=== PATIENT | male | born 1950 | race Caucasian/White ===

== ENCOUNTER 2016-10-26 14:10 | Inpatient (IN) | payer OTHER ==
[~2016-10-26] VITALS: Ht 180.3 cm; Wt 94.4 kg
[2016-10-26 20:29] VITALS: BMI 61.7
[2016-10-26 21:09] VITALS: BP 105/69; PULSE 104; RESP 18
[2016-10-26] MEDS ORDERED: VANCOMYCIN IV PER PHARMACY XX SCH (23:30)
[2016-10-26] MEDS ORDERED: SOD CHLORIDE 0.9% 1,000 ML IV SCH (23:30)
[2016-10-26] MEDS ORDERED: ONDANSETRON 4 MG INJ IV PRN (23:30)
[2016-10-26] MEDS: morphine 4 MG/ML VIAL IV PRN (23:46)
[2016-10-27] MEDS ORDERED: VANCOMYCIN 2 GM in SOD CHLORIDE 0.9% 500 ML IVPB SCH (01:00)
[2016-10-27 01:05] LABS: BASOPHILS % 0.1 % (0.0-2.0); HEMATOCRIT 33.5 % (42.0-52.0); LYMPHOCYTES # 0.6 10^3/ul (0.8-2.9); LYMPHOCYTES % 3.7 % (15.0-51.0); MEAN CORPUSCULAR HEMOGLOBIN 28.6 pg (29.0-33.0); MEAN CORPUSCULAR HGB CONC 32.9 g/dl (32.0-37.0); MEAN PLATELET VOLUME 9.4 fl (7.4-10.4); MONOCYTE # 0.9 10^3/ul (0.3-0.9); MONOCYTES % 5.6 % (0.0-11.0); NEUTROPHIL # 14.7 10^3/ul (1.6-7.5); NEUTROPHILS % 90.6 % (39.0-77.0); PLATELET COUNT 156 10^3/UL (140-440); RED BLOOD COUNT 3.85 10^6/ul (4.70-6.10); RED CELL DISTRIBUTION WIDTH 13.8 % (11.5-14.5); UNCORRECTED WBC 16.2 10^3/ul (4.8-10.8); WHITE BLOOD COUNT 16.2 10^3/ul (4.8-10.8)
[2016-10-27 01:11] LABS: CONDITION 1; LH ANALYZER COMMENTS 1; SUSPECT 1
[2016-10-27 01:29] LABS: POTASSIUM 3.6 mmol/L (3.5-5.1)
[2016-10-27 01:31] LABS: BILIRUBIN,INDIRECT 0.6 mg/dl (0-1.1); BILIRUBIN,TOTAL 0.6 mg/dl (0.2-1.3); CREATININE 0.95 mg/dl (0.61-1.24)
[2016-10-27 01:32] LABS: ALBUMIN/GLOBULIN RATIO 0.88; CALCIUM 8.3 mg/dl (8.4-10.2); MAGNESIUM 2.3 mg/dl (1.7-2.5); PHOSPHORUS 2.3 mg/dl (2.5-4.9); TOTAL PROTEIN 6.4 g/dl (6.1-8.1)
[2016-10-27] MEDS: morphine 4 MG/ML VIAL IV PRN ×2 (05:09→22:09)
[2016-10-27 08:26] VITALS: BP 111/63; RESP 21
[2016-10-27 09:02] VITALS: Ht 180.3 cm; Wt 94.4 kg
[2016-10-27] MEDS: CEFEPIME 1GM/50 ML (PMX) 50 ML IVPB SCH ×2 (09:11→21:58)
[2016-10-27] MEDS: HEPARIN 5,000 UNIT/0.5 ML SYG SC SCH ×2 (09:14→21:58)
--- NOTE | 2016-10-27 10:30 | HP ---
DATE OF ADMISSION: 10/26/2016 CHIEF COMPLAINT: Right knee swelling, redness and pain. HISTORY OF PRESENT ILLNESS: The patient is a 66-year-old male, who is a Muslim with a hi story of right knee surgery 3 years ago, who initially presented to an outside hospital with the abo ve stated chief complaint. He said the symptom have been progressively getting worse. The patient was transferred here for insurance reasons. He also reported that the area of the right knee is war m and also he has been noticing some redness below his knee as well. There was an initial plan to d o arthrocentesis at the outside hospital, but for some reason it was not done and the patient was tr ansferred here. He denied any chest pain, shortness of breath, nausea or vomiting. He stated that currently his pain is much better with the pain regimen that he is on right now. REVIEW OF SYSTEMS: A 12-point review of systems was performed, negative except as mentioned in HPI. PAST MEDICAL HISTORY: As per HPI. PAST SURGICAL HISTORY: Right knee surgery 20 years ago. SOCIAL HISTORY: Denied a history of tobacco, alcohol or illicit drug use. ALLERGIES: NO KNOWN DRUG ALLERGIES. HOME MEDICATIONS: None. PHYSICAL EXAMINATION: GENERAL: The patient lying in bed in no acute distress. He is cooperative and answering questions appropriately. He is alert and oriented. HEENT: No obvious head deformity. Pupils are reactive to light. Extraocular muscles intact. CARDIOVASCULAR: Regular rate and rhythm. LUNGS: Clear. ABDOMEN: Soft, nontender, nondistended. Positive bowel sounds. EXTREMITIES: Right knee is swollen and there is erythema including his right hart. His right knee is also warm to touch. There is also some pitting edema around his right ankle. LABORATORY DATA: WBC 16.2, hemoglobin 11. Sodium 132. Otherwise, basic labs are within acceptable range. IMPRESSION: 1. Right knee/right lower extremity cellulitis. 2. Sepsis, secondary to above. 3. Normocytic anemia, likely from chronic disease, but we will workup for GI bleed and iron deficie ncy. 4. Hyponatremia. PLAN: He will be placed on a broad-spectrum antibiotics. We will obtain an x-ray and based on the results, we will do arthrocentesis. We will send blood culture. We will place an infectious diseas e consult. Additional imaging will be done. We will send ferritin, iron profile and check FOBT for workup of his anemia. We will correct electrolytes as needed. We will also provide pain medicatio n as needed. Note that the patient is a Muslim. Further workup and management will be per clinical course. Dictated By: MANDY VIDAL/REJI Conf#: [id number] DID#: [id number]
--- NOTE | 2016-10-27 10:54 | RADRPT ---
PROCEDURE: Right knee x-ray CLINICAL INDICATION: Swelling. TECHNIQUE: Two views of the right knee were obtained. COMPARISON: No. FINDINGS: The patient is status post total knee replacement . There is soft tissue swelling but no foreign kiarra dy or subcutaneous emphysema is noted. There is a joint space effusion. There is normal mineralization. No acute fracture or dislocation is seen. The components of the ar throplasty appear anatomically aligned without evidence of loosening. IMPRESSION: 1. Status post total right knee arthroplasty with a moderate sized joint space effusion and soft tis ez swelling. RPTAT:AAJJ Physician Cayd Date Time Electronically viewed and signed by Physician Cady on 10/27/2016 10:54 /
--- NOTE | 2016-10-27 10:55 | RADRPT ---
PROCEDURE: XR right Tibia and Fibula. CLINICAL INDICATION: Swelling. TECHNIQUE: AP and lateral views of the right tibia and fibula were obtained. COMPARISON: No prior studies are available for comparison. FINDINGS: There is a partially visualized tibial component of the right knee arthroplasty. The bony elements are normal. Ankle mortise is normal. There is generalized soft tissue swelling with no fracture or radiographic evidence of osteomyelitis. IMPRESSION: 1. Diffuse soft tissue swelling of the right leg without evidence of a fracture, subcutaneous emphys siomara or osteomyelitis. 2. Partially visualized tibial component of a right knee arthroplasty. No evidence of loosening. RPTAT:AAJJ Physician Cady Date Time Electronically viewed and signed by Enio Arreola Physician on 10/27/2016 10:55 JM/
[2016-10-27] MEDS ORDERED: SOD CHLORIDE 0.9% IVPB ONE (13:00)
[2016-10-27] MEDS ORDERED: POTASSIUM PHOSPHATE IVPB ONE (13:00)
--- NOTE | 2016-10-27 14:44 | CONS ---
DATE OF ADMISSION: 10/26/2016 DATE OF CONSULTATION: 10/27/2016 TYPE OF CONSULTATION: Infectious Disease. REASON FOR CONSULTATION: Antibiotic management. HISTORY OF PRESENT ILLNESS: Pankaj Solitario is a 66-year-old male who comes in with right knee swelling and redness as well as pain. He is a Amish. He has a history of right knee surgery 3 years ago and presented to the outside hospital with complaints of right knee swelling, redness and pain which were progressively getting worse. The knee was warm. He also had right knee surgery, acc ording to the chart, 20 years ago. On admission, his white count was 16.2, H and H of 11 and 33.5, platelet count of 156,000. BUN and creatinine was 32/0.95. X-ray of the tibia and fibula shows diffuse soft tissue swelling of the right leg without evidence o f a fracture, subcutaneous emphysema or osteomyelitis partially visualized tibial component of the r ight knee arthroplasty. No evidence of loosening. X-ray of the knee, status post total right knee replacement and arthroplasty with a moderate sized joint space effusion and soft tissue swelling. PAST MEDICAL HISTORY: Operations as outlined. FAMILY HISTORY: Noncontributory. SOCIAL HISTORY: He does not smoke, drink or abuse drugs. ALLERGIES: NONE TO PENICILLIN, SULFA OR FOODS. MEDICATIONS: Per chart. REVIEW OF SYSTEMS: As per HPI. PHYSICAL EXAMINATION: GENERAL: The patient is a well-developed, well-nourished male who is alert, responsive, in no acute distress. VITAL SIGNS: Stable. He is afebrile. SKIN: Without generalized rash. HEENT: Within normal limits. NECK: Supple. LYMPH NODES: None palpable. CHEST: Decreased breath sounds at the bases. HEART: Without murmur or gallop. ABDOMEN: Soft, nontender, without organosplenomegaly or masses. EXTREMITIES: Right knee is swollen and erythematous, warm to the touch. There is some pitting desmond a around the right ankle. RECTAL AND GENITAL: Deferred. NEUROLOGIC: No focal neurological abnormalities. LABORATORY DATA: His white count was 16.2, H and H of 11 and 33.5, platelet count 156 with 91% poly s. BUN and creatinine 32/0.95. IMPRESSION AND PLAN: My feeling is that the patient needs aspiration of the knee. Blood cultures s hould be sent. I would prefer that the antibiotics would not start until after the arthrocentesis. T he patient is only on vancomycin and cefepime. I believe one blood culture was sent. I will dictate my findings to the hospitalist. Dictated By: ABIMAEL MARTINS MD, JD/REJI Conf#: [id number] DID#: [id number]
[2016-10-27] MEDS: VANCOMYCIN 1.25 GM in SOD CHLORIDE 0.9% 250 ML IVPB SCH (14:54)
--- NOTE | 2016-10-27 15:25 | PN ---
Date/Time of Note Date/Time of Note DATE: 10/27/16 TIME: 15:07 Assessment/Plan VTE Prophylaxis VTE Prophylaxis Intervention: heparin Lines/Catheters IV C[facility] Type (from [facility] Peripheral IV Urinary Cath still in place: No Assessment/Plan Chief Complaint/Hosp Course 1. Right lower extremity cellulitis -ID consult, cont Abx with Vanco and Cefepime for now 2. Sepsis, secondary to above. 3. Normocytic anemia, likely from chronic disease -monitor 4. Hyponatremia-mild PPx- Heparin Problems: Subjective 24 Hr Interval Summary Constitutional: no complaints Exam/Review of Systems Vital Signs Vitals Vital Signs Date Time Temp Pulse Resp B/P Pulse Ox O2 Delivery O2 Flow Rate FiO2 10/27/16 08:26 99.3 21 111/63 91 10/26/16 21:09 104 Room Air Intake and Output 10/26/16 10/26/16 10/27/16 15:00 23:00 07:00 Intake Total 1700 ml Output Total 550 ml Balance 1150 ml Exam Constitutional: alert, oriented Respiratory: clear to auscultation Cardiovascular: regular rate and rhythm Gastrointestinal: soft, No distended Musculoskeletal: No nl extremities to inspection Results Result Diagram: 10/27/16 0051 10/27/16 0051 Results 24 hrs Laboratory Tests Test 10/27/16 00:51 Alanine Aminotransferase (ALT/SGPT) 36 Albumin 3.0 L Albumin/Globulin Ratio 0.88 Alkaline Phosphatase 85 Anion Gap 14 Aspartate Amino Transf (AST/SGOT) 45 Basophils # 0.0 Basophils % 0.1 Blood Morphology Comment Blood Urea Nitrogen 32 H Calcium Level 8.3 L Carbon Dioxide Level 27 Chloride Level 95 L Creatinine 0.95 Direct Bilirubin 0.00 Eosinophils # 0.0 Eosinophils % 0.0 Globulin 3.40 H Glucose Level 145 Hematocrit 33.5 L Hemoglobin 11.0 L Indirect Bilirubin 0.6 Lymphocytes # 0.6 L Lymphocytes % 3.7 L Magnesium Level 2.3 Mean Corpuscular Hemoglobin 28.6 L Mean Corpuscular Hemoglobin Concent 32.9 Mean Corpuscular Volume 87.0 Mean Platelet Volume 9.4 Monocytes # 0.9 Monocytes % 5.6 Neutrophils # 14.7 H Neutrophils % 90.6 H Nucleated Red Blood Cells # 0.0 Nucleated Red Blood Cells % 0.0 Phosphorus Level 2.3 L Platelet Count 156 Potassium Level 3.6 Red Blood Count 3.85 L Red Cell Distribution Width 13.8 Sodium Level 132 L Total Bilirubin 0.6 Total Protein 6.4 White Blood Count 16.2 H Medications Medications Current Medications Influenza Virus Vaccine (Fluzone) 0.5 ml ONCE ONCE IM* ; Start 10/28/16 at 09:00 ; Stop 10/28/16 at 09:01 Morphine Sulfate (morphine) 4 mg Q4H PRN IV PAIN Last administered on 05:09; Admin Dose 4 MG; Start 10/26/16 at 23:30 Ondansetron HCl (Zofran Inj) 4 mg Q6H PRN IV NAUSEA AND/OR VOMITING; Start at 23:30 Heparin Sodium (Porcine) 5000 unit 5,000 unit BID SC Last administered on 09:14; Admin Dose 5,000 UNIT; Start 10/27/16 at 09:00 Cefepime HCl 50 ml @ 100 mls/hr Q12 IVPB Last administered on 10/27/16 09:11 ; Admin Dose 100 MLS/HR; Start 10/27/16 at 09:00 Vancomycin HCl/ Sodium Chloride (Vancocin/NS) 250 ml @ 83.333 mls/ hr Q12H IVPB Last administered on 10/27/16 14:54; Admin Dose 83.333 MLS/HR; Start at 14:00 Miscellaneous Information VANCO TROUGH @ 1,300 ON... ONCE ONCE XX ; Start at 13:00; Stop 10/28/16 at 13:01 Potassium Phosphate/Sodium Chloride (K Phos (Meq)/NS) 250 ml @ 62.5 mls/hr ONCE ONCE IVPB Last administered on 10/27/16 12:52; Admin Dose 62.5 MLS/HR; Start 10/27/16 at 13:00; Stop 10/27/16 at 16:59 PHIL OWENS Oct 27, 2016 15:18
[2016-10-27 20:24] VITALS: BP 127/64; RESP 20
[2016-10-28 00:10] LABS: ADD UMIC YES; URINE BILIRUBIN (Dip) NEGATIVE (NEGATIVE); URINE BLOOD (Dip) 3+ (NEGATIVE); URINE COLOR YELLOW (YELLOW); URINE GLUCOSE (Dip) NEGATIVE (NEGATIVE); URINE KETONES (Dip) NEGATIVE (NEGATIVE); URINE LEUKOCYTE ESTERASE (Dip) NEGATIVE (NEGATIVE); URINE NITRITE (Dip) NEGATIVE (NEGATIVE); URINE TOTAL PROTEIN (Dip) 2+ (NEGATIVE); URINE UROBILINOGEN (Dip) 1.0 E.U./dL (0.1-1.0)
[2016-10-28 00:25] LABS: BACTERIA,URINE MODERATE; SQUAMOUS EPITHELIAL CELL,UR OCCASIONAL
[2016-10-28] MEDS: VANCOMYCIN 1.25 GM in SOD CHLORIDE 0.9% 250 ML IVPB SCH ×2 (02:03→14:05)
[2016-10-28 06:12] LABS: HEMATOCRIT 32.4 % (42.0-52.0); HEMOGLOBIN 10.9 g/dl (14.0-18.0); LYMPHOCYTES % 7.9 % (15.0-51.0); MEAN CORPUSCULAR HEMOGLOBIN 29.2 pg (29.0-33.0); MEAN CORPUSCULAR HGB CONC 33.7 g/dl (32.0-37.0); MEAN CORPUSCULAR VOLUME 86.7 fl (82.0-101.0); MEAN PLATELET VOLUME 9.9 fl (7.4-10.4); MONOCYTES % 8.1 % (0.0-11.0); NEUTROPHIL # 10.6 10^3/ul (1.6-7.5); PLATELET COUNT 165 10^3/UL (140-440); RED BLOOD COUNT 3.74 10^6/ul (4.70-6.10); RED CELL DISTRIBUTION WIDTH 14.1 % (11.5-14.5); UNCORRECTED WBC 12.6 10^3/ul (4.8-10.8); WHITE BLOOD COUNT 12.6 10^3/ul (4.8-10.8)
[2016-10-28] MEDS: morphine 4 MG/ML VIAL IV PRN ×2 (06:27→21:50)
[2016-10-28 06:28] LABS: CONDITION 1
[2016-10-28 06:35] LABS: POTASSIUM 3.9 mmol/L (3.5-5.1)
[2016-10-28 06:37] LABS: CREATININE 0.78 mg/dl (0.61-1.24)
[2016-10-28 06:38] LABS: CALCIUM 7.9 mg/dl (8.4-10.2); PHOSPHORUS 2.6 mg/dl (2.5-4.9)
[2016-10-28 06:39] LABS: MAGNESIUM 2.4 mg/dl (1.7-2.5)
[2016-10-28 07:30] VITALS: BP 119/74; RESP 20
[2016-10-28] MEDS: HEPARIN 5,000 UNIT/0.5 ML SYG SC SCH ×2 (08:45→21:33)
[2016-10-28] MEDS: CEFEPIME 1GM/50 ML (PMX) 50 ML IVPB SCH ×2 (08:45→21:24)
[2016-10-28] MEDS ORDERED: INFLUENZA VIRUS VACCINE 0.5 ML (DISPENSING) IM* ONE (09:00)
--- NOTE | 2016-10-28 13:30 | PN ---
DATE: 10/28/2016 INFECTIOUS DISEASE PROGRESS NOTE SUBJECTIVE: No acute changes. The patient is lying comfortably in bed, afebrile. Vital signs stab le. WBC today 12.6, neutrophils 84, BUN 18, creatinine 0.78. MICROBIOLOGY: Blood culture negative. Nares swab pending. DIAGNOSTICS: X-ray of the knee revealed status post total right knee arthroplasty with a moderate-s ized joint space effusion and soft tissue swelling. ANTIMICROBIALS: The patient is on IV vancomycin and cefepime. PHYSICAL EXAMINATION: GENERAL: Well-developed elderly man who is alert, in no distress. HEENT: Head atraumatic, normocephalic. Sclerae anicteric. Buccal mucosa pink. NECK: Supple, trachea midline. CHEST: Rise symmetrical. Breath sounds clear. HEART: S1, S2. ABDOMEN: Soft, bowel tones present. EXTREMITIES: With right lower extremity edema with some fluctuance of the knee and erythema below k nee. ASSESSMENT: 1. Right knee cellulitis with effusions, rule out infected arthroplasty. 2. Systemic inflammatory response syndrome secondary to above. 3. History of right total knee replacement. PLAN: The patient remains stable, covered with appropriate antibiotics. Consider ortho evaluation for further recommendations. According to patient he had a synovial fluid aspiration at [facility]. We will try to obtain final results. Dictated By: SHAKIRA EDOUARD STERNMAN for ABIMAEL PLATA/REJI Conf#: [id number] DID#: [id number]
--- NOTE | 2016-10-28 15:54 | PN ---
Date/Time of Note Date/Time of Note DATE: 10/28/16 TIME: 15:51 Assessment/Plan VTE Prophylaxis VTE Prophylaxis Intervention: heparin Lines/Catheters IV [facility] Saline Lock Urinary Cath still in place: No Assessment/Plan Chief Complaint/Hosp Course 1. Right lower extremity cellulitis-Improving -ID consult appreciated, cont Abx with Vanco and Cefepime -Will obtain Cx's from outside facility-[facility] 2. Sepsis, secondary to above. 3. Normocytic anemia, likely from chronic disease -monitor 4. Hyponatremia-mild PPx- Heparin Problems: Subjective 24 Hr Interval Summary Constitutional: no complaints Exam/Review of Systems Vital Signs Vitals Vital Signs Date Time Temp Pulse Resp B/P Pulse Ox O2 Delivery O2 Flow Rate FiO2 10/28/16 07:30 98.6 76 20 119/74 96 10/26/16 21:09 Room Air Intake and Output 10/27/16 10/27/16 10/28/16 15:00 23:00 07:00 Intake Total 1250 ml 850 ml Output Total 400 ml 600 ml Balance 850 ml 250 ml Exam Constitutional: alert, oriented Respiratory: clear to auscultation Cardiovascular: regular rate and rhythm Gastrointestinal: soft, No distended Musculoskeletal: No nl extremities to inspection Results Result Diagram: 10/28/16 0530 10/28/16 0530 Results 24 hrs Laboratory Tests Test 10/27/16 21:55 10/28/16 05:30 10/28/16 13:08 Urine Bacteria MODERATE Urine Bilirubin NEGATIVE Urine Clarity CLOUDY H Urine Color YELLOW Urine Glucose NEGATIVE Urine Hemoglobin 3+ H Urine Ketones NEGATIVE Urine Leukocyte Esterase NEGATIVE Urine Microscopic RBC 5-10 Urine Microscopic WBC 0-2 Urine Nitrite NEGATIVE Urine Specific [place] 1.025 Urine Squamous Epithelial Cells OCCASIONAL Urine Total Protein 2+ H Urine Urobilinogen 1.0 E.U./dL Urine pH 6.0 Anion Gap 10 Basophils # 0.0 Basophils % 0.0 Blood Urea Nitrogen 18 # Calcium Level 7.9 L Carbon Dioxide Level 29 Chloride Level 98 Creatinine 0.78 Eosinophils # 0.0 Eosinophils % 0.0 Glucose Level 130 Hematocrit 32.4 L Hemoglobin 10.9 L Lymphocytes # 1.0 Lymphocytes % 7.9 L Magnesium Level 2.4 Mean Corpuscular Hemoglobin 29.2 Mean Corpuscular Hemoglobin Concent 33.7 Mean Corpuscular Volume 86.7 Mean Platelet Volume 9.9 Monocytes # 1.0 H Monocytes % 8.1 Neutrophils # 10.6 H Neutrophils % 84.0 H Nucleated Red Blood Cells # 0.0 Nucleated Red Blood Cells % 0.0 Phosphorus Level 2.6 Platelet Count 165 Potassium Level 3.9 Red Blood Count 3.74 L Red Cell Distribution Width 14.1 Sodium Level 133 L White Blood Count 12.6 #H Vancomycin Level Trough 10.9 Medications Medications Current Medications Morphine Sulfate (morphine) 4 mg Q4H PRN IV PAIN Last administered on 06:27; Admin Dose 4 MG; Start 10/26/16 at 23:30 Ondansetron HCl (Zofran Inj) 4 mg Q6H PRN IV NAUSEA AND/OR VOMITING; Start at 23:30 Heparin Sodium (Porcine) 5000 unit 5,000 unit BID SC Last administered on 08:45; Admin Dose 5,000 UNIT; Start 10/27/16 at 09:00 Cefepime HCl 50 ml @ 100 mls/hr Q12 IVPB Last administered on 10/28/16 08:45 ; Admin Dose 100 MLS/HR; Start 10/27/16 at 09:00 Vancomycin HCl/ Sodium Chloride (Vancocin/NS) 250 ml @ 83.333 mls/ hr Q12H IVPB Last administered on 10/28/16 14:05; Admin Dose 83.333 MLS/HR; Start at 14:00 PHIL OWENS Oct 28, 2016 15:54
[2016-10-28 19:59] VITALS: BP 128/72; RESP 16
[2016-10-28] MEDS ORDERED: MAGNESIUM HYDROXIDE 30ML CUP PO ONE (23:00)
[2016-10-29] MEDS: HYDROCODONE/APAP (10/325) TAB PO PRN ×2 (00:06→20:36)
[2016-10-29] MEDS: SENNA TAB PO SCH ×2 (00:08→09:54)
[2016-10-29] MEDS: VANCOMYCIN 1.25 GM in SOD CHLORIDE 0.9% 250 ML IVPB SCH ×2 (01:34→13:17)
[2016-10-29 05:42] LABS: POTASSIUM 3.7 mmol/L (3.5-5.1)
[2016-10-29 05:45] LABS: CREATININE 0.65 mg/dl (0.61-1.24)
[2016-10-29 05:46] LABS: CALCIUM 7.8 mg/dl (8.4-10.2)
[2016-10-29 06:07] LABS: BASOPHILS % 0.4 % (0.0-2.0); EOSINOPHILS % 0.5 % (0.0-7.0); HEMATOCRIT 31.4 % (42.0-52.0); HEMOGLOBIN 10.5 g/dl (14.0-18.0); LYMPHOCYTES # 1.3 10^3/ul (0.8-2.9); LYMPHOCYTES % 13.3 % (15.0-51.0); MEAN CORPUSCULAR HEMOGLOBIN 29.1 pg (29.0-33.0); MEAN CORPUSCULAR HGB CONC 33.5 g/dl (32.0-37.0); MEAN CORPUSCULAR VOLUME 86.7 fl (82.0-101.0); MEAN PLATELET VOLUME 9.6 fl (7.4-10.4); MONOCYTES % 10.7 % (0.0-11.0); NEUTROPHIL # 7.3 10^3/ul (1.6-7.5); NEUTROPHILS % 75.1 % (39.0-77.0); PLATELET COUNT 207 10^3/UL (140-440); RED BLOOD COUNT 3.62 10^6/ul (4.70-6.10); RED CELL DISTRIBUTION WIDTH 14.1 % (11.5-14.5); UNCORRECTED WBC 9.7 10^3/ul (4.8-10.8); WHITE BLOOD COUNT 9.7 10^3/ul (4.8-10.8)
[2016-10-29 06:12] LABS: CONDITION 1
[2016-10-29 09:39] VITALS: BP 137/69; RESP 20
[2016-10-29] MEDS: CEFEPIME 1GM/50 ML (PMX) 50 ML IVPB SCH ×2 (09:49→20:35)
[2016-10-29] MEDS: HEPARIN 5,000 UNIT/0.5 ML SYG SC SCH ×2 (09:53→20:35)
--- NOTE | 2016-10-29 11:23 | CONS ---
Date/Time of Note Date/Time of Note DATE: 10/29/16 TIME: 11:22 Assessment/Plan Assessment/Plan Chief Complaint/Hosp Course SUBJECTIVE: No acute changes. The patient is lying comfortably in bed, afebrile. Vital signs stable. MICROBIOLOGY: Blood culture negative. Nares swab negative. DIAGNOSTICS: X-ray of the knee revealed status post total right knee arthroplasty with a moderate-sized joint space effusion and soft tissue swelling. ANTIMICROBIALS: The patient is on IV vancomycin and cefepime. PHYSICAL EXAMINATION: GENERAL: Well-developed elderly man who is alert, in no distress. HEENT: Head atraumatic, normocephalic. Sclerae anicteric. Buccal mucosa pink. NECK: Supple, trachea midline. CHEST: Rise symmetrical. Breath sounds clear. HEART: S1, S2. ABDOMEN: Soft, bowel tones present. EXTREMITIES: With right lower extremity edema with some fluctuance of the knee and erythema below knee. ASSESSMENT: 1. Right knee cellulitis with effusions, rule out infected arthroplasty. 2. Systemic inflammatory response syndrome secondary to above. 3. History of right total knee replacement. PLAN: The patient remains stable, covered with appropriate antibiotics. Consider ortho evaluation for further recommendations. Patient had a synovial fluid aspiration at [facility]. We will try to obtain final results. MARY BETH RN Problems: Consultation Date/Type/Reason Admit Date/Time Oct 26, 2016 at 19:59 Initial Consult Date Type of Consultation: ID Exam/Review of Systems Vital Signs Vitals Vital Signs Date Time Temp Pulse Resp B/P Pulse Ox O2 Delivery O2 Flow Rate FiO2 10/29/16 09:39 98.2 93 20 137/69 96 10/26/16 21:09 Room Air Intake and Output 10/28/16 10/28/16 10/29/16 15:00 23:00 07:00 Intake Total 50 ml 1020 ml 930 ml Output Total 4 ml 800 ml Balance 50 ml 1016 ml 130 ml Results Result Diagram: 10/29/16 0451 10/29/16 0451 Results 24 hrs Laboratory Tests Test 10/28/16 13:08 10/29/16 04:51 Vancomycin Level Trough 10.9 Anion Gap 11 Basophils # 0.0 Basophils % 0.4 Blood Urea Nitrogen 14 Calcium Level 7.8 L Carbon Dioxide Level 27 Chloride Level 100 Creatinine 0.65 Eosinophils # 0.0 Eosinophils % 0.5 Glucose Level 116 Hematocrit 31.4 L Hemoglobin 10.5 L Lymphocytes # 1.3 Lymphocytes % 13.3 L Mean Corpuscular Hemoglobin 29.1 Mean Corpuscular Hemoglobin Concent 33.5 Mean Corpuscular Volume 86.7 Mean Platelet Volume 9.6 Monocytes # 1.0 H Monocytes % 10.7 Neutrophils # 7.3 Neutrophils % 75.1 Nucleated Red Blood Cells # 0.0 Nucleated Red Blood Cells % 0.0 Platelet Count 207 # Potassium Level 3.7 Red Blood Count 3.62 L Red Cell Distribution Width 14.1 Sodium Level 134 L White Blood Count 9.7 # Medications Medications Current Medications Morphine Sulfate (morphine) 4 mg Q4H PRN IV PAIN Last administered on 21:50; Admin Dose 4 MG; Start 10/26/16 at 23:30 Ondansetron HCl (Zofran Inj) 4 mg Q6H PRN IV NAUSEA AND/OR VOMITING; Start at 23:30 Heparin Sodium (Porcine) 5000 unit 5,000 unit BID SC Last administered on 09:53; Admin Dose 5,000 UNIT; Start 10/27/16 at 09:00 Cefepime HCl 50 ml @ 100 mls/hr Q12 IVPB Last administered on 10/29/16 09:49 ; Admin Dose 100 MLS/HR; Start 10/27/16 at 09:00 Vancomycin HCl/ Sodium Chloride (Vancocin/NS) 250 ml @ 83.333 mls/ hr Q12H IVPB Last administered on 10/29/16 01:34; Admin Dose 83.333 MLS/HR; Start at 14:00 Senna (Senokot) 2 tab DAILY PO Last administered on 10/29/16 09:54; Admin Dose 2 TAB; Start 10/29/16 at 00:00 Acetaminophen/ Hydrocodone Bitart ([place] (10/325)) 1 tab Q6H PRN PO PAIN Last administered on 10/29/16 00:06; Admin Dose 1 TAB; Start 10/28/16 at 23:30 SHAKIRA EDOUARD NP Oct 29, 2016 11:23
--- NOTE | 2016-10-29 15:33 | PN ---
Date/Time of Note Date/Time of Note DATE: 10/29/16 TIME: 15:29 Assessment/Plan VTE Prophylaxis VTE Prophylaxis Intervention: heparin Lines/Catheters IV C[facility] Type (from [facility]): Saline Lock Urinary Cath still in place: No Assessment/Plan Chief Complaint/Hosp Course 1. Right lower extremity cellulitis involving the knee -Joint fluid aspirate from [place] confirms infection of the Prosthetic knee -Knee replacement done [address] Mixon at [facility], per in house Ortho pt will need to be seen by him or another Ortho who specializes in prosthetic knee replacements -ID consult appreciated, cont Abx with Vanco and Cefepime 2. Sepsis, secondary to above -cont Abx 3. Normocytic anemia, likely from chronic disease -monitor 4. Hyponatremia-mild PPx- Heparin Problems: Subjective 24 Hr Interval Summary Musculoskeletal: bone/joint pain Exam/Review of Systems Vital Signs Vitals Vital Signs Date Time Temp Pulse Resp B/P Pulse Ox O2 Delivery O2 Flow Rate FiO2 10/29/16 09:39 98.2 93 20 137/69 96 10/26/16 21:09 Room Air Intake and Output 10/28/16 10/28/16 10/29/16 15:00 23:00 07:00 Intake Total 50 ml 1020 ml 930 ml Output Total 4 ml 800 ml Balance 50 ml 1016 ml 130 ml Exam Constitutional: alert, oriented Respiratory: clear to auscultation Cardiovascular: regular rate and rhythm Gastrointestinal: soft, No distended Musculoskeletal: joint tenderness, No nl extremities to inspection Results Result Diagram: 10/29/16 0451 10/29/16 0451 Results 24 hrs Laboratory Tests Test 10/29/16 04:51 Anion Gap 11 Basophils # 0.0 Basophils % 0.4 Blood Urea Nitrogen 14 Calcium Level 7.8 L Carbon Dioxide Level 27 Chloride Level 100 Creatinine 0.65 Eosinophils # 0.0 Eosinophils % 0.5 Glucose Level 116 Hematocrit 31.4 L Hemoglobin 10.5 L Lymphocytes # 1.3 Lymphocytes % 13.3 L Mean Corpuscular Hemoglobin 29.1 Mean Corpuscular Hemoglobin Concent 33.5 Mean Corpuscular Volume 86.7 Mean Platelet Volume 9.6 Monocytes # 1.0 H Monocytes % 10.7 Neutrophils # 7.3 Neutrophils % 75.1 Nucleated Red Blood Cells # 0.0 Nucleated Red Blood Cells % 0.0 Platelet Count 207 # Potassium Level 3.7 Red Blood Count 3.62 L Red Cell Distribution Width 14.1 Sodium Level 134 L White Blood Count 9.7 # Medications Medications Current Medications Morphine Sulfate (morphine) 4 mg Q4H PRN IV PAIN Last administered on 21:50; Admin Dose 4 MG; Start 10/26/16 at 23:30 Ondansetron HCl (Zofran Inj) 4 mg Q6H PRN IV NAUSEA AND/OR VOMITING; Start at 23:30 Heparin Sodium (Porcine) 5000 unit 5,000 unit BID SC Last administered on 09:53; Admin Dose 5,000 UNIT; Start 10/27/16 at 09:00 Cefepime HCl 50 ml @ 100 mls/hr Q12 IVPB Last administered on 10/29/16 09:49 ; Admin Dose 100 MLS/HR; Start 10/27/16 at 09:00 Vancomycin HCl/ Sodium Chloride (Vancocin/NS) 250 ml @ 83.333 mls/ hr Q12H IVPB Last administered on 10/29/16 13:17; Admin Dose 83.333 MLS/HR; Start at 14:00 Senna (Senokot) 2 tab DAILY PO Last administered on 10/29/16 09:54; Admin Dose 2 TAB; Start 10/29/16 at 00:00 Acetaminophen/ Hydrocodone Bitart ([place] (10/325)) 1 tab Q6H PRN PO PAIN Last administered on 10/29/16 00:06; Admin Dose 1 TAB; Start 10/28/16 at 23:30 PHIL OWENS Oct 29, 2016 15:33
[2016-10-29 19:34] VITALS: BP 150/78; RESP 20
[2016-10-29] MEDS: morphine 4 MG/ML VIAL IV PRN (22:54)
[2016-10-30] MEDS: VANCOMYCIN 1.25 GM in SOD CHLORIDE 0.9% 250 ML IVPB SCH ×2 (02:26→13:57)
[2016-10-30 06:16] LABS: BASOPHILS % 0.4 % (0.0-2.0); EOSINOPHILS # 0.1 10^3/ul (0.0-0.5); EOSINOPHILS % 0.9 % (0.0-7.0); HEMATOCRIT 32.1 % (42.0-52.0); HEMOGLOBIN 10.6 g/dl (14.0-18.0); LYMPHOCYTES # 1.3 10^3/ul (0.8-2.9); LYMPHOCYTES % 13.5 % (15.0-51.0); MEAN CORPUSCULAR HGB CONC 33.2 g/dl (32.0-37.0); MEAN CORPUSCULAR VOLUME 87.3 fl (82.0-101.0); MEAN PLATELET VOLUME 8.8 fl (7.4-10.4); MONOCYTES % 11.1 % (0.0-11.0); NEUTROPHIL # 6.9 10^3/ul (1.6-7.5); NEUTROPHILS % 74.1 % (39.0-77.0); PLATELET COUNT 294 10^3/UL (140-440); RED BLOOD COUNT 3.67 10^6/ul (4.70-6.10); RED CELL DISTRIBUTION WIDTH 14.1 % (11.5-14.5); UNCORRECTED WBC 9.3 10^3/ul (4.8-10.8); WHITE BLOOD COUNT 9.3 10^3/ul (4.8-10.8)
[2016-10-30 06:27] LABS: CONDITION 1
[2016-10-30 06:30] LABS: POTASSIUM 3.6 mmol/L (3.5-5.1)
[2016-10-30 06:32] LABS: CREATININE 0.64 mg/dl (0.61-1.24)
[2016-10-30 06:33] LABS: CALCIUM 7.9 mg/dl (8.4-10.2)
[2016-10-30 07:43] VITALS: BP 135/78; RESP 20
[2016-10-30] MEDS: SENNA TAB PO SCH (08:37)
[2016-10-30] MEDS: HEPARIN 5,000 UNIT/0.5 ML SYG SC SCH ×2 (08:38→22:38)
[2016-10-30] MEDS: CEFEPIME 1GM/50 ML (PMX) 50 ML IVPB SCH ×2 (08:45→23:36)
[2016-10-30] MEDS: morphine 4 MG/ML VIAL IV PRN ×3 (10:24→20:28)
--- NOTE | 2016-10-30 13:51 | CONS ---
Date/Time of Note Date/Time of Note DATE: 10/30/16 TIME: 13:50 Assessment/Plan Assessment/Plan Chief Complaint/Hosp Course SUBJECTIVE: No acute changes. The patient is lying comfortably in bed, afebrile. Vital signs stable. MICROBIOLOGY: Blood culture negative. Nares swab negative. DIAGNOSTICS: X-ray of the knee revealed status post total right knee arthroplasty with a moderate-sized joint space effusion and soft tissue swelling. ANTIMICROBIALS: IV vancomycin and cefepime. PHYSICAL EXAMINATION: GENERAL: Well-developed elderly man who is alert, in no distress. HEENT: Head atraumatic, normocephalic. Sclerae anicteric. Buccal mucosa pink. NECK: Supple, trachea midline. CHEST: Rise symmetrical. Breath sounds clear. HEART: S1, S2. ABDOMEN: Soft, bowel tones present. EXTREMITIES: With right lower extremity edema with some fluctuance of the knee and erythema below knee. ASSESSMENT: 1. Right knee cellulitis with effusions, rule out infected arthroplasty. 2. Systemic inflammatory response syndrome secondary to above. 3. History of right total knee replacement. PLAN: The patient remains stable, covered with appropriate antibiotics. Needs to f/u with his ortho surgeon Dr Mixon for further rec-s DW RN Problems: Consultation Date/Type/Reason Admit Date/Time Oct 26, 2016 at 19:59 Type of Consultation: ID Exam/Review of Systems Vital Signs Vitals Vital Signs Date Time Temp Pulse Resp B/P Pulse Ox O2 Delivery O2 Flow Rate FiO2 10/30/16 10:12 98.7 10/30/16 07:43 81 20 135/78 96 10/26/16 21:09 Room Air Intake and Output 10/29/16 10/29/16 10/30/16 15:00 23:00 07:00 Intake Total 50 ml 1100 ml 550.000 ml Output Total 1000 ml 800 ml Balance 50 ml 100 ml -250.000 ml Results Result Diagram: 10/30/16 0514 10/30/16 0514 Results 24 hrs Laboratory Tests Test 10/30/16 05:14 Anion Gap 12 Basophils # 0.0 Basophils % 0.4 Blood Morphology Comment Blood Urea Nitrogen 11 Calcium Level 7.9 L Carbon Dioxide Level 28 Chloride Level 100 Creatinine 0.64 Eosinophils # 0.1 Eosinophils % 0.9 Glucose Level 102 Hematocrit 32.1 L Hemoglobin 10.6 L Lymphocytes # 1.3 Lymphocytes % 13.5 L Mean Corpuscular Hemoglobin 29.0 Mean Corpuscular Hemoglobin Concent 33.2 Mean Corpuscular Volume 87.3 Mean Platelet Volume 8.8 Monocytes # 1.0 H Monocytes % 11.1 H Neutrophils # 6.9 Neutrophils % 74.1 Nucleated Red Blood Cells # 0.0 Nucleated Red Blood Cells % 0.0 Platelet Count 294 # Potassium Level 3.6 Red Blood Count 3.67 L Red Cell Distribution Width 14.1 Sodium Level 136 White Blood Count 9.3 Medications Medications Current Medications Morphine Sulfate (morphine) 4 mg Q4H PRN IV PAIN Last administered on 10:24; Admin Dose 4 MG; Start 10/26/16 at 23:30 Ondansetron HCl (Zofran Inj) 4 mg Q6H PRN IV NAUSEA AND/OR VOMITING; Start at 23:30 Heparin Sodium (Porcine) 5000 unit 5,000 unit BID SC Last administered on 08:38; Admin Dose 5,000 UNIT; Start 10/27/16 at 09:00 Cefepime HCl 50 ml @ 100 mls/hr Q12 IVPB Last administered on 10/30/16 08:45 ; Admin Dose 100 MLS/HR; Start 10/27/16 at 09:00 Vancomycin HCl/ Sodium Chloride (Vancocin/NS) 250 ml @ 83.333 mls/ hr Q12H IVPB Last administered on 10/30/16 02:26; Admin Dose 83.333 MLS/HR; Start at 14:00 Senna (Senokot) 2 tab DAILY PO Last administered on 10/30/16 08:37; Admin Dose 2 TAB; Start 10/29/16 at 00:00 Acetaminophen/ Hydrocodone Bitart ([place] (10/325)) 1 tab Q6H PRN PO PAIN Last administered on 10/29/16 20:36; Admin Dose 1 TAB; Start 10/28/16 at 23:30 SHAKIRA EDOUARD NP Oct 30, 2016 13:51
--- NOTE | 2016-10-30 15:10 | PN ---
Date/Time of Note Date/Time of Note DATE: 10/30/16 TIME: 15:09 Assessment/Plan VTE Prophylaxis VTE Prophylaxis Intervention: heparin Lines/Catheters IV [facility] Urinary Cath still in place: No Assessment/Plan Chief Complaint/Hosp Course 1. Right lower extremity cellulitis involving the knee -Joint fluid aspirate from [place] confirms infection of the Prosthetic knee -Knee replacement done [address] Mixon at [place], per in house Ortho pt will need to be seen by him or another Ortho who specializes in prosthetic knee replacements -ID consult appreciated, cont Abx with Vanco and Cefepime -CM to arrange for transfer or out-pt F/U with Ortho 2. Sepsis, secondary to above -cont Abx 3. Normocytic anemia, likely from chronic disease -monitor 4. Hyponatremia-mild PPx- Heparin Problems: Subjective 24 Hr Interval Summary Musculoskeletal: bone/joint pain Exam/Review of Systems Vital Signs Vitals Vital Signs Date Time Temp Pulse Resp B/P Pulse Ox O2 Delivery O2 Flow Rate FiO2 10/30/16 10:12 98.7 10/30/16 07:43 81 20 135/78 96 10/26/16 21:09 Room Air Intake and Output 10/29/16 10/29/16 10/30/16 15:00 23:00 07:00 Intake Total 50 ml 1100 ml 550.000 ml Output Total 1000 ml 800 ml Balance 50 ml 100 ml -250.000 ml Exam Constitutional: alert, oriented Respiratory: clear to auscultation Cardiovascular: regular rate and rhythm Gastrointestinal: soft, No distended Musculoskeletal: No nl extremities to inspection Results Result Diagram: 10/30/16 0514 10/30/16 0514 Results 24 hrs Laboratory Tests Test 10/30/16 05:14 Anion Gap 12 Basophils # 0.0 Basophils % 0.4 Blood Morphology Comment Blood Urea Nitrogen 11 Calcium Level 7.9 L Carbon Dioxide Level 28 Chloride Level 100 Creatinine 0.64 Eosinophils # 0.1 Eosinophils % 0.9 Glucose Level 102 Hematocrit 32.1 L Hemoglobin 10.6 L Lymphocytes # 1.3 Lymphocytes % 13.5 L Mean Corpuscular Hemoglobin 29.0 Mean Corpuscular Hemoglobin Concent 33.2 Mean Corpuscular Volume 87.3 Mean Platelet Volume 8.8 Monocytes # 1.0 H Monocytes % 11.1 H Neutrophils # 6.9 Neutrophils % 74.1 Nucleated Red Blood Cells # 0.0 Nucleated Red Blood Cells % 0.0 Platelet Count 294 # Potassium Level 3.6 Red Blood Count 3.67 L Red Cell Distribution Width 14.1 Sodium Level 136 White Blood Count 9.3 Medications Medications Current Medications Morphine Sulfate (morphine) 4 mg Q4H PRN IV PAIN Last administered on 10:24; Admin Dose 4 MG; Start 10/26/16 at 23:30 Ondansetron HCl (Zofran Inj) 4 mg Q6H PRN IV NAUSEA AND/OR VOMITING; Start at 23:30 Heparin Sodium (Porcine) 5000 unit 5,000 unit BID SC Last administered on 08:38; Admin Dose 5,000 UNIT; Start 10/27/16 at 09:00 Cefepime HCl 50 ml @ 100 mls/hr Q12 IVPB Last administered on 10/30/16 08:45 ; Admin Dose 100 MLS/HR; Start 10/27/16 at 09:00 Vancomycin HCl/ Sodium Chloride (Vancocin/NS) 250 ml @ 83.333 mls/ hr Q12H IVPB Last administered on 10/30/16 13:57; Admin Dose 83.333 MLS/HR; Start at 14:00 Senna (Senokot) 2 tab DAILY PO Last administered on 10/30/16 08:37; Admin Dose 2 TAB; Start 10/29/16 at 00:00 Acetaminophen/ Hydrocodone Bitart ([place] (10/325)) 1 tab Q6H PRN PO PAIN Last administered on 10/29/16 20:36; Admin Dose 1 TAB; Start 10/28/16 at 23:30 PHIL OWENS Oct 30, 2016 15:10
[2016-10-30 21:05] VITALS: BP 143/78; RESP 20
[2016-10-30] MEDS: ACETAMINOPHEN 325 MG TAB PO PRN (22:35)
[2016-10-30] MEDS: HYDROCODONE/APAP (10/325) TAB PO PRN (23:44)
[2016-10-31] MEDS: VANCOMYCIN 1.25 GM in SOD CHLORIDE 0.9% 250 ML IVPB SCH ×2 (03:10→14:43)
[2016-10-31 07:30] VITALS: BP 132/75; RESP 18
[2016-10-31] MEDS: morphine 4 MG/ML VIAL IV PRN ×2 (08:17→14:59)
[2016-10-31] MEDS: SENNA TAB PO SCH (08:18)
[2016-10-31 08:25] LABS: BASOPHIL # 0.1 10^3/ul (0.0-0.1); BASOPHILS % 0.5 % (0.0-2.0); EOSINOPHILS # 0.1 10^3/ul (0.0-0.5); EOSINOPHILS % 1.3 % (0.0-7.0); HEMATOCRIT 34.5 % (42.0-52.0); HEMOGLOBIN 11.4 g/dl (14.0-18.0); LYMPHOCYTES # 1.4 10^3/ul (0.8-2.9); LYMPHOCYTES % 12.9 % (15.0-51.0); MEAN CORPUSCULAR HEMOGLOBIN 28.9 pg (29.0-33.0); MEAN CORPUSCULAR HGB CONC 33.1 g/dl (32.0-37.0); MEAN CORPUSCULAR VOLUME 87.2 fl (82.0-101.0); MEAN PLATELET VOLUME 9.1 fl (7.4-10.4); MONOCYTE # 0.9 10^3/ul (0.3-0.9); MONOCYTES % 8.2 % (0.0-11.0); NEUTROPHIL # 8.4 10^3/ul (1.6-7.5); NEUTROPHILS % 77.1 % (39.0-77.0); PLATELET COUNT 341 10^3/UL (140-440); RED BLOOD COUNT 3.95 10^6/ul (4.70-6.10); RED CELL DISTRIBUTION WIDTH 14.1 % (11.5-14.5); UNCORRECTED WBC 10.9 10^3/ul (4.8-10.8); WHITE BLOOD COUNT 10.9 10^3/ul (4.8-10.8)
[2016-10-31 08:28] LABS: CONDITION 1
[2016-10-31 08:31] LABS: POTASSIUM 3.8 mmol/L (3.5-5.1)
[2016-10-31 08:33] LABS: CREATININE 0.65 mg/dl (0.61-1.24)
[2016-10-31 08:34] LABS: CALCIUM 7.9 mg/dl (8.4-10.2)
[2016-10-31] MEDS: CEFEPIME 1GM/50 ML (PMX) 50 ML IVPB SCH ×2 (09:22→20:07)
[2016-10-31] MEDS: HEPARIN 5,000 UNIT/0.5 ML SYG SC SCH ×2 (09:23→20:10)
[2016-10-31] MEDS: HYDROCODONE/APAP (10/325) TAB PO PRN ×2 (10:51→17:49)
--- NOTE | 2016-10-31 17:27 | PN ---
Date/Time of Note Date/Time of Note DATE: 10/31/16 TIME: 17:26 Assessment/Plan VTE Prophylaxis VTE Prophylaxis Intervention: heparin Lines/Catheters IV C[facility]ter Type (from [facility]): Sal[place] [facility] Urinary Cath still in place: No Assessment/Plan Chief Complaint/Hosp Course 1. Right lower extremity cellulitis involving the knee -Joint fluid aspirate from [place] confirms infection of the Prosthetic knee -Knee replacement done [address] Mixon at [place], per in house Ortho pt will need to be seen by him or another Ortho who specializes in prosthetic knee replacements -ID consult appreciated, cont Abx with Vanco and Cefepime -CM to arrange for transfer or out-pt F/U with Ortho 2. Sepsis, secondary to above -cont Abx 3. Normocytic anemia, likely from chronic disease -monitor 4. Hyponatremia-mild PPx- Heparin Problems: Subjective 24 Hr Interval Summary Musculoskeletal: bone/joint pain Exam/Review of Systems Vital Signs Vitals Vital Signs Date Time Temp Pulse Resp B/P Pulse Ox O2 Delivery O2 Flow Rate FiO2 10/31/16 07:30 98.5 90 18 132/75 96 Intake and Output 10/30/16 10/30/16 10/31/16 15:00 23:00 07:00 Intake Total 50 ml 250 ml 100 ml Balance 50 ml 250 ml 100 ml Exam Constitutional: alert, oriented Respiratory: clear to auscultation Cardiovascular: regular rate and rhythm Gastrointestinal: soft, No distended Musculoskeletal: No nl extremities to inspection Results Result Diagram: 10/31/16 0732 10/31/16 0732 Results 24 hrs Laboratory Tests Test 10/31/16 07:32 Anion Gap 13 Basophils # 0.1 Basophils % 0.5 Blood Morphology Comment Blood Urea Nitrogen 9 Calcium Level 7.9 L Carbon Dioxide Level 29 Chloride Level 100 Creatinine 0.65 Eosinophils # 0.1 Eosinophils % 1.3 Glucose Level 114 Hematocrit 34.5 L Hemoglobin 11.4 L Lymphocytes # 1.4 Lymphocytes % 12.9 L Mean Corpuscular Hemoglobin 28.9 L Mean Corpuscular Hemoglobin Concent 33.1 Mean Corpuscular Volume 87.2 Mean Platelet Volume 9.1 Monocytes # 0.9 Monocytes % 8.2 Neutrophils # 8.4 H Neutrophils % 77.1 H Nucleated Red Blood Cells # 0.0 Nucleated Red Blood Cells % 0.0 Platelet Count 341 Potassium Level 3.8 Red Blood Count 3.95 L Red Cell Distribution Width 14.1 Sodium Level 138 White Blood Count 10.9 H Medications Medications Current Medications Morphine Sulfate (morphine) 4 mg Q4H PRN IV PAIN Last administered on 14:59; Admin Dose 4 MG; Start 10/26/16 at 23:30 Ondansetron HCl (Zofran Inj) 4 mg Q6H PRN IV NAUSEA AND/OR VOMITING; Start at 23:30 Heparin Sodium (Porcine) 5000 unit 5,000 unit BID SC Last administered on 09:23; Admin Dose 5,000 UNIT; Start 10/27/16 at 09:00 Cefepime HCl 50 ml @ 100 mls/hr Q12 IVPB Last administered on 10/31/16 09:22 ; Admin Dose 100 MLS/HR; Start 10/27/16 at 09:00 Vancomycin HCl/ Sodium Chloride (Vancocin/NS) 250 ml @ 83.333 mls/ hr Q12H IVPB Last administered on 10/31/16 14:43; Admin Dose 83.333 MLS/HR; Start at 14:00 Senna (Senokot) 2 tab DAILY PO Last administered on 10/31/16 08:18; Admin Dose 2 TAB; Start 10/29/16 at 00:00 Acetaminophen/ Hydrocodone Bitart ([place] (10/325)) 1 tab Q6H PRN PO PAIN Last administered on 10/31/16 10:51; Admin Dose 1 TAB; Start 10/28/16 at 23:30 Acetaminophen (Tylenol Tab) 650 mg Q6H PRN PO PAIN AND OR ELEVATED TEMP Last administered on 10/30/16 22:35; Admin Dose 650 MG; Start 10/30/16 at 21:00 Miscellaneous Information (*Rx Drug Level Order Reminder*) VANCOMYCIN TROUGH AT 0100 ONCE ONCE XX ; Start 11/01/16 at 01:00; Stop 11/01/16 at 01:01 PHIL OWENS Oct 31, 2016 17:27
--- NOTE | 2016-10-31 20:44 | CONS ---
Date/Time of Note Date/Time of Note DATE: 10/31/16 TIME: 20:42 Assessment/Plan Assessment/Plan Chief Complaint/Hosp Course SUBJECTIVE: No acute changes. S/p fever yesterday, lying comfortably in bed, afebrile. MICROBIOLOGY: Blood culture negative. Nares swab negative. DIAGNOSTICS: X-ray of the knee revealed status post total right knee arthroplasty with a moderate-sized joint space effusion and soft tissue swelling. ANTIMICROBIALS: IV vancomycin and cefepime. PHYSICAL EXAMINATION: GENERAL: Well-developed elderly man who is alert, in no distress. HEENT: Head atraumatic, normocephalic. Sclerae anicteric. Buccal mucosa pink. NECK: Supple, trachea midline. CHEST: Rise symmetrical. Breath sounds clear. HEART: S1, S2. ABDOMEN: Soft, bowel tones present. EXTREMITIES: With right lower extremity edema with some fluctuance of the knee and erythema below knee. ASSESSMENT: 1. Right knee cellulitis with effusions, rule out infected arthroplasty. 2. Systemic inflammatory response syndrome secondary to above. 3. History of right total knee replacement. PLAN: Clinically unchanged, will repeat cx's prn, continue abx, awaiting for pt to be seen by ortho surgeon==> possible tx to another facility DW staff Problems: Consultation Date/Type/Reason Admit Date/Time Oct 26, 2016 at 19:59 Type of Consultation: ID Exam/Review of Systems Vital Signs Vitals Vital Signs Date Time Temp Pulse Resp B/P Pulse Ox O2 Delivery O2 Flow Rate FiO2 10/31/16 07:30 98.5 90 18 132/75 96 Intake and Output 10/30/16 10/30/16 10/31/16 15:00 23:00 07:00 Intake Total 50 ml 250 ml 100 ml Balance 50 ml 250 ml 100 ml Results Result Diagram: 10/31/16 0732 10/31/16 0732 Results 24 hrs Laboratory Tests Test 10/31/16 07:32 Anion Gap 13 Basophils # 0.1 Basophils % 0.5 Blood Morphology Comment Blood Urea Nitrogen 9 Calcium Level 7.9 L Carbon Dioxide Level 29 Chloride Level 100 Creatinine 0.65 Eosinophils # 0.1 Eosinophils % 1.3 Glucose Level 114 Hematocrit 34.5 L Hemoglobin 11.4 L Lymphocytes # 1.4 Lymphocytes % 12.9 L Mean Corpuscular Hemoglobin 28.9 L Mean Corpuscular Hemoglobin Concent 33.1 Mean Corpuscular Volume 87.2 Mean Platelet Volume 9.1 Monocytes # 0.9 Monocytes % 8.2 Neutrophils # 8.4 H Neutrophils % 77.1 H Nucleated Red Blood Cells # 0.0 Nucleated Red Blood Cells % 0.0 Platelet Count 341 Potassium Level 3.8 Red Blood Count 3.95 L Red Cell Distribution Width 14.1 Sodium Level 138 White Blood Count 10.9 H Medications Medications Current Medications Morphine Sulfate (morphine) 4 mg Q4H PRN IV PAIN Last administered on 14:59; Admin Dose 4 MG; Start 10/26/16 at 23:30 Ondansetron HCl (Zofran Inj) 4 mg Q6H PRN IV NAUSEA AND/OR VOMITING; Start at 23:30 Heparin Sodium (Porcine) 5000 unit 5,000 unit BID SC Last administered on 20:10; Admin Dose 5,000 UNIT; Start 10/27/16 at 09:00 Cefepime HCl 50 ml @ 100 mls/hr Q12 IVPB Last administered on 10/31/16 20:07 ; Admin Dose 100 MLS/HR; Start 10/27/16 at 09:00 Vancomycin HCl/ Sodium Chloride (Vancocin/NS) 250 ml @ 83.333 mls/ hr Q12H IVPB Last administered on 10/31/16 14:43; Admin Dose 83.333 MLS/HR; Start at 14:00 Senna (Senokot) 2 tab DAILY PO Last administered on 10/31/16 08:18; Admin Dose 2 TAB; Start 10/29/16 at 00:00 Acetaminophen/ Hydrocodone Bitart ([place] (10/325)) 1 tab Q6H PRN PO PAIN Last administered on 10/31/16 17:49; Admin Dose 1 TAB; Start 10/28/16 at 23:30 Acetaminophen (Tylenol Tab) 650 mg Q6H PRN PO PAIN AND OR ELEVATED TEMP Last administered on 10/30/16 22:35; Admin Dose 650 MG; Start 10/30/16 at 21:00 Miscellaneous Information (*Rx Drug Level Order Reminder*) VANCOMYCIN TROUGH AT 0100 ONCE ONCE XX ; Start 11/01/16 at 01:00; Stop 11/01/16 at 01:01 SHAKIRA EDOUARD NP Oct 31, 2016 20:44
[2016-10-31 21:12] VITALS: BP 134/67; RESP 19
[2016-11-01] MEDS: morphine 4 MG/ML VIAL IV PRN ×4 (01:39→21:47)
[2016-11-01] MEDS: VANCOMYCIN 1.25 GM in SOD CHLORIDE 0.9% 250 ML IVPB SCH (03:22)
[2016-11-01] MEDS: HYDROCODONE/APAP (10/325) TAB PO PRN ×3 (03:27→23:36)
[2016-11-01 07:42] LABS: BASOPHILS % 0.5 % (0.0-2.0); EOSINOPHILS # 0.3 10^3/ul (0.0-0.5); EOSINOPHILS % 2.6 % (0.0-7.0); HEMATOCRIT 31.3 % (42.0-52.0); HEMOGLOBIN 10.5 g/dl (14.0-18.0); LYMPHOCYTES # 1.9 10^3/ul (0.8-2.9); LYMPHOCYTES % 17.5 % (15.0-51.0); MEAN CORPUSCULAR HEMOGLOBIN 29.3 pg (29.0-33.0); MEAN CORPUSCULAR HGB CONC 33.5 g/dl (32.0-37.0); MEAN CORPUSCULAR VOLUME 87.4 fl (82.0-101.0); MEAN PLATELET VOLUME 8.4 fl (7.4-10.4); MONOCYTE # 0.9 10^3/ul (0.3-0.9); MONOCYTES % 8.9 % (0.0-11.0); NEUTROPHIL # 7.5 10^3/ul (1.6-7.5); NEUTROPHILS % 70.5 % (39.0-77.0); PLATELET COUNT 374 10^3/UL (140-440); RED BLOOD COUNT 3.58 10^6/ul (4.70-6.10); RED CELL DISTRIBUTION WIDTH 14.3 % (11.5-14.5); UNCORRECTED WBC 10.7 10^3/ul (4.8-10.8); WHITE BLOOD COUNT 10.7 10^3/ul (4.8-10.8)
[2016-11-01 07:49] LABS: CONDITION 1
[2016-11-01 07:50] LABS: POTASSIUM 3.7 mmol/L (3.5-5.1)
[2016-11-01 07:53] LABS: CREATININE 0.69 mg/dl (0.61-1.24)
[2016-11-01 07:54] LABS: CALCIUM 7.9 mg/dl (8.4-10.2)
[2016-11-01 08:01] VITALS: BP 144/80; RESP 21
[2016-11-01] MEDS: SENNA TAB PO SCH (09:30)
[2016-11-01] MEDS: CEFEPIME 1GM/50 ML (PMX) 50 ML IVPB SCH (09:30)
[2016-11-01] MEDS: HEPARIN 5,000 UNIT/0.5 ML SYG SC SCH ×2 (09:37→20:03)
[2016-11-01] MEDS ORDERED: VANCOMYCIN 1.5 GM in SOD CHLORIDE 0.9% 250 ML IVPB SCH (11:00)
[2016-11-01] MEDS: VANCOMYCIN 1.5 GM in SOD CHLORIDE 0.9% 250 ML IVPB SCH (13:47)
--- NOTE | 2016-11-01 14:15 | PN ---
Date/Time of Note Date/Time of Note DATE: 11/01/16 TIME: 14:13 Assessment/Plan VTE Prophylaxis VTE Prophylaxis Intervention: heparin Lines/Catheters IV [facility] Type [facility]from [facility]): Saline Lock Urinary Cath still in place: No Assessment/Plan Chief Complaint/Hosp Course 1. Right lower extremity cellulitis involving the knee -Joint fluid aspirate from [place] confirms infection of the Prosthetic knee -Knee replacement done [address] Mixon at [place], per in house Ortho pt will need to be seen by him or another Ortho who specializes in prosthetic knee replacements -ID consult appreciated, cont Abx with Vanco and Cefepime -CM to arrange for transfer or out-pt F/U with Ortho, pt cannot ambulate and hence DC to home is unfortunately not an option at this time 2. Sepsis, secondary to above -cont Abx 3. Normocytic anemia, likely from chronic disease -monitor 4. Hyponatremia-mild PPx- Heparin Problems: Subjective 24 Hr Interval Summary Musculoskeletal: bone/joint pain Exam/Review of Systems Vital Signs Vitals Vital Signs Date Time Temp Pulse Resp B/P Pulse Ox O2 Delivery O2 Flow Rate FiO2 11/01/16 08:01 99.7 81 21 144/80 96 Intake and Output 10/31/16 10/31/16 11/01/16 15:00 23:00 07:00 Intake Total 250 ml 1070 ml 1020 ml Output Total 600 ml 400 ml Balance 250 ml 470 ml 620 ml Exam Constitutional: alert, oriented Respiratory: clear to auscultation Cardiovascular: regular rate and rhythm Gastrointestinal: soft, No distended Musculoskeletal: No nl extremities to inspection Results Result Diagram: 11/01/16 0652 11/01/16 0652 Results 24 hrs Laboratory Tests Test 11/01/16 00:50 11/01/16 06:52 Vancomycin Level Trough 9.9 L Anion Gap 10 Basophils # 0.0 Basophils % 0.5 Blood Urea Nitrogen 10 Calcium Level 7.9 L Carbon Dioxide Level 30 Chloride Level 102 Creatinine 0.69 Eosinophils # 0.3 Eosinophils % 2.6 Glucose Level 118 Hematocrit 31.3 L Hemoglobin 10.5 L Lymphocytes # 1.9 Lymphocytes % 17.5 Mean Corpuscular Hemoglobin 29.3 Mean Corpuscular Hemoglobin Concent 33.5 Mean Corpuscular Volume 87.4 Mean Platelet Volume 8.4 Monocytes # 0.9 Monocytes % 8.9 Neutrophils # 7.5 Neutrophils % 70.5 Nucleated Red Blood Cells # 0.0 Nucleated Red Blood Cells % 0.0 Platelet Count 374 Potassium Level 3.7 Red Blood Count 3.58 L Red Cell Distribution Width 14.3 Sodium Level 138 White Blood Count 10.7 Medications Medications Current Medications Morphine Sulfate (morphine) 4 mg Q4H PRN IV PAIN Last administered on 07:53; Admin Dose 4 MG; Start 10/26/16 at 23:30 Ondansetron HCl (Zofran Inj) 4 mg Q6H PRN IV NAUSEA AND/OR VOMITING; Start at 23:30 Heparin Sodium (Porcine) 5000 unit 5,000 unit BID SC Last administered on 09:37; Admin Dose 5,000 UNIT; Start 10/27/16 at 09:00 Cefepime HCl (Maxipime 1gm/50 ml (Pmx)) 50 ml @ 100 mls/hr Q12 IVPB Last administered on 11/01/16 09:30; Admin Dose 100 MLS/HR; Start 10/27/16 at 09:00 Senna (Senokot) 2 tab DAILY PO Last administered on 11/01/16 09:30; Admin Dose 2 TAB; Start 10/29/16 at 00:00 Acetaminophen/ Hydrocodone Bitart ([place] (10/325)) 1 tab Q6H PRN PO PAIN Last administered on 11/01/16 12:29; Admin Dose 1 TAB; Start 10/28/16 at 23:30 Acetaminophen 650 mg 650 mg Q6H PRN PO PAIN AND OR ELEVATED TEMP Last administered on 10/30/16 22:35; Admin Dose 650 MG; Start 10/30/16 at 21:00 Vancomycin HCl/ Sodium Chloride (Vancocin/NS) 250 ml @ 83.333 mls/ hr Q12H IVPB Last administered on 11/01/16 13:47; Admin Dose 83.333 MLS/HR; Start at 14:00 PHIL OWENS Nov 01, 2016 14:15
[2016-11-01 19:56] VITALS: BP 155/83; RESP 20
[2016-11-01] MEDS: ACETAMINOPHEN 325 MG TAB PO PRN (20:00)
--- NOTE | 2016-11-01 20:10 | PN ---
DATE: 11/01/2016 SUBJECTIVE: Patient is alert, eating dinner, looks comfortable, still has significant swelling and pain of his right lower extremity. He is afebrile. ANTIMICROBIALS: 1. Vancomycin. 2. Cefepime. MICROBIOLOGY: Cultures have been negative. PHYSICAL EXAMINATION: GENERAL: Well-developed, elderly man in no distress. HEENT: Head atraumatic, normocephalic. Sclerae anicteric. Buccal mucosa pink. NECK: Supple, trachea midline. CHEST: Rise symmetrical. Breath sounds clear. HEART: S1, S2. ABDOMEN: Soft, bowel tones present. EXTREMITIES: With significant erythema and edema of his right lower extremity. ASSESSMENT: 1. Systemic inflammatory response syndrome with on and off fevers secondary to #2. 2. Right lower extremity cellulitis and possible septic joint. 3. History of right total knee replacement and multiple orthopedic surgeries. PLAN: The patient remains unchanged. We are going to change cefepime to oral Levaquin, keep patien t on IV vancomycin. Patient needs to be seen by Dr. Mixon who operated on him previously for furt her surgical intervention. Above was discussed with patient in detail. Dictated By: SHAKIRA EDOUARD CLINICAL PROGRAMMER for ABIMA[employer] PLATA/NTS Conf#: [id number] DID#: [id number]
[2016-11-02] MEDS: VANCOMYCIN 1.5 GM in SOD CHLORIDE 0.9% 250 ML IVPB SCH ×2 (01:53→14:49)
[2016-11-02] MEDS: LEVOFLOXACIN 500 MG TAB PO SCH (06:18)
[2016-11-02 07:02] LABS: BASOPHILS % 0.4 % (0.0-2.0); EOSINOPHILS # 0.3 10^3/ul (0.0-0.5); EOSINOPHILS % 2.9 % (0.0-7.0); HEMATOCRIT 30.6 % (42.0-52.0); HEMOGLOBIN 10.2 g/dl (14.0-18.0); LYMPHOCYTES # 1.6 10^3/ul (0.8-2.9); LYMPHOCYTES % 16.4 % (15.0-51.0); MEAN CORPUSCULAR HGB CONC 33.2 g/dl (32.0-37.0); MEAN CORPUSCULAR VOLUME 87.4 fl (82.0-101.0); MEAN PLATELET VOLUME 8.3 fl (7.4-10.4); MONOCYTE # 0.7 10^3/ul (0.3-0.9); MONOCYTES % 6.9 % (0.0-11.0); NEUTROPHILS % 73.4 % (39.0-77.0); PLATELET COUNT 395 10^3/UL (140-440); RED CELL DISTRIBUTION WIDTH 14.3 % (11.5-14.5); UNCORRECTED WBC 9.6 10^3/ul (4.8-10.8); WHITE BLOOD COUNT 9.6 10^3/ul (4.8-10.8)
[2016-11-02 07:06] LABS: CONDITION 1
[2016-11-02 07:07] LABS: POTASSIUM 3.9 mmol/L (3.5-5.1)
[2016-11-02 07:10] LABS: CREATININE 0.59 mg/dl (0.61-1.24)
[2016-11-02 07:11] LABS: CALCIUM 7.9 mg/dl (8.4-10.2)
[2016-11-02 08:04] VITALS: BP 144/79; RESP 20
[2016-11-02] MEDS: morphine 4 MG/ML VIAL IV PRN ×3 (08:56→21:41)
[2016-11-02] MEDS: SENNA TAB PO SCH (08:56)
[2016-11-02] MEDS: HEPARIN 5,000 UNIT/0.5 ML SYG SC SCH ×2 (08:59→20:24)
[2016-11-02] MEDS: HYDROCODONE/APAP (10/325) TAB PO PRN ×2 (10:25→17:48)
--- NOTE | 2016-11-02 13:11 | CONS ---
Date/Time of Note Date/Time of Note DATE: 11/02/16 TIME: 13:07 Assessment/Plan Assessment/Plan Chief Complaint/Hosp Course SUBJECTIVE: Patient is alert, looks comfortable, still has significant swelling and pain of his right lower extremity He is afebrile. Family at bedside ANTIMICROBIALS: 1. Vancomycin. 2. Levaquin. MICROBIOLOGY: Cultures have been negative. PHYSICAL EXAMINATION: GENERAL: Well-developed, elderly man in no distress. HEENT: Head atraumatic, normocephalic. Sclerae anicteric. Buccal mucosa pink. NECK: Supple, trachea midline. CHEST: Rise symmetrical. Breath sounds clear. HEART: S1, S2. ABDOMEN: Soft, bowel tones present. EXTREMITIES: With significant erythema and edema of his right lower extremity. ASSESSMENT: 1. Systemic inflammatory response syndrome with on and off fevers secondary to #2. 2. Right lower extremity cellulitis and possible septic joint. 3. History of right total knee replacement and multiple orthopedic surgeries. PLAN: The patient remains stable, case operator arranging for pt to be seen by ortho specialist, will place PICC as he doesn't have good IV access and will need to be on abx fdc, continue abx, RLE elevation DW pt/family at bedside Problems: Consultation Date/Type/Reason Admit Date/Time Oct 26, 2016 at 19:59 Type of Consultation: ID Exam/Review of Systems Vital Signs Vitals Vital Signs Date Time Temp Pulse Resp B/P Pulse Ox O2 Delivery O2 Flow Rate FiO2 11/02/16 08:04 99.1 89 20 144/79 96 Intake and Output 11/01/16 11/01/16 11/02/16 15:00 23:00 07:00 Intake Total 50 ml 1160 ml 1100 ml Output Total 1000 ml 1300 ml Balance 50 ml 160 ml -200 ml Results Result Diagram: 11/02/16 0530 11/02/16 0530 Results 24 hrs Laboratory Tests Test 11/02/16 05:30 Anion Gap 12 Basophils # 0.0 Basophils % 0.4 Blood Urea Nitrogen 8 Calcium Level 7.9 L Carbon Dioxide Level 28 Chloride Level 103 Creatinine 0.59 L Eosinophils # 0.3 Eosinophils % 2.9 Glucose Level 106 Hematocrit 30.6 L Hemoglobin 10.2 L Lymphocytes # 1.6 Lymphocytes % 16.4 Mean Corpuscular Hemoglobin 29.0 Mean Corpuscular Hemoglobin Concent 33.2 Mean Corpuscular Volume 87.4 Mean Platelet Volume 8.3 Monocytes # 0.7 Monocytes % 6.9 Neutrophils # 7.0 Neutrophils % 73.4 Nucleated Red Blood Cells # 0.0 Nucleated Red Blood Cells % 0.0 Platelet Count 395 Potassium Level 3.9 Red Blood Count 3.50 L Red Cell Distribution Width 14.3 Sodium Level 139 White Blood Count 9.6 Medications Medications Current Medications Morphine Sulfate (morphine) 4 mg Q4H PRN IV PAIN Last administered on 08:56; Admin Dose 4 MG; Start 10/26/16 at 23:30 Ondansetron HCl (Zofran Inj) 4 mg Q6H PRN IV NAUSEA AND/OR VOMITING; Start at 23:30 Heparin Sodium (Porcine) (Heparin (5000 Units/0.5 ml)) 5,000 unit BID SC Last administered on 11/02/16 08:59; Admin Dose 5,000 UNIT; Start 10/27/16 at 09:00 Senna (Senokot) 2 tab DAILY PO Last administered on 11/02/16 08:56; Admin Dose 2 TAB; Start 10/29/16 at 00:00 Acetaminophen/ Hydrocodone Bitart ([place] (10/325)) 1 tab Q6H PRN PO PAIN Last administered on 11/02/16 10:25; Admin Dose 1 TAB; Start 10/28/16 at 23:30 Acetaminophen 650 mg 650 mg Q6H PRN PO PAIN AND OR ELEVATED TEMP Last administered on 11/01/16 20:00; Admin Dose 650 MG; Start 10/30/16 at 21:00 Vancomycin HCl/ Sodium Chloride (Vancocin/NS) 250 ml @ 83.333 mls/ hr Q12H IVPB Last administered on 11/02/16 01:53; Admin Dose 83.333 MLS/HR; Start at 14:00 Levofloxacin (Levaquin) 500 mg DAILY@06 PO Last administered on 11/02/16 06:18 ; Admin Dose 500 MG; Start 11/02/16 at 06:00 SHAKIRA EDOUARD NP Nov 02, 2016 13:11
[2016-11-02] MEDS ORDERED: LIDOCAINE 1% (MDV) 20 ML INJ SC ONE (13:30)
--- NOTE | 2016-11-02 14:48 | PN ---
Date/Time of Note Date/Time of Note DATE: 11/02/16 TIME: 14:38 Assessment/Plan VTE Prophylaxis VTE Prophylaxis Intervention: heparin Lines/Catheters IV Catheter Type (from Nrs): Saline Lock Urinary Cath still in place: No Assessment/Plan Assessment/Plan 1. Systemic inflammatory response syndrome with on and off fevers secondary to #2. 2. Right lower extremity cellulitis and possible septic joint, Joint fluid aspirate from [place] confirms infection of the Prosthetic knee, Knee replacement done [address] Mixon at [place], [facility] in house Ortho pt will need to be seen by him or another Ortho who specializes in prosthetic knee replacements , on levaquin and vancomycin 3. DVT prophylaxis: heparin Subjective 24 Hr Interval Summary Free Text/Dictation right knee swelling and pain Exam/Review of Systems Vital Signs Vitals Vital Signs Date Time Temp Pulse Resp B/P Pulse Ox O2 Delivery O2 Flow Rate FiO2 11/02/16 08:04 99.1 89 20 144/79 96 Intake and Output 11/01/16 11/01/16 11/02/16 15:00 23:00 07:00 Intake Total 50 ml 1160 ml 1100 ml Output Total 1000 ml 1300 ml Balance 50 ml 160 ml -200 ml Exam Constitutional: alert, oriented, well developed Psych: nl mood/affect, no complaints Head: atraumatic, normocephalic Eyes: EOMI, PERRL, nl conjunctiva, nl lids ENMT: mucosa pink and moist, nl external ears & nose, nl lips & teeth, nl nasal mucosa & septum Neck: non-tender, supple Respiratory: clear to auscultation, normal air movement, No congested cough, No crackles/rales, No diminished breath sounds, No intercostal retraction, No labored breathing, No other, No respirations, No tactile fremitus, No wheezing Cardiovascular: nl pulses, regular rate and rhythm, No S3, No S4, No bruits, No diastolic murmur, No edema, No gallop, No irregular rhythm, No jugular venous distention (JVD), No murmurs/extra sounds, No other, No rub, No systolic murmur Gastrointestinal: nl liver, spleen, non-tender, soft, No ascites, No bowel sounds, No distended, No firm, No hepatomegaly, No mass , No other, No rebound or guarding, No splenomegaly, No surgical scars, No tender Musculoskeletal: nl extremities to inspection Extremities: normal pulses, other (right knee swelling and pain) Neurological: DOCKET SPECIALIST II-XII intact, nl mental status, nl speech, nl strength Skin: nl turgor, rash or lesions Lymph: nl lymph nodes Results Result Diagram: 11/02/16 0530 11/02/16 0530 Results 24 hrs Laboratory Tests Test 11/02/16 05:30 Anion Gap 12 Basophils # 0.0 Basophils % 0.4 Blood Urea Nitrogen 8 Calcium Level 7.9 L Carbon Dioxide Level 28 Chloride Level 103 Creatinine 0.59 L Eosinophils # 0.3 Eosinophils % 2.9 Glucose Level 106 Hematocrit 30.6 L Hemoglobin 10.2 L Lymphocytes # 1.6 Lymphocytes % 16.4 Mean Corpuscular Hemoglobin 29.0 Mean Corpuscular Hemoglobin Concent 33.2 Mean Corpuscular Volume 87.4 Mean Platelet Volume 8.3 Monocytes # 0.7 Monocytes % 6.9 Neutrophils # 7.0 Neutrophils % 73.4 Nucleated Red Blood Cells # 0.0 Nucleated Red Blood Cells % 0.0 Platelet Count 395 Potassium Level 3.9 Red Blood Count 3.50 L Red Cell Distribution Width 14.3 Sodium Level 139 White Blood Count 9.6 Medications Medications Current Medications Morphine Sulfate (morphine) 4 mg Q4H PRN IV PAIN Last administered on 08:56; Admin Dose 4 MG; Start 10/26/16 at 23:30 Ondansetron HCl (Zofran Inj) 4 mg Q6H PRN IV NAUSEA AND/OR VOMITING; Start at 23:30 Heparin Sodium (Porcine) (Heparin (5000 Units/0.5 ml)) 5,000 unit BID SC Last administered on 11/02/16 08:59; Admin Dose 5,000 UNIT; Start 10/27/16 at 09:00 Senna (Senokot) 2 tab DAILY PO Last administered on 11/02/16 08:56; Admin Dose 2 TAB; Start 10/29/16 at 00:00 Acetaminophen/ Hydrocodone Bitart ([place] (10/325)) 1 tab Q6H PRN PO PAIN Last administered on 11/02/16 10:25; Admin Dose 1 TAB; Start 10/28/16 at 23:30 Acetaminophen 650 mg 650 mg Q6H PRN PO PAIN AND OR ELEVATED TEMP Last administered on 11/01/16 20:00; Admin Dose 650 MG; Start 10/30/16 at 21:00 Vancomycin HCl/ Sodium Chloride (Vancocin/NS) 250 ml @ 83.333 mls/ hr Q12H IVPB Last administered on 11/02/16 01:53; Admin Dose 83.333 MLS/HR; Start at 14:00 Levofloxacin (Levaquin) 500 mg DAILY@06 PO Last administered on 11/02/16 06:18 ; Admin Dose 500 MG; Start 11/02/16 at 06:00 ANDRADE COLUNGA MD Nov 02, 2016 14:48
--- NOTE | 2016-11-02 16:40 | RADRPT ---
PROCEDURE: XR Chest. CLINICAL INDICATION: Check PICC line position. TECHNIQUE: Single frontal view. COMPARISON: No prior study is available for comparison. FINDINGS: There is a left arm PICC line with the tip in the lower superior vena cava. The lungs are clear. The heart size is normal. There is no pleural effusion. There is no pneumothorax. IMPRESSION: 1. Satisfactory position of left arm PICC line. 2. Otherwise normal chest radiograph. RPTAT: QQ .Tres Cortez MD, MD Date Time Electronically viewed and signed by .Tres Cortez MD, MD on 11/02/2016 16:40 .R/
--- NOTE | 2016-11-02 18:38 | RADRPT ---
PROCEDURE: Ultrasound guidance for placement of needle in left upper extremity vein. CLINICAL INDICATION: Venous access. TECHNIQUE: Limited sonography of the left upper extremity was performed. Ultrasound images were recorded and s tored in the patient's medical record. COMPARISON: None. FINDINGS: The ultrasound images demonstrate a patent left upper extremity vein. The PICC line was inserted by the PICC line nurse. IMPRESSION: 1. Ultrasound guidance for a needle placement in a left upper extremity vein. 2. The left upper extremity vein is patent. RPTAT: QQ .Tres Cortez MD, MD Date Time Electronically viewed and signed by .Tres Cortez MD, MD on 11/02/2016 18:38 .R/
[2016-11-02] MEDS: ACETAMINOPHEN 325 MG TAB PO PRN (19:32)
[2016-11-02 19:41] VITALS: BP 135/66; PULSE 102; RESP 20
[2016-11-03] MEDS: HYDROCODONE/APAP (10/325) TAB PO PRN ×2 (01:56→11:56)
[2016-11-03] MEDS: VANCOMYCIN 1.5 GM in SOD CHLORIDE 0.9% 250 ML IVPB SCH ×2 (01:56→14:02)
[2016-11-03] MEDS: LEVOFLOXACIN 500 MG TAB PO SCH (06:03)
[2016-11-03] MEDS: morphine 4 MG/ML VIAL IV PRN ×5 (06:20→21:26)
[2016-11-03 08:28] VITALS: BP 147/81; RESP 18
[2016-11-03] MEDS: SENNA TAB PO SCH (09:54)
[2016-11-03] MEDS: HEPARIN 5,000 UNIT/0.5 ML SYG SC SCH ×2 (09:54→21:28)
[2016-11-03 11:25] LABS: SYNOVIAL FLUID CLARITY Cloudy; SYNOVIAL FLUID COLOR Yellow; SYNOVIAL FLUID TYPE Right Knee; SYNOVIAL FLUID WBC 15025 /cmm (0-150)
[2016-11-03 11:26] LABS: LYMPHOCYTES,SYNOVIAL FLUID 4; NEUTROPHILS,SYNOVIAL FLUID 88 % (0-25)
--- NOTE | 2016-11-03 12:55 | PN ---
DATE: 11/03/2016 SUBJECTIVE: No acute events. The patient is alert, feels good, looks comfortable, no fevers. No labs. ANTIMICROBIALS: 1. Vancomycin. 2. Levaquin. PHYSICAL EXAMINATION: GENERAL: Well-developed, elderly man in no distress. HEENT: Head atraumatic, normocephalic. Sclerae anicteric. Buccal mucosa pink. NECK: Supple. CHEST: Rise symmetrical. Breath sounds clear. HEART: S1, S2. ABDOMEN: Soft. Bowel tones present. EXTREMITIES: Right lower extremity still with erythema, but markedly improved. The knee is swollen . The patient had some needle fluid aspiration this morning. ASSESSMENT 1. Right lower extremity cellulitis, rule out septic joint. 2. History of multiple orthopedic surgeries on his right lower extremity, and right knee replacemen t. 3. Systemic inflammatory response syndrome. PLAN: The patient remains stable, on appropriate antimicrobials. Continue present care, right lowe r extremity elevation and antibiotics. Follow ortho recommendations. Dictated By: SHAKIRA EDOUARD TECHNICAL ACCOUNT REPRESENTATIVE for ABIMAEL PLATA/REJI Conf#: [id number] DID#: [id number]
--- NOTE | 2016-11-03 13:32 | RADRPT ---
PROCEDURE: US Lower extremity Venous. CLINICAL INDICATION: Right leg swelling TECHNIQUE: Multiple sonographic images of the right lower extremity deep venous system was obtaine d utilizing grayscale, color-flow, compressive sonography and doppler imaging with augmentation. Th e images were reviewed on a PACS workstation. COMPARISON: None. FINDINGS: There is normal compressibility and flow within the right common femoral, superficial femoral, poste rior tibial, peroneal and popliteal veins. There is a right popliteal Chi's cyst measuring 4.4 x 3.1 x 2.5 cm RPTAT: AA IMPRESSION: No sonographic evidence for deep venous thrombosis. Right popliteal Chi's cyst. .Rafita Castaneda MD, MD Date Time Electronically viewed and signed by .Rafita Castaneda MD, on 11/03/2016 13:31 .S/
--- NOTE | 2016-11-03 13:40 | CONS ---
DATE OF ADMISSION: 10/26/2016 DATE OF CONSULTATION: 11/03/2016 REQUESTING PHYSICIAN: Gabby Colunga MD REASON FOR CONSULTATION: Right knee pain and swelling. HISTORY OF PRESENT ILLNESS: The patient is a 66-year-old gentleman who is a Qu[employer], who had a right total knee arthroplasty approximately [address] Homer Mixon at [facility]. The patient reports that a few years prior to the knee replacement, he had sustained a fall f rom a ladder and sustained a fracture of the distal femur requiring open reduction internal fixation . The patient reports there were a few additional surgeries after that including what sounds like a possible partial knee replacement. He went on to require conversion to a total knee arthroplasty, which he says has done well since the surgery up until about a week ago when he noted the acute onse t of pain and swelling in the knee. He noted some low-grade fevers as well. He went to [facility] where he was evaluated in the emergency room. He was noted to have an elevated whit e blood cell count of 18.5. The knee was aspirated and there was noted to be 73,600 white blood chris ls with 96% neutrophils. Because of insurance reasons, he was transferred to [facility] where he has been admitted here since a week ago on 10/27/2016. He has been seen by infectio us disease (Dr. Yamil Martins), who recommended aspiration of the knee. For reasons that are uncl ear to me, no orthopedic consultation has been asked for until today when I was called. Nonetheless , the patient has been placed on intravenous antibiotics. He has been on vancomycin and Levaquin. He has also been on Lovenox for DVT prophylaxis. The patient reports continued pain and swelling in the knee. He does not recall any antecedent infections leading up to the symptoms of pain and swel ling over the last week. His last dental visit was about 6 months ago. He reports that he did not take prophylactic antibiotics prior to this dental cleaning. He has no other joint pain. PAST MEDICAL HISTORY: Unremarkable. PAST SURGICAL HISTORY: Multiple right knee surgeries including right total knee arthroplasty. MEDICATIONS: 1. Levaquin. 2. Vancomycin. 3. Lovenox. 4. Zofran. 5. Morphine sulfate. ALLERGIES: NO KNOWN DRUG ALLERGIES. SOCIAL HISTORY: The patient used to work in construction. He is not working currently. Denies smo shasha or drinking or illicit drug use. FAMILY HISTORY: Noncontributory. REVIEW OF SYSTEMS: GENERAL/CONSTITUTIONAL: Recent low-grade temperatures and generalized malaise. Negative for recent chills, decreased appetite, or unexplained weight loss. EYES/EARS/NOSE/MOUTH/THROAT: Negative for headaches, double vision, tearing, nose bleeding, colds, obstruction, discharge, dental difficulties, gingival bleeding, dentures, neck stiffness, pain, tend erness, or masses in thyroid or other areas. CARDIOVASCULAR: Negative for chest pain, palpitations, irregular heartbeat, syncope, dyspnea on exe rtion, orthopnea, nocturnal paroxysmal dyspnea. RESPIRATORY: Negative for shortness of breath, wheezing, stridor, hemoptysis, tuberculosis, fever, or night sweats. GASTROINTESTINAL: Negative for dysphagia, abdominal pain, heartburn, nausea, vomiting, hematemesis, jaundice, constipation, diarrhea, abnormal stools (wanda-colored, tarry, bloody, greasy, foul-smelli ng), or bright red blood per rectum. GENITOURINARY: Negative for urgency, frequency, dysuria, nocturia, hematuria, stones, infections, n ephritis, hesitancy, change in size of stream, dribbling, acute retention, or incontinence. MUSCULOSKELETAL: Negative for pain, swelling, redness or heat of muscles or joints, limitation of m otion, muscular weakness, atrophy, or cramps. NEUROLOGIC/PSYCHIATRIC: Negative for convulsions, paralyses, tremor, incoordination, paresthesias, difficulties with memory or speech, sensory or motor disturbances, muscular coordination (ataxia, tr emor), emotional problems, anxiety, depression, previous psychiatric care, unusual perceptions, or h allucinations. HEMATOLOGIC: Negative for anemia, bleeding tendency, previous transfusions and reactions, or Rh inc ompatibility. ENDOCRINE: Negative for polydipsia, polyuria, hormone therapy, or intolerance to heat or cold. PHYSICAL EXAMINATION: VITAL SIGNS: Temperature 98.4, blood pressure 147/81, pulse 77, respiratory rate 18. GENERAL APPEARANCE: Well-developed, well-nourished @@male in no acute distress. ORIENTATION: Alert and oriented to person, place, and time. HEENT: Normocephalic, atraumatic, sclerae anicteric, no nasal discharge, oropharynx clear, dentition is good. SKIN: Normal color, texture, and turgor. No rashes noted throughout the trunk, bilateral upper extre mities, and bilateral lower extremities. NECK: Supple, nontender, without lymphadenopathy. No thyromegaly, no masses. CARDIAC: Regular rate and rhythm. LUNGS: Clear to auscultation bilaterally, with symmetric chest rise. ABDOMEN: Soft, nontender, nondistended. MUSCULOSKELETAL: He is lying comfortably in bed. Bilateral hips are supple with no pain on passive range of motion. The right knee reveals a well-healed midline scar and a well-healed lateral scar. There is a marked effusion. The knee has pain with attempted passive range of motion. I can only flex him to about 25 degrees. The knee is warm. There is diffuse redness laterally extending into the lower leg where there are chronic venous stasis changes. The knee is stable to varus and valgu s stress testing. He has no distal edema. Homans sign is negative. There is no calf tenderness. Left knee has no effusion, warmth or redness and has full range of motion with no irritability. NEUROVASCULAR: Motor strength is 5/5 in the quadriceps, tibialis anterior, extensor hallucis longus , gastroc-soleus, and peroneals bilaterally. Sensation is intact to light touch throughout both lowe r extremities. There are 2+ palpable dorsalis pedis and posterior tibial pulses, with capillary refi ll less than 2 seconds in all 5 digits bilaterally. There is no distal edema. IMAGING: X-rays demonstrate a well-fixed, well-aligned DePuy cruciate retaining Sigma prosthesis. There is no evidence of loosening. There are no subluxations or dislocations or evidence of hardwar e failure. There is a small washer identified in the posterior tibia behind the tibial component. There are no periosteal reactions noted. LABORATORY DATA: CBC yesterday reveals a white blood cell count of 9.6, hematocrit 30.6, platelet c ount 395. The knee aspirate from [facility] on 10/26/2016, reveals 73,600 white blood cells an d 93% neutrophils with no crystals identified. There is no culture seen from the knee from [facility] at this point. The right knee was re-aspirated today. Using sterile technique and prepping the superolateral aspec t of the right knee, I placed an 18-gauge needle into the knee joint and aspirated 60 mL of cloudy, nonpurulent fluid from the knee joint. He tolerated the procedure well with no adverse reaction. T he fluid was sent to lab and revealed 15,025 white blood cells with 88% neutrophils. No crystals we re identified. Gram stain is still pending. Blood cultures from 10/27/2016 are negative for aerobic and anaerobic growth x5 days. 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 Based on the elevated whit e blood cell count in the initial synovial fluid from [facility] and the elevated ite blood cell count on today's aspirate, is quite suspicious for infection. No ESR or CRP has been obtained, so I have ordered a stat ESR and C-reactive protein. He did have an elevated white blood cell count which goes along with an infection. We will await cultures today, although since he has been on antibiotics the results may be falsely negative. Nonetheless, he will likely need a 2-stag e exchange to remove the prosthesis and place an antibiotic-impregnated cement spacer and be treated with an interval period of IV antibiotics and then hopefully eradicate the infection and bring him back for reimplantation. I had a lengthy discussion with the patient about the nature of the surger y and the typical recovery course. He will remain on IV antibiotics for now. We will await the add itional laboratory analysis and fluid analysis with cultures of today's fluid. I am going to order a venous Doppler of the right lower extremity as well to rule out a DVT. I will continue to follow while he is here in the hospital and make further recommendations as more information is obtained fr om today's aspiration. Dictated By: DELORES BAER MD EZ/NTS Conf#: [id number] DID#: [id number] CC: ANDRADE COLUNGA MD; YAMIL MARTINS MD;*[facility]*
--- NOTE | 2016-11-03 14:45 | PN ---
Date/Time of Note Date/Time of Note DATE: 11/03/16 TIME: 14:41 Assessment/Plan VTE Prophylaxis VTE Prophylaxis Intervention: heparin Lines/Catheters IV Catheter Type (from Nrsg): PICC Line Central line still needed: Yes Urinary Cath still in place: No Assessment/Plan Assessment/Plan 1. Right lower extremity cellulitis and possible septic joint, high ESR and C- RP, s/p aspiration 11/03/2016, on antibiotics, follow up with orhto 2. Systemic inflammatory response syndrome with on and off fevers secondary to # 1, improved 3. DVT prophylaxis: heparin Subjective 24 Hr Interval Summary Free Text/Dictation afebrile. pain on right knee Exam/Review of Systems Vital Signs Vitals Vital Signs Date Time Temp Pulse Resp B/P Pulse Ox O2 Delivery O2 Flow Rate FiO2 11/03/16 08:28 98.4 77 18 147/81 95 11/02/16 19:41 Room Air Intake and Output 11/02/16 11/02/16 11/03/16 15:00 23:00 07:00 Intake Total 1130 ml 730 ml Output Total 2000 ml 1740 ml Balance -870 ml -1010 ml Exam Constitutional: alert, oriented, well developed Psych: nl mood/affect, no complaints Head: atraumatic, normocephalic Eyes: EOMI, nl conjunctiva, nl lids ENMT: nl external ears & nose, nl lips & teeth, nl nasal mucosa & septum Neck: non-tender, supple Respiratory: clear to auscultation, normal air movement, No congested cough, No crackles/rales, No diminished breath sounds, No intercostal retraction, No labored breathing, No other, No respirations, No tactile fremitus, No wheezing Cardiovascular: nl pulses, regular rate and rhythm, No S3, No S4, No bruits, No diastolic murmur, No edema, No gallop, No irregular rhythm, No jugular venous distention (JVD), No murmurs/extra sounds, No other, No rub, No systolic murmur Gastrointestinal: nl liver, spleen, non-tender, soft, No ascites, No bowel sounds, No distended, No firm, No hepatomegaly, No mass , No other, No rebound or guarding, No splenomegaly, No surgical scars, No tender Musculoskeletal: nl extremities to inspection Extremities: normal pulses, other (right knee swelling and pain) Neurological: ANESTHESIOLOGISTS' ASSISTANT II-XII intact, nl mental status, nl speech, nl strength Skin: nl turgor, rash or lesions Lymph: nl lymph nodes Results Result Diagram: 11/02/16 0530 11/02/16 0530 Results 24 hrs Laboratory Tests Test 11/03/16 09:56 11/03/16 12:57 Synovial Fluid Appearance Cloudy Synovial Fluid Color Yellow Synovial Fluid Crystals No crystals seen Synovial Fluid Lymphocytes 4 Synovial Fluid Monocytes 8 Synovial Fluid Neutrophils 88 H Synovial Fluid Source Right Knee Synovial Fluid Volume 20.0 H Synovial Fluid WBC 09636 H C-Reactive Protein 15.5 H Erythrocyte Sedimentation Rate 123 H Medications Medications Current Medications Morphine Sulfate (morphine) 4 mg Q4H PRN IV PAIN Last administered on 10:20; Admin Dose 4 MG; Start 10/26/16 at 23:30 Ondansetron HCl (Zofran Inj) 4 mg Q6H PRN IV NAUSEA AND/OR VOMITING; Start at 23:30 Heparin Sodium (Porcine) (Heparin (5000 Units/0.5 ml)) 5,000 unit BID SC Last administered on 11/03/16 09:54; Admin Dose 5,000 UNIT; Start 10/27/16 at 09:00 Senna (Senokot) 2 tab DAILY PO Last administered on 11/03/16 09:54; Admin Dose 2 TAB; Start 10/29/16 at 00:00 Acetaminophen/ Hydrocodone Bitart ([place] (10/325)) 1 tab Q6H PRN PO PAIN Last administered on 11/03/16 11:56; Admin Dose 1 TAB; Start 10/28/16 at 23:30 Acetaminophen 650 mg 650 mg Q6H PRN PO PAIN AND OR ELEVATED TEMP Last administered on 11/02/16 19:32; Admin Dose 650 MG; Start 10/30/16 at 21:00 Vancomycin HCl/ Sodium Chloride (Vancocin/NS) 250 ml @ 83.333 mls/ hr Q12H IVPB Last administered on 11/03/16 14:02; Admin Dose 83.333 MLS/HR; Start at 14:00 Levofloxacin (Levaquin) 500 mg DAILY@06 PO Last administered on 11/03/16 06:03 ; Admin Dose 500 MG; Start 11/02/16 at 06:00 IV Flush (NS 10 ml) 10 ml PRN PRN IV IV PROTOCOL; Start 11/02/16 at 17:30 Miscellaneous Information (*Rx Drug Level Order Reminder*) VANCO TROUGH @ 0, 100 ON... ONCE ONCE XX ; Start 11/04/16 at 01:00; Stop 11/04/16 at 01:01 ANDRADE COLUNGA MD Nov 03, 2016 14:45
[2016-11-03 20:00] VITALS: BP 140/74; PULSE 96; RESP 20
[2016-11-03] MEDS: ACETAMINOPHEN 325 MG TAB PO PRN (23:36)
[2016-11-04] MEDS: HYDROCODONE/APAP (10/325) TAB PO PRN ×4 (00:31→20:15)
[2016-11-04 01:40] VITALS: BP 126/69; RESP 20
[2016-11-04] MEDS: VANCOMYCIN 1.5 GM in SOD CHLORIDE 0.9% 250 ML IVPB SCH ×2 (02:34→14:03)
[2016-11-04] MEDS: morphine 4 MG/ML VIAL IV PRN ×4 (04:58→22:06)
[2016-11-04] MEDS: LEVOFLOXACIN 500 MG TAB PO SCH (05:47)
[2016-11-04 07:56] VITALS: BP 148/91; RESP 20
[2016-11-04] MEDS: HEPARIN 5,000 UNIT/0.5 ML SYG SC SCH (09:00)
[2016-11-04] MEDS: SENNA TAB PO SCH (09:13)
--- NOTE | 2016-11-04 09:39 | CONS ---
DATE OF ADMISSION: 10/26/2016 DATE OF CONSULTATION: 11/04/2016 HISTORY OF PRESENT ILLNESS: The patient is resting comfortably in bed. He has been transferred to the orthopedic floor on . He continues to have pain in the knee. He remains on vancomycin an d Levaquin intravenously. PHYSICAL EXAMINATION: VITAL SIGNS: Temperature 98.4, blood pressure 148/91, pulse 85, respiratory rate 20. EXTREMITIES: The right knee remains swollen with a large effusion and redness and warmth around the knee. He has pain with attempted passive range of motion of the knee. There is no varus or valgus instability. He has chronic venous stasis changes in the lower leg. Motor strength is 5/5 in the quadriceps, tibialis anterior, extensor hallucis longus, gastroc-soleus , and peroneals bilaterally. Sensation is intact to light touch throughout both lower extremities. T here are 2+ palpable dorsalis pedis and posterior tibial pulses, with capillary refill less than 2 s econds in all 5 digits bilaterally. There is trace distal edema. IMAGING: A venous Doppler of the right lower extremity done yesterday shows no evidence of deep rafi ous thrombosis. There is a popliteal cyst measuring 4.4 x 3.1 x 2.5 cm. LABORATORIES: Laboratories dated 11/03/2016 reveal an ESR of 123 and a C-reactive protein of 15.5. The fluid aspirated from the right knee yesterday reveals 15,025 white blood cells with 88% neutrop hils. No crystals were seen. The gram stain as per my phone call with the microbiology laboratory this morning showed 2+ PMNs, but no organisms. The culture is negative x24 hours. ASSESSMENT AND PLAN: Infected right total knee arthroplasty. DISCUSSION: All evidence points towards the implant in the right knee being infected. He has a mar kedly elevated white blood cell count in the synovial fluid with a high percentage of neutrophils. His ESR is markedly elevated at 123 and a C-reactive protein is markedly elevated at 15.5. My feeli ng is that he meets the criteria of a prosthetic joint infection even though the cultures are negati ve, which may be adversely affected by the fact that he has been on IV antibiotics for the last week . Therefore, I am recommending that we proceed with a 2-stage exchange procedure. I would recommen d tomorrow we proceed with the first stage being resection arthroplasty and placement of an antibiot ic-impregnated cement spacer. I had a lengthy discussion with the patient about the nature of the s urgery. I explained that without removing the implant there is a high likelihood of the infection n ot being eradicated. I would not recommend a liner exchange. I discussed the nature of the resecti on arthroplasty and placement of the antibiotic impregnated cement spacer with the patient. I expla ined the risks, to include but not be limited to bleeding and possible need for blood transfusion, i nfection (persistent versus recurrent, and possible inability to eradicate the infection and need fo r either arthrodesis of the knee or possible above knee amputation). Pain, stiffness, neurovascular injury with possible numbness, weakness, and/or paralysis anywhere from the knee down to the toes, fracture, instability, dislocation, wound healing problems, and possible need for plastic surgical i ntervention with a gastroc flap and/or skin graft at later date, blood clots, pulmonary embolism, an d anesthetic complications such as heart attack, stroke, GI bleed, pneumonia and/or . Ample ti me was allowed for the patient to ask questions, all of which were addressed and answered. He under stands and wishes to proceed with surgery tomorrow. He understands that this will be the first of 2 stages, and that in the interval period of time he will be touchdown weightbearing and not able to bend the knee. He will need to be on intravenous antibiotics for 6 to 8 weeks, and we will follow h is serologic markers and clinical exam, and once he has completed the full dose of antibiotics we wi ll wait several weeks and then re-aspirate the knee, and if all parameters point to the infection be ing eradicated we can then bring him back for the second stage, which would be a reimplantation of t he total knee arthroplasty. He understands all this and wishes to proceed. We will make him n.p.o. after midnight. He will be typed and crossed 2 units of packed red blood cells. He will be contin ued on IV antibiotics. We will hold anticoagulation today in preparation for surgery tomorrow. Dictated By: DELORES BAER MD EZ/NTS Conf#: [id number] DID#: [id number] CC: ABIMAEL MARTINS MD; Dr. Lim;*EndCC*
--- NOTE | 2016-11-04 09:54 | PN ---
Date/Time of Note Date/Time of Note DATE: 11/04/16 TIME: 09:52 Assessment/Plan VTE Prophylaxis VTE Prophylaxis Intervention: heparin Lines/Catheters IV Catheter Type (from Nrsg): PICC Line Central line still needed: Yes (IV abx, for skilled nursing ) Urinary Cath still in place: No Assessment/Plan Assessment/Plan 1. Right lower extremity cellulitis and possible septic joint, high ESR and C- RP, s/p aspiration 11/03/2016, on antibiotics, follow up with orhto 2. Systemic inflammatory response syndrome with on and off fevers secondary to # 1, improved 3. DVT prophylaxis: heparin will ask ID to come up with antibiotic plan, S/p Evaluation by - dose not think prosthesis infected in Joint Bp stable will follow up PICC line in place, care pain control with current regimen Subjective 24 Hr Interval Summary Free Text/Dictation c/o right knee pain, on IV abx, ID following ,knee fluid cx negative to date Exam/Review of Systems Vital Signs Vitals Vital Signs Date Time Temp Pulse Resp B/P Pulse Ox O2 Delivery O2 Flow Rate FiO2 11/04/16 07:56 98.4 85 20 148/91 97 11/03/16 20:00 Room Air Intake and Output 11/03/16 11/03/16 11/04/16 15:00 23:00 07:00 Intake Total 1090 ml 950 ml Output Total 900 ml 1200 ml Balance 190 ml -250 ml Exam GENERAL: Well-developed, elderly man in no distress. HEENT: Head atraumatic, normocephalic. Sclerae anicteric. Buccal mucosa pink. NECK: Supple. CHEST: Rise symmetrical. Breath sounds clear. HEART: S1, S2. ABDOMEN: Soft. Bowel tones present. EXTREMITIES: Right lower extremity still with erythema, but markedly improved. The knee is swollen. Results Result Diagram: 11/02/16 0530 11/02/16 0530 Results 24 hrs Laboratory Tests Test 11/03/16 09:56 11/03/16 12:57 11/04/16 01:00 Synovial Fluid Appearance Cloudy Synovial Fluid Color Yellow Synovial Fluid Crystals No crystals seen Synovial Fluid Lymphocytes 4 Synovial Fluid Monocytes 8 Synovial Fluid Neutrophils 88 H Synovial Fluid Source Right Knee Synovial Fluid Volume 20.0 H Synovial Fluid WBC 69074 H C-Reactive Protein 15.5 H Erythrocyte Sedimentation Rate 123 H Vancomycin Level Trough 13.6 Medications Medications Current Medications Morphine Sulfate (morphine) 4 mg Q4H PRN IV PAIN Last administered on 04:58; Admin Dose 4 MG; Start 10/26/16 at 23:30 Ondansetron HCl (Zofran Inj) 4 mg Q6H PRN IV NAUSEA AND/OR VOMITING; Start at 23:30 Heparin Sodium (Porcine) (Heparin (5000 Units/0.5 ml)) 5,000 unit BID SC Last administered on 11/03/16 21:28; Admin Dose 5,000 UNIT; Start 10/27/16 at 09:00 Senna (Senokot) 2 tab DAILY PO Last administered on 11/04/16 09:13; Admin Dose 2 TAB; Start 10/29/16 at 00:00 Acetaminophen/ Hydrocodone Bitart ([place] (10325)) 1 tab Q6H PRN PO PAIN Last administered on 11/04/16 09:13; Admin Dose 1 TAB; Start 10/28/16 at 23:30 Acetaminophen 650 mg 650 mg Q6H PRN PO PAIN AND OR ELEVATED TEMP Last administered on 11/03/16 23:36; Admin Dose 650 MG; Start 10/30/16 at 21:00 Vancomycin HCl/ Sodium Chloride (Vancocin/NS) 250 ml @ 83.333 mls/ hr Q12H IVPB Last administered on 11/04/16 02:34; Admin Dose 83.333 MLS/HR; Start at 14:00 Levofloxacin (Levaquin) 500 mg DAILY@06 PO Last administered on 11/04/16 05:47 ; Admin Dose 500 MG; Start 11/02/16 at 06:00 IV Flush 10 ml 10 ml PRN PRN IV IV PROTOCOL; Start 11/02/16 at 17:30 Tranexamic Acid 940 mg/Sodium Chloride 109.4 ml @ 200 mls/hr PRE-OP ONCE IVPB ; Start 11/04/16 at 09:00; Stop 11/04/16 at 09:32; Status UNV Tranexamic Acid/ Sodium Chloride (Tranexamic Acid/ NS) 109.4 ml @ 200 mls/hr INTRA-OP ONCE IVPB ; Start 11/04/16 at 09:00; Stop 11/04/16 at 09:32; Status SHIRA ENRIQUEZ MD Nov 04, 2016 09:54
--- NOTE | 2016-11-04 13:23 | PN ---
DATE: SUBJECTIVE: No acute events overnight. The patient is lying comfortably in bed. Denies pain, disc omfort. He still has low-grade fevers with a T-max yesterday 100.4. T current 98.4. No labs this morning. ANTIMICROBIALS: 1. Vancomycin. 2. Levaquin. PHYSICAL EXAMINATION: GENERAL: Well-developed, elderly man in no distress. HEENT: Head atraumatic, normocephalic. Sclerae anicteric. Buccal mucosa pink. NECK: Supple. Trachea midline. CHEST: Rise symmetrical. Breath sounds clear. HEART: S1, S2. ABDOMEN: Soft, bowel tones present. EXTREMITIES: With right lower extremity edema, erythema. ASSESSMENT: 1. Right lower extremity cellulitis with possible infected joint, the patient is being seen by Dr. Stanton who plans to do surgical procedure. 2. Systemic inflammatory response syndrome secondary to that. PLAN: The patient remains stable. We will continue him on current antimicrobials. He has a PICC l ine already. He will need to be on 6 to 8 weeks IV antibiotics. manager medical to arrange placement as the patient claims he is homeless. Dictated By: SHAKIRA EDOUARD SKEINS YARN EXAMINER for [facility]IMAEL PLATA/REJI Conf#: [id number] DID#: [id number]
[2016-11-05] VITALS (26 sets, daily range): BP systolic 115–150; BP diastolic 68–91; PULSE 69–86; RESP 9–20
[2016-11-05] MEDS: VANCOMYCIN 1.5 GM in SOD CHLORIDE 0.9% 250 ML IVPB SCH ×2 (02:06→14:00)
[2016-11-05] MEDS: morphine 4 MG/ML VIAL IV PRN ×3 (02:06→11:31)
[2016-11-05 05:17] LABS: INR 1.24; PARTIAL THROMBOPLASTIN TIME 34.4 Sec (25.0-35.0); PROTIME 15.7 Sec (12.2-14.2); PT RATIO 1.2
[2016-11-05] MEDS: LEVOFLOXACIN 500 MG TAB PO SCH (05:31)
[2016-11-05 05:37] LABS: BASOPHILS % 0.4 % (0.0-2.0); EOSINOPHILS # 0.2 10^3/ul (0.0-0.5); EOSINOPHILS % 2.2 % (0.0-7.0); HEMATOCRIT 29.8 % (42.0-52.0); HEMOGLOBIN 9.8 g/dl (14.0-18.0); LYMPHOCYTES # 1.7 10^3/ul (0.8-2.9); LYMPHOCYTES % 20.1 % (15.0-51.0); MEAN CORPUSCULAR HEMOGLOBIN 28.5 pg (29.0-33.0); MEAN CORPUSCULAR HGB CONC 32.7 g/dl (32.0-37.0); MEAN CORPUSCULAR VOLUME 87.3 fl (82.0-101.0); MEAN PLATELET VOLUME 7.9 fl (7.4-10.4); MONOCYTE # 0.5 10^3/ul (0.3-0.9); MONOCYTES % 5.5 % (0.0-11.0); NEUTROPHILS % 71.8 % (39.0-77.0); PLATELET COUNT 425 10^3/UL (140-440); RED BLOOD COUNT 3.42 10^6/ul (4.70-6.10); RED CELL DISTRIBUTION WIDTH 14.1 % (11.5-14.5); UNCORRECTED WBC 8.4 10^3/ul (4.8-10.8); WHITE BLOOD COUNT 8.4 10^3/ul (4.8-10.8)
[2016-11-05 06:13] LABS: CONDITION 1
[2016-11-05] MEDS ORDERED: PAIN COCKTAIL - VANCOMYCIN IRR SCH ×7 (07:00)
[2016-11-05] MEDS ORDERED: PREGABALIN 300 MG PO X1 PO ONE (07:00)
[2016-11-05] MEDS: HYDROCODONE/APAP (10/325) TAB PO PRN ×2 (07:00→14:00)
[2016-11-05] MEDS ORDERED: oxyCODONE (CR) 10 MG TAB [oxyCONTIN] X1 DOSE PO ONE (07:00)
[2016-11-05] MEDS ORDERED: LACTATED RINGER'S 1,000 ML IV SCH (07:00)
[2016-11-05] MEDS ORDERED: EXPAREL NOTE (BUPIVICAINE LIPOSOMAL) XX SCH (07:00)
[2016-11-05] MEDS ORDERED: VANCOMYCIN 1 GM/NS 250 ML X1 BEFORE INCISION IVPB ONE (07:00)
[2016-11-05] MEDS ORDERED: TRANEXAMIC ACID 940 MG in SOD CHLORIDE 0.9% 100 ML IVPB ONE ×5 (07:00→22:30)
[2016-11-05] MEDS ORDERED: traMADOL 50 MG TAB X 1 DOSE PO ONE (07:00)
[2016-11-05] MEDS ORDERED: BUPIVACAINE LIPOSOME/PF 266 MG/20 ML VIAL INFIL SCH (07:00)
[2016-11-05] MEDS ORDERED: CELECOXIB 400 MG PO X1 DOSE PO ONE (07:00)
[2016-11-05] MEDS: SENNA TAB PO SCH (08:59)
[2016-11-05 10:48] LABS: ALBUMIN 2.7 g/dl (3.3-4.9)
[2016-11-05 10:49] LABS: POTASSIUM 4.2 mmol/L (3.5-5.1)
[2016-11-05 10:51] LABS: ALBUMIN/GLOBULIN RATIO 0.65; BILIRUBIN,INDIRECT 0.2 mg/dl (0-1.1); BILIRUBIN,TOTAL 0.2 mg/dl (0.2-1.3); CREATININE 0.67 mg/dl (0.61-1.24); TOTAL PROTEIN 6.8 g/dl (6.1-8.1)
[2016-11-05 10:52] LABS: CALCIUM 8.4 mg/dl (8.4-10.2)
--- NOTE | 2016-11-05 10:52 | PN ---
Date/Time of Note Date/Time of Note DATE: 11/05/16 TIME: 10:50 Assessment/Plan VTE Prophylaxis VTE Prophylaxis Intervention: SCD's Lines/Catheters IV Catheter Type (from Nrsg): PICC Line Central line still needed: Yes (IV abx for septic arthritis ) Urinary Cath still in place: No Assessment/Plan Assessment/Plan 1. Right lower extremity cellulitis and possible septic joint, high ESR and C- RP, s/p aspiration 11/03/2016, on antibiotics, follow up with orhto for knee washout 2. Systemic inflammatory response syndrome with on and off fevers secondary to # 1, improved 3. DVT prophylaxis: heparin will ask ID to come up with antibiotic plan, S/p Evaluation by - plan for knee wash out by orthopedic surgery today Bp stable will follow up PICC line in place, care pain control with current regimen Subjective 24 Hr Interval Summary Free Text/Dictation pt stable, plan for knee washout by orthopedic surgery today Exam/Review of Systems Vital Signs Vitals Vital Signs Date Time Temp Pulse Resp B/P Pulse Ox O2 Delivery O2 Flow Rate FiO2 11/05/16 07:43 98.0 84 19 147/81 97 11/03/16 20:00 Room Air Intake and Output 11/04/16 11/04/16 11/05/16 15:00 23:00 07:00 Intake Total 1190 ml 730 ml Output Total 1200 ml Balance 1190 ml -470 ml Exam GENERAL: Well-developed, elderly man in no distress. HEENT: Head atraumatic, normocephalic. Sclerae anicteric. Buccal mucosa pink. NECK: Supple. CHEST: Rise symmetrical. Breath sounds clear. HEART: S1, S2. ABDOMEN: Soft. Bowel tones present. EXTREMITIES: Right lower extremity still with erythema, but markedly improved. The knee is swollen. Results Result Diagram: 11/05/16 0440 11/02/16 0530 Results 24 hrs Laboratory Tests Test 11/05/16 04:40 Activated Partial Thromboplast Time 34.4 Basophils # 0.0 Basophils % 0.4 Blood Morphology Comment Eosinophils # 0.2 Eosinophils % 2.2 Hematocrit 29.8 L Hemoglobin 9.8 L INR International Normalized Ratio 1.24 Lymphocytes # 1.7 Lymphocytes % 20.1 Mean Corpuscular Hemoglobin 28.5 L Mean Corpuscular Hemoglobin Concent 32.7 Mean Corpuscular Volume 87.3 Mean Platelet Volume 7.9 Monocytes # 0.5 Monocytes % 5.5 Neutrophils # 6.0 Neutrophils % 71.8 Nucleated Red Blood Cells # 0.0 Nucleated Red Blood Cells % 0.0 Platelet Count 425 Prothrombin Time 15.7 H Prothrombin Time Ratio 1.2 Red Blood Count 3.42 L Red Cell Distribution Width 14.1 White Blood Count 8.4 Medications Medications Current Medications Morphine Sulfate (morphine) 4 mg Q4H PRN IV PAIN Last administered on 05:31; Admin Dose 4 MG; Start 10/26/16 at 23:30 Ondansetron HCl (Zofran Inj) 4 mg Q6H PRN IV NAUSEA AND/OR VOMITING; Start at 23:30 Heparin Sodium (Porcine) (Heparin (5000 Units/0.5 ml)) 5,000 unit BID SC Last administered on 11/03/16 21:28; Admin Dose 5,000 UNIT; Start 10/27/16 at 09:00 ; Status Future Hold Senna (Senokot) 2 tab DAILY PO Last administered on 11/04/16 09:13; Admin Dose 2 TAB; Start 10/29/16 at 00:00 Acetaminophen/ Hydrocodone Bitart ([place] (10325)) 1 tab Q6H PRN PO PAIN Last administered on 11/05/16 07:00; Admin Dose 1 TAB; Start 10/28/16 at 23:30 Acetaminophen 650 mg 650 mg Q6H PRN PO PAIN AND OR ELEVATED TEMP Last administered on 11/03/16 23:36; Admin Dose 650 MG; Start 10/30/16 at 21:00 Vancomycin HCl/ Sodium Chloride (Vancocin/NS) 250 ml @ 83.333 mls/ hr Q12H IVPB Last administered on 11/05/16 02:06; Admin Dose 83.333 MLS/HR; Start at 14:00 Levofloxacin (Levaquin) 500 mg DAILY@06 PO Last administered on 11/05/16 05:31 ; Admin Dose 500 MG; Start 11/02/16 at 06:00 IV Flush 10 ml 10 ml PRN PRN IV IV PROTOCOL; Start 11/02/16 at 17:30 Lactated Ringer's 1,000 ml @ 100 mls/hr Q10H IV Last administered on t 07:01; Admin Dose 100 MLS/HR; Start 11/05/16 at 07:00 Bupivacaine HCl/ Morphine Sulfate/ Epinephrine/ Ketorolac Tromethamine/ Clonidine/Sodium Chloride/ Vancomycin HCl ([place] 0.5% (Sdv)/Duramorph/ EPINEPHrine/ Toradol/Duraclon/ NS/Vancocin) INTRA-OP IRR ; Start 11/05/16 at 07 :00; Stop 11/05/16 at 19:30 Bupivacaine Liposome (Exparel 266 Mg/ 20 ml Vial) 266 mg INTRA-OP INFIL ; Start 11/05/16 at 07:00; Stop 11/05/16 at 16:00 Miscellaneous Information 1 ea NOTE XX ; Start 11/05/16 at 07:00; Stop 11/08/16 at 06:59 SHIRA EGAN MD Nov 05, 2016 10:52
[2016-11-05] MEDS: traMADol 50 MG TAB PO SCH ×3 (12:00→23:07)
--- NOTE | 2016-11-05 12:37 | PN ---
DATE: 11/05/2016 INFECTIOUS DISEASE PROGRESS NOTE SUBJECTIVE: No events overnight. No fevers. The patient is lying comfortably in bed. He is sched uled for surgery today. WBC today 8.4. No shift, no bands. BUN 10, creatinine 0.67. ANTIMICROBIALS: The patient remains on IV vancomycin and Levaquin. PHYSICAL EXAMINATION: GENERAL: Well-developed, elderly man, in no distress. HEENT: Head atraumatic, normocephalic. Sclerae anicteric. Buccal mucosa pink. NECK: Supple. CHEST: Chest rise is symmetrical. Breath sounds clear. HEART: S1, S2. ABDOMEN: Soft, bowel tones present. EXTREMITIES: With right lower extremity edema. Erythema below knee. ASSESSMENT: 1. Right lower extremity septic joint, with a history of right total knee replacement. 2. Status post systemic inflammatory response syndrome. PLAN: The patient remains stable. Ortho on the case. He is scheduled for surgical intervention to day. He has a PICC line. He will need to be on antibiotics for 6 weeks. Dictated By: SHAKIRA EDOUARD VAN HELPER for ABIMAEL PLATA/REJI Conf#: [id number] DID#: [id number]
[2016-11-05] MEDS ORDERED: ROCURONIUM 50 MG INJ ONE (14:56)
[2016-11-05] MEDS ORDERED: GLYCOPYRROLATE 1 MG INJ ONE (14:56)
[2016-11-05] MEDS ORDERED: NEOSTIGMINE 3 MG/3 ML SYRINGE ONE (14:56)
[2016-11-05] MEDS ORDERED: LIDOCAINE 100 MG SYRINGE ONE (14:57)
[2016-11-05] MEDS ORDERED: DEXAMETHASONE 4 MG/ML 1 ML INJ ONE (14:57)
[2016-11-05] MEDS ORDERED: ONDANSETRON 4 MG INJ ONE (14:57)
[2016-11-05] MEDS ORDERED: PROPOFOL 100 ML ONE (14:57)
[2016-11-05] MEDS ORDERED: MIDAZOLAM 1 MG/ML 2 ML INJ ONE (14:57)
[2016-11-05] MEDS ORDERED: FENTAnyl 50 MCG/ML VIAL ONE ×2 (14:57→18:17)
[2016-11-05] MEDS ORDERED: SODIUM CL BACTERIOSTATIC 30 ML INJ ONE (15:16)
[2016-11-05] MEDS ORDERED: POLYMYXIN B 500000 UNIT INJ ONE (15:17)
[2016-11-05] MEDS ORDERED: VANCOMYCIN 1 GM INJ ONE ×2 (15:17→17:23)
[2016-11-05] MEDS ORDERED: HEPARIN 1000 UNITS/ML 10 ML INJ ONE (15:18)
[2016-11-05] MEDS ORDERED: BACITRACIN 50000 UNITS INJ ONE (15:25)
[2016-11-05] MEDS ORDERED: TOBRAMYCIN 1.2 GM POWDER ZFS ONE (17:20)
[2016-11-05] MEDS ORDERED: HYDROmorphONE (0.2 MG/ML) 10ML SYG IV PRN ×3 (17:30)
[2016-11-05] MEDS ORDERED: LABETALOL HCL 20MG INJ IV PRN (17:30)
[2016-11-05] MEDS ORDERED: MIDAZOLAM 1 MG/ML 2 ML INJ IV PRN (17:30)
[2016-11-05] MEDS ORDERED: ONDANSETRON 4 MG INJ IV PRN ×2 (17:30→19:30)
[2016-11-05] MEDS ORDERED: hydrALAzine 20 MG INJ IV PRN (17:30)
[2016-11-05] MEDS ORDERED: MEPERIDINE 25 MG INJ IV PRN (17:30)
[2016-11-05] MEDS ORDERED: FENTAnyl 50 MCG/ML VIAL IV PRN ×3 (17:30)
[2016-11-05] MEDS ORDERED: DIPHENHYDRAMINE 50 MG INJ IV PRN (17:30)
[2016-11-05] MEDS ORDERED: EPHEDrine SULFATE 50 MG/5 ML SYG IV PRN (17:30)
[2016-11-05] MEDS ORDERED: TRIMETHOBENZAMIDE 100 MG/ML VIAL IM PRN (17:30)
[2016-11-05] MEDS ORDERED: METHYLENE BLUE 10 MG/ML VIAL ONE (18:05)
--- NOTE | 2016-11-05 19:22 | HPN ---
Date/Time of Note Date/Time of Note DATE: 11/05/16 TIME: 16:30 Interval H&P Admission Note Pt. seen H&P reviewed: No system changes GAUTAM JASON PA-C Nov 05, 2016 19:22
--- NOTE | 2016-11-05 19:22 | OPPN ---
Date/Time of Note Date/Time of Note DATE: 11/05/16 TIME: 19:20 Operative/Procedure Note Dictation # [id number] Pre-Operative Diagnosis Infected Right TKa Post-Operative Diagnosis Same Procedure I&D Right Knee, Removal of Infected Right TKA, and placement of ABX-PMMA spacer Surgeon: DELORES BAER MD Valet Parker: GAUTAM JASON PA-C Anesthesiologist: Skyler Pierson M.D. Findings Markedly cloudy synovial fluid Blood Usage/Administration None Implants/Grafts Biomet ABX-PMMA Spacer Drains Hemovac x 2 Specimens Aerobic and anaerobic culture x 2 of synovial fluid, femoral canal, and tibial canal Complications: None Anesthesia type: spinal DELORES BAER MD Nov 05, 2016 19:22
--- NOTE | 2016-11-05 19:25 | PN ---
Date/Time of Note Date/Time of Note DATE: 11/05/16 TIME: 19:22 Assessment/Plan Lines/Catheters IV Catheter Type (from Nrsg): PICC Line Santos in Place (from Nrsg): No Assessment/Plan Assessment/Plan Stable in PACU, s/p right knee I&D, removal of infected hardware, implantation of abx spacer -cont Vanco and Levaquin per infectious disease -ASA/SCDs for DVT prophylaxis -pain meds as needed -OOB with PT - toe touch weight bearing -[employer] to fit for hinged knee brace. Patient is to wear immobilizer for now until fitted for hinged knee brace -monitor drain -check AM labs -d/c santos in AM XR of the right knee is pending at this time Subjective 24 Hr Interval Summary Doing well in PACU. Denies any pain. Moving all extremities. Sleepy from anesthesia. Exam/Review of Systems Vital Signs Vitals Vital Signs Date Time Temp Pulse Resp B/P Pulse Ox O2 Delivery O2 Flow Rate FiO2 11/05/16 19:11 98.2 11/05/16 07:43 84 19 147/81 97 11/03/16 20:00 Room Air Intake and Output 11/04/16 11/04/16 11/05/16 15:00 23:00 07:00 Intake Total 1190 ml 730 ml Output Total 1200 ml Balance 1190 ml -470 ml Exam Free Text/Dictation Dressing dry Incision clean, dry, and intact without redness or drainage Thigh soft 5/5 Quadriceps, Tibialis Anterior, EHL, Gastroc, Soleus, Peroneals Normal sensation Palpable DT/PT, CR <2 sec No distal edema Results Result Diagram: 11/05/1643911/05/16439 GAUTAM JASON PA-C Nov 05, 2016 19:25
[2016-11-05] MEDS ORDERED: DIPHENHYDRAMINE 25 MG CAP PO PRN (19:30)
[2016-11-05] MEDS ORDERED: ASPIRIN (EC) 325 MG TAB PO ONE (19:30)
[2016-11-05] MEDS ORDERED: NA PHOSPHATE/BIPHOS 133 ML ENEMA PR PRN (19:30)
[2016-11-05] MEDS ORDERED: NACL 0.9% 3 ML SYG IV SCH (19:30)
[2016-11-05] MEDS ORDERED: oxyCODONE 5 MG TAB PO PRN (19:30)
[2016-11-05] MEDS ORDERED: BISACODYL 10 MG SUPP PR PRN (19:30)
[2016-11-05] MEDS ORDERED: MAGNESIUM HYDROXIDE 30ML CUP PO PRN (19:30)
[2016-11-05 19:49] LABS: POTASSIUM 4.4 mmol/L (3.5-5.1)
[2016-11-05 19:52] LABS: CREATININE 0.43 mg/dl (0.61-1.24)
[2016-11-05 19:53] LABS: CALCIUM 7.3 mg/dl (8.4-10.2)
[2016-11-05] MEDS: LEVOFLOXACIN 500MG/D5W (PMX) 100 ML IVPB SCH (20:11)
--- NOTE | 2016-11-05 20:21 | RADRPT ---
PROCEDURE: CR Right Knee CLINICAL INDICATION: Postop TECHNIQUE: An AP, lateral and a slightly oblique view were submitted. COMPARISON: 10/27/2016 FINDINGS: Osseous Structures: Since the previous study, the total knee replacement components have been remove d and methylmethacrylate has been placed at the sites of the distal femoral and proximal tibial comp onents. Antibiotic pledgets have been placed through the distal femoral and proximal tibial shafts. Join Spaces: There is a small joint effusion. Soft Tissues: A drain has been placed anteriorly and there is a small amount of subcutaneous air not ed medial to the femoral tibial joint. IMPRESSION: 1. Interval removal of the total right knee replacement components and placement of methylmethacryl ate. 2. Antibiotic pledgets have been placed through the distal femoral and proximal tibial shaft. The o sseous elements otherwise are rarefied but intact. 3. Small joint effusion 4. A drain has been placed and there is a small amount of subcutaneous air. Physician Tatyana Date Time Electronically viewed and signed by Physician Tatyana on 11/05/2016 20:20 RH/
[2016-11-05 20:42] LABS: HEMATOCRIT 28.7 % (42.0-52.0); HEMOGLOBIN 9.2 g/dl (14.0-18.0)
[2016-11-05] MEDS ORDERED: VANCOMYCIN 1 GM (PMX) 250 ML IVPB SCH (21:00)
--- NOTE | 2016-11-05 22:07 | OPR ---
DATE OF OPERATION: 11/05/2016 PREOPERATIVE DIAGNOSIS: Infected right total knee arthroplasty. POSTOPERATIVE DIAGNOSIS: Infected right total knee arthroplasty. OPERATION PERFORMED: Irrigation and debridement, right knee; removal of infected right total knee a rthroplasty and placement of antibiotic-impregnated cement spacer. SURGEON: Delores Stanton MD HOT PIPE GAUGER: IRWIN Benton ANESTHESIA: Spinal plus general endotracheal intubation plus nacho-articular injection. ANESTHESIOLOGIST: Skyler Pierson MD TOURNIQUET TIME: 60 minutes ESTIMATED BLOOD LOSS: 50 mL INTRAVENOUS FLUIDS: Two liters crystalloid. SPECIMENS: Aerobic and anaerobic culture of synovial fluid, femoral canal and tibial canal. DRAINS: Hemovac x2. COMPLICATIONS: None. DISPOSITION: The patient tolerated the procedure well, was taken to the recovery room in stable con dition. INDICATIONS: The patient is a 66-year-old gentleman who previously had a right total knee arthropla sty about 11 years ago by another surgeon. He presented to the hospital about a week ago with fever s and pain and swelling of the right knee. Knee aspiration showed 76,000 white blood cells with a h igh percentage of neutrophils. His ESR and CRP were quite elevated. Cultures have been negative th us far, but the synovial fluid analysis and his laboratories were consistent with an infected prosth esis. I felt he would benefit from removal of the prosthesis and placement of an antibiotic-impregn ated cement spacer as the first of 2 stages for a 2-stage exchange revision arthroplasty. The risks , benefits and alternatives of the procedure were explained in detail to the patient. I explained t he risks of the surgery to include but not be limited to bleeding; possible need for blood transfusi on; infection; pain; stiffness; neurovascular injury with possible numbness, weakness and/or paralys is anywhere from the knee down to the toes; fracture; ligamentous injury; need for additional future surgery including need for re-implantation, possible inability to eradicate the infection and need for an arthrodesis or possible above-knee amputation; wound healing problems and possible plastic hernandez rgical intervention with gastroc flap and/or skin graft; wound healing problems; blood clots; pulmon yaima embolism and anesthetic complications such as heart attack, stroke, GI bleed, pneumonia and/or d eath. Ample time was allowed for the patient to ask questions, all of which were addressed and answ ered. He understood the risks involved and wished to proceed. Informed consent was signed prior to the procedure. PROCEDURE: The patient's right knee was initialed with a marking pen in the preoperative holding ar ea to identify the correct operative site. The patient was then brought to the operating room and t [facility] to the operating table, where he was administered a spinal anest hetic and then anesthetized and intubated. A Arriaga catheter was placed. Time-out was performed, co nfirmed the right side was correct operative site. He had been given 1 gram of vancomycin and 1 gra m of intravenous Ancef within 1 hour prior to the incision. A tourniquet was placed on the right pr oximal thigh. Right knee and lower extremity were prepped and draped in usual sterile fashion. The right lower extremity was elevated and exsanguinated with the Esmarch tourniquet, and the proximal thigh tourniquet was inflated to 300 mmHg. The knee was flexed. The previous midline incision was incised. This was carried down to subcutaneous tissue and fat with sharp dissection. Medial and la teral flaps were raised. The previous median parapatellar arthrotomy was re-incised with a scalpel blade. There were multiple Ethibond sutures that were removed. Synovial fluid was markedly cloudy and swabbed for aerobic and anaerobic culture x2. The patella was subluxed laterally and the knee f lexed. The polyethylene insert was removed. The femoral and tibial components and patellar compone nt appeared well fixed. Osteotomes were used to free up the bone/cement interface on the femur and tibia, which were removed, as was the patella. All remaining cement was removed with osteotomes. Holly ivette femoral and tibial canals were opened and curetted and swabbed for aerobic and anaerobic culture x2. At this point, the knee was irrigated with 2 L of antibiotic saline pulsatile lavage and then a 1:1 mixture of Betadine and peroxide and then quarter-strength Dakin solution and 2 more liters of antibiotic saline pulsatile lavage. A clean drape was placed on the field. I changed my gloves, as did all assistants. At this point, the Biomet cement molds were filled with antibiotic-impregnated cement. Each bag of cement contained 4 grams of vancomycin and 4.8 grams of tobramycin. Once the molds were hardened, they were removed from the mold and loosely cemented onto the femur and tibia w ith the knee held in full extension. The patella was covered with a small antibiotic cement button. At this point, the tourniquet was let down. There was good hemostasis. A synovectomy had been pe rformed. A Hemovac drain was placed in the deep portion of the wound and brought out the anterolate ral thigh. The arthrotomy was closed with running #2 Stratafix. The subcutaneous layer was irrigat ed and closed over a drain with 2-0 Stratafix, 3-0 Vicryl and interrupted 2-0 Prolene in vertical ma ttress fashion. The incision was covered with a silver Mepilex dressing. The drains were secured w ith 3-0 nylons. Sponge and needle counts correct at the end of case. The knee was wrapped with ramone rile cast padding and a bias dressing, placed in a knee immobilizer. He was awakened, extubated and taken to the recovery room in stable condition. Dictated By: DELORES COLE/REJI Conf#: [id number] DID#: [id number]
[2016-11-05] MEDS: LACTATED RINGER'S 1,000 ML IV SCH (22:15)
[2016-11-05] MEDS: DOCUSATE SODIUM 100 MG CAP PO SCH (22:15)
[2016-11-05] MEDS: PREGABALIN 25 MG CAP PO SCH (22:15)
[2016-11-05] MEDS: ACETAMINOPHEN 1000MG/100ML IV 100 ML IVPB SCH (23:08)
[2016-11-06 00:20] VITALS: BP 120/85; PULSE 80; RESP 18
[2016-11-06] MEDS ORDERED: TRANEXAMIC ACID 940 MG in SOD CHLORIDE 0.9% 100 ML IVPB ONE (01:30)
[2016-11-06] MEDS: VANCOMYCIN 1.5 GM in SOD CHLORIDE 0.9% 250 ML IVPB SCH ×2 (02:42→14:12)
[2016-11-06] MEDS: LACTATED RINGER'S 1,000 ML IV SCH ×3 (03:07→19:45)
[2016-11-06 05:20] VITALS: BP 132/80; PULSE 68; RESP 18
[2016-11-06] MEDS: PANTOPRAZOLE (EC) 40 MG TAB PO SCH ×2 (05:49→17:45)
[2016-11-06] MEDS: traMADol 50 MG TAB PO SCH ×4 (05:49→23:26)
[2016-11-06] MEDS: ACETAMINOPHEN 1000MG/100ML IV 100 ML IVPB SCH ×3 (05:49→17:43)
[2016-11-06 05:54] LABS: ADD SCAN DIFF NO
[2016-11-06 05:59] LABS: BASOPHILS % 0.1 % (0.0-2.0); HEMATOCRIT 28.5 % (42.0-52.0); INR 1.25; LYMPHOCYTES # 0.8 10^3/ul (0.8-2.9); LYMPHOCYTES % 8.6 % (15.0-51.0); MEAN CORPUSCULAR HEMOGLOBIN 28.1 pg (29.0-33.0); MEAN CORPUSCULAR HGB CONC 31.6 g/dl (32.0-37.0); MEAN CORPUSCULAR VOLUME 89.1 fl (82.0-101.0); MEAN PLATELET VOLUME 10.1 fl (7.4-10.4); MONOCYTE # 0.4 10^3/ul (0.3-0.9); NEUTROPHIL # 7.9 10^3/ul (1.6-7.5); NEUTROPHILS % 86.9 % (39.0-77.0); PARTIAL THROMBOPLASTIN TIME 31.6 Sec (25.0-35.0); PLATELET COUNT 409 10^3/UL (140-415); PROTIME 15.8 Sec (12.2-14.2); PT RATIO 1.2; RED CELL DISTRIBUTION WIDTH 13.4 % (11.5-14.5); WHITE BLOOD COUNT 9.1 10^3/ul (4.8-10.8)
[2016-11-06 06:11] LABS: ALBUMIN 2.6 g/dl (3.3-4.9)
[2016-11-06 06:12] LABS: POTASSIUM 4.7 mmol/L (3.5-5.1)
[2016-11-06 06:14] LABS: ALBUMIN/GLOBULIN RATIO 0.6; CREATININE 0.61 mg/dl (0.61-1.24); TOTAL PROTEIN 6.9 g/dl (6.1-8.1)
[2016-11-06 06:15] LABS: CALCIUM 8.2 mg/dl (8.4-10.2)
[2016-11-06 06:57] LABS: ADD UMIC YES; URINE BILIRUBIN (Dip) NEGATIVE (NEGATIVE); URINE BLOOD (Dip) 1+ (NEGATIVE); URINE COLOR LT. YELLOW (YELLOW); URINE GLUCOSE (Dip) NEGATIVE (NEGATIVE); URINE KETONES (Dip) NEGATIVE (NEGATIVE); URINE LEUKOCYTE ESTERASE (Dip) NEGATIVE (NEGATIVE); URINE NITRITE (Dip) NEGATIVE (NEGATIVE); URINE TOTAL PROTEIN (Dip) NEGATIVE (NEGATIVE); URINE UROBILINOGEN (Dip) 0.2 E.U./dL (0.1-1.0)
[2016-11-06 07:00] VITALS: BP 136/82; RESP 18
--- NOTE | 2016-11-06 09:00 | PN ---
Date/Time of Note Date/Time of Note DATE: 11/06/16 TIME: 08:58 Assessment/Plan Lines/Catheters IV Catheter Type (from Nrsg): PICC Line Arriaga in Place (from Nrsg): Yes Assessment/Plan Assessment/Plan Stable POD #1, s/p right knee I&D, removal of infected hardware, implantation of abx spacer -cont abx per infectious disease (on Vanco and levaquin currently) -pain meds as needed -ASA/SCDs for DVT prophylaxis -OOB with PT (toe touch weight bearing) -monitor drain and output -check AM labs -hinged knee brace to be warn at all times -d/c planning. Will need to go to SNF upon discharge Subjective 24 Hr Interval Summary Doing well. No acuter overnight events. Moderate pain. Denies f/c. VSS, afebrile. Will need to go to SNF upon discharge. Exam/Review of Systems Vital Signs Vitals Vital Signs Date Time Temp Pulse Resp B/P Pulse Ox O2 Delivery O2 Flow Rate FiO2 11/06/16 07:00 98.7 66 18 136/82 96 11/06/16 05:20 Nasal Cannula 11/05/16 19:48 3.0 Intake and Output 11/05/16 11/05/16 11/06/16 15:00 23:00 07:00 Intake Total 2100 ml 1718 ml Output Total 1520 ml 2380 ml Balance 580 ml -662 ml Exam Free Text/Dictation Hemovac: 100cc Dressing dry Incision clean, dry, and intact without redness or drainage Thigh soft 5/5 Quadriceps, Tibialis Anterior, EHL, Gastroc, Soleus, Peroneals Normal sensation Palpable DT/PT, CR <2 sec No distal edema Results Result Diagram: 11/06/1642911/06/16 043 GAUTAM JASON PA-C Nov 06, 2016 09:00
[2016-11-06] MEDS: CELECOXIB 200 MG CAP PO SCH (09:26)
[2016-11-06] MEDS: PREGABALIN 25 MG CAP PO SCH ×2 (09:26→20:08)
[2016-11-06] MEDS: DOCUSATE SODIUM 100 MG CAP PO SCH ×2 (09:26→20:08)
[2016-11-06] MEDS: ASPIRIN (EC) 325 MG TAB PO SCH ×2 (09:26→20:08)
[2016-11-06] MEDS: SENNA TAB PO SCH (09:27)
--- NOTE | 2016-11-06 10:16 | PN ---
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 Right lower extremity cellulitis and possible septic joint, high ESR and C- RP, s/p aspiration 11/03/2016, - now s/p right knee I&D, removal of infected hardware, implantation of abx spacer, POD # 1, 2. Systemic inflammatory response syndrome with on and off fevers secondary to # 1, improved 3. DVT prophylaxis: heparin continue IV abx levaquin and vancomycin, will ask ID to come up with antibiotic plan for discharge next week, pt currently has PICC line in place, will need SNF placement for d/c planning next week after orthopedic clearance on Wednesday/Wednesday PICC line in place, care pain control with current regimen heparin for DVT prophylaxis appreciate orthopedic and ID help will d/c santos catheter on Wednesday or wednesday Subjective 24 Hr Interval Summary Free Text/Dictation s/p right knee I&D, removal of infected hardware, implantation of abx spacer, POD # 1, ortho followed, doing better, c/o pain in knee Exam/Review of Systems Vital Signs Vitals Vital Signs Date Time Temp Pulse Resp B/P Pulse Ox O2 Delivery O2 Flow Rate FiO2 11/06/16 07:00 98.7 66 18 136/82 96 11/06/16 05:20 Nasal Cannula 11/05/16 19:48 3.0 Intake and Output 11/05/16 11/05/16 11/06/16 15:00 23:00 07:00 Intake Total 2100 ml 1718 ml Output Total 1520 ml 2380 ml Balance 580 ml -662 ml Exam GENERAL: mild distress due to pain HEENT: Head atraumatic, normocephalic. Sclerae anicteric. Buccal mucosa pink. CHEST: Rise symmetrical. Breath sounds clear. PICC line in place HEART: S1, S2. ABDOMEN: Soft. Bowel tones present. EXTREMITIES: Right knee hemovac in place- 1oo cc drain Results Result Diagram: 11/06/16 0430 11/06/16 0430 Results 24 hrs Laboratory Tests Test 11/05/16 19:20 11/05/16 20:35 11/06/16 04:30 11/06/16 05:00 Anion Gap 16 15 Blood Urea Nitrogen 7 14 Calcium Level 7.3 L 8.2 L Carbon Dioxide Level 18 L 28 # Chloride Level 104 103 Creatinine 0.43 L 0.61 Glucose Level 90 167 Potassium Level 4.4 4.7 Sodium Level 134 L 141 Hematocrit 28.7 L 28.5 L Hemoglobin 9.2 L 9.0 L Activated Partial Thromboplast Time 31.6 Alanine Aminotransferase (ALT/SGPT) 56 Albumin 2.6 L Albumin/Globulin Ratio 0.60 Alkaline Phosphatase 100 Aspartate Amino Transf (AST/SGOT) 48 H Basophils # 0.0 Basophils % 0.1 Direct Bilirubin 0.00 Eosinophils # 0.0 Eosinophils % 0.0 Globulin 4.30 H INR International Normalized Ratio 1.25 Indirect Bilirubin 0.0 Lymphocytes # 0.8 Lymphocytes % 8.6 L Mean Corpuscular Hemoglobin 28.1 L Mean Corpuscular Hemoglobin Concent 31.6 L Mean Corpuscular Volume 89.1 Mean Platelet Volume 10.1 # Monocytes # 0.4 Monocytes % 4.0 Neutrophils # 7.9 H Neutrophils % 86.9 H Nucleated Red Blood Cells # 0.0 Nucleated Red Blood Cells % 0.0 Platelet Count 409 Prothrombin Time 15.8 H Prothrombin Time Ratio 1.2 Red Blood Count 3.20 L Red Cell Distribution Width 13.4 Total Bilirubin 0.0 L Total Protein 6.9 White Blood Count 9.1 Urine Bilirubin NEGATIVE Urine Clarity CLEAR Urine Color LT. YELLOW Urine Glucose NEGATIVE Urine Hemoglobin 1+ H Urine Ketones NEGATIVE Urine Leukocyte Esterase NEGATIVE Urine Microscopic RBC 2-5 Urine Microscopic WBC 0-2 Urine Nitrite NEGATIVE Urine Specific Schaller 1.015 Urine Total Protein NEGATIVE Urine Urobilinogen 0.2 E.U./dL Urine pH 6.5 Medications Medications Current Medications Morphine Sulfate (morphine) 4 mg Q4H PRN IV PAIN Last administered on 11:31; Admin Dose 4 MG; Start 10/26/16 at 23:30 Heparin Sodium (Porcine) (Heparin (5000 Units/0.5 ml)) 5,000 unit BID SC Last administered on 11/03/16 21:28; Admin Dose 5,000 UNIT; Start 10/27/16 at 09:00 ; Status Future Hold Senna (Senokot) 2 tab DAILY PO Last administered on 11/06/16 09:27; Admin Dose 2 TAB; Start 10/29/16 at 00:00 Acetaminophen/ Hydrocodone Bitart ([place] (10/325)) 1 tab Q6H PRN PO PAIN Last administered on 11/05/16 14:00; Admin Dose 1 TAB; Start 10/28/16 at 23:30 Acetaminophen 650 mg 650 mg Q6H PRN PO PAIN AND OR ELEVATED TEMP Last administered on 11/03/16 23:36; Admin Dose 650 MG; Start 10/30/16 at 21:00 Vancomycin HCl/ Sodium Chloride (Vancocin/NS) 250 ml @ 83.333 mls/ hr Q12H IVPB Last administered on 11/06/16 02:42; Admin Dose 83.333 MLS/HR; Start at 14:00 IV Flush (NS 10 ml) 10 ml PRN PRN IV IV PROTOCOL; Start 11/02/16 at 17:30 Miscellaneous Information 1 ea 1 ea NOTE XX ; Start 11/05/16 at 07:00; Stop at 06:59 Lactated Ringer's (Lr) 1,000 ml @ 125 mls/hr Q8H IV Last administered on 09:25; Admin Dose 125 MLS/HR; Start 11/05/16 at 19:07 Celecoxib 200 mg 200 mg DAILY PO Last administered on 11/06/16 09:26; Admin Dose 200 MG; Start 11/06/16 at 09:00 Acetaminophen (Ofirmev 1000mg/ 100ml Iv) 100 ml @ 400 mls/hr Q6 IVPB Last administered on 11/06/16 05:49; Admin Dose 400 MLS/HR; Start 11/06/16 at 00:00 ; Stop 11/06/16 at 23:59 Tramadol HCl (Ultram) 50 mg Q6 PO Last administered on 11/06/16 05:49; Admin Dose 50 MG; Start 11/05/16 at 12:00; Stop 11/08/16 at 11:59 Oxycodone HCl (Roxicodone) 5 mg Q4H PRN PO PAIN LEVEL 1-3; Start 11/05/16 at 19 :30 Oxycodone HCl (Roxicodone) 10 mg Q4H PRN PO PAIN LEVEL 4-7; Start 11/05/16 at 19:30 Hydromorphone HCl (Dilaudid) 1 mg Q3H PRN IV PAIN LEVEL 8-10; Start 11/05/16 at 19:30 Ondansetron HCl (Zofran Inj) 4 mg Q6H PRN IV NAUSEA AND/OR VOMITING; Start at 19:30 Bisacodyl (Dulcolax Supp) 10 mg Q12H PRN [place] CONSTIPATION; Start 11/05/16 at 19: 30 Magnesium Hydroxide (Milk Of Mag) 30 ml BID PRN PO CONSTIPATION; Start at 19:30 Sodium Biphosphate/ Sodium Phosphate (Fleet Enema) 133 ml DAILY PRN [place] CONSTIPATION; Start 11/05/16 at 19:30 Docusate Sodium (Colace) 100 mg BID PO Last administered on 11/06/16 09:26; Admin Dose 100 MG; Start 11/05/16 at 21:00 Diphenhydramine HCl (Benadryl) 25 mg Q6H PRN PO PRURITUS; Start 11/05/16 at 19: 30 Aspirin (Ecotrin) 325 mg BID PO Last administered on 11/06/16 09:26; Admin Dose 325 MG; Start 11/06/16 at 09:00 Pantoprazole (Protonix Tab) 40 mg BID@06,18 PO Last administered on 11/06/16 05:49; Admin Dose 40 MG; Start 11/06/16 at 06:00 Pregabalin 50 mg 50 mg BID PO Last administered on 11/06/16 09:26; Admin Dose 50 MG; Start 11/05/16 at 21:00 Levofloxacin/ Dextrose (Levaquin 500mg/ D5W 100 ml (Pmx)) 100 ml @ 100 mls/hr Q24H IVPB Last administered on 11/05/16 20:11; Admin Dose 100 MLS/HR; Start at 19:30; Stop 11/12/16 at 17:30 SHIRA EGAN MD Nov 06, 2016 10:16
[2016-11-06] MEDS: oxyCODONE 5 MG TAB PO PRN ×3 (10:55→21:17)
--- NOTE | 2016-11-06 12:49 | PN ---
DATE: 11/06/2016 SUBJECTIVE: Patient is alert, feels good, looks comfortable, no fevers. LABORATORY: WBC 9.1, neutrophils 86.9, BUN 14, creatinine 0.61. MICROBIOLOGY: Intraoperative cultures are pending. ANTIMICROBIALS: 1. Vancomycin. 2. Levaquin. INDWELLINGS: PICC line. PHYSICAL EXAMINATION: GENERAL: This is a well-developed elderly man who is in no distress. HEENT: Head atraumatic, normocephalic. Sclerae anicteric. Buccal mucosa pink. NECK: Supple, trachea midline. CHEST: Rise symmetrical. Breath sounds clear. HEART: S1, S2. ABDOMEN: Soft, bowel tones present. EXTREMITIES: With right lower extremity Trevin wrap. ASSESSMENT: 1. Right knee septic joint, status post incision and drainage with removal of infected right total knee, anteroposterior placement of antibiotic-impregnated cement spacer. 2. Status post systemic inflammatory response syndrome. 3. Diabetes. PLAN: The patient remains stable postoperatively. He is on appropriate antimicrobials, pending int raoperative cultures. Continue present care, antibiotics. Anticipate treating with current antibio tics for 6 more weeks. We will adjust as needed per cultures. Dictated By: SHAKIRA EDOUARD WEBMETHODS ARCHITECT for ABIMAEL PLATA/REJI Conf#: [id number] DID#: [id number]
[2016-11-06] MEDS: morphine 4 MG/ML VIAL IV PRN ×2 (14:13→19:46)
--- NOTE | 2016-11-06 16:45 | RADRPT ---
PROCEDURE: XR Chest. CLINICAL INDICATION: Check for PICC line catheter placement. TECHNIQUE: Single frontal view of the chest was obtained COMPARISON: Chest x-ray 11/02/2016 04:14 p.m. FINDINGS: The soft tissues are normal. There are degenerative osteophytes in the thoracic spine. The heart i s normal in size. The cardiomediastinal silhouette, pulmonary vasculature and hilar structures are normal. There is a less aorta. A PICC line catheter was placed through the left arm with its tip in the superior vena cava. There is plate-like atelectasis in the left lower lobe. No acute infiltrat e is identified. The costophrenic angles are normal. IMPRESSION: 1. The PICC line catheter is well positioned in the superior vena cava without evidence of a pneumot horax. 2. Plate-like atelectasis in the left lower lobe. RPTAT:AAJJ Physician Cady Date Time Electronically viewed and signed by Physician Cady on 11/06/2016 16:44 PACO/
[2016-11-06] MEDS: HYDROmorphONE 1 MG/ML SYG IV PRN ×2 (17:44→23:25)
[2016-11-06 19:30] VITALS: BP 117/65; RESP 22
[2016-11-06] MEDS: LEVOFLOXACIN 500MG/D5W (PMX) 100 ML IVPB SCH (19:45)
[2016-11-07] MEDS: morphine 4 MG/ML VIAL IV PRN (01:22)
[2016-11-07] MEDS: oxyCODONE 5 MG TAB PO PRN (02:52)
[2016-11-07] MEDS: VANCOMYCIN 1.5 GM in SOD CHLORIDE 0.9% 250 ML IVPB SCH ×2 (02:54→14:13)
[2016-11-07] MEDS: LACTATED RINGER'S 1,000 ML IV SCH ×3 (02:57→17:58)
[2016-11-07] MEDS: PANTOPRAZOLE (EC) 40 MG TAB PO SCH ×2 (04:39→18:00)
[2016-11-07] MEDS: HYDROmorphONE 1 MG/ML SYG IV PRN ×2 (04:44→07:53)
[2016-11-07 05:08] LABS: ADD SCAN DIFF NO
[2016-11-07 05:13] LABS: BASOPHILS % 0.2 % (0.0-2.0); EOSINOPHILS # 0.1 10^3/ul (0.0-0.5); EOSINOPHILS % 0.9 % (0.0-7.0); HEMATOCRIT 26.3 % (42.0-52.0); HEMOGLOBIN 8.3 g/dl (14.0-18.0); LYMPHOCYTES # 2.2 10^3/ul (0.8-2.9); LYMPHOCYTES % 24.2 % (15.0-51.0); MEAN CORPUSCULAR HEMOGLOBIN 28.1 pg (29.0-33.0); MEAN CORPUSCULAR HGB CONC 31.6 g/dl (32.0-37.0); MEAN CORPUSCULAR VOLUME 89.2 fl (82.0-101.0); MEAN PLATELET VOLUME 9.7 fl (7.4-10.4); MONOCYTE # 0.6 10^3/ul (0.3-0.9); MONOCYTES % 6.3 % (0.0-11.0); NEUTROPHIL # 6.3 10^3/ul (1.6-7.5); PLATELET COUNT 431 10^3/UL (140-415); RED BLOOD COUNT 2.95 10^6/ul (4.70-6.10); RED CELL DISTRIBUTION WIDTH 13.7 % (11.5-14.5); WHITE BLOOD COUNT 9.2 10^3/ul (4.8-10.8)
[2016-11-07 05:24] LABS: POTASSIUM 4.1 mmol/L (3.5-5.1)
[2016-11-07 05:26] LABS: CREATININE 0.69 mg/dl (0.61-1.24)
[2016-11-07 05:27] LABS: CALCIUM 7.9 mg/dl (8.4-10.2)
[2016-11-07] MEDS: traMADol 50 MG TAB PO SCH ×3 (06:07→17:58)
[2016-11-07 07:00] VITALS: BP 148/75; RESP 20
--- NOTE | 2016-11-07 08:43 | CONS ---
Date/Time of Note Date/Time of Note DATE: 11/07/16 TIME: 08:43 Assessment/Plan Assessment/Plan Chief Complaint/Hosp Course D PROGRESS NOTE CURRENT ABX=> Vanco IV + Levaquin 24H INTERVAL SUMMARY * A/A/O => Feels well, was up OOB with walker earlier this am. Afebrile, VSS, NAD * Micro (-) to date: * 11/05/16-1734 Rcvd: 11/05/16-2007 Source: RIGHT KNEE Sp Descrip: Microbiology GRAM STAIN Final POLYMORPH. LEUKOCYTE RARE . NO ORGANISM SEEN TISSUE (BIOPSY) CULTURE Preliminary No growth after 2 days PHYSICAL EXAMINATION: GENERAL: VSS, NAD HEENT: Unremarkable NECK: Supple, trachea midline. CHEST: Rise symmetrical, without dyspnea on observation HEART: Pulse RRR ABDOMEN: Soft, benign EXTREMITIES: Warm, RLEXT wrapped ID ASSESSMENT 66 yo M 1. Right knee septic joint=> s/p I&D with removal of infected right total knee and placement of antibiotic-impregnated cement spacer. 2. Status post systemic inflammatory response syndrome. 3. Diabetes. (-)MRSA Nares INVASIVES: PIV, ABX ALLERGY: KNDA CURRENT ABX: => Vanco IV + Levaquin s/p ID RECOMMENDATIONS 1. Continue current ABX x 6 weeks from date of infected prosthesis removal to 12/17/2016 = last day 2. F/U final micro intraop cx pending . Problems: Consultation Date/Type/Reason Admit Date/Time Oct 26, 2016 at 19:59 Initial Consult Date Type of Consultation: ID Exam/Review of Systems Vital Signs Vitals Vital Signs Date Time Temp Pulse Resp B/P Pulse Ox O2 Delivery O2 Flow Rate FiO2 11/07/16 07:00 98.5 76 20 148/75 97 11/06/16 05:20 Nasal Cannula 11/05/16 19:48 3.0 Intake and Output 2/24/17 2/24/17 2/25/17 15:00 23:00 07:00 Intake Total 100 ml 3805 ml 2150 ml Output Total 2620 ml 1440 ml Balance 100 ml 1185 ml 710 ml Results Result Diagram: 11/07/16 0437 11/07/16 0437 Results 24 hrs Laboratory Tests Test 11/07/16 01:13 11/07/16 04:37 Vancomycin Level Trough 16.7 Anion Gap 13 Basophils # 0.0 Basophils % 0.2 Blood Urea Nitrogen 17 Calcium Level 7.9 L Carbon Dioxide Level 28 Chloride Level 104 Creatinine 0.69 Eosinophils # 0.1 Eosinophils % 0.9 Glucose Level 92 # Hematocrit 26.3 L Hemoglobin 8.3 L Lymphocytes # 2.2 Lymphocytes % 24.2 Mean Corpuscular Hemoglobin 28.1 L Mean Corpuscular Hemoglobin Concent 31.6 L Mean Corpuscular Volume 89.2 Mean Platelet Volume 9.7 Monocytes # 0.6 Monocytes % 6.3 Neutrophils # 6.3 Neutrophils % 68.0 Nucleated Red Blood Cells # 0.0 Nucleated Red Blood Cells % 0.0 Platelet Count 431 H Potassium Level 4.1 Red Blood Count 2.95 L Red Cell Distribution Width 13.7 Sodium Level 141 White Blood Count 9.2 Medications Medications Current Medications Morphine Sulfate (morphine) 4 mg Q4H PRN IV PAIN Last administered on 01:22; Admin Dose 4 MG; Start 10/26/16 at 23:30 Heparin Sodium (Porcine) (Heparin (5000 Units/0.5 ml)) 5,000 unit BID SC Last administered on 11/03/16 21:28; Admin Dose 5,000 UNIT; Start 10/27/16 at 09:00 ; Status Future Hold Senna (Senokot) 2 tab DAILY PO Last administered on 11/06/16 09:27; Admin Dose 2 TAB; Start 10/29/16 at 00:00 Acetaminophen/ Hydrocodone Bitart ([place] (10325)) 1 tab Q6H PRN PO PAIN Last administered on 11/05/16 14:00; Admin Dose 1 TAB; Start 10/28/16 at 23:30 Acetaminophen 650 mg 650 mg Q6H PRN PO PAIN AND OR ELEVATED TEMP Last administered on 11/03/16 23:36; Admin Dose 650 MG; Start 10/30/16 at 21:00 Vancomycin HCl/ Sodium Chloride (Vancocin/NS) 250 ml @ 83.333 mls/ hr Q12H IVPB Last administered on 11/07/16 02:54; Admin Dose 83.333 MLS/HR; Start at 14:00 IV Flush (NS 10 ml) 10 ml PRN PRN IV IV PROTOCOL; Start 11/02/16 at 17:30 Miscellaneous Information 1 ea 1 ea NOTE XX ; Start 11/05/16 at 07:00; Stop at 06:59 Lactated Ringer's (Lr) 1,000 ml @ 125 mls/hr Q8H IV Last administered on 02:57; Admin Dose 125 MLS/HR; Start 11/05/16 at 19:07 Celecoxib (Celebrex) 200 mg DAILY PO Last administered on 11/06/16 09:26; Admin Dose 200 MG; Start 11/06/16 at 09:00 Tramadol HCl (Ultram) 50 mg Q6 PO Last administered on 11/07/16 06:07; Admin Dose 50 MG; Start 11/05/16 at 12:00; Stop 11/08/16 at 11:59 Oxycodone HCl (Roxicodone) 5 mg Q4H PRN PO PAIN LEVEL 1-3; Start 11/05/16 at 19 :30 Oxycodone HCl (Roxicodone) 10 mg Q4H PRN PO PAIN LEVEL 4-7 Last administered on 11/07/16 02:52; Admin Dose 10 MG; Start 11/05/16 at 19:30 Hydromorphone HCl (Dilaudid) 1 mg Q3H PRN IV PAIN LEVEL 8-10 Last administered on 11/07/16 07:53; Admin Dose 1 MG; Start 11/05/16 at 19:30 Ondansetron HCl (Zofran Inj) 4 mg Q6H PRN IV NAUSEA AND/OR VOMITING; Start at 19:30 Bisacodyl (Dulcolax Supp) 10 mg Q12H PRN [place] CONSTIPATION; Start 11/05/16 at 19: 30 Magnesium Hydroxide (Milk Of Mag) 30 ml BID PRN PO CONSTIPATION; Start at 19:30 Sodium Biphosphate/ Sodium Phosphate (Fleet Enema) 133 ml DAILY PRN [place] CONSTIPATION; Start 11/05/16 at 19:30 Docusate Sodium (Colace) 100 mg BID PO Last administered on 11/06/16 20:08; Admin Dose 100 MG; Start 11/05/16 at 21:00 Diphenhydramine HCl (Benadryl) 25 mg Q6H PRN PO PRURITUS; Start 11/05/16 at 19: 30 Aspirin (Ecotrin) 325 mg BID PO Last administered on 11/06/16 20:08; Admin Dose 325 MG; Start 11/06/16 at 09:00 Pantoprazole (Protonix Tab) 40 mg BID@06,18 PO Last administered on 11/07/16 04:39; Admin Dose 40 MG; Start 11/06/16 at 06:00 Pregabalin 50 mg 50 mg BID PO Last administered on 11/06/16 20:08; Admin Dose 50 MG; Start 11/05/16 at 21:00 Levofloxacin/ Dextrose (Levaquin 500mg/ D5W 100 ml (Pmx)) 100 ml @ 100 mls/hr Q24H IVPB Last administered on 11/06/16 19:45; Admin Dose 100 MLS/HR; Start at 19:30; Stop 11/12/16 at 17:30 VIRGINIA ELAM CANCER GENETICS ASSISTANT Nov 07, 2016 08:43
[2016-11-07] MEDS: DOCUSATE SODIUM 100 MG CAP PO SCH ×2 (09:14→20:09)
[2016-11-07] MEDS: PREGABALIN 25 MG CAP PO SCH ×2 (09:14→20:09)
[2016-11-07] MEDS: SENNA TAB PO SCH (09:14)
[2016-11-07] MEDS: ASPIRIN (EC) 325 MG TAB PO SCH ×2 (09:14→20:09)
[2016-11-07] MEDS: CELECOXIB 200 MG CAP PO SCH (09:14)
--- NOTE | 2016-11-07 10:09 | PN ---
Date/Time of Note Date/Time of Note DATE: 11/07/16 TIME: 10:06 Assessment/Plan Lines/Catheters IV Catheter Type (from Nrsg): PICC Line Arriaga in Place (from Nrsg): Yes Assessment/Plan Assessment/Plan POD # 2. Stable. -Drains removed -Continue Vanco and Levaquin as per ID recs -Will need at least 6 weeks of IV ABX -OOB with PT -TDWB Right LE -Hinged knee brace locked in full extension -ASA/SCDs for DVT prophylaxis -Start Dilaudid BUSINESS STRATEGIST Subjective 24 Hr Interval Summary Having pain. Not well controlled. On Vanco and Levaquin. Exam/Review of Systems Vital Signs Vitals Vital Signs Date Time Temp Pulse Resp B/P Pulse Ox O2 Delivery O2 Flow Rate FiO2 11/07/16 07:00 98.5 76 20 148/75 97 11/06/16 05:20 Nasal Cannula 11/05/16 19:48 3.0 Intake and Output 11/06/16 11/06/16 11/07/16 15:00 23:00 07:00 Intake Total 100 ml 3805 ml 2150 ml Output Total 2620 ml 1440 ml Balance 100 ml 1185 ml 710 ml Exam Free Text/Dictation Hemovac: 160 cc Dressing dry Incision clean, dry, and intact without redness or drainage 5/5 Tibialis Anterior, EHL, Gastroc Soleus, Peroneals Normal sensation Palpable DP/PT, CR < 2 Sec No distal edema Cultures negative thus far Results Result Diagram: 11/07/16 0437 11/07/16 0437 DELORES BAER MD Nov 07, 2016 10:09
[2016-11-07] MEDS: HYDROmorphONE 0.2 MG/ML PCA IV SCH ×2 (10:37→18:05)
--- NOTE | 2016-11-07 11:20 | PN ---
Date/Time of Note Date/Time of Note DATE: 11/07/16 TIME: 11:18 Assessment/Plan VTE Prophylaxis VTE Prophylaxis Intervention: heparin Lines/Catheters IV Catheter Type (from Nrsg): PICC Line Central line still needed: Yes (IV abx for septic arthritis ) Urinary Cath still in place: Yes Reason Cath still needed: other (indicate) (post op knee surgery ) Assessment/Plan Assessment/Plan 1. Right lower extremity cellulitis and possible septic joint, high ESR and C- RP, s/p aspiration 11/03/2016, - now s/p right knee I&D, removal of infected hardware, implantation of abx spacer, POD # 1, 2. Systemic inflammatory response syndrome with on and off fevers secondary to # 1, improved 3. DVT prophylaxis: heparin continue IV abx levaquin and vancomycin, will ask ID to come up with antibiotic plan for discharge next week, pt currently has PICC line in place, will need SNF placement for d/c planning next week after orthopedic clearance on Wednesday/Wednesday PICC line in place, care pain control with current regimen heparin for DVT prophylaxis appreciate orthopedic and ID help d/c santos catheter on wednesday Subjective 24 Hr Interval Summary Free Text/Dictation afebrile, BP stable, S/p Knee surgery Exam/Review of Systems Vital Signs Vitals Vital Signs Date Time Temp Pulse Resp B/P Pulse Ox O2 Delivery O2 Flow Rate FiO2 11/07/16 07:00 98.5 76 20 148/75 97 11/06/16 05:20 Nasal Cannula 11/05/16 19:48 3.0 Intake and Output 11/06/16 11/06/16 11/07/16 15:00 23:00 07:00 Intake Total 100 ml 3805 ml 2150 ml Output Total 2620 ml 1440 ml Balance 100 ml 1185 ml 710 ml Exam GENERAL: mild distress due to pain HEENT: Head atraumatic, normocephalic. Sclerae anicteric. Buccal mucosa pink. CHEST: Rise symmetrical. Breath sounds clear. PICC line in place HEART: S1, S2. ABDOMEN: Soft. Bowel tones present. EXTREMITIES: Right knee hemovac in place- 100 cc drain Results Result Diagram: 11/07/16 0437 11/07/16 0437 Results 24 hrs Laboratory Tests Test 11/07/16 01:13 11/07/16 04:37 Vancomycin Level Trough 16.7 Anion Gap 13 Basophils # 0.0 Basophils % 0.2 Blood Urea Nitrogen 17 Calcium Level 7.9 L Carbon Dioxide Level 28 Chloride Level 104 Creatinine 0.69 Eosinophils # 0.1 Eosinophils % 0.9 Glucose Level 92 # Hematocrit 26.3 L Hemoglobin 8.3 L Lymphocytes # 2.2 Lymphocytes % 24.2 Mean Corpuscular Hemoglobin 28.1 L Mean Corpuscular Hemoglobin Concent 31.6 L Mean Corpuscular Volume 89.2 Mean Platelet Volume 9.7 Monocytes # 0.6 Monocytes % 6.3 Neutrophils # 6.3 Neutrophils % 68.0 Nucleated Red Blood Cells # 0.0 Nucleated Red Blood Cells % 0.0 Platelet Count 431 H Potassium Level 4.1 Red Blood Count 2.95 L Red Cell Distribution Width 13.7 Sodium Level 141 White Blood Count 9.2 Medications Medications Current Medications Morphine Sulfate (morphine) 4 mg Q4H PRN IV PAIN Last administered on 01:22; Admin Dose 4 MG; Start 10/26/16 at 23:30 Heparin Sodium (Porcine) (Heparin (5000 Units/0.5 ml)) 5,000 unit BID SC Last administered on 11/03/16 21:28; Admin Dose 5,000 UNIT; Start 10/27/16 at 09:00 ; Status Future Hold Senna (Senokot) 2 tab DAILY PO Last administered on 11/07/16 09:14; Admin Dose 2 TAB; Start 10/29/16 at 00:00 Acetaminophen/ Hydrocodone Bitart ([place] (10/325)) 1 tab Q6H PRN PO PAIN Last administered on 11/05/16 14:00; Admin Dose 1 TAB; Start 10/28/16 at 23:30 Acetaminophen 650 mg 650 mg Q6H PRN PO PAIN AND OR ELEVATED TEMP Last administered on 11/03/16 23:36; Admin Dose 650 MG; Start 10/30/16 at 21:00 Vancomycin HCl/ Sodium Chloride (Vancocin/NS) 250 ml @ 83.333 mls/ hr Q12H IVPB Last administered on 11/07/16 02:54; Admin Dose 83.333 MLS/HR; Start at 14:00 IV Flush (NS 10 ml) 10 ml PRN PRN IV IV PROTOCOL; Start 11/02/16 at 17:30 Miscellaneous Information 1 ea 1 ea NOTE XX ; Start 11/05/16 at 07:00; Stop at 06:59 Lactated Ringer's (Lr) 1,000 ml @ 125 mls/hr Q8H IV Last administered on 09:15; Admin Dose 125 MLS/HR; Start 11/05/16 at 19:07 Celecoxib (Celebrex) 200 mg DAILY PO Last administered on 11/07/16 09:14; Admin Dose 200 MG; Start 11/06/16 at 09:00 Tramadol HCl (Ultram) 50 mg Q6 PO Last administered on 11/07/16 06:07; Admin Dose 50 MG; Start 11/05/16 at 12:00; Stop 11/08/16 at 11:59 Oxycodone HCl (Roxicodone) 5 mg Q4H PRN PO PAIN LEVEL 1-3 Last administered on 11/07/16 09:14; Admin Dose 5 MG; Start 11/05/16 at 19:30 Oxycodone HCl (Roxicodone) 10 mg Q4H PRN PO PAIN LEVEL 4-7 Last administered on 11/07/16 02:52; Admin Dose 10 MG; Start 11/05/16 at 19:30 Hydromorphone HCl (Dilaudid) 1 mg Q3H PRN IV PAIN LEVEL 8-10 Last administered on 11/07/16 07:53; Admin Dose 1 MG; Start 11/05/16 at 19:30 Ondansetron HCl (Zofran Inj) 4 mg Q6H PRN IV NAUSEA AND/OR VOMITING; Start at 19:30 Bisacodyl (Dulcolax Supp) 10 mg Q12H PRN [place] CONSTIPATION; Start 11/05/16 at 19: 30 Magnesium Hydroxide (Milk Of Mag) 30 ml BID PRN PO CONSTIPATION; Start at 19:30 Sodium Biphosphate/ Sodium Phosphate (Fleet Enema) 133 ml DAILY PRN [place] CONSTIPATION; Start 11/05/16 at 19:30 Docusate Sodium (Colace) 100 mg BID PO Last administered on 11/07/16 09:14; Admin Dose 100 MG; Start 11/05/16 at 21:00 Diphenhydramine HCl (Benadryl) 25 mg Q6H PRN PO PRURITUS; Start 11/05/16 at 19: 30 Aspirin (Ecotrin) 325 mg BID PO Last administered on 11/07/16 09:14; Admin Dose 325 MG; Start 11/06/16 at 09:00 Pantoprazole (Protonix Tab) 40 mg BID@06,18 PO Last administered on 11/07/16 04:39; Admin Dose 40 MG; Start 11/06/16 at 06:00 Pregabalin 50 mg 50 mg BID PO Last administered on 11/07/16 09:14; Admin Dose 50 MG; Start 11/05/16 at 21:00 Levofloxacin/ Dextrose (Levaquin 500mg/ D5W 100 ml (Pmx)) 100 ml @ 100 mls/hr Q24H IVPB Last administered on 11/06/16 19:45; Admin Dose 100 MLS/HR; Start at 19:30; Stop 11/12/16 at 17:30 Hydromorphone HCl (Dilaudid CATERING CHEF) 0 MG/HR CONTINUOUS RATE ... Q4PCA IV Last administered on 11/07/16 10:37; Admin Dose 6 MG; Start 11/07/16 at 10:30 SHIRA EGAN MD Nov 07, 2016 11:20
[2016-11-07 19:27] VITALS: BP 150/75; PULSE 76; RESP 18
[2016-11-07] MEDS: LEVOFLOXACIN 500MG/D5W (PMX) 100 ML IVPB SCH (20:09)
[2016-11-08] MEDS: traMADol 50 MG TAB PO SCH ×2 (00:33→06:07)
[2016-11-08] MEDS: VANCOMYCIN 1.5 GM in SOD CHLORIDE 0.9% 250 ML IVPB SCH ×2 (02:34→14:04)
[2016-11-08] MEDS: LACTATED RINGER'S 1,000 ML IV SCH ×4 (02:35→19:07)
[2016-11-08 05:05] LABS: ADD SCAN DIFF NO
[2016-11-08 05:09] LABS: BASOPHIL # 0.1 10^3/ul (0.0-0.1); BASOPHILS % 0.6 % (0.0-2.0); EOSINOPHILS # 0.1 10^3/ul (0.0-0.5); EOSINOPHILS % 1.2 % (0.0-7.0); HEMATOCRIT 29.1 % (42.0-52.0); HEMOGLOBIN 9.1 g/dl (14.0-18.0); LYMPHOCYTES # 2.1 10^3/ul (0.8-2.9); LYMPHOCYTES % 23.5 % (15.0-51.0); MEAN CORPUSCULAR HEMOGLOBIN 27.8 pg (29.0-33.0); MEAN CORPUSCULAR HGB CONC 31.3 g/dl (32.0-37.0); MEAN PLATELET VOLUME 9.5 fl (7.4-10.4); MONOCYTE # 0.7 10^3/ul (0.3-0.9); MONOCYTES % 7.4 % (0.0-11.0); NEUTROPHILS % 66.6 % (39.0-77.0); PLATELET COUNT 456 10^3/UL (140-415); RED BLOOD COUNT 3.27 10^6/ul (4.70-6.10); RED CELL DISTRIBUTION WIDTH 13.9 % (11.5-14.5)
[2016-11-08 05:25] LABS: CREATININE 0.67 mg/dl (0.61-1.24)
[2016-11-08 05:26] LABS: CALCIUM 8.4 mg/dl (8.4-10.2)
[2016-11-08] MEDS: PANTOPRAZOLE (EC) 40 MG TAB PO SCH ×2 (06:07→17:27)
[2016-11-08] MEDS: HYDROmorphONE 0.2 MG/ML PCA IV SCH ×3 (06:32→23:54)
[2016-11-08] MEDS: PREGABALIN 25 MG CAP PO SCH ×2 (08:35→20:36)
[2016-11-08] MEDS: SENNA TAB PO SCH (08:35)
[2016-11-08] MEDS: ASPIRIN (EC) 325 MG TAB PO SCH ×2 (08:35→20:36)
[2016-11-08] MEDS: CELECOXIB 200 MG CAP PO SCH (08:36)
[2016-11-08] MEDS: DOCUSATE SODIUM 100 MG CAP PO SCH ×2 (08:36→20:36)
[2016-11-08 08:46] VITALS: BP 149/80; RESP 16
--- NOTE | 2016-11-08 10:36 | PN ---
Date/Time of Note Date/Time of Note DATE: 11/08/16 TIME: 10:34 Assessment/Plan VTE Prophylaxis VTE Prophylaxis Intervention: heparin Lines/Catheters IV Catheter Type (from Nrsg): PICC Line Central line still needed: Yes (IV abx for septic arthritis ) Urinary Cath still in place: Yes Reason Cath still needed: other (indicate) (plan is to d/c today ) Assessment/Plan Assessment/Plan 1. Right lower extremity cellulitis and possible septic joint, high ESR and C- RP, s/p aspiration 11/03/2016, - now s/p right knee I&D, removal of infected hardware, implantation of abx spacer, 2. Systemic inflammatory response syndrome with on and off fevers secondary to # 1, improved 3. DVT prophylaxis: heparin continue IV abx levaquin and vancomycin, will ask ID to come up with antibiotic plan for discharge next week, pt currently has PICC line in place, will need SNF placement for d/c planning next week after orthopedic clearance on Wednesday/Wednesday PICC line in place, care pain control with current regimen heparin for DVT prophylaxis appreciate orthopedic and ID help d/c santos catheter today Subjective 24 Hr Interval Summary Free Text/Dictation no acute events, BP stbale, plan is to d/c santos Exam/Review of Systems Vital Signs Vitals Vital Signs Date Time Temp Pulse Resp B/P Pulse Ox O2 Delivery O2 Flow Rate FiO2 11/08/16 08:46 98.6 91 16 149/80 92 11/07/16 19:27 Room Air 11/05/16 19:48 3.0 Intake and Output 11/07/16 11/07/16 11/08/16 14:59 22:59 06:59 Intake Total 1000 ml 2750 ml Output Total 1300 ml 2400 ml Balance -300 ml 350 ml Exam GENERAL: no distress HEENT: Head atraumatic, normocephalic. Sclerae anicteric. Buccal mucosa pink. CHEST: Rise symmetrical. Breath sounds clear. PICC line in place HEART: S1, S2. ABDOMEN: Soft. Bowel tones present. EXTREMITIES: right knee dressing in place Results Result Diagram: 11/08/16 0425 11/08/16 0425 Results 24 hrs Laboratory Tests Test 11/08/16 04:25 Anion Gap 13 Basophils # 0.1 Basophils % 0.6 Blood Urea Nitrogen 13 Calcium Level 8.4 Carbon Dioxide Level 30 Chloride Level 101 Creatinine 0.67 Eosinophils # 0.1 Eosinophils % 1.2 Glucose Level 103 Hematocrit 29.1 L Hemoglobin 9.1 L Lymphocytes # 2.1 Lymphocytes % 23.5 Mean Corpuscular Hemoglobin 27.8 L Mean Corpuscular Hemoglobin Concent 31.3 L Mean Corpuscular Volume 89.0 Mean Platelet Volume 9.5 Monocytes # 0.7 Monocytes % 7.4 Neutrophils # 6.0 Neutrophils % 66.6 Nucleated Red Blood Cells # 0.0 Nucleated Red Blood Cells % 0.0 Platelet Count 456 H Potassium Level 4.0 Red Blood Count 3.27 L Red Cell Distribution Width 13.9 Sodium Level 140 White Blood Count 9.0 Medications Medications Current Medications Morphine Sulfate (morphine) 4 mg Q4H PRN IV PAIN Last administered on 01:22; Admin Dose 4 MG; Start 10/26/16 at 23:30 Heparin Sodium (Porcine) (Heparin (5000 Units/0.5 ml)) 5,000 unit BID SC Last administered on 11/03/16 21:28; Admin Dose 5,000 UNIT; Start 10/27/16 at 09:00 ; Status Future Hold Senna (Senokot) 2 tab DAILY PO Last administered on 11/08/16 08:35; Admin Dose 2 TAB; Start 10/29/16 at 00:00 Acetaminophen/ Hydrocodone Bitart ([place] (10/325)) 1 tab Q6H PRN PO PAIN Last administered on 11/05/16 14:00; Admin Dose 1 TAB; Start 10/28/16 at 23:30 Acetaminophen 650 mg 650 mg Q6H PRN PO PAIN AND OR ELEVATED TEMP Last administered on 11/03/16 23:36; Admin Dose 650 MG; Start 10/30/16 at 21:00 Vancomycin HCl/ Sodium Chloride (Vancocin/NS) 250 ml @ 83.333 mls/ hr Q12H IVPB Last administered on 11/08/16 02:34; Admin Dose 83.333 MLS/HR; Start at 14:00 IV Flush 10 ml 10 ml PRN PRN IV IV PROTOCOL; Start 11/02/16 at 17:30 Lactated Ringer's (Lr) 1,000 ml @ 125 mls/hr Q8H IV Last administered on 02:35; Admin Dose 125 MLS/HR; Start 11/05/16 at 19:07 Celecoxib (Celebrex) 200 mg DAILY PO Last administered on 11/08/16 08:36; Admin Dose 200 MG; Start 11/06/16 at 09:00 Tramadol HCl (Ultram) 50 mg Q6 PO Last administered on 11/08/16 06:07; Admin Dose 50 MG; Start 11/05/16 at 12:00; Stop 11/08/16 at 11:59 Oxycodone HCl (Roxicodone) 5 mg Q4H PRN PO PAIN LEVEL 1-3 Last administered on 11/07/16 09:14; Admin Dose 5 MG; Start 11/05/16 at 19:30 Oxycodone HCl (Roxicodone) 10 mg Q4H PRN PO PAIN LEVEL 4-7 Last administered on 11/07/16 02:52; Admin Dose 10 MG; Start 11/05/16 at 19:30 Hydromorphone HCl (Dilaudid) 1 mg Q3H PRN IV PAIN LEVEL 8-10 Last administered on 11/07/16 07:53; Admin Dose 1 MG; Start 11/05/16 at 19:30 Ondansetron HCl (Zofran Inj) 4 mg Q6H PRN IV NAUSEA AND/OR VOMITING; Start at 19:30 Bisacodyl (Dulcolax Supp) 10 mg Q12H PRN [place] CONSTIPATION; Start 11/05/16 at 19: 30 Magnesium Hydroxide (Milk Of Mag) 30 ml BID PRN PO CONSTIPATION; Start at 19:30 Sodium Biphosphate/ Sodium Phosphate (Fleet Enema) 133 ml DAILY PRN [place] CONSTIPATION; Start 11/05/16 at 19:30 Docusate Sodium (Colace) 100 mg BID PO Last administered on 11/08/16 08:36; Admin Dose 100 MG; Start 11/05/16 at 21:00 Diphenhydramine HCl (Benadryl) 25 mg Q6H PRN PO PRURITUS; Start 11/05/16 at 19: 30 Aspirin (Ecotrin) 325 mg BID PO Last administered on 11/08/16 08:35; Admin Dose 325 MG; Start 11/06/16 at 09:00 Pantoprazole (Protonix Tab) 40 mg BID@06,18 PO Last administered on 11/08/16 06:07; Admin Dose 40 MG; Start 11/06/16 at 06:00 Pregabalin 50 mg 50 mg BID PO Last administered on 11/08/16 08:35; Admin Dose 50 MG; Start 11/05/16 at 21:00 Levofloxacin/ Dextrose (Levaquin 500mg/ D5W 100 ml (Pmx)) 100 ml @ 100 mls/hr Q24H IVPB Last administered on 11/07/16 20:09; Admin Dose 100 MLS/HR; Start at 19:30; Stop 11/12/16 at 17:30 Hydromorphone HCl (Dilaudid FOOTWEAR MACHINERY INSTRUCTOR) 0 MG/HR CONTINUOUS RATE ... Q4PCA IV Last administered on 11/08/16 06:32; Admin Dose 6 MG; Start 11/07/16 at 10:30 SHIRA EGAN MD Nov 08, 2016 10:36
--- NOTE | 2016-11-08 18:35 | PN ---
DATE: 11/08/2016 The patient had removal of all hardware from his left knee on 10/26/2016. He is being seen by Dr. Endy pillai. Today is Wednesday and I am on-call for Dr. Stanton. Patient does not have any pain. He is progressing well. The dressings were not changed. He has no complaints. Temperature 98.6, hemoglobin 9.1, white cell count 9.0. Note that so far there has not been any positive cultures from his knee, the patient indeed was on antibiotics before the aspirati ons were done. There is also question about recent infections. He had a tooth extraction 6 months ago and he says he has a chronic sinus problem. Dictated By: CRIS ODOM/REJI Conf#: [id number] DID#: [id number]
[2016-11-08 20:20] VITALS: BP_SYST 132; BP_SYST 169; BP_DIAS 69; BP_DIAS 71; RESP 18
[2016-11-08] MEDS: LEVOFLOXACIN 500MG/D5W (PMX) 100 ML IVPB SCH (20:36)
[2016-11-09] MEDS: VANCOMYCIN 1.25 GM in SOD CHLORIDE 0.9% 250 ML IVPB SCH ×2 (03:34→13:58)
[2016-11-09] MEDS: LACTATED RINGER'S 1,000 ML IV SCH ×3 (05:00→19:38)
[2016-11-09 05:48] LABS: ADD SCAN DIFF NO
[2016-11-09 05:53] LABS: BASOPHILS % 0.5 % (0.0-2.0); EOSINOPHILS # 0.1 10^3/ul (0.0-0.5); EOSINOPHILS % 1.2 % (0.0-7.0); HEMATOCRIT 27.6 % (42.0-52.0); HEMOGLOBIN 8.7 g/dl (14.0-18.0); LYMPHOCYTES # 1.7 10^3/ul (0.8-2.9); LYMPHOCYTES % 21.6 % (15.0-51.0); MEAN CORPUSCULAR HEMOGLOBIN 27.9 pg (29.0-33.0); MEAN CORPUSCULAR HGB CONC 31.5 g/dl (32.0-37.0); MEAN CORPUSCULAR VOLUME 88.5 fl (82.0-101.0); MEAN PLATELET VOLUME 9.8 fl (7.4-10.4); MONOCYTE # 0.6 10^3/ul (0.3-0.9); MONOCYTES % 7.2 % (0.0-11.0); NEUTROPHIL # 5.4 10^3/ul (1.6-7.5); NEUTROPHILS % 69.2 % (39.0-77.0); PLATELET COUNT 424 10^3/UL (140-415); RED BLOOD COUNT 3.12 10^6/ul (4.70-6.10); RED CELL DISTRIBUTION WIDTH 13.8 % (11.5-14.5); WHITE BLOOD COUNT 7.8 10^3/ul (4.8-10.8)
[2016-11-09] MEDS: PANTOPRAZOLE (EC) 40 MG TAB PO SCH ×2 (06:08→18:14)
[2016-11-09 06:14] LABS: POTASSIUM 4.3 mmol/L (3.5-5.1)
[2016-11-09 06:17] LABS: CREATININE 0.67 mg/dl (0.61-1.24)
[2016-11-09 06:18] LABS: CALCIUM 8.3 mg/dl (8.4-10.2)
[2016-11-09 08:11] VITALS: BP 128/69; RESP 18
[2016-11-09] MEDS: DOCUSATE SODIUM 100 MG CAP PO SCH ×2 (08:39→21:19)
[2016-11-09] MEDS: CELECOXIB 200 MG CAP PO SCH (08:39)
[2016-11-09] MEDS: PREGABALIN 25 MG CAP PO SCH ×2 (08:40→21:19)
[2016-11-09] MEDS: ASPIRIN (EC) 325 MG TAB PO SCH ×2 (08:40→21:19)
[2016-11-09] MEDS: SENNA TAB PO SCH (08:40)
[2016-11-09] MEDS: HYDROmorphONE 0.2 MG/ML PCA IV SCH (08:44)
--- NOTE | 2016-11-09 08:50 | PN ---
Date/Time of Note Date/Time of Note DATE: 11/09/16 TIME: 08:48 Assessment/Plan Lines/Catheters IV Catheter Type (from Nrsg): Peripheral IV [place] in Place (from Nrsg): Yes Assessment/Plan Assessment/Plan Stable POD #4, s/p right knee I&D, removal of infected hardware, implantation of abx spacer -cont abx per infectious disease (on Vanco and levaquin currently) -pain meds as needed, will try to wean off dilaudid FACILITIES PLANNER and switch to [place] 7.5/325mg PO -ASA/SCDs for DVT prophylaxis -OOB with PT (toe touch weight bearing) -dressing changed -hinged knee brace to be warn at all times -d/c planning. Will request ARU eval versus SNF. Plan to go today or tomorrow Subjective 24 Hr Interval Summary No acute overnight events. Pain better controlled with FACILITIES PLANNER. Denies f/c. Symptomatically feeling better overall. Denies f/c. Exam/Review of Systems Vital Signs Vitals Vital Signs Date Time Temp Pulse Resp B/P Pulse Ox O2 Delivery O2 Flow Rate FiO2 11/09/16 08:11 99.1 68 18 128/69 91 11/07/16 19:27 Room Air 11/05/16 19:48 3.0 Intake and Output 11/08/16 11/08/16 11/09/16 15:00 23:00 07:00 Intake Total 1250 ml 125 ml 300 ml Output Total 1800 ml 1500 ml Balance 1250 ml -1675 ml -1200 ml Exam Free Text/Dictation Dressing dry Incision clean, dry, and intact without redness or drainage Thigh soft 5/5 Quadriceps, Tibialis Anterior, EHL, Gastroc, Soleus, Peroneals Normal sensation Palpable DT/PT, CR <2 sec No distal edema Results Result Diagram: 11/09/1644911/09/16449 GAUTAM JASON PA-C Nov 09, 2016 08:50
[2016-11-09] MEDS: HYDROCODONE/APAP (7.5/325) TAB PO PRN ×4 (09:11→23:32)
[2016-11-09] MEDS ORDERED: ALTEPLASE (CATHFLO) 2 MG INJ CATHETER PRN (13:00)
--- NOTE | 2016-11-09 13:36 | PN ---
Date/Time of Note Date/Time of Note DATE: 11/09/16 TIME: 13:34 Assessment/Plan VTE Prophylaxis VTE Prophylaxis Intervention: heparin Assessment/Plan Chief Complaint/Hosp Course 1. Right lower extremity cellulitis with septic joint s/p right knee I&D, removal of infected hardware, implantation of abx spacer -continue IV abx levaquin and vancomycin, will ask ID to come up with antibiotic plan, pt currently has PICC line in place 2. Systemic inflammatory response syndrome with on and off fevers secondary to # 1, improved 3. DVT prophylaxis: heparin Dispo- SNF placement for d/c planning this week after orthopedic clearance on Wednesday/Wednesday Problems: Subjective 24 Hr Interval Summary Constitutional: no complaints Exam/Review of Systems Vital Signs Vitals Vital Signs Date Time Temp Pulse Resp B/P Pulse Ox O2 Delivery O2 Flow Rate FiO2 11/09/16 08:11 99.1 68 18 128/69 91 11/07/16 19:27 Room Air 11/05/16 19:48 3.0 Intake and Output 11/08/16 11/08/16 11/09/16 15:00 23:00 07:00 Intake Total 1250 ml 125 ml 300 ml Output Total 1800 ml 1500 ml Balance 1250 ml -1675 ml -1200 ml Exam Constitutional: alert, oriented Respiratory: clear to auscultation Cardiovascular: regular rate and rhythm Gastrointestinal: soft, No distended Musculoskeletal: No nl extremities to inspection Results Result Diagram: 11/09/16 0450 11/09/16 0450 Results 24 hrs Laboratory Tests Test 11/09/16 04:50 Anion Gap 12 Basophils # 0.0 Basophils % 0.5 Blood Urea Nitrogen 12 Calcium Level 8.3 L Carbon Dioxide Level 30 Chloride Level 100 Creatinine 0.67 Eosinophils # 0.1 Eosinophils % 1.2 Glucose Level 102 Hematocrit 27.6 L Hemoglobin 8.7 L Lymphocytes # 1.7 Lymphocytes % 21.6 Mean Corpuscular Hemoglobin 27.9 L Mean Corpuscular Hemoglobin Concent 31.5 L Mean Corpuscular Volume 88.5 Mean Platelet Volume 9.8 Monocytes # 0.6 Monocytes % 7.2 Neutrophils # 5.4 Neutrophils % 69.2 Nucleated Red Blood Cells # 0.0 Nucleated Red Blood Cells % 0.0 Platelet Count 424 H Potassium Level 4.3 Red Blood Count 3.12 L Red Cell Distribution Width 13.8 Sodium Level 138 White Blood Count 7.8 Medications Medications Current Medications Morphine Sulfate (morphine) 4 mg Q4H PRN IV PAIN Last administered on 01:22; Admin Dose 4 MG; Start 10/26/16 at 23:30 Heparin Sodium (Porcine) (Heparin (5000 Units/0.5 ml)) 5,000 unit BID SC Last administered on 11/03/16 21:28; Admin Dose 5,000 UNIT; Start 10/27/16 at 09:00 ; Status Future Hold Senna (Senokot) 2 tab DAILY PO Last administered on 11/09/16 08:40; Admin Dose 2 TAB; Start 10/29/16 at 00:00 Acetaminophen/ Hydrocodone Bitart ([place] (10325)) 1 tab Q6H PRN PO PAIN Last administered on 11/05/16 14:00; Admin Dose 1 TAB; Start 10/28/16 at 23:30 Acetaminophen (Tylenol Tab) 650 mg Q6H PRN PO PAIN AND OR ELEVATED TEMP Last administered on 11/03/16 23:36; Admin Dose 650 MG; Start 10/30/16 at 21:00 IV Flush 10 ml 10 ml PRN PRN IV IV PROTOCOL; Start 11/02/16 at 17:30 Lactated Ringer's (Lr) 1,000 ml @ 125 mls/hr Q8H IV Last administered on 05:00; Admin Dose 125 MLS/HR; Start 11/05/16 at 19:07 Celecoxib (Celebrex) 200 mg DAILY PO Last administered on 11/09/16 08:39; Admin Dose 200 MG; Start 11/06/16 at 09:00 Oxycodone HCl (Roxicodone) 5 mg Q4H PRN PO PAIN LEVEL 1-3 Last administered on 11/07/16 09:14; Admin Dose 5 MG; Start 11/05/16 at 19:30 Oxycodone HCl (Roxicodone) 10 mg Q4H PRN PO PAIN LEVEL 4-7 Last administered on 11/07/16 02:52; Admin Dose 10 MG; Start 11/05/16 at 19:30 Hydromorphone HCl (Dilaudid) 1 mg Q3H PRN IV PAIN LEVEL 8-10 Last administered on 11/07/16 07:53; Admin Dose 1 MG; Start 11/05/16 at 19:30 Ondansetron HCl (Zofran Inj) 4 mg Q6H PRN IV NAUSEA AND/OR VOMITING; Start at 19:30 Bisacodyl (Dulcolax Supp) [address] CONSTIPATION; Start 11/05/16 at 19: 30 Magnesium Hydroxide (Milk Of Mag) 30 ml BID PRN PO CONSTIPATION; Start at 19:30 Sodium Biphosphate/ Sodium Phosphate (Fleet Enema) [address] CONSTIPATION; Start 11/05/16 at 19:30 Docusate Sodium (Colace) 100 mg BID PO Last administered on 11/09/16 08:39; Admin Dose 100 MG; Start 11/05/16 at 21:00 Diphenhydramine HCl (Benadryl) 25 mg Q6H PRN PO PRURITUS; Start 11/05/16 at 19: 30 Aspirin (Ecotrin) 325 mg BID PO Last administered on 11/09/16 08:40; Admin Dose 325 MG; Start 11/06/16 at 09:00 Pantoprazole (Protonix Tab) 40 mg BID@06,18 PO Last administered on 11/09/16 06:08; Admin Dose 40 MG; Start 11/06/16 at 06:00 Pregabalin 50 mg 50 mg BID PO Last administered on 11/09/16 08:40; Admin Dose 50 MG; Start 11/05/16 at 21:00 Levofloxacin/ Dextrose (Levaquin 500mg/ D5W 100 ml (Pmx)) 100 ml @ 100 mls/hr Q24H IVPB Last administered on 11/08/16 20:36; Admin Dose 100 MLS/HR; Start at 19:30; Stop 11/12/16 at 17:30 Hydromorphone HCl 0 MG/HR CONTINUOUS RATE ... Q4PCA IV Last administered on 08:44; Admin Dose 6 MG; Start 11/07/16 at 10:30 Vancomycin HCl/ Sodium Chloride (Vancocin/NS) 250 ml @ 83.333 mls/ hr Q12H IVPB Last administered on 11/09/16 03:34; Admin Dose 83.333 MLS/HR; Start at 02:00 Acetaminophen/ Hydrocodone Bitart ([place] (7.5-325)) 1 tab Q4H PRN PO pain Last administered on 11/09/16t 09:11; Admin Dose 1 TAB; Start 11/09/16 at 09:00 PHIL OWENS Nov 09, 2016 13:36
--- NOTE | 2016-11-09 14:18 | PN ---
DATE: 11/09/2016 INFECTIOUS DISEASE PROGRESS NOTE SUBJECTIVE: No events overnight. The patient is alert, feels good. Denies pain, discomfort. No f donaldo. VITAL SIGNS: T-max yesterday was 100.1, temperature current 99.1, WBC today 7.8. No shift, no band s. BUN 12, creatinine 0.67. MICROBIOLOGY: All cultures since admission have been negative. ANTIMICROBIALS: 1. Vancomycin. 2. Levaquin. PHYSICAL EXAMINATION: GENERAL: This is a well-nourished, well-developed elderly man who is alert, in no distress. HEENT: Head atraumatic, normocephalic. Sclerae anicteric. NECK: Supple. CHEST: Rise symmetrical. Breath sounds clear. HEART: S1, S2. ABDOMEN: Soft. Bowel sounds present. EXTREMITIES: With right lower extremity knee immobilizer. ASSESSMENT: 1. Septic right knee status post incision and drainage. Removal of infected right total knee. Servando cement antibiotics-impregnated cement spacer. 2. Diabetes. 3. Status post systemic inflammatory response syndrome. PLAN: The patient remains stable. Continue present care. Keep on antibiotics until December 18. Co ntinue physical therapy and management as per ortho surgery. Dictated By: SHAKIRA EDOUARD SEMICONDUCTOR DEVELOPMENT TECHNICIAN for ABIMAEL MARTINS MD NI/NTS Conf#: [id number] DID#: [id number]
[2016-11-09] MEDS ORDERED: PATIENT'S OWN MEDICATION SL SCH (18:00)
[2016-11-09] MEDS: SUBOXONE SL SCH (18:15)
[2016-11-09] MEDS ORDERED: SUBOXONE SL SCH (18:30)
[2016-11-09] MEDS: LEVOFLOXACIN 500MG/D5W (PMX) 100 ML IVPB SCH (19:38)
[2016-11-09 20:15] VITALS: BP 142/79; RESP 18
[2016-11-10] MEDS: VANCOMYCIN 1.25 GM in SOD CHLORIDE 0.9% 250 ML IVPB SCH ×2 (02:47→14:41)
[2016-11-10] MEDS: LACTATED RINGER'S 1,000 ML IV SCH ×3 (03:07→18:23)
[2016-11-10 05:04] LABS: ADD SCAN DIFF NO
[2016-11-10 05:16] LABS: BASOPHILS % 0.6 % (0.0-2.0); EOSINOPHILS # 0.2 10^3/ul (0.0-0.5); EOSINOPHILS % 2.3 % (0.0-7.0); HEMATOCRIT 26.2 % (42.0-52.0); HEMOGLOBIN 8.3 g/dl (14.0-18.0); LYMPHOCYTES # 1.7 10^3/ul (0.8-2.9); LYMPHOCYTES % 24.1 % (15.0-51.0); MEAN CORPUSCULAR HEMOGLOBIN 28.3 pg (29.0-33.0); MEAN CORPUSCULAR HGB CONC 31.7 g/dl (32.0-37.0); MEAN CORPUSCULAR VOLUME 89.4 fl (82.0-101.0); MEAN PLATELET VOLUME 9.8 fl (7.4-10.4); MONOCYTE # 0.6 10^3/ul (0.3-0.9); MONOCYTES % 8.7 % (0.0-11.0); NEUTROPHIL # 4.4 10^3/ul (1.6-7.5); NEUTROPHILS % 63.9 % (39.0-77.0); PLATELET COUNT 426 10^3/UL (140-415); RED BLOOD COUNT 2.93 10^6/ul (4.70-6.10); RED CELL DISTRIBUTION WIDTH 13.7 % (11.5-14.5); WHITE BLOOD COUNT 6.9 10^3/ul (4.8-10.8)
[2016-11-10 05:49] LABS: POTASSIUM 3.8 mmol/L (3.5-5.1)
[2016-11-10 05:51] LABS: CREATININE 0.68 mg/dl (0.61-1.24)
[2016-11-10 05:52] LABS: CALCIUM 8.5 mg/dl (8.4-10.2); MAGNESIUM 1.9 mg/dl (1.7-2.5)
[2016-11-10] MEDS: PANTOPRAZOLE (EC) 40 MG TAB PO SCH ×2 (05:55→18:22)
[2016-11-10] MEDS: CELECOXIB 200 MG CAP PO SCH (08:15)
[2016-11-10] MEDS: DOCUSATE SODIUM 100 MG CAP PO SCH ×2 (08:16→20:51)
[2016-11-10] MEDS: PREGABALIN 25 MG CAP PO SCH ×2 (08:16→20:51)
[2016-11-10] MEDS: ASPIRIN (EC) 325 MG TAB PO SCH ×2 (08:16→20:50)
[2016-11-10] MEDS: SENNA TAB PO SCH (08:17)
[2016-11-10] MEDS: SUBOXONE SL SCH (08:17)
[2016-11-10] MEDS: HYDROCODONE/APAP (7.5/325) TAB PO PRN ×3 (08:18→18:22)
[2016-11-10] MEDS: HYDROmorphONE 0.2 MG/ML PCA IV SCH ×2 (08:22→22:47)
[2016-11-10 08:54] VITALS: BP 134/69; RESP 20
--- NOTE | 2016-11-10 11:49 | CONS ---
Date/Time of Note Date/Time of Note DATE: 11/10/16 TIME: 11:48 Assessment/Plan Assessment/Plan Chief Complaint/Hosp Course SUBJECTIVE: No events overnight. The patient is alert, feels good. Denies pain, discomfort. No fevers. MICROBIOLOGY: All cultures since admission have been negative. ANTIMICROBIALS: 1. Vancomycin. 2. Levaquin. PHYSICAL EXAMINATION: GENERAL: This is a well-nourished, well-developed elderly man who is alert, in no distress. HEENT: Head atraumatic, normocephalic. Sclerae anicteric. NECK: Supple. CHEST: Rise symmetrical. Breath sounds clear. HEART: S1, S2. ABDOMEN: Soft. Bowel sounds present. EXTREMITIES: With right lower extremity knee immobilizer. ASSESSMENT: 1. Septic right knee status post incision and drainage, removal of infected right total knee and placement antibiotics-impregnated cement spacer. 2. Diabetes. 3. Status post systemic inflammatory response syndrome. PLAN: The patient remains stable. Continue present care. Keep on antibiotics until December 18. Continue physical therapy and management as per ortho surgery. dw pt Problems: Consultation Date/Type/Reason Admit Date/Time Oct 26, 2016 at 19:59 Type of Consultation: ID Exam/Review of Systems Vital Signs Vitals Vital Signs Date Time Temp Pulse Resp B/P Pulse Ox O2 Delivery O2 Flow Rate FiO2 11/10/16 08:54 99.4 83 20 134/69 96 11/07/16 19:27 Room Air Intake and Output 11/09/16 11/09/16 11/10/16 15:00 23:00 07:00 Intake Total 1790 ml 1960 ml Output Total 1300 ml 2300 ml Balance 490 ml -340 ml Results Result Diagram: 11/10/16 0427 11/10/16 0427 Results 24 hrs Laboratory Tests Test 11/10/16 01:08 11/10/16 04:27 Vancomycin Level Trough 12.3 Anion Gap 12 Basophils # 0.0 Basophils % 0.6 Blood Urea Nitrogen 12 Calcium Level 8.5 Carbon Dioxide Level 29 Chloride Level 103 Creatinine 0.68 Eosinophils # 0.2 Eosinophils % 2.3 Glucose Level 96 Hematocrit 26.2 L Hemoglobin 8.3 L Lymphocytes # 1.7 Lymphocytes % 24.1 Magnesium Level 1.9 Mean Corpuscular Hemoglobin 28.3 L Mean Corpuscular Hemoglobin Concent 31.7 L Mean Corpuscular Volume 89.4 Mean Platelet Volume 9.8 Monocytes # 0.6 Monocytes % 8.7 Neutrophils # 4.4 Neutrophils % 63.9 Nucleated Red Blood Cells # 0.0 Nucleated Red Blood Cells % 0.0 Platelet Count 426 H Potassium Level 3.8 Red Blood Count 2.93 L Red Cell Distribution Width 13.7 Sodium Level 140 White Blood Count 6.9 Medications Medications Current Medications Morphine Sulfate (morphine) 4 mg Q4H PRN IV PAIN Last administered on 01:22; Admin Dose 4 MG; Start 10/26/16 at 23:30 Heparin Sodium (Porcine) (Heparin (5000 Units/0.5 ml)) 5,000 unit BID SC Last administered on 11/03/16 21:28; Admin Dose 5,000 UNIT; Start 10/27/16 at 09:00 ; Status Future Hold Senna (Senokot) 2 tab DAILY PO Last administered on 11/10/16 08:17; Admin Dose 2 TAB; Start 10/29/16 at 00:00 Acetaminophen/ Hydrocodone Bitart ([place] (10/325)) 1 tab Q6H PRN PO PAIN Last administered on 11/05/16 14:00; Admin Dose 1 TAB; Start 10/28/16 at 23:30 Acetaminophen (Tylenol Tab) 650 mg Q6H PRN PO PAIN AND OR ELEVATED TEMP Last administered on 11/03/16 23:36; Admin Dose 650 MG; Start 10/30/16 at 21:00 IV Flush 10 ml 10 ml PRN PRN IV IV PROTOCOL; Start 11/02/16 at 17:30 Lactated Ringer's (Lr) 1,000 ml @ 125 mls/hr Q8H IV Last administered on 11:19; Admin Dose 125 MLS/HR; Start 11/05/16 at 19:07 Celecoxib (Celebrex) 200 mg DAILY PO Last administered on 11/10/16 08:15; Admin Dose 200 MG; Start 11/06/16 at 09:00 Oxycodone HCl (Roxicodone) 5 mg Q4H PRN PO PAIN LEVEL 1-3 Last administered on 11/07/16 09:14; Admin Dose 5 MG; Start 11/05/16 at 19:30 Oxycodone HCl (Roxicodone) 10 mg Q4H PRN PO PAIN LEVEL 4-7 Last administered on 11/07/16 02:52; Admin Dose 10 MG; Start 11/05/16 at 19:30 Hydromorphone HCl (Dilaudid) 1 mg Q3H PRN IV PAIN LEVEL 8-10 Last administered on 11/07/16 07:53; Admin Dose 1 MG; Start 11/05/16 at 19:30 Ondansetron HCl (Zofran Inj) 4 mg Q6H PRN IV NAUSEA AND/OR VOMITING; Start at 19:30 Bisacodyl (Dulcolax Supp) 10 mg Q12H PRN [place] CONSTIPATION; Start 11/05/16 at 19: 30 Magnesium Hydroxide (Milk Of Mag) 30 ml BID PRN PO CONSTIPATION; Start at 19:30 Sodium Biphosphate/ Sodium Phosphate (Fleet Enema) 133 ml DAILY PRN [place] CONSTIPATION; Start 11/05/16 at 19:30 Docusate Sodium (Colace) 100 mg BID PO Last administered on 11/10/16 08:16; Admin Dose 100 MG; Start 11/05/16 at 21:00 Diphenhydramine HCl (Benadryl) 25 mg Q6H PRN PO PRURITUS; Start 11/05/16 at 19: 30 Aspirin (Ecotrin) 325 mg BID PO Last administered on 11/10/16 08:16; Admin Dose 325 MG; Start 11/06/16 at 09:00 Pantoprazole (Protonix Tab) 40 mg BID@06,18 PO Last administered on 11/10/16 05:55; Admin Dose 40 MG; Start 11/06/16 at 06:00 Pregabalin 50 mg 50 mg BID PO Last administered on 11/10/16 08:16; Admin Dose 50 MG; Start 11/05/16 at 21:00 Levofloxacin/ Dextrose (Levaquin 500mg/ D5W 100 ml (Pmx)) 100 ml @ 100 mls/hr Q24H IVPB Last administered on 11/09/16 19:38; Admin Dose 100 MLS/HR; Start at 19:30; Stop 11/12/16 at 17:30 Hydromorphone HCl 0 MG/HR CONTINUOUS RATE ... Q4PCA IV Last administered on 08:22; Admin Dose 6 MG; Start 11/07/16 at 10:30 Vancomycin HCl/ Sodium Chloride (Vancocin/NS) 250 ml @ 83.333 mls/ hr Q12H IVPB Last administered on 11/10/16 02:47; Admin Dose 83.333 MLS/HR; Start at 02:00 Acetaminophen/ Hydrocodone Bitart ([place] (7.5-325)) 1 tab Q4H PRN PO pain Last administered on 11/10/16 08:18; Admin Dose 1 TAB; Start 11/09/16 at 09:00 Patient Own Medication 1 ea DAILY SL Last administered on 11/10/16 08:17; Admin Dose 1 EA; Start 11/09/16 at 18:30 SHAKIRA EDOUARD NP Nov 10, 2016 11:49
--- NOTE | 2016-11-10 13:48 | PN ---
Date/Time of Note Date/Time of Note DATE: 11/10/16 TIME: 13:47 Assessment/Plan VTE Prophylaxis VTE Prophylaxis Intervention: heparin Assessment/Plan Chief Complaint/Hosp Course 1. Right lower extremity cellulitis with septic joint s/p right knee I&D, removal of infected hardware, implantation of abx spacer -continue IV abx levaquin and vancomycin, will ask ID to come up with antibiotic plan, pt currently has PICC line in place 2. Systemic inflammatory response syndrome with on and off fevers secondary to # 1, improved 3. DVT prophylaxis: heparin Dispo- SNF placement for d/c planning this week after orthopedic clearance on Wednesday/Wednesday Problems: Subjective 24 Hr Interval Summary Constitutional: no complaints Exam/Review of Systems Vital Signs Vitals Vital Signs Date Time Temp Pulse Resp B/P Pulse Ox O2 Delivery O2 Flow Rate FiO2 11/10/16 12:51 18 11/10/16 08:54 99.4 83 134/69 96 11/07/16 19:27 Room Air Intake and Output 11/09/16 11/09/16 11/10/16 15:00 23:00 07:00 Intake Total 1790 ml 1960 ml Output Total 1300 ml 2300 ml Balance 490 ml -340 ml Exam Constitutional: alert, oriented Respiratory: clear to auscultation Cardiovascular: regular rate and rhythm Gastrointestinal: soft, No distended Musculoskeletal: No nl extremities to inspection Results Result Diagram: 11/10/16 0427 11/10/16 0427 Results 24 hrs Laboratory Tests Test 11/10/16 01:08 11/10/16 04:27 Vancomycin Level Trough 12.3 Anion Gap 12 Basophils # 0.0 Basophils % 0.6 Blood Urea Nitrogen 12 Calcium Level 8.5 Carbon Dioxide Level 29 Chloride Level 103 Creatinine 0.68 Eosinophils # 0.2 Eosinophils % 2.3 Glucose Level 96 Hematocrit 26.2 L Hemoglobin 8.3 L Lymphocytes # 1.7 Lymphocytes % 24.1 Magnesium Level 1.9 Mean Corpuscular Hemoglobin 28.3 L Mean Corpuscular Hemoglobin Concent 31.7 L Mean Corpuscular Volume 89.4 Mean Platelet Volume 9.8 Monocytes # 0.6 Monocytes % 8.7 Neutrophils # 4.4 Neutrophils % 63.9 Nucleated Red Blood Cells # 0.0 Nucleated Red Blood Cells % 0.0 Platelet Count 426 H Potassium Level 3.8 Red Blood Count 2.93 L Red Cell Distribution Width 13.7 Sodium Level 140 White Blood Count 6.9 Medications Medications Current Medications Morphine Sulfate (morphine) 4 mg Q4H PRN IV PAIN Last administered on 01:22; Admin Dose 4 MG; Start 10/26/16 at 23:30 Heparin Sodium (Porcine) (Heparin (5000 Units/0.5 ml)) 5,000 unit BID SC Last administered on 11/03/16 21:28; Admin Dose 5,000 UNIT; Start 10/27/16 at 09:00 ; Status Future Hold Senna (Senokot) 2 tab DAILY PO Last administered on 11/10/16 08:17; Admin Dose 2 TAB; Start 10/29/16 at 00:00 Acetaminophen/ Hydrocodone Bitart ([place] (10325)) 1 tab Q6H PRN PO PAIN Last administered on 11/05/16 14:00; Admin Dose 1 TAB; Start 10/28/16 at 23:30 Acetaminophen (Tylenol Tab) 650 mg Q6H PRN PO PAIN AND OR ELEVATED TEMP Last administered on 11/03/16 23:36; Admin Dose 650 MG; Start 10/30/16 at 21:00 IV Flush 10 ml 10 ml PRN PRN IV IV PROTOCOL; Start 11/02/16 at 17:30 Lactated Ringer's (Lr) 1,000 ml @ 125 mls/hr Q8H IV Last administered on 11:19; Admin Dose 125 MLS/HR; Start 11/05/16 at 19:07 Celecoxib (Celebrex) 200 mg DAILY PO Last administered on 11/10/16 08:15; Admin Dose 200 MG; Start 11/06/16 at 09:00 Oxycodone HCl (Roxicodone) 5 mg Q4H PRN PO PAIN LEVEL 1-3 Last administered on 11/07/16 09:14; Admin Dose 5 MG; Start 11/05/16 at 19:30 Oxycodone HCl (Roxicodone) 10 mg Q4H PRN PO PAIN LEVEL 4-7 Last administered on 11/07/16 02:52; Admin Dose 10 MG; Start 11/05/16 at 19:30 Hydromorphone HCl (Dilaudid) 1 mg Q3H PRN IV PAIN LEVEL 8-10 Last administered on 11/07/16 07:53; Admin Dose 1 MG; Start 11/05/16 at 19:30 Ondansetron HCl (Zofran Inj) 4 mg Q6H PRN IV NAUSEA AND/OR VOMITING; Start at 19:30 Bisacodyl (Dulcolax Supp) 10 mg Q12H PRN [place] CONSTIPATION; Start 11/05/16 at 19: 30 Magnesium Hydroxide (Milk Of Mag) 30 ml BID PRN PO CONSTIPATION; Start at 19:30 Sodium Biphosphate/ Sodium Phosphate (Fleet Enema) 133 ml DAILY PRN [place] CONSTIPATION; Start 11/05/16 at 19:30 Docusate Sodium (Colace) 100 mg BID PO Last administered on 11/10/16 08:16; Admin Dose 100 MG; Start 11/05/16 at 21:00 Diphenhydramine HCl (Benadryl) 25 mg Q6H PRN PO PRURITUS; Start 11/05/16 at 19: 30 Aspirin (Ecotrin) 325 mg BID PO Last administered on 11/10/16 08:16; Admin Dose 325 MG; Start 11/06/16 at 09:00 Pantoprazole (Protonix Tab) 40 mg BID@06,18 PO Last administered on 11/10/16 05:55; Admin Dose 40 MG; Start 11/06/16 at 06:00 Pregabalin 50 mg 50 mg BID PO Last administered on 11/10/16 08:16; Admin Dose 50 MG; Start 11/05/16 at 21:00 Levofloxacin/ Dextrose (Levaquin 500mg/ D5W 100 ml (Pmx)) 100 ml @ 100 mls/hr Q24H IVPB Last administered on 11/09/16 19:38; Admin Dose 100 MLS/HR; Start at 19:30; Stop 11/12/16 at 17:30 Hydromorphone HCl 0 MG/HR CONTINUOUS RATE ... Q4PCA IV Last administered on 08:22; Admin Dose 6 MG; Start 11/07/16 at 10:30 Vancomycin HCl/ Sodium Chloride (Vancocin/NS) 250 ml @ 83.333 mls/ hr Q12H IVPB Last administered on 11/10/16 02:47; Admin Dose 83.333 MLS/HR; Start at 02:00 Acetaminophen/ Hydrocodone Bitart ([place] (7.5-325)) 1 tab Q4H PRN PO pain Last administered on 11/10/16 08:18; Admin Dose 1 TAB; Start 11/09/16 at 09:00 Patient Own Medication 1 ea DAILY SL Last administered on 11/10/16 08:17; Admin Dose 1 EA; Start 11/09/16 at 18:30 PHIL OWENS Nov 10, 2016 13:48
--- NOTE | 2016-11-10 17:29 | PN ---
Date/Time of Note Date/Time of Note DATE: 11/10/16 TIME: 17:26 Assessment/Plan Assessment/Plan Assessment/Plan Stable s/p right knee I&D, removal of TKA, implantation of abx spacer -cont abx per infectious disease -pain meds as needed -ASA/SCDs for DVT prophylaxis -toe touch weight bearing with PT -keep knee locked in extension with hinged knee brace -d/c planning. Stable for transfer to [facility] tomorrow Subjective 24 Hr Interval Summary Doing well. No acute overnight events. Pain better controlled and tolerating pain with PO meds. VSS, afebrile. H&H low but stable. Progressing with physical therapy. Exam/Review of Systems Vital Signs Vitals Vital Signs Date Time Temp Pulse Resp B/P Pulse Ox O2 Delivery O2 Flow Rate FiO2 11/10/16 12:51 18 11/10/16 08:54 99.4 83 134/69 96 11/07/16 19:27 Room Air Intake and Output 11/09/16 11/09/16 11/10/16 15:00 23:00 07:00 Intake Total 1790 ml 1960 ml Output Total 1300 ml 2300 ml Balance 490 ml -340 ml Exam Free Text/Dictation Dressing dry Incision clean, dry, and intact without redness or drainage Thigh soft 5/5 Quadriceps, Tibialis Anterior, EHL, Gastroc, Soleus, Peroneals Normal sensation Palpable DT/PT, CR <2 sec No distal edema Results Result Diagram: 11/10/16 0427 11/10/16 0427 GAUTAM JASON PA-C Nov 10, 2016 17:29
--- NOTE | 2016-11-10 17:35 | RADRPT ---
Vent Rate: 84 bpm RR Interval: 0 msec IA Interval: 168 msec QRS Duration: 80 msec QT Interval: 380 msec QTC Interval: 449 msec P-R-T [place]: 35 - 60 - 62 degrees Normal sinus rhythm Normal ECG Electronically Signed By: Federico Rawls [id number]
[2016-11-10] MEDS: LEVOFLOXACIN 500MG/D5W (PMX) 100 ML IVPB SCH (20:50)
[2016-11-10 21:58] VITALS: BP 139/76; RESP 20
[2016-11-11] MEDS: HYDROCODONE/APAP (7.5/325) TAB PO PRN ×3 (01:19→19:01)
[2016-11-11] MEDS: LACTATED RINGER'S 1,000 ML IV SCH (01:19)
[2016-11-11] MEDS: VANCOMYCIN 1.25 GM in SOD CHLORIDE 0.9% 250 ML IVPB SCH ×2 (01:51→14:25)
[2016-11-11] MEDS: PANTOPRAZOLE (EC) 40 MG TAB PO SCH ×2 (05:37→18:04)
--- NOTE | 2016-11-11 08:09 | PDOCDIS ---
Discharge Instructions DIAGNOSIS Discharge Diagnosis: s/p right knee I&D, removal of infected TKA, implantation of abx spacer CONDITION Patient Condition: Fair HOME CARE INSTRUCTIONS: Diet Instructions: RegularSpecial Diet: REGULAR ACTIVITY: Activity Restrictions: Avoid heavy lifting Do not operate Machinery Do not operate Power Tool Avoid Heavy Housework Keep Limb Elevated Partial Weight Bearing Bathing Restrictions: Shower FOLLOW UP/APPOINTMENTS Appointments follow up with Dr. Stanton in the office on 11/30/2016 OTHER ORDERS: Other Orders: S/P I&D right knee, removal of infected TKA, implantation of abx spacer Physical Therapy: Three times per week at home x 2 weeks Daily in Rehab/SNF WB STATUS: Toe touch weight bearing with knee brace locked in full extension! 1. Strengthening exercises for both upper and un-operated lower extremities. 2. Gait training with front wheeled walker 3. Active range of motion exercises to operative knee. 4. When not working on knee range of motion exercises, distal towel roll under operative ankle/distal calf to promote full extension. 5. DO NOT PUT ANYTHING BEHIND OPERATIVE KNEE!!! 6. Quadriceps and hamstring strengthening. 7. 8. Physical Therapy can open case if nursing is not available. 9. Use Ice Machine as instructed from date of surgery while at rest 3X/day. 10. Patient requires mobile SCDs to reduce risk of developing DVT following knee surgery. Patient will use the mobile SCDs for 30 days postoperatively. Bathing assistance by home health aide twice weekly if Medicare patient. Occupational Therapy: Evaluation for assistive devices and ADL training. Wound Care: Keep incision dry & covered with Tegaderm until first visit with Dr. Stanton Anticoagulation Orders: Enteric Coated Aspirin 325 mg po bid x 6 weeks from date of surgery Follow-up:Call for an appointment with Dr. Stanton in 1 week after discharged from hospital at DME Orders: FWW, 3-in-1 Commode, Polar ice machine, Mobile SCDs GAUTAM JASON PA-C Nov 11, 2016 08:09
[2016-11-11 08:13] VITALS: BP 135/76; RESP 18
[2016-11-11] MEDS: SUBOXONE SL SCH (08:19)
[2016-11-11] MEDS: SENNA TAB PO SCH (08:20)
[2016-11-11] MEDS: ASPIRIN (EC) 325 MG TAB PO SCH (08:20)
[2016-11-11] MEDS: CELECOXIB 200 MG CAP PO SCH (08:20)
[2016-11-11] MEDS: PREGABALIN 25 MG CAP PO SCH (08:20)
[2016-11-11] MEDS: DOCUSATE SODIUM 100 MG CAP PO SCH (08:20)
--- NOTE | 2016-11-11 08:47 | PN ---
Date/Time of Note Date/Time of Note DATE: 11/11/16 TIME: 08:45 Assessment/Plan Assessment/Plan Assessment/Plan Stable for transfer today, s/p right knee I&D, removal of infected TKA, implantation of abx spacer -cont Vanco and Levaquin -oral pain meds as needed -ASA/SCDs for DVT prophylaxis -OOB with PT (TDWB) -dressing changed today -transfer to [facility] today -follow up in the office in 1 week Subjective 24 Hr Interval Summary Doing well. No acute overnight events. Pain better controlled with PO pain meds. Progressing with PT. Stable for transfer to [facility] today. Exam/Review of Systems Vital Signs Vitals Vital Signs Date Time Temp Pulse Resp B/P Pulse Ox O2 Delivery O2 Flow Rate FiO2 11/11/16 08:13 98.8 87 18 135/76 97 11/07/16 19:27 Room Air Intake and Output 11/10/16 11/10/16 11/11/16 15:00 23:00 07:00 Intake Total 2100 ml 1450 ml Output Total 1500 ml 800 ml Balance 600 ml 650 ml Exam Free Text/Dictation Hinged knee brace in place Dressing dry Incision clean, dry, and intact without redness or drainage Thigh soft 5/5 Quadriceps, Tibialis Anterior, EHL, Gastroc, Soleus, Peroneals Normal sensation Palpable DT/PT, CR <2 sec No distal edema Results Result Diagram: 11/10/167 11/10/16426 GAUTAM JASON PA-C Nov 11, 2016 08:47
--- NOTE | 2016-11-11 11:08 | PN ---
Date/Time of Note Date/Time of Note DATE: 11/11/16 TIME: 11:04 Assessment/Plan VTE Prophylaxis VTE Prophylaxis Intervention: heparin Lines/Catheters IV Catheter Type (from Nrsg): PICC Line Central line still needed: Yes (IV abx for septic arthritis and infected hardware ) Assessment/Plan Assessment/Plan 1. Right lower extremity cellulitis with septic joint s/p right knee I&D, removal of infected hardware, implantation of abx spacer -continue IV abx levaquin and vancomycin, will ask ID to come up with antibiotic plan, pt currently has PICC line in place 2. Systemic inflammatory response syndrome with on and off fevers secondary to # 1, improved 3. DVT prophylaxis: heparin Dispo- SNF placement for d/c planning IV abx vancomycin till 12/18/16 as per ID recommendations Subjective 24 Hr Interval Summary Free Text/Dictation awaiting placement, on IV abx, vancomycin for septic joint, [facility] not accept him Exam/Review of Systems Vital Signs Vitals Vital Signs Date Time Temp Pulse Resp B/P Pulse Ox O2 Delivery O2 Flow Rate FiO2 11/11/16 08:13 98.8 87 18 135/76 97 11/07/16 19:27 Room Air Intake and Output 11/10/16 11/10/16 11/11/16 15:00 23:00 07:00 Intake Total 2100 ml 1450 ml Output Total 1500 ml 800 ml Balance 600 ml 650 ml Exam Constitutional: alert, oriented Respiratory: clear to auscultation Cardiovascular: regular rate and rhythm Gastrointestinal: soft, No distended Musculoskeletal: No nl extremities to inspection Results Result Diagram: 11/10/16 0427 11/10/16 0427 Medications Medications Current Medications Morphine Sulfate (morphine) 4 mg Q4H PRN IV PAIN Last administered on 01:22; Admin Dose 4 MG; Start 10/26/16 at 23:30 Heparin Sodium (Porcine) (Heparin (5000 Units/0.5 ml)) 5,000 unit BID SC Last administered on 11/03/16 21:28; Admin Dose 5,000 UNIT; Start 10/27/16 at 09:00 ; Status Future Hold Senna (Senokot) 2 tab DAILY PO Last administered on 11/11/16 08:20; Admin Dose 2 TAB; Start 10/29/16 at 00:00 Acetaminophen/ Hydrocodone Bitart ([place] (10/325)) 1 tab Q6H PRN PO PAIN Last administered on 11/05/16 14:00; Admin Dose 1 TAB; Start 10/28/16 at 23:30 Acetaminophen (Tylenol Tab) 650 mg Q6H PRN PO PAIN AND OR ELEVATED TEMP Last administered on 11/03/16 23:36; Admin Dose 650 MG; Start 10/30/16 at 21:00 IV Flush 10 ml 10 ml PRN PRN IV IV PROTOCOL; Start 11/02/16 at 17:30 Lactated Ringer's (Lr) 1,000 ml @ 125 mls/hr Q8H IV Last administered on 01:19; Admin Dose 125 MLS/HR; Start 11/05/16 at 19:07 Celecoxib (Celebrex) 200 mg DAILY PO Last administered on 11/11/16 08:20; Admin Dose 200 MG; Start 11/06/16 at 09:00 Oxycodone HCl (Roxicodone) 5 mg Q4H PRN PO PAIN LEVEL 1-3 Last administered on 11/07/16 09:14; Admin Dose 5 MG; Start 11/05/16 at 19:30 Oxycodone HCl (Roxicodone) 10 mg Q4H PRN PO PAIN LEVEL 4-7 Last administered on 11/07/16 02:52; Admin Dose 10 MG; Start 11/05/16 at 19:30 Ondansetron HCl (Zofran Inj) 4 mg Q6H PRN IV NAUSEA AND/OR VOMITING; Start at 19:30 Bisacodyl (Dulcolax Supp) 10 mg Q12H PRN [place] CONSTIPATION; Start 11/05/16 at 19: 30 Magnesium Hydroxide (Milk Of Mag) 30 ml BID PRN PO CONSTIPATION; Start at 19:30 Sodium Biphosphate/ Sodium Phosphate (Fleet Enema) 133 ml DAILY PRN [place] CONSTIPATION; Start 11/05/16 at 19:30 Docusate Sodium (Colace) 100 mg BID PO Last administered on 11/11/16 08:20; Admin Dose 100 MG; Start 11/05/16 at 21:00 Diphenhydramine HCl (Benadryl) 25 mg Q6H PRN PO PRURITUS; Start 11/05/16 at 19: 30 Aspirin (Ecotrin) 325 mg BID PO Last administered on 11/11/16 08:20; Admin Dose 325 MG; Start 11/06/16 at 09:00 Pantoprazole (Protonix Tab) 40 mg BID@06,18 PO Last administered on 11/11/16 05 :37; Admin Dose 40 MG; Start 11/06/16 at 06:00 Pregabalin 50 mg 50 mg BID PO Last administered on 11/11/16 08:20; Admin Dose 50 MG; Start 11/05/16 at 21:00 Levofloxacin/ Dextrose 100 ml @ 100 mls/hr Q24H IVPB Last administered on 11/10 20:50; Admin Dose 100 MLS/HR; Start 11/05/16 at 19:30; Stop 11/12/16 at 17: 30 Vancomycin HCl/ Sodium Chloride (Vancocin/NS) 250 ml @ 83.333 mls/ hr Q12H IVPB Last administered on 11/11/16 01:51; Admin Dose 83.333 MLS/HR; Start 11/09 at 02:00 Acetaminophen/ Hydrocodone Bitart ([place] (7.5-325)) 1 tab Q4H PRN PO pain Last administered on 11/11/16 10:06; Admin Dose 1 TAB; Start 11/09/16 at 09:00 Patient Own Medication 1 ea DAILY SL Last administered on 11/11/16 08:19; Admin Dose 1 EA; Start 11/09/16 at 18:30 SHIRA EGAN MD Nov 11, 2016 11:08
[2016-11-11] MEDS: oxyCODONE 5 MG TAB PO PRN (11:56)
--- NOTE | 2016-11-11 14:44 | CONS ---
Date/Time of Note Date/Time of Note DATE: 11/11/16 TIME: 14:43 Assessment/Plan Assessment/Plan Chief Complaint/Hosp Course SUBJECTIVE: No events overnight. The patient is alert, feels good. Ambulating with PT. MICROBIOLOGY: All cultures since admission have been negative. ANTIMICROBIALS: 1. Vancomycin. 2. Levaquin. PHYSICAL EXAMINATION: GENERAL: This is a well-nourished, well-developed elderly man who is alert, in no distress. HEENT: Head atraumatic, normocephalic. Sclerae anicteric. NECK: Supple. CHEST: Rise symmetrical. Breath sounds clear. HEART: S1, S2. ABDOMEN: Soft. Bowel sounds present. EXTREMITIES: With right lower extremity knee immobilizer. ASSESSMENT: 1. Septic right knee status post incision and drainage, removal of infected right total knee and placement antibiotics-impregnated cement spacer. 2. Diabetes. 3. Status post systemic inflammatory response syndrome. PLAN: The patient remains stable. Continue antibiotics until December 18. Continue physical therapy and management as per ortho surgery. DW pt Problems: Consultation Date/Type/Reason Admit Date/Time Oct 26, 2016 at 19:59 Type of Consultation: ID Exam/Review of Systems Vital Signs Vitals Vital Signs Date Time Temp Pulse Resp B/P Pulse Ox O2 Delivery O2 Flow Rate FiO2 11/11/16 08:13 98.8 87 18 135/76 97 11/07/16 19:27 Room Air Intake and Output 11/10/16 11/10/16 11/11/16 15:00 23:00 07:00 Intake Total 2100 ml 1450 ml Output Total 1500 ml 800 ml Balance 600 ml 650 ml Results Result Diagram: 11/10/16 0427 11/10/16 0427 Medications Medications Current Medications Morphine Sulfate (morphine) 4 mg Q4H PRN IV PAIN Last administered on 01:22; Admin Dose 4 MG; Start 10/26/16 at 23:30 Heparin Sodium (Porcine) (Heparin (5000 Units/0.5 ml)) 5,000 unit BID SC Last administered on 11/03/16 21:28; Admin Dose 5,000 UNIT; Start 10/27/16 at 09:00 ; Status Future Hold Senna (Senokot) 2 tab DAILY PO Last administered on 11/11/16 08:20; Admin Dose 2 TAB; Start 10/29/16 at 00:00 Acetaminophen/ Hydrocodone Bitart ([place] (10/325)) 1 tab Q6H PRN PO PAIN Last administered on 11/05/16 14:00; Admin Dose 1 TAB; Start 10/28/16 at 23:30 Acetaminophen (Tylenol Tab) 650 mg Q6H PRN PO PAIN AND OR ELEVATED TEMP Last administered on 11/03/16 23:36; Admin Dose 650 MG; Start 10/30/16 at 21:00 IV Flush (NS 10 ml) 10 ml PRN PRN IV IV PROTOCOL; Start 11/02/16 at 17:30 Celecoxib (Celebrex) 200 mg DAILY PO Last administered on 11/11/16 08:20; Admin Dose 200 MG; Start 11/06/16 at 09:00 Oxycodone HCl (Roxicodone) 5 mg Q4H PRN PO PAIN LEVEL 1-3 Last administered on 11/07/16 09:14; Admin Dose 5 MG; Start 11/05/16 at 19:30 Oxycodone HCl (Roxicodone) 10 mg Q4H PRN PO PAIN LEVEL 4-7 Last administered on 11/11/16 11:56; Admin Dose 10 MG; Start 11/05/16 at 19:30 Ondansetron HCl (Zofran Inj) 4 mg Q6H PRN IV NAUSEA AND/OR VOMITING; Start at 19:30 Bisacodyl (Dulcolax Supp) 10 mg Q12H PRN CA CONSTIPATION; Start 11/05/16 at 19: 30 Magnesium Hydroxide (Milk Of Mag) 30 ml BID PRN PO CONSTIPATION; Start at 19:30 Sodium Biphosphate/ Sodium Phosphate (Fleet Enema) 133 ml DAILY PRN CA CONSTIPATION; Start 11/05/16 at 19:30 Docusate Sodium (Colace) 100 mg BID PO Last administered on 11/11/16 08:20; Admin Dose 100 MG; Start 11/05/16 at 21:00 Diphenhydramine HCl (Benadryl) 25 mg Q6H PRN PO PRURITUS; Start 11/05/16 at 19: 30 Aspirin (Ecotrin) 325 mg BID PO Last administered on 11/11/16 08:20; Admin Dose 325 MG; Start 11/06/16 at 09:00 Pantoprazole (Protonix Tab) 40 mg BID@06,18 PO Last administered on 11/11/16 05 :37; Admin Dose 40 MG; Start 11/06/16 at 06:00 Pregabalin 50 mg 50 mg BID PO Last administered on 11/11/16 08:20; Admin Dose 50 MG; Start 11/05/16 at 21:00 Levofloxacin/ Dextrose 100 ml @ 100 mls/hr Q24H IVPB Last administered on 11/10 20:50; Admin Dose 100 MLS/HR; Start 11/05/16 at 19:30; Stop 11/12/16 at 17: 30 Vancomycin HCl/ Sodium Chloride (Vancocin/NS) 250 ml @ 83.333 mls/ hr Q12H IVPB Last administered on 11/11/16 14:25; Admin Dose 83.333 MLS/HR; Start 11/09 at 02:00 Acetaminophen/ Hydrocodone Bitart ([place] (7.5-325)) 1 tab Q4H PRN PO pain Last administered on 11/11/16 10:06; Admin Dose 1 TAB; Start 11/09/16 at 09:00 Patient Own Medication 1 ea DAILY SL Last administered on 11/11/16 08:19; Admin Dose 1 EA; Start 11/09/16 at 18:30 SHAKIRA EDOUARD NP Nov 11, 2016 14:44
[2016-11-11] MEDS: LEVOFLOXACIN 500MG/D5W (PMX) 100 ML IVPB SCH (19:30)
--- NOTE | 2016-11-13 08:07 | DS ---
DATE OF ADMISSION: 10/26/2016 DATE OF DISCHARGE: 11/11/2016 CONDITION UPON DISCHARGE: Stable. ADMITTING DIAGNOSIS: Infected right total knee arthroplasty. DISCHARGE DIAGNOSIS: Status post incision and drainage of right knee, removal of infected right TKA , implantation of antibiotic spacers. PROCEDURE PERFORMED: Right knee I and D, removal of infected TKA, implantation of antibiotic spacer . HOSPITAL COURSE: This is a 66-year-old male who had previously undergone a right TKA at an outside facility approximately 10 to 11 years ago who was seen at [facility] initially with right knee pain and swelling. He had a knee aspiration done at that time which was concerning for a n infected right total knee arthroplasty. The patient was then transferred to [facility] and orthopedics was consulted. Dr. Stanton evaluated the patient reaspirated knee. The resu lts remained concerning for infection despite the patient being on the week of IV antibiotics. On 0 11/05/2016. the patient was taken to the operating room where he underwent a right knee I and D, renee marie of infected TKA, implantation of antibiotic spacers. There were no intraoperative complications . The patient tolerated the procedure well. He was taken to the recovery room in stable condition. Pain was well controlled with Dilaudid [employer] initially and oral pain medication. The patient was st arted on aspirin and SCDs for DVT prophylaxis. He remained hemodynamically stable and neurovascular ly intact throughout his hospital stay. He began physical therapy on postoperative day 1 and made p rogress throughout his hospital stay. The patient was deemed stable for transfer on postoperative d ay #6. Prior to discharge, the incision was inspected and noted to be clean, dry and intact. Dress ing changes were done prior to the patient being transferred to a [facility] facility. LABORATORY ANALYSIS: Upon discharge, hemoglobin was 8.3, hematocrit 26.2, white count was 6.9. Britni steven panel was within normal limits. Additionally, intraoperative wound cultures were negative fo r growth after 3 days. DISCHARGE MEDICATIONS: 1. [place] 7.5/325 mg. 2. Aspirin 325 mg. 3. Tramadol 50 mg 4. Lyrica 50 mg. 5. Protonix 40 mg. Additionally, the patient is to resume all his normal home medications. DISCHARGE INSTRUCTIONS: The patient was transferred to [facility] facility in stable [facility]. He is to resume a normal diet. ACTIVITY: Includes toe touch weightbearing with his knee locked in full extension using a hinged kn ee brace at all times. He began physical therapy at [facility] facility. He was transferred with the medications noted above, and is to resume all his normal home medication. The patient is t o call the office or go to the emergency room for any concerns including increased redness, swelling , drainage, fever or any concerns regarding the operation or site of incision. The patient will be on intravenous antibiotics for 6 weeks. FOLLOWUP: The patient will need to follow up in the office with Dr. Stanton on 11/16/2016. Dictated By: GAUTAM GAYLE for DELORES BUTT/NTS Conf#: [id number] DID#: [id number]
--- NOTE | 2016-11-13 17:04 | DS ---
DATE OF ADMISSION: 10/26/2016 DATE OF DISCHARGE: 11/11/2016 FINAL DISCHARGE DIAGNOSES 1. Right lower extremity cellulitis with right septic joint, status post right knee incision and dr bailey, removal of infected hardware, implantation of antibiotic spacer. 2. Systemic inflammatory response syndrome secondary to #1. 3. Intractable right lower extremity and right knee pain. CONSULTATIONS DONE DURING THIS HOSPITALIZATION: 1. Infectious disease consult, Dr. Vang. 2. Orthopedic surgery consult, Dr. Stanton. PROCEDURES AND SURGERIES PERFORMED DURING THIS HOSPITALIZATION: The patient underwent incision and drainage of right knee, removal of infected hardware, implantation of antibiotic spacer by orthopedi c surgery. HOSPITAL COURSE: This is a 66-year-old male with a past medical history of right knee surgery appro ximately 20 years ago, who recently had a right knee surgery about 3 years before, presented with [facility] with a chief complaint of right knee swelling and redness and pain. Initially he was treated with IV antibiotics for right knee cellulitis and the patient had systemic inflammatory res ponse syndrome secondary to right knee cellulitis. The patient had arthrocentesis done, which was p ossibly consistent with right knee septic arthritis. The patient also has imaging done while being in the hospital including a right knee x-ray. The patient was recommended to have IV antibiotics an d had orthopedic surgery consultation done. The patient subsequently underwent incision and drainag e of the right knee, removal of infected hardware and implantation of antibiotic spacer. He was rec ommended to have IV antibiotics, was evaluated by infectious disease service, Dr. Vang. The patie nt gets initially empiric antibiotics with Zosyn and vancomycin, which were subsequently changed to IV vancomycin and he was recommended to have a total of 6 weeks of IV antibiotics until 12/18/2016. He had a PICC line placement for long-term IV access and he gets discharged to a long term [facility] authorized by his insurance in the [facility]. DISPOSITION: To long term [facility]. DISCHARGE CONDITION: Stable and improved compared to admission. DISCHARGE ACTIVITIES: As tolerated, slowly resume to the normal baseline activity. DISCHARGE DIET: Low fat, low sodium diet. DISCHARGE MEDICATIONS: As per medical reconciliation. DISCHARGE FOLLOWUP AND INSTRUCTIONS: 1. The patient is to follow up with the physician at the long term [facility]. 2. The patient is to follow up with orthopedic surgery Dr. Johnson, as outpatient in 1 to 2 w eeks after discharge. He is recommended to have IV antibiotic vancomycin until 12/18/2016. 3. He has been explained about the discharge plan and followup instructions. He understood and beata balized understanding. Dictated By: SHIRA EGAN MD, KP/NTS Conf#: [id number] DID#: [id number]
[2016-12-03] MEDS ORDERED: ETOMIDATE 20 MG INJ ONE (07:00)
[2016-12-03] MEDS ORDERED: CEFAZOLIN 1 GM INJ ONE (07:00)
== END 2016-11-11 20:15 | DRG 463 ==
LOC: PP2 19:59 → OBG 10-30 15:43 → MS1 11-04 01:21
PROVIDERS: ADMIT Family Medicine; ATTEND Family Medicine
PROC: 02HV33Z Insertion of Infusion Device into Superior Vena Cava, Percutaneous Approach (ICD-10-PCS; 2016-11-02)
PROC: 3E0U029 Introduction of Other Anti-infective into Joints, Open Approach (ICD-10-PCS; 2016-11-05)
PROC: 0SHC08Z Insertion of Spacer into Right Knee Joint, Open Approach (ICD-10-PCS; 2016-11-05)
PROC: 0SPC0JZ Removal of Synthetic Substitute from Right Knee Joint, Open Approach (ICD-10-PCS; principal; 2016-11-05 16:00)
DX: T84.53XA Infection and inflammatory reaction due to internal right knee prosthesis, initial encounter (principal); A41.9 Sepsis, unspecified organism; L03.115 Cellulitis of right lower limb; E87.1 Hypo-osmolality and hyponatremia; D63.8 Anemia in other chronic diseases classified elsewhere
CPT/HCPCS: 36569; 71010; 73560; 73590; 76937; 80048; 80053; 80202; 81001; 81003; 83735; 84100; 85014; 85018; 85025; 85610; 85651; 85730; 86140; 87040; 87070; 87075; 87081; 87086; 87102; 87116; 88300; 89051; 90686; 93005; 93971; 97116; 97162; 97166; 97530; Z7610; C1713; C9290; J0131; J0171; J0690; J0692; J0735; J1100; J1170; J1644; J1885; J1956; J2001; J2250; J2270; J2274; J2405; J2710; J3010; J3370; J7030; J7040; J7050; J7120; L1832

== ENCOUNTER → 2016-11-25 | Outpatient (CLI) | payer OTHER ==
--- NOTE | 2016-11-26 07:45 | HKNOTE ---
DATE OF SERVICE: 11/25/2016 INTERVAL HISTORY: The patient presents today for his first postoperative evaluation. He is now approximately 13 days status post hardware removal, I and D, implantation of antibiotic spacers to his right knee. He is now almost 2 weeks status post removal of infected right TKA, I and D right knee and implantation of antibiotic spacers. He is doing satisfactory overall. He is currently at a nursing home facility. He is receiving both intravenous and oral antibiotics. He denies any fevers or chills. His pain is improving overall. He has been wearing a hinged knee brace locked in extension at all times. He denies any pus or drainage from the wound. He presents today for his first postoperative evaluation. PHYSICAL EXAMINATION: Today, he is alert and oriented x4 and in no acute distress. He is toe touch weightbearing with a front-wheel walker. He does have his knee in a hinged knee brace locked in full extension. Examination of the incision demonstrates it to be clean, dry and intact. Sutures are in place. It is well healing. His compartments are otherwise soft. There is no erythema or warmth noted. He does have some chronic venous insufficiency distally. However, his neurovascular status intact distally. IMAGING: X-rays of the right knee were obtained at an outside facility and reviewed by me. They demonstrate the impregnated antibiotic spacer to be in place with no fractures noted. Additionally, they are Stimulan beads noted. The knee is in good alignment. ASSESSMENT: Almost 2 weeks status post removal of infected TKA, I and D of the right knee, and implantation of antibiotic spacer. PLAN: The patient's sutures removed today and Steri-Strips were applied. He is to continue IV antibiotics for a total of 6 weeks. He is to continue wearing the hinged knee brace locked in full extension at all times. He is to continue toe touch weightbearing. We will see him back in 4 weeks for repeat evaluation. We will speak to Infectious Disease in regards to re-aspirating the knee and definitively when to proceed with additional surgical intervention. Dictated By: GAUTAM GAYLE for DELORES BUTT/REJI Conf#: [id number] DID#: [id number] [facility] [place] DIVISIONSavanna
== END | disposition home or self-care (01) ==
LOC: HKI 10:29
PROVIDERS: ATTEND Orthopaedic Surgery
DX: Z47.1 Aftercare following joint replacement surgery (principal); T81.4XXD Infection following a procedure, subsequent encounter; T84.53XD Infection and inflammatory reaction due to internal right knee prosthesis, subsequent encounter; Z96.651 Presence of right artificial knee joint

== ENCOUNTER → 2016-12-23 | Outpatient (CLI) | payer OTHER ==
--- NOTE | 2016-12-23 12:07 | RADRPT ---
PROCEDURE: Right knee radiographs. CLINICAL INDICATION: Right knee pain. TECHNIQUE: Two views. Frontal and lateral. COMPARISON: 11/05/2016. FINDINGS: As seen previously, there is bone cement at the site of previous total knee arthroplasty. The antib iotic beads are once again noted. The surgical drain has been removed. There is a joint effusion an d there is diffuse soft tissue swelling. There is no fracture or dislocation There is no lytic or blastic lesion. IMPRESSION: 1. Postoperative changes following removal of the total right knee arthroplasty. 2. Diffuse soft tissue swelling. 3. Joint effusion. 4. Otherwise unremarkable images of the right knee. RPTAT: QQ .Tres Cortez MD, MD Date Time Electronically viewed and signed by .Tres Cortez MD, on 12/23/2016 12:06 .R/
== END | disposition home or self-care (01) ==
LOC: HKI 08:48
PROVIDERS: ATTEND Orthopaedic Surgery
DX: Z47.1 Aftercare following joint replacement surgery (principal); T84.53XA Infection and inflammatory reaction due to internal right knee prosthesis, initial encounter; T84.84XA Pain due to internal orthopedic prosthetic devices, implants and grafts, initial encounter; Z96.651 Presence of right artificial knee joint

== ENCOUNTER → 2016-12-31 | Outpatient (CLI) | payer OTHER ==
[~2016-12-31] MED LIST: LIDOCAINE 1% (MPF) 5 ML VIAL SC ONE; SOD CHLORIDE 0.9% 100 ML ONE
--- NOTE | 2016-12-31 11:36 | RADRPT ---
PROCEDURE: XR Chest. CLINICAL INDICATION: Check Line Placement TECHNIQUE: Single frontal view of the chest was obtained. COMPARISON: Chest x-ray from 11/06/2016 FINDINGS: There is a left-sided PICC line with its tip in the mid SVC. The aortic arch is calcified. The heart and mediastinum are within normal limits. The lungs are clear. There is no significant pleural effusion or pneumothorax. IMPRESSION: Left-sided PICC line with its tip in the mid SVC. No focal infiltrates or effusions. Aortic atherosclerosis. RPTAT: EE Physician Edin Date Time Electronically viewed and signed by Physician Edin on 12/31/2016 11:35 RA/
--- NOTE | 2016-12-31 14:03 | RADRPT ---
PROCEDURE: US guidance for PICC line CLINICAL INDICATION: PICC line placement TECHNIQUE: Multiple real-time images were acquired of the patient's arm utilizing a high resolutio n transducer. This was performed by the PICC line nurse for venous access. COMPARISON: None FINDINGS: Ultrasound guidance for PICC line placement. IMPRESSION: Ultrasound guidance for PICC line placement. RPTAT: AA .Rafita Castaneda MD, MD Date Time Electronically viewed and signed by .Rafita Castaneda MD, on 12/31/2016 14:02 .S/
== END | disposition home or self-care (01) ==
LOC: RAD 10:00
PROVIDERS: ATTEND Internal Medicine Infectious Disease
DX: M00.9 Pyogenic arthritis, unspecified (principal)
CPT/HCPCS: 36569; 71010; 76937; Z7610

== ENCOUNTER → 2017-01-06 | Outpatient (CLI) | payer OTHER | END | disposition home or self-care (01) | LOC: HKI 10:38 | PROVIDERS: ATTEND Orthopaedic Surgery | DX: Z47.1 Aftercare following joint replacement surgery (principal); T84.53XA Infection and inflammatory reaction due to internal right knee prosthesis, initial encounter; Z96.651 Presence of right artificial knee joint | CPT/HCPCS: G0463 ==

== ENCOUNTER → 2017-02-05 | Outpatient (CLI) | payer OTHER ==
--- NOTE | 2017-02-05 12:10 | RADRPT ---
PROCEDURE: XR right knee. CLINICAL INDICATION: Knee pain TECHNIQUE: Three views are available for review. COMPARISON: 12/23/2016 FINDINGS: There is no change in the methylmethacrylate placement after removal of the total knee components. The antibiotic beads have resorbed. There is diffuse osteopenia. No fractures are identified. No osseous lesions are identified. The joints are unremarkable. There is no change in the diffuse soft tissue swelling. IMPRESSION: Diffuse osteopenia. No change in the methylmethacrylate placement after removal of the total knee components Diffuse soft tissue swelling RPTAT: HGDB .Dennys Cisneros MD, Date Time Electronically viewed and signed by .Dennys Cisneros MD, on 02/05/2017 12:10 .B/
== END | disposition home or self-care (01) ==
LOC: HKI 10:35
PROVIDERS: ATTEND Orthopaedic Surgery
DX: T84.53XA Infection and inflammatory reaction due to internal right knee prosthesis, initial encounter (principal); T84.84XA Pain due to internal orthopedic prosthetic devices, implants and grafts, initial encounter; Z96.651 Presence of right artificial knee joint
CPT/HCPCS: 20610; 73562; Z7500; G0463

== ENCOUNTER 2017-04-21 11:03 | Inpatient (IN) | payer OTHER ==
[~2017-04-21] VITALS: Ht 180.3 cm; Wt 95.3 kg
[2017-04-21 12:29] VITALS: BMI 28.2
[2017-04-27] VITALS (17 sets, daily range): BP systolic 99–145; BP diastolic 48–95; PULSE 69–85; RESP 0–19; Ht 180.3 cm; Wt 95.3 kg
[2017-04-27] MEDS ORDERED: ONDANSETRON 4 MG IV X 1 DOSE IV ONE (07:00)
[2017-04-27] MEDS ORDERED: traMADOL 50 MG TAB X 1 DOSE PO ONE (07:00)
[2017-04-27] MEDS ORDERED: TRANEXAMIC ACID 920 MG in SOD CHLORIDE 0.9% 90.8 ML IV ONE (07:00)
[2017-04-27] MEDS ORDERED: BUPIVACAINE LIPOSOME/PF 266 MG/20 ML VIAL INFIL ONE (07:00)
[2017-04-27] MEDS ORDERED: TRANEXAMIC ACID 920 MG in SOD CHLORIDE 0.9% 100 ML IVPB ONE (07:00)
[2017-04-27] MEDS ORDERED: PREGABALIN 300 MG PO X1 PO ONE (07:00)
[2017-04-27] MEDS ORDERED: VANCOMYCIN 1 GM/NS 250 ML X1 BEFORE INCISION IVPB ONE (07:00)
[2017-04-27] MEDS ORDERED: PAIN COCKTAIL - VANCOMYCIN IRR ONE ×7 (07:00)
[2017-04-27] MEDS ORDERED: CELECOXIB 400 MG PO X1 DOSE PO ONE (07:00)
[2017-04-27] MEDS ORDERED: oxyCODONE (CR) 10 MG TAB [oxyCONTIN] X1 DOSE PO ONE (07:00)
[2017-04-27] MEDS ORDERED: LACTATED RINGER'S 1,000 ML IV SCH (07:00)
[2017-04-27] MEDS ORDERED: EXPAREL NOTE (BUPIVICAINE LIPOSOMAL) XX SCH (09:00)
[2017-04-27] MEDS ORDERED: BENA1TAB12 PO (10:39)
[2017-04-27] MEDS ORDERED: MUPI1OIN5 NASAL (10:43)
[2017-04-27] MEDS: traMADol 50 MG TAB PO SCH ×3 (12:00→23:37)
[2017-04-27] MEDS ORDERED: NEOSTIGMINE 3 MG/3 ML SYRINGE ONE (12:04)
[2017-04-27] MEDS ORDERED: GLYCOPYRROLATE 0.4 MG INJ ONE (12:04)
[2017-04-27] MEDS ORDERED: CEFAZOLIN 1 GM INJ ONE (12:04)
[2017-04-27] MEDS ORDERED: ROCURONIUM 50 MG INJ ONE (12:04)
[2017-04-27] MEDS ORDERED: PROPOFOL 20 ML ONE (12:04)
[2017-04-27] MEDS ORDERED: FENTAnyl 50 MCG/ML VIAL ONE (12:05)
[2017-04-27] MEDS ORDERED: MIDAZOLAM 1 MG/ML 2 ML INJ ONE (12:05)
[2017-04-27] MEDS ORDERED: DEXAMETHASONE 4 MG/ML 1 ML INJ ONE (12:05)
[2017-04-27] MEDS ORDERED: ONDANSETRON 4 MG INJ ONE (12:05)
[2017-04-27] MEDS ORDERED: BACITRACIN 50000 UNITS INJ ONE (12:34)
[2017-04-27] MEDS ORDERED: SODIUM CL BACTERIOSTATIC 30 ML INJ ONE (13:00)
[2017-04-27] MEDS ORDERED: POLYMYXIN B 500000 UNIT INJ ONE ×2 (13:00→17:01)
[2017-04-27] MEDS ORDERED: TOBRAMYCIN 1.2 GM POWDER ONE (13:01)
--- NOTE | 2017-04-27 13:18 | HPN ---
Date/Time of Note Date/Time of Note DATE: 04/27/17 TIME: 13:17 Interval H&P Admission Note Pt. seen H&P reviewed: No system changes No changes from H&P on 04/20/17 by DELORES Hess MD Apr 27, 2017 13:18
[2017-04-27] MEDS ORDERED: SODIUM HYPOCHLORITE 0.125% 473 ML BTL IRR ONE (13:30)
[2017-04-27] MEDS ORDERED: HEPARIN 1000 UNITS/ML 10 ML INJ ONE (13:35)
[2017-04-27] MEDS: VANCOMYCIN 1 GM INJ ONE ×2 (14:44→15:54)
[2017-04-27] MEDS ORDERED: LABETALOL HCL 20MG INJ IV PRN (15:00)
[2017-04-27] MEDS ORDERED: FENTAnyl 50 MCG/ML VIAL IV PRN ×3 (15:00)
[2017-04-27] MEDS ORDERED: OXYCODONE/ACETAMINOPHEN (5/325) TAB PO PRN ×2 (15:00)
[2017-04-27] MEDS ORDERED: MEPERIDINE 25 MG INJ IV PRN (15:00)
[2017-04-27] MEDS ORDERED: IPRATROPIUM (NEB) 0.5 MG/2.5 ML AMP HHN PRN (15:00)
[2017-04-27] MEDS ORDERED: hydrALAzine 20 MG INJ IV PRN (15:00)
[2017-04-27] MEDS ORDERED: ONDANSETRON 4 MG INJ IV PRN ×2 (15:00→19:00)
[2017-04-27] MEDS ORDERED: TRIMETHOBENZAMIDE 100 MG/ML VIAL IM PRN (15:00)
[2017-04-27] MEDS ORDERED: DIPHENHYDRAMINE 50 MG INJ IV PRN (15:00)
[2017-04-27] MEDS ORDERED: EPHEDrine SULFATE 50 MG/5 ML SYG IV PRN (15:00)
[2017-04-27] MEDS ORDERED: HYDROmorphONE (0.2 MG/ML) 10ML SYG IV PRN ×3 (15:00)
[2017-04-27] MEDS ORDERED: ALBUTEROL 0.083% (NEB) 2.5 MG/3 ML AMP HHN PRN (15:00)
[2017-04-27] MEDS ORDERED: MIDAZOLAM 1 MG/ML 2 ML INJ IV PRN (15:00)
[2017-04-27] MEDS ORDERED: ASPIRIN 300 MG SUPP PR STA (18:41)
[2017-04-27] MEDS: LACTATED RINGER'S 1,000 ML IV SCH (18:41)
--- NOTE | 2017-04-27 18:53 | PN ---
Date/Time of Note Date/Time of Note DATE: 04/27/17 TIME: 18:48 Assessment/Plan Lines/Catheters IV Catheter Type (from Nrsg): Peripheral IV Assessment/Plan Assessment/Plan Serious condition, s/p revision right TKA -continue Vancomycin x 3 days until final intra-operative culture results -ASA IL and SCDs for DVT prophylaxis until patient is extubated and can tolerate PO -pain meds as needed -Medicine and Cardiology consult -OOB with PT when stable -check AM labs -monitor drain -d/c santos when ambulatory XR of the right knee is pending at this time Subjective 24 Hr Interval Summary Patient had bradycardic episode at the end of the surgical procedure when awakening the patient from anesthesia. Stable throughout case otherwise. Admitted directly to ICU from OR. No complications with the operative right knee. Remained intubated and transferred to ICU. Exam/Review of Systems Vital Signs Vitals Vital Signs Date Time Temp Pulse Resp B/P Pulse Ox O2 Delivery O2 Flow Rate FiO2 04/28/17 06:00 67 12 92/43 Mechanical Ventilator 04/28/17 05:05 100 30 04/28/17 04:00 98.0 Intake and Output 04/27/17 04/27/17 04/28/17 14:59 22:59 06:59 Intake Total 4000 ml 252.67 ml 1420.39 ml Output Total 1360 ml 560 ml Balance 4000 ml -1107.33 ml 860.39 ml Exam Free Text/Dictation Hemovac: minimal Dressing dry Incision clean, dry, and intact without redness or drainage Thigh soft 5/5 Quadriceps, Tibialis Anterior, EHL, Gastroc, Soleus, Peroneals Normal sensation Palpable DT/PT, CR <2 sec No distal edema Results Result Diagram: 04/28/17 0500 04/28/17 0500 GAUTAM JASON PA-C Apr 27, 2017 18:53
[2017-04-27] MEDS ORDERED: MAGNESIUM HYDROXIDE 30ML CUP PO PRN (19:00)
[2017-04-27] MEDS ORDERED: HYDROCODONE/APAP (7.5/325) TAB PO PRN (19:00)
[2017-04-27] MEDS ORDERED: DIPHENHYDRAMINE 25 MG CAP PO PRN (19:00)
[2017-04-27] MEDS ORDERED: VANCOMYCIN IV PER PHARMACY XX SCH (19:00)
[2017-04-27] MEDS ORDERED: NACL 0.9% 3 ML SYG IV SCH (19:00)
[2017-04-27] MEDS ORDERED: HYDROmorphONE 1 MG/ML SYG IV PRN (19:00)
[2017-04-27] MEDS ORDERED: BISACODYL 10 MG SUPP PR PRN (19:00)
[2017-04-27] MEDS ORDERED: NA PHOSPHATE/BIPHOS 133 ML ENEMA PR PRN (19:00)
--- NOTE | 2017-04-27 19:01 | OPR ---
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 SURGEON: Roman Baer MD PAPER MACHINE BACK TENDER: Jose Wren PA-C COMPONENTS USED: DePuy size 5 TC 3 femur, +2 5 degree bolt adapter, +12 lateral distal augments, +4 medial distal augment, +4 lateral posterior augment, 46 mm metaphyseal sleeve, 18 mm diameter by 75 mm stem, size 4 MBT revision tibial tray, 61 mm metaphyseal sleeve, 18 mm diameter by 75 mm stem, 17.5 polyethylene liner, 41 patellar button ANESTHESIA: Spinal plus general endotracheal intubation, plus periarticular injection ANESTHESIOLOGIST: Adonay Watson M.D. TOURNIQUET TIME: Up 111 minutes, down 38 minutes, up 15 minutes ESTIMATED BLOOD LOSS: 150 cc INTRAVENOUS FLUIDS: 3,000 cc crystalloid SPECIMENS: Bone and soft tissue. DRAINS: Hemovac x1. COMPLICATIONS: None. DISPOSITION: The patient remained intubated at the end of the procedure and was taken to the ICU in stable condition INDICATIONS: The patient is a 66-year-old gentleman who had a previous knee replacement by another surgeon that then became infected. I removed the prosthesis and placement antibiotic impregnated cement spacer. He was treated with interval intravenous antibiotics. Antibiotics were discontinued and then the knee was aspirated after a drug holiday. The cultures were negative and it was felt he was ready to be brought back to the operating room for removal of the spacer and placement of a new knee replacement. The risks, benefits, and alternatives of the procedure were explained in detail to the patient. I explained the risks of the surgery to include but not be limited to, bleeding and possible need for blood transfusion; infection ( residual/recurrent and need for additional resection arthroplasty, possible need for arthrodesis, possible loss of limb); pain; stiffness; neurovascular injury with possible numbness, weakness, and/or paralysis anywhere from the knee down to the toes; fracture; instability; dislocation; wear and/or loosening of the prosthesis and possible need for future revision; blood clots; pulmonary embolism; and anesthetic complications such as heart attack, stroke, GI bleed, pneumonia, and/or . Ample time was allowed for the patient to ask questions, all of which were addressed and answered. The patient understood the risks involved and wished to proceed. Informed consent was signed prior to the procedure. PROCEDURE: The patient's right knee was initialed with a marking pen in the preoperative area to identify the correct operative site. The patient was brought to the operating room and transferred from the [facility] to the operating table where a spinal anesthetic was administered. The patient was then anesthetized and intubated. A Arriaga catheter was placed. A timeout was performed to confirm that the right leg was the correct operative site. The patient was given 1 g of vancomycin and 2 g of Ancef within one hour prior to the procedure. A tourniquet was placed on the operative proximal thigh. The operative knee and lower extremity were prepped and draped in the usual sterile fashion. The operative lower extremity was elevated and exsanguinated with an Esmarch tourniquet. The proximal thigh tourniquet was inflated to 275 mmHg. The knee was slightly flexed. The previous midline scar was incised. This was carried down through subcutaneous tissue and fat with sharp dissection. Medial and lateral flaps were raised. The previous medial parapatellar arthrotomy was incised. The synovial fluid was normal in color and consistency and swab for aerobic and anaerobic culture 5. A medial release was performed at the joint line to the mid coronal plane. The cement spacer was removed from the tibia and then from the femur. The patellar covering was removed as well. The cement plugs on the femur and tibia were removed. The patella was subluxed laterally. Extensive release was performed medially to sublux the tibia relative to the femur. Synovial tissue from around the femur and tibia and in the femoral and tibial canals was also sent off for tissue culture. There was no purulent component noted. At this point the knee was irrigated with 3 L of pulsatile lavage with antibiotic saline. It was then irrigated with a one-to- one mixture of Betadine and hydrogen peroxide. Additional antibiotic saline was then used to irrigate the knee. At this point the knee was irrigated with quarter strength Dakin's solution. The knee was then irrigated with additional 3 L of antibiotic saline. New drapes were placed and gloves were changed. At this point the tibia was prepared with the hand reamers up to 18 mm and broached up to a 61 mm broach and the tibia sized to be a 4. A cleanup osteotomy was made on top of the trial metaphyseal sleeve. The femur was then sized to be a 5. I hand reamed the femur up to 18 mm getting a good bite. I then broached up to a 46 mm metaphyseal sleeve getting a good bite. I made a cleanup osteotomy of the distal femur. The size 5 4-in-1 cutting block was pinned in place with the knee at 90 of flexion with a 17.5 [address] block in place to set the rotation of the femur. The anterior and posterior cuts and chamfer cuts were made. The central box for the TC 3 was cut out. I needed a 12 mm lateral distal augment and a 4 mm distal medial augment and a 4 mm posterior lateral augment. These augments were placed on the trial femur. The trials metaphyseal sleeve and stem were assembled and reduced onto the tibia with a 17.5 mm insert. The knee came to full extension. There was no tendency for the knee to flex with axial loading on my abdomen suggesting the knee was in full extension. The patella was freshened up and sized to be a 38, 3 holes drilled. A trial button was placed in position. The knee was flexed. The patella tended to sublux laterally. An extensive lateral release was performed and the patella then tracked well with no tilt or subluxation. The knee was able to be flexed to 120. There was no varus or valgus instability. Intraoperative AP and lateral C-arm images showed the alignment of the components to be good on both AP and lateral views. At this point the trials were removed and the real components opened and assembled on the back table. The tourniquet had been let down while we were assembling the components on the back table. The knee was irrigated again with antibiotic saline pulsatile lavage. An extensive synovectomy was performed and all nonviable tissue was removed. There were quite a few Ethibond sutures along the lateral retinaculum had to be removed which took quite some time. Once these were all removed the tourniquet was then reinflated to 275 mmHg. The components were then cemented into place. Each bag of cement had 1 g of vancomycin mixed into it. The knee was held in full extension while the cement hardened. Once the cement was completely hardened the tourniquet was let down. There was good hemostasis. The knee was irrigated with antibiotic saline. Stimulan peas mixed with vancomycin and tobramycin were placed in the deep portion of the wound. A Hemovac drain was placed in the knee joint and brought out the anterolateral thigh. The arthrotomy was closed with interrupted #1 PDS suture and then a running #2 Stratafix suture. The lateral release was left open. A second Hemovac drain was placed in the subcutaneous tissue. The subcutaneous layer was closed with a running 2-0 Stratafix. The subdermal layer was then closed with 3-0 Vicryl and interrupted 3-0 Prolene in a vertical mattress fashion on the skin. The drains were secured with 3-0 nylon. The incision was covered with silver Mepilex dressings. The knee was wrapped with sterile cast padding and a bias dressing. The sponge and needle counts were correct at the end of the case Please note that upon attempt by the anesthesiologist to awaken and extubate the patient he developed bradycardia and ST elevations. He was stabilized by the anesthesiologist but it was felt he needed to be kept intubated and taken directly to the ICU. ROMAN BAER MD Apr 27, 2017 19:01
[2017-04-27] MEDS ORDERED: PROPOFOL 100 ML IV SCH (19:30)
[2017-04-27 20:03] LABS: AADO2 Arterial 310.1 mmHg (7.0-24.0); Arterial Base Excess -0.7 mmol/L (-3.0-3); Arterial COHb 0.2 % (0.0-3.0); Arterial Fraction of Oxyhgb 98.7 % (93.0-99.0); Arterial HCO3 24.9 mmol/L (22.0-26.0); Arterial MetHb 0.4 % (0.0-1.5); MODE VENT - AC
[2017-04-27 20:39] LABS: ABNORMAL IP MESSAGE 1; BASOPHILS % 0.3 % (0.0-2.0); EOSINOPHILS % 0.1 % (0.0-7.0); HEMATOCRIT 29.7 % (42.0-52.0); HEMOGLOBIN 9.6 g/dl (14.0-18.0); LYMPHOCYTES # 0.5 10^3/ul (0.8-2.9); MEAN CORPUSCULAR HEMOGLOBIN 27.9 pg (29.0-33.0); MEAN CORPUSCULAR HGB CONC 32.3 g/dl (32.0-37.0); MEAN CORPUSCULAR VOLUME 86.3 fl (82.0-101.0); MONOCYTE # 0.2 10^3/ul (0.3-0.9); MONOCYTES % 2.2 % (0.0-11.0); NEUTROPHILS % 91.1 % (39.0-77.0); PLATELET COUNT 191 10^3/UL (140-415); POSITIVE DIFF @See below; RED BLOOD COUNT 3.44 10^6/ul (4.70-6.10); RED CELL DISTRIBUTION WIDTH 13.9 % (11.5-14.5); WHITE BLOOD COUNT 7.9 10^3/ul (4.8-10.8)
--- NOTE | 2017-04-27 20:43 | RADRPT ---
PROCEDURE: XR Chest. CLINICAL INDICATION: Endotracheal intubation. TECHNIQUE: Portable AP supine view of the chest was obtained. COMPARISON: 04/21/2017 FINDINGS: The cardiomediastinal silhouette is within normal limits. Distal tip of the new endotracheal tube i s in good position projecting 4 cm above the lolita. The lungs are clear. There is no evidence for pleural effusion, pneumothorax or pulmonary vascular congestion. The osseous structures are intact with no evidence for acute abnormality. RPTAT:HJJR IMPRESSION: Distal tip of the endotracheal tube in good position projecting 4 cm above the lolita without eviden ce for acute intrathoracic pathology. Physician Zahira Date Time Electronically viewed and signed by Physician Zahira on 04/27/2017 20:42 JR/
--- NOTE | 2017-04-27 20:45 | RADRPT ---
PROCEDURE: XR Knee. CLINICAL INDICATION: Postoperative evaluation TECHNIQUE: AP and lateral views of the right knee were obtained. COMPARISON: 02/05/2017 FINDINGS: Changes of arthroplasty revision are noted with a long metallic intramedullary stem of the distal fe mur and proximal tibia, bridging metallic bar across the joint space. Alignment of the hardware is in good both projections. Rounded radiopaque densities within the anterior aspect of the knee joint likely reflect antibiotic impregnated beads. Postoperative changes of the posterior patellar vincent n are noted with subcutaneous gas and a drainage catheter. RPTAT:HJJR IMPRESSION: Interval arthroplasty revision of the right knee as compared to 02/05/2017, the metallic hardware sa tisfactory in radiographic appearance with anticipated subcutaneous gas, drainage catheter and torres es of recent surgery. Physician Zahira Date Time Electronically viewed and signed by Physician Zahira on 04/27/2017 20:44 /
[2017-04-27 20:57] LABS: CALCIUM 8.1 mg/dl (8.4-10.2); CREATININE 1.16 mg/dl (0.61-1.24); MAGNESIUM 1.8 mg/dl (1.7-2.5); PHOSPHORUS 3.3 mg/dl (2.5-4.9); POTASSIUM 3.1 mmol/L (3.5-5.1)
[2017-04-27] MEDS: PREGABALIN 25 MG CAP PO SCH (21:00)
[2017-04-27] MEDS: ASPIRIN 300 MG SUPP PR SCH (21:00)
[2017-04-27] MEDS ORDERED: PREGABALIN 50 MG CAP PO SCH (21:00)
[2017-04-27] MEDS: DOCUSATE SODIUM 100 MG CAP PO SCH (21:00)
[2017-04-27] MEDS ORDERED: TRANEXAMIC ACID 890 MG in SOD CHLORIDE 0.9% 100 ML IVPB ONE (22:00)
[2017-04-27] MEDS: VANCOMYCIN 1.25 GM in SOD CHLORIDE 0.9% 250 ML IVPB SCH (22:49)
--- NOTE | 2017-04-27 23:41 | CONS ---
Date/Time of Note Date/Time of Note DATE: 04/27/17 TIME: 23:41 Assessment/Plan Assessment/Plan Additional Assessment/Plan 1. Sinus bradycardia: Resolved -At the end of right knee surgery, patient had bradycardic episodes for which feels like he was given atropine was response. Since then his heart rate been stable, in sinus with heart rate in the 70s and 80s. -Continue ICU monitoring. Cardiology evaluation in the morning. 2. 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 Intubated for airway protection -Continue vent support for now -Extubation most likely in a.m. Pulmonary to manage 4. History of hypertension: Systolic blood pressure has actually been on the lower side. Will continue IV fluid. He will also receive a bolus 5. Anemia, likely of chronic disease -We will check iron panel to evaluate for iron deficiency Monitor H&H closely and transfuse as needed. Patient however had indicated that he does not want blood transfusion 6. Hypokalemia -Replete as needed Consultation Date/Type/Reason Admit Date/Time Apr 27, 2017 at 09:57 Hx of Present Illness This is a 66-year-old male with a history of hypertension and right knee replacement was brought to the hospital for infected right knee. He is now status post removal of infected right total knee arthroplasty and placement of antibiotic impregnated cement spacer. While in the OR, patient had episode of bradycardia. He never lost a pulse. He is currently intubated and admitted to ICU. He is on propofol but responds to verbal stimuli and actually follows commands. His only complaint is that he is uncomfortable because of intubation and actually he would like to be extubated. He denied any pain and actually he looks comfortable on the vent for the most part. His systolic blood pressure in the 90s and in the high 80s. He remained in sinus rhythm with a heart rate in the 70s and 80s. . Past Medical History Medical History: hypertension Past Surgical History Past Surgical Hx: other (Right knee arthroplasty) Social History Alcohol Use: occasionally Smoking Status: Former smoker Drug Use: none Exam/Review of Systems Vital Signs Vitals Vital Signs Date Time Temp Pulse Resp B/P Pulse Ox O2 Delivery O2 Flow Rate FiO2 04/27/17 23:00 67 16 100 30 04/27/17 21:45 108/48 Mechanical Ventilator 04/27/17 20:00 97.7 Exam Constitutional: other (Intubated. Looks comfortable on a vent.) Head: atraumatic, normocephalic Eyes: PERRL Respiratory: clear to auscultation, normal air movement Cardiovascular: nl pulses, regular rate and rhythm Gastrointestinal: non-tender, soft Extremities: other (Right lower extremity is covered. Draining tube with about 200 cc of bloody output) Results Result Diagram: 04/27/17201904/27/172019 Results 24 hrs Laboratory Tests Test 04/27/17 19:06 04/27/17 20:20 Blood Gas Specimen Source Blood arterial Arterial Blood Date Drawn 04/27/2017 7:50:14 PM Arterial Blood pH (Temp corrected) 7.364 Arterial Blood pCO2 (Temp correct) 44.6 Arterial Blood pO2 (Temp corrected) 358.3 H Arterial Blood HCO3 24.9 Arterial Blood Base Excess -0.7 Arterial Blood Oxygen Saturation 99.3 H Zoran Test N/A Arterial Blood Gas Puncture Site A-Line Arterial Blood Carboxyhemoglobin 0.2 Arterial Blood Methemoglobin 0.4 Blood Gas A-a O2 Differential 310.1 H Oxyhemoglobin Percent 98.7 Total Hemoglobin 11.0 L Blood Gas Temperature 37.0 Blood Gas Respiration Rate 14.0 Blood Gas Actual Respiration Rate 16 Blood Gas Modality VENT - AC FiO2 100.0 Blood Gas Tidal Volume 500.0 Blood Gas Low PEEP Setting 5.0 Blood Gas Notified Whom Savanna RAYMUNDO RCP Blood Gas Notified Time 04/27/2017 8:02:58 PM White Blood Count 7.9 Red Blood Count 3.44 L Hemoglobin 9.6 L Hematocrit 29.7 L Mean Corpuscular Volume 86.3 Mean Corpuscular Hemoglobin 27.9 L Mean Corpuscular Hemoglobin Concent 32.3 Red Cell Distribution Width 13.9 Platelet Count 191 # Mean Platelet Volume 11.0 H Neutrophils % 91.1 H Lymphocytes % 6.0 L Monocytes % 2.2 Eosinophils % 0.1 Basophils % 0.3 Nucleated Red Blood Cells % 0.0 Neutrophils # (Manual) 7.2 Lymphocytes # 0.5 L Monocytes # 0.2 L Eosinophils # 0.0 Basophils # 0.0 Nucleated Red Blood Cells # 0.0 Sodium Level 136 Potassium Level 3.1 L Chloride Level 104 Carbon Dioxide Level 25 Anion Gap 10 Blood Urea Nitrogen 20 Creatinine 1.16 Glucose Level 215 Calcium Level 8.1 L Phosphorus Level 3.3 Magnesium Level 1.8 Medications Medications Current Medications Miscellaneous Information 1 ea 1 ea NOTE XX ; Start 04/27/17 at 09:00; Stop at 08:59 Lactated Ringer's (Lr) 1,000 ml @ 125 mls/hr Q8H IV Last administered on t 18:41; Admin Dose 125 MLS/HR; Start 04/27/17 at 18:41 Tramadol HCl (Ultram) 50 mg Q6 PO ; Start 04/27/17 at 12:00; Stop 04/30/17 at 11 :59 Hydromorphone HCl (Dilaudid) 1 mg Q3H PRN IV PAIN LEVEL 8-10; Start 04/27/17 at 19:00 Ondansetron HCl (Zofran Inj) 4 mg Q6H PRN IV NAUSEA AND/OR VOMITING; Start at 19:00 Bisacodyl (Dulcolax Supp) 10 mg Q12H PRN [place] CONSTIPATION; Start 04/27/17 at 19: 00 Magnesium Hydroxide (Milk Of Mag) 30 ml BID PRN PO CONSTIPATION; Start at 19:00 Sodium Biphosphate/ Sodium Phosphate (Fleet Enema) 133 ml DAILY PRN [place] CONSTIPATION; Start 04/27/17 at 19:00 Docusate Sodium (Colace) 100 mg BID PO ; Start 04/27/17 at 21:00 Diphenhydramine HCl (Benadryl) 25 mg Q6H PRN PO PRURITUS; Start 04/27/17 at 19: 00 Acetaminophen/ Hydrocodone Bitart ([place] (7.5-325)) 1 tab Q4H PRN PO PAIN LEVEL 1-3; Start 04/27/17 at 19:00 Acetaminophen/ Hydrocodone Bitart ([place] (7.5-325)) 2 tab Q4H PRN PO PAIN LEVEL 4-7; Start 04/27/17 at 19:00 Pantoprazole (Protonix Tab) 40 mg BID@06,18 PO ; Start 04/28/17 at 06:00 Aspirin 300 mg 300 mg BID VA ; Start 04/27/17 at 21:00; Stop 8/22/17 at 20:59 Propofol (Diprivan) 100 ml @ 2.67 mls/hr Q12H IV Last administered on 21:09; Admin Dose 2.67 MLS/HR; Start 04/27/17 at 19:30 Pregabalin 50 mg 50 mg BID PO ; Start 04/27/17 at 21:00 Vancomycin HCl/ Sodium Chloride (Vancocin/NS) 250 ml @ 83.333 mls/ hr Q12H IVPB Last administered on 04/27/17 22:49; Admin Dose 83.333 MLS/HR; Start at 22:00 MANDY CHANEL MD Apr 27, 2017 23:41
[2017-04-28] VITALS (27 sets, daily range): BP systolic 86–127; BP diastolic 43–94; PULSE 67–102; RESP 6–30
--- NOTE | 2017-04-28 00:15 | RADRPT ---
PROCEDURE: Fluoroscopy. CLINICAL INDICATION: Intraoperative fluoroscopic guidance. Right knee prosthesis revision. TECHNIQUE: Fluoroscopic guidance provided for intraoperative procedure. COMPARISON: FINDINGS: 0.4 minutes fluoroscopy time was used. 8 intraoperative spot radiographs obtained. Revision of femo ral component with intact tibial component of the right knee. IMPRESSION: Fluoroscopic guidance provided for intraoperative procedure. RPTAT:AAJJ Physician Luis Date Time Electronically viewed and signed by Physician Luis on 04/28/2017 00:15 TAURUS/
[2017-04-28 00:58] LABS: TROPONIN-I 0.017 ng/ml (0.00-0.12)
[2017-04-28] MEDS ORDERED: TRANEXAMIC ACID 890 MG in SOD CHLORIDE 0.9% 100 ML IVPB ONE (01:00)
[2017-04-28 01:01] LABS: CK-MB 1.81 ng/ml (0.0-2.4)
[2017-04-28] MEDS: LACTATED RINGER'S 1,000 ML IV SCH ×3 (03:10→18:41)
[2017-04-28] MEDS ORDERED: SOD CHLORIDE 0.9% 500 ML IV ONE (05:00)
[2017-04-28] MEDS: traMADol 50 MG TAB PO SCH ×4 (05:16→23:47)
[2017-04-28 05:43] LABS: HEMATOCRIT 27.8 % (42.0-52.0); HEMOGLOBIN 9.1 g/dl (14.0-18.0)
[2017-04-28] MEDS: PANTOPRAZOLE (EC) 40 MG TAB PO SCH ×2 (05:55→17:56)
[2017-04-28 06:07] LABS: CK-MB 1.82 ng/ml (0.0-2.4)
[2017-04-28 06:13] LABS: IRON 34 ug/dl (35-150)
[2017-04-28 06:15] LABS: CALCIUM 8.3 mg/dl (8.4-10.2); CREATININE 1.1 mg/dl (0.61-1.24); POTASSIUM 3.5 mmol/L (3.5-5.1)
[2017-04-28 06:22] LABS: TOTAL IRON BINDING CAPACITY 239 ug/dl (241-421)
[2017-04-28 06:42] LABS: TROPONIN-I 0.019 ng/ml (0.00-0.12)
[2017-04-28 07:12] LABS: ADD UMIC NO; UR ASCORBIC ACID NEGATIVE (NEGATIVE); UR BILIRUBIN (Dip) NEGATIVE (NEGATIVE); UR BLOOD (Dip) NEGATIVE (NEGATIVE); UR CLARITY CLEAR (CLEAR); UR COLOR YELLOW (YELLOW); UR GLUCOSE (Dip) NEGATIVE (NEGATIVE); UR KETONES (Dip) NEGATIVE (NEGATIVE); UR LEUKOCYTE ESTERASE (Dip) NEGATIVE Leu/ul (NEGATIVE); UR NITRITE (Dip) NEGATIVE (NEGATIVE); UR SPECIFIC GRAVITY (Dip) 1.023 (1.003-1.030); UR TOTAL PROTEIN (Dip) NEGATIVE (NEGATIVE); UR UROBILINOGEN (Dip) NEGATIVE (NEGATIVE)
--- NOTE | 2017-04-28 08:49 | PN ---
Date/Time of Note Date/Time of Note DATE: 04/28/17 TIME: 08:46 Assessment/Plan Lines/Catheters IV Catheter Type (from Nrsg): Peripheral IV Arriaga in Place (from Nrsg): Yes Assessment/Plan Assessment/Plan Guarded but improving, s/p revision right TKA -continue Vancomycin -ASA MI and SCDs until extubated and can tolerate PO -pain meds as needed -monitor drain -cardiology consult and Medicine to continue to follow -OOB with PT when stable -check AM labs -d/c planning Subjective 24 Hr Interval Summary Doing better overnight. Denies knee pain. Would like to be extubated. VSS, afebrile. Cultures neg x 1 day. Exam/Review of Systems Vital Signs Vitals Vital Signs Date Time Temp Pulse Resp B/P Pulse Ox O2 Delivery O2 Flow Rate FiO2 04/28/17 06:00 67 12 92/43 Mechanical Ventilator 04/28/17 05:05 100 30 04/28/17 04:00 98.0 Intake and Output 04/27/17 04/27/17 04/28/17 15:00 23:00 07:00 Intake Total 4000 ml 380.34 ml 1292.72 ml Output Total 1460 ml 460 ml Balance 4000 ml -1079.66 ml 832.72 ml Exam Free Text/Dictation Hemovac: 170cc Dressing dry Incision clean, dry, and intact without redness or drainage Thigh soft 5/5 Quadriceps, Tibialis Anterior, EHL, Gastroc, Soleus, Peroneals Normal sensation Palpable DT/PT, CR <2 sec No distal edema Results Result Diagram: 04/28/17 0500 04/28/17 0500 GAUTAM JASON PA-C Apr 28, 2017 08:49
[2017-04-28 08:53] LABS: AADO2 Arterial 65.5 mmHg (7.0-24.0); Arterial Base Excess 1.8 mmol/L (-3.0-3); Arterial COHb 0.3 % (0.0-3.0); Arterial HCO3 26.4 mmol/L (22.0-26.0); Arterial MetHb 0.2 % (0.0-1.5); Arterial Total Hemglobin 10.9 g/dl (12.0-18.0); Blood Gas PS 10; MODE VENT - CPAP
[2017-04-28] MEDS: ASPIRIN 300 MG SUPP PR SCH (09:00)
--- NOTE | 2017-04-28 09:26 | CONS ---
Date/Time of Note Date/Time of Note DATE: 04/28/17 TIME: 09:17 Assessment/Plan Assessment/Plan Additional Assessment/Plan Assessment/plan: 1. s/p marked arrhythmia and bradycardia during surgery and possible ST elevation on rhythm but not on ECG pt currently with no chest pain and normal trop will start ASA R/O VT ECHO stress test in 1-2 days once pt is more stable 2.HTN: stable now 3. resp failure: just extubated now 4. r/o dyslipidemia 5. infected right hearwear s/p surgery: f/u ortho rec. More than 35 minutes of critical care time was spent in management and treatment of this patient excluding any procedures Thank you for this referral will continue to follow along with you. Consultation Date/Type/Reason Admit Date/Time Apr 27, 2017 at 09:57 Date of Consultation: Apr 28, 2017 Reason for Consultation bradycardia. abnormal ECG Referring Provider: DELORES BAER MD Hx of Present Illness Thank you for this referral. History was obtained from the patient after discussion with the staff review of the old chart and discussion with patient's anesthesiology Dr. Eduarda oshea in patients internal medicine consult. There is a 66-year-old gentleman who underwent orthopedic surgery yesterday night. Patient but has infected hardware which had to be removed from his knees. During and after the surgery patient was noted to be markedly bradycardic with significant arrhythmia of anesthesiology report. Case was discussed with him as he also has a perivascular state of the patient had ST elevation on the monitor. Patient was remained intubated on the vent and transferred to ICU. Overnight the patient has been in ICU and currently remains intubated on the vent. However at this point he is awake he denies any chest pain the patient denies any palpitation to me he follows commands. He has remained in sinus rhythm. His troponin is also negative as well. Past medical history of hypertension history of knee surgery which appeared to have infected. Social history patient does not smoke. Family history notable L coronary artery disease. Allergies no reported drug allergies. Review of systems as above only. Past Medical History Medical History: hypertension Past Surgical History Past Surgical Hx: other (Right knee arthroplasty) Social History Alcohol Use: occasionally Smoking Status: Former smoker Drug Use: none Exam/Review of Systems Vital Signs Vitals Vital Signs Date Time Temp Pulse Resp B/P Pulse Ox O2 Delivery O2 Flow Rate FiO2 04/28/17 09:00 94 15 112/73 100 Mechanical Ventilator 04/28/17 08:00 98.0 04/28/17 08:00 30 Intake and Output 04/27/17 04/27/17 04/28/17 15:00 23:00 07:00 Intake Total 4000 ml 380.34 ml 1292.72 ml Output Total 1460 ml 460 ml Balance 4000 ml -1079.66 ml 832.72 ml Exam General: no acute distress HEENT: NC/AT. pupils are equal. round. NECK: NO JVD. no stridor. CV: RRR. systolic murmur; no gallop or rubs. PULM: no wheezing or rhonchi. GI: SOFT, NT, ND, no rebound or guarding Extremity: RIGHT KNEE S/P dressing . neuro: awake and alert, OX3. Psych: calm and pleasant rectal: deferred : normal ECG NSR. normal Results Result Diagram: 04/28/17 0500 04/28/17 0500 Results 24 hrs Laboratory Tests Test 04/27/17 19:06 04/27/17 20:20 04/28/17 00:01 04/28/17 05:00 Blood Gas Specimen Source Blood arterial Arterial Blood Date Drawn 04/27/2017 7:50:14 PM Arterial Blood pH (Temp corrected) 7.364 Arterial Blood pCO2 (Temp correct) 44.6 Arterial Blood pO2 (Temp corrected) 358.3 H Arterial Blood HCO3 24.9 Arterial Blood Base Excess -0.7 Arterial Blood Oxygen Saturation 99.3 H Zoran Test N/A Arterial Blood Gas Puncture Site A-Line Arterial Blood Carboxyhemoglobin 0.2 Arterial Blood Methemoglobin 0.4 Blood Gas A-a O2 Differential 310.1 H Oxyhemoglobin Percent 98.7 Total Hemoglobin 11.0 L Blood Gas Temperature 37.0 Blood Gas Respiration Rate 14.0 Blood Gas Actual Respiration Rate 16 Blood Gas Modality VENT - AC FiO2 100.0 Blood Gas Tidal Volume 500.0 Blood Gas Low PEEP Setting 5.0 Blood Gas Notified Blaze RAYMUNDO RCP Blood Gas Notified Time 04/27/2017 8:02:58 PM White Blood Count 7.9 Red Blood Count 3.44 L Hemoglobin 9.6 L 9.1 L Hematocrit 29.7 L 27.8 L Mean Corpuscular Volume 86.3 Mean Corpuscular Hemoglobin 27.9 L Mean Corpuscular Hemoglobin Concent 32.3 Red Cell Distribution Width 13.9 Platelet Count 191 # Mean Platelet Volume 11.0 H Neutrophils % 91.1 H Lymphocytes % 6.0 L Monocytes % 2.2 Eosinophils % 0.1 Basophils % 0.3 Nucleated Red Blood Cells % 0.0 Neutrophils # (Manual) 7.2 Lymphocytes # 0.5 L Monocytes # 0.2 L Eosinophils # 0.0 Basophils # 0.0 Nucleated Red Blood Cells # 0.0 Sodium Level 136 137 Potassium Level 3.1 L 3.5 Chloride Level 104 104 Carbon Dioxide Level 25 28 Anion Gap 10 9 Blood Urea Nitrogen 20 19 Creatinine 1.16 1.10 Glucose Level 215 118 # Calcium Level 8.1 L 8.3 L Phosphorus Level 3.3 Magnesium Level 1.8 Creatine Kinase 148 154 Creatine Kinase Index 1.2 1.2 Creatinine Kinase MB (Mass) 1.81 1.82 Troponin I 0.017 0.019 Urine Color YELLOW Urine Clarity CLEAR Urine pH 5.0 Urine Specific [place] 1.023 Urine Ketones NEGATIVE Urine Nitrite NEGATIVE Urine Bilirubin NEGATIVE Urine Urobilinogen NEGATIVE Urine Leukocyte Esterase NEGATIVE Urine Hemoglobin NEGATIVE Urine Glucose NEGATIVE Urine Total Protein NEGATIVE Iron Level 34 L Total Iron Binding Capacity 239 L Percent Iron Saturation 14 L Ferritin 57.0 Test 04/28/17 08:39 Blood Gas Specimen Source Blood arterial Arterial Blood Date Drawn 04/28/2017 8:40:04 AM Arterial Blood pH (Temp corrected) 7.423 Arterial Blood pCO2 (Temp correct) 41.3 Arterial Blood pO2 (Temp corrected) 99.9 Arterial Blood HCO3 26.4 H Arterial Blood Base Excess 1.8 Arterial Blood Oxygen Saturation 97.5 Zoran Test N/A Arterial Blood Gas Puncture Site A-Line Arterial Blood Carboxyhemoglobin 0.3 Arterial Blood Methemoglobin 0.2 Blood Gas A-a O2 Differential 65.5 H Oxyhemoglobin Percent 97.0 Total Hemoglobin 10.9 L Blood Gas Temperature 37.0 Blood Gas Actual Respiration Rate 15 Blood Gas Modality VENT - CPAP FiO2 30.0 Blood Gas Low PEEP Setting 5.0 Blood Gas Pressure Support 10 Blood Gas Notified Whom JLD Blood Gas Notified Time 04/28/2017 8:52:57 AM Medications Medications Current Medications Miscellaneous Information 1 ea 1 ea NOTE XX ; Start 04/27/17 at 09:00; Stop at 08:59 Lactated Ringer's (Lr) 1,000 ml @ 125 mls/hr Q8H IV Last administered on 03:10; Admin Dose 125 MLS/HR; Start 04/27/17 at 18:41 Tramadol HCl (Ultram) 50 mg Q6 PO ; Start 04/27/17 at 12:00; Stop 04/30/17 at 11 :59 Hydromorphone HCl (Dilaudid) 1 mg Q3H PRN IV PAIN LEVEL 8-10; Start 04/27/17 at 19:00 Ondansetron HCl (Zofran Inj) 4 mg Q6H PRN IV NAUSEA AND/OR VOMITING; Start at 19:00 Bisacodyl (Dulcolax Supp) 10 mg Q12H PRN [place] CONSTIPATION; Start 04/27/17 at 19: 00 Magnesium Hydroxide (Milk Of Mag) 30 ml BID PRN PO CONSTIPATION; Start at 19:00 Sodium Biphosphate/ Sodium Phosphate (Fleet Enema) 133 ml DAILY PRN [place] CONSTIPATION; Start 04/27/17 at 19:00 Docusate Sodium (Colace) 100 mg BID PO ; Start 04/27/17 at 21:00 Diphenhydramine HCl (Benadryl) 25 mg Q6H PRN PO PRURITUS; Start 04/27/17 at 19: 00 Acetaminophen/ Hydrocodone Bitart ([place] (7.5-325)) 1 tab Q4H PRN PO PAIN LEVEL 1-3; Start 04/27/17 at 19:00 Acetaminophen/ Hydrocodone Bitart ([place] (7.5-325)) 2 tab Q4H PRN PO PAIN LEVEL 4-7; Start 04/27/17 at 19:00 Pantoprazole (Protonix Tab) 40 mg BID@06,18 PO ; Start 04/28/17 at 06:00 Aspirin 300 mg 300 mg BID [place] Last administered on 04/27/17 21:00; Admin Dose 300 MG; Start 04/27/17 at 21:00; Stop 05/04/17 at 20:59 Propofol (Diprivan) 100 ml @ 2.67 mls/hr Q12H IV Last administered on 21:09; Admin Dose 2.67 MLS/HR; Start 04/27/17 at 19:30 Pregabalin 50 mg 50 mg BID PO ; Start 04/27/17 at 21:00 Vancomycin HCl/ Sodium Chloride (Vancocin/NS) 250 ml @ 83.333 mls/ hr Q12H IVPB Last administered on 04/27/17t 22:49; Admin Dose 83.333 MLS/HR; Start at 22:00 LISA MOLINA MD Apr 28, 2017 09:26
[2017-04-28] MEDS: VANCOMYCIN 1.25 GM in SOD CHLORIDE 0.9% 250 ML IVPB SCH ×2 (10:31→22:31)
[2017-04-28] MEDS: ASPIRIN 325 MG TAB PO SCH ×2 (10:38→20:30)
[2017-04-28] MEDS: PREGABALIN 25 MG CAP PO SCH ×2 (10:39→20:30)
[2017-04-28] MEDS: DOCUSATE SODIUM 100 MG CAP PO SCH ×2 (10:39→20:30)
--- NOTE | 2017-04-28 12:24 | CONS ---
DATE OF ADMISSION: 04/27/2017 DATE OF CONSULTATION: 04/28/2017 REASON FOR CONSULTATION: Ventilator management. Thank you, Dr. Stanton, for this consultation. HISTORY OF PRESENT ILLNESS: This is a 66-year-old gentleman who came in yesterday for revision of right total knee arthroplasty. The surgery itself was unremarkable. Postoperatively, the patient became bradycardic requiring continued mechanical ventilation and sedation overnight. this morning, he has been stable on CPAP weaning trial and will hopefully be safely extubated. PAST MEDICAL HISTORY: Hypertension. PAST SURGICAL HISTORY: Status post right total knee replacement with subsequent infection. SOCIAL HISTORY: He is an ex-smoker. No alcohol. No history of drug use. FAMILY HISTORY: Noncontributory. REVIEW OF SYSTEMS: Twelve-point review of systems negative other than that mentioned above. PHYSICAL EXAMINATION: GENERAL APPEARANCE: Well-nourished well-developed gentleman, awake, alert, oriented, on mechanical ventilation. No respiratory distress. VITAL SIGNS: Currently afebrile. Pulse is 90, blood pressure 112/70, O2 sat 96 percent on FiO2 of 30 percent. HEENT: Orally intubated. Moist mucous membranes. Pupils equal and react to light. CARDIAC: S1, S2. No added sounds or murmurs. CHEST: Diminished air entry bilaterally. ABDOMEN: Soft, nontender. No guarding or rebound. EXTREMITIES: No cyanosis, clubbing or edema. NEUROLOGIC: Grossly no focal deficits. LABORATORY: White count 7.9, hemoglobin 9.1, platelets within normal limits. Chemistry within normal limits except for an iron saturation that was low. ABG on CPAP trial: pH 7.42, pCO2 41, PO2 of 99. Chest x-ray was reviewed, showed no infiltrates or effusions. IMPRESSION: 1. Status post right total knee revision and washout. 2. Transient bradycardia of unclear etiology. 3. Mechanical ventilation for airway protection. PLAN: 1. CPAP trial and extubation. 2. Incentive spirometry. 3. Advance diet as tolerated. 4. Continue broad-spectrum antibiotic coverage pending culture results. 5. Cardiology recommendations regarding bradycardia will likely include continue telemetry monitoring and an echocardiogram. Dictated By: Narciso Parsons MD /joanne/elvira /Document#: [id number]
[2017-04-28 12:38] LABS: TROPONIN-I 0.019 ng/ml (0.00-0.12)
[2017-04-28 12:44] LABS: CK-MB 2.29 ng/ml (0.0-2.4)
--- NOTE | 2017-04-28 14:19 | PN ---
Date/Time of Note Date/Time of Note DATE: 04/28/17 TIME: 14:18 Assessment/Plan VTE Prophylaxis VTE Prophylaxis Intervention: LMWH Lines/Catheters IV Catheter Type (from Nrsg): A Line Urinary Cath still in place: Yes Reason Cath still needed: terminal illness/intractable pain Assessment/Plan Chief Complaint/Hosp Course Patient is a 66-year-old male with a past medical history significant for hypertension and right knee replacement brought to [facility] for infected right knee. Status post right knee arthroplasty removal, irrigation, and replacement. On April 28 Assessment plan problem list Sinus bradycardia, resolved Infected right knee arthroplasty, status post replacement and irrigation Intubation for airway protection Hypertension Anemia, mild Hypokalemia, mild Plan -cardiology is planning stress test in 1-2 days, follow up on echocardiogram and close monitoring in ICU for today, will consider downgrade tomorrow -Continue drain care per surgery -Resume p.o. meds -Monitor closely in the ICU -Follow-up with a.m. labs Problems: Subjective 24 Hr Interval Summary Free Text/Dictation complains of leg pain, but glad he was extubated. Exam/Review of Systems Vital Signs Vitals Vital Signs Date Time Temp Pulse Resp B/P Pulse Ox O2 Delivery O2 Flow Rate FiO2 04/28/17 12:00 98.1 93 14 114/94 99 Nasal Cannula 2.0 04/28/17 08:00 30 Intake and Output 04/27/17 04/27/17 04/28/17 15:00 23:00 07:00 Intake Total 4000 ml 380.34 ml 1420.39 ml Output Total 1460 ml 520 ml Balance 4000 ml -1079.66 ml 900.39 ml Exam Physical exam General: Patient is laying in bed and answers questions appropriately, just extubated Mentation: Patient is alert and oriented 4, Head: Normocephalic atraumatic Eyes: EOMI, pupils reactive to light Neck: Supple, nontender, midline Respiratory: Clear to auscultation bilaterally Cardiovascular: regular rate, no obvious murmurs Gastrointestinal: non-tender to palpation, bowel sounds heard. Neurological: Moves all extremities spontaneously Skin: R knee surgical site CDI, drains present Results Result Diagram: 04/28/17 0500 04/28/17 0500 Results 24 hrs Laboratory Tests Test 04/27/17 19:06 8/15/17 20:20 04/28/17 00:01 04/28/17 05:00 Blood Gas Specimen Source Blood arterial Arterial Blood Date Drawn 04/27/2017 7:50:14 PM Arterial Blood pH (Temp corrected) 7.364 Arterial Blood pCO2 (Temp correct) 44.6 Arterial Blood pO2 (Temp corrected) 358.3 H Arterial Blood HCO3 24.9 Arterial Blood Base Excess -0.7 Arterial Blood Oxygen Saturation 99.3 H Zoran Test N/A Arterial Blood Gas Puncture Site A-Line Arterial Blood Carboxyhemoglobin 0.2 Arterial Blood Methemoglobin 0.4 Blood Gas A-a O2 Differential 310.1 H Oxyhemoglobin Percent 98.7 Total Hemoglobin 11.0 L Blood Gas Temperature 37.0 Blood Gas Respiration Rate 14.0 Blood Gas Actual Respiration Rate 16 Blood Gas Modality VENT - AC FiO2 100.0 Blood Gas Tidal Volume 500.0 Blood Gas Low PEEP Setting 5.0 Blood Gas Notified Blaze RAYMUNDO RCP Blood Gas Notified Time 04/27/2017 8:02:58 PM White Blood Count 7.9 Red Blood Count 3.44 L Hemoglobin 9.6 L 9.1 L Hematocrit 29.7 L 27.8 L Mean Corpuscular Volume 86.3 Mean Corpuscular Hemoglobin 27.9 L Mean Corpuscular Hemoglobin Concent 32.3 Red Cell Distribution Width 13.9 Platelet Count 191 # Mean Platelet Volume 11.0 H Neutrophils % 91.1 H Lymphocytes % 6.0 L Monocytes % 2.2 Eosinophils % 0.1 Basophils % 0.3 Nucleated Red Blood Cells % 0.0 Neutrophils # (Manual) 7.2 Lymphocytes # 0.5 L Monocytes # 0.2 L Eosinophils # 0.0 Basophils # 0.0 Nucleated Red Blood Cells # 0.0 Sodium Level 136 137 Potassium Level 3.1 L 3.5 Chloride Level 104 104 Carbon Dioxide Level 25 28 Anion Gap 10 9 Blood Urea Nitrogen 20 19 Creatinine 1.16 1.10 Glucose Level 215 118 # Calcium Level 8.1 L 8.3 L Phosphorus Level 3.3 Magnesium Level 1.8 Creatine Kinase 148 154 Creatine Kinase Index 1.2 1.2 Creatinine Kinase MB (Mass) 1.81 1.82 Troponin I 0.017 0.019 Urine Color YELLOW Urine Clarity CLEAR Urine pH 5.0 Urine Specific [place] 1.023 Urine Ketones NEGATIVE Urine Nitrite NEGATIVE Urine Bilirubin NEGATIVE Urine Urobilinogen NEGATIVE Urine Leukocyte Esterase NEGATIVE Urine Hemoglobin NEGATIVE Urine Glucose NEGATIVE Urine Total Protein NEGATIVE Iron Level 34 L Total Iron Binding Capacity 239 L Percent Iron Saturation 14 L Ferritin 57.0 Test 04/28/17 08:39 04/28/17 11:27 Blood Gas Specimen Source Blood arterial Arterial Blood Date Drawn 04/28/2017 8:40:04 AM Arterial Blood pH (Temp corrected) 7.423 Arterial Blood pCO2 (Temp correct) 41.3 Arterial Blood pO2 (Temp corrected) 99.9 Arterial Blood HCO3 26.4 H Arterial Blood Base Excess 1.8 Arterial Blood Oxygen Saturation 97.5 Zoran Test N/A Arterial Blood Gas Puncture Site A-Line Arterial Blood Carboxyhemoglobin 0.3 Arterial Blood Methemoglobin 0.2 Blood Gas A-a O2 Differential 65.5 H Oxyhemoglobin Percent 97.0 Total Hemoglobin 10.9 L Blood Gas Temperature 37.0 Blood Gas Actual Respiration Rate 15 Blood Gas Modality VENT - CPAP FiO2 30.0 Blood Gas Low PEEP Setting 5.0 Blood Gas Pressure Support 10 Blood Gas Notified Whom JLD Blood Gas Notified Time 04/28/2017 8:52:57 AM Creatine Kinase 206 H Creatine Kinase Index 1.1 Creatinine Kinase MB (Mass) 2.29 Troponin I 0.019 Medications Medications Current Medications Miscellaneous Information 1 ea 1 ea NOTE XX ; Start 04/27/17 at 09:00; Stop at 08:59 Lactated Ringer's (Lr) 1,000 ml @ 125 mls/hr Q8H IV Last administered on 03:10; Admin Dose 125 MLS/HR; Start 04/27/17 at 18:41 Tramadol HCl (Ultram) 50 mg Q6 PO Last administered on 04/28/17 12:11; Admin Dose 50 MG; Start 04/27/17 at 12:00; Stop 04/30/17 at 11:59 Hydromorphone HCl (Dilaudid) 1 mg Q3H PRN IV PAIN LEVEL 8-10; Start 04/27/17 at 19:00 Ondansetron HCl (Zofran Inj) 4 mg Q6H PRN IV NAUSEA AND/OR VOMITING; Start at 19:00 Bisacodyl (Dulcolax Supp) 10 mg Q12H PRN [place] CONSTIPATION; Start 04/27/17 at 19: 00 Magnesium Hydroxide (Milk Of Mag) 30 ml BID PRN PO CONSTIPATION; Start at 19:00 Sodium Biphosphate/ Sodium Phosphate (Fleet Enema) 133 ml DAILY PRN [place] CONSTIPATION; Start 04/27/17 at 19:00 Docusate Sodium (Colace) 100 mg BID PO Last administered on 04/28/17 10:39; Admin Dose 100 MG; Start 04/27/17 at 21:00 Diphenhydramine HCl (Benadryl) 25 mg Q6H PRN PO PRURITUS; Start 04/27/17 at 19: 00 Acetaminophen/ Hydrocodone Bitart ([place] (7.5-325)) 1 tab Q4H PRN PO PAIN LEVEL 1-3; Start 04/27/17 at 19:00 Acetaminophen/ Hydrocodone Bitart ([place] (7.5-325)) 2 tab Q4H PRN PO PAIN LEVEL 4-7; Start 04/27/17 at 19:00 Pantoprazole (Protonix Tab) 40 mg BID@06,18 PO ; Start 04/28/17 at 06:00 Pregabalin 50 mg 50 mg BID PO Last administered on 04/28/17 10:39; Admin Dose 50 MG; Start 04/27/17 at 21:00 Vancomycin HCl/ Sodium Chloride (Vancocin/NS) 250 ml @ 83.333 mls/ hr Q12H IVPB Last administered on 04/28/17 10:31; Admin Dose 83.333 MLS/HR; Start at 22:00 Aspirin (Aspirin) 325 mg BID PO Last administered on 04/28/17 10:38; Admin Dose 325 MG; Start 04/28/17 at 10:30 Miscellaneous Information (*Rx Drug Level Order Reminder*) VANCOMYCIN TROUGH AT 2100 ONCE ONCE XX ; Start 04/28/17 at 21:00; Stop 04/28/17 at 21:01 TRINIDAD GONZALEZ Apr 28, 2017 14:19
[2017-04-28] MEDS: BENAZEPRIL 10 MG TAB PO SCH (14:30)
[2017-04-28] MEDS: HYDROCHLOROTHIAZIDE 12.5 MG CAP PO SCH (14:30)
--- NOTE | 2017-04-28 15:01 | CONS ---
Date/Time of Note Date/Time of Note DATE: 04/28/17 TIME: 14:59 Consultation Date/Type/Reason Admit Date/Time Apr 27, 2017 at 09:57 Date of Consultation: Apr 28, 2017 Type of Consultation: ID Reason for Consultation Antibiotic management Past Medical History Medical History: hypertension Past Surgical History Past Surgical Hx: other (Right knee arthroplasty) Social History Alcohol Use: occasionally Smoking Status: Former smoker Drug Use: none Exam/Review of Systems Vital Signs Vitals Vital Signs Date Time Temp Pulse Resp B/P Pulse Ox O2 Delivery O2 Flow Rate FiO2 04/28/17 14:10 87 16 114/59 100 Nasal Cannula 2.0 04/28/17 12:00 98.1 04/28/17 08:00 30 Intake and Output 04/27/17 04/27/17 04/28/17 15:00 23:00 07:00 Intake Total 4000 ml 380.34 ml 1420.39 ml Output Total 1460 ml 520 ml Balance 4000 ml -1079.66 ml 900.39 ml Results Result Diagram: 04/28/17 0500 04/28/17 0500 Results 24 hrs Laboratory Tests Test 04/27/17 19:06 04/27/17 20:20 04/28/17 00:01 04/28/17 05:00 Blood Gas Specimen Source Blood arterial Arterial Blood Date Drawn 04/27/2017 7:50:14 PM Arterial Blood pH (Temp corrected) 7.364 Arterial Blood pCO2 (Temp correct) 44.6 Arterial Blood pO2 (Temp corrected) 358.3 H Arterial Blood HCO3 24.9 Arterial Blood Base Excess -0.7 Arterial Blood Oxygen Saturation 99.3 H Zoran Test N/A Arterial Blood Gas Puncture Site A-Line Arterial Blood Carboxyhemoglobin 0.2 Arterial Blood Methemoglobin 0.4 Blood Gas A-a O2 Differential 310.1 H Oxyhemoglobin Percent 98.7 Total Hemoglobin 11.0 L Blood Gas Temperature 37.0 Blood Gas Respiration Rate 14.0 Blood Gas Actual Respiration Rate 16 Blood Gas Modality VENT - AC FiO2 100.0 Blood Gas Tidal Volume 500.0 Blood Gas Low PEEP Setting 5.0 Blood Gas Notified Blaze RAYMUNDO RCP Blood Gas Notified Time 04/27/2017 8:02:58 PM White Blood Count 7.9 Red Blood Count 3.44 L Hemoglobin 9.6 L 9.1 L Hematocrit 29.7 L 27.8 L Mean Corpuscular Volume 86.3 Mean Corpuscular Hemoglobin 27.9 L Mean Corpuscular Hemoglobin Concent 32.3 Red Cell Distribution Width 13.9 Platelet Count 191 # Mean Platelet Volume 11.0 H Neutrophils % 91.1 H Lymphocytes % 6.0 L Monocytes % 2.2 Eosinophils % 0.1 Basophils % 0.3 Nucleated Red Blood Cells % 0.0 Neutrophils # (Manual) 7.2 Lymphocytes # 0.5 L Monocytes # 0.2 L Eosinophils # 0.0 Basophils # 0.0 Nucleated Red Blood Cells # 0.0 Sodium Level 136 137 Potassium Level 3.1 L 3.5 Chloride Level 104 104 Carbon Dioxide Level 25 28 Anion Gap 10 9 Blood Urea Nitrogen 20 19 Creatinine 1.16 1.10 Glucose Level 215 118 # Calcium Level 8.1 L 8.3 L Phosphorus Level 3.3 Magnesium Level 1.8 Creatine Kinase 148 154 Creatine Kinase Index 1.2 1.2 Creatinine Kinase MB (Mass) 1.81 1.82 Troponin I 0.017 0.019 Urine Color YELLOW Urine Clarity CLEAR Urine pH 5.0 Urine Specific [place] 1.023 Urine Ketones NEGATIVE Urine Nitrite NEGATIVE Urine Bilirubin NEGATIVE Urine Urobilinogen NEGATIVE Urine Leukocyte Esterase NEGATIVE Urine Hemoglobin NEGATIVE Urine Glucose NEGATIVE Urine Total Protein NEGATIVE Iron Level 34 L Total Iron Binding Capacity 239 L Percent Iron Saturation 14 L Ferritin 57.0 Test 04/28/17 08:39 04/28/17 11:27 Blood Gas Specimen Source Blood arterial Arterial Blood Date Drawn 04/28/2017 8:40:04 AM Arterial Blood pH (Temp corrected) 7.423 Arterial Blood pCO2 (Temp correct) 41.3 Arterial Blood pO2 (Temp corrected) 99.9 Arterial Blood HCO3 26.4 H Arterial Blood Base Excess 1.8 Arterial Blood Oxygen Saturation 97.5 Zoran Test N/A Arterial Blood Gas Puncture Site A-Line Arterial Blood Carboxyhemoglobin 0.3 Arterial Blood Methemoglobin 0.2 Blood Gas A-a O2 Differential 65.5 H Oxyhemoglobin Percent 97.0 Total Hemoglobin 10.9 L Blood Gas Temperature 37.0 Blood Gas Actual Respiration Rate 15 Blood Gas Modality VENT - CPAP FiO2 30.0 Blood Gas Low PEEP Setting 5.0 Blood Gas Pressure Support 10 Blood Gas Notified Whom JLD Blood Gas Notified Time 04/28/2017 8:52:57 AM Creatine Kinase 206 H Creatine Kinase Index 1.1 Creatinine Kinase MB (Mass) 2.29 Troponin I 0.019 Medications Medications Current Medications Miscellaneous Information 1 ea 1 ea NOTE XX ; Start 04/27/17 at 09:00; Stop at 08:59 Lactated Ringer's (Lr) 1,000 ml @ 125 mls/hr Q8H IV Last administered on 03:10; Admin Dose 125 MLS/HR; Start 04/27/17 at 18:41 Tramadol HCl (Ultram) 50 mg Q6 PO Last administered on 04/28/17 12:11; Admin Dose 50 MG; Start 04/27/17 at 12:00; Stop 04/30/17 at 11:59 Hydromorphone HCl (Dilaudid) 1 mg Q3H PRN IV PAIN LEVEL 8-10; Start 04/27/17 at 19:00 Ondansetron HCl (Zofran Inj) 4 mg Q6H PRN IV NAUSEA AND/OR VOMITING; Start at 19:00 Bisacodyl (Dulcolax Supp) 10 mg Q12H PRN [place] CONSTIPATION; Start 04/27/17 at 19: 00 Magnesium Hydroxide (Milk Of Mag) 30 ml BID PRN PO CONSTIPATION; Start at 19:00 Sodium Biphosphate/ Sodium Phosphate (Fleet Enema) 133 ml DAILY PRN [place] CONSTIPATION; Start 04/27/17 at 19:00 Docusate Sodium (Colace) 100 mg BID PO Last administered on 04/28/17t 10:39; Admin Dose 100 MG; Start 04/27/17 at 21:00 Diphenhydramine HCl (Benadryl) 25 mg Q6H PRN PO PRURITUS; Start 04/27/17 at 19: 00 Acetaminophen/ Hydrocodone Bitart ([place] (7.5-325)) 1 tab Q4H PRN PO PAIN LEVEL 1-3; Start 04/27/17 at 19:00 Acetaminophen/ Hydrocodone Bitart ([place] (7.5-325)) 2 tab Q4H PRN PO PAIN LEVEL 4-7; Start 04/27/17 at 19:00 Pantoprazole (Protonix Tab) 40 mg BID@06,18 PO ; Start 04/28/17 at 06:00 Pregabalin 50 mg 50 mg BID PO Last administered on 04/28/17 10:39; Admin Dose 50 MG; Start 04/27/17 at 21:00 Vancomycin HCl/ Sodium Chloride (Vancocin/NS) 250 ml @ 83.333 mls/ hr Q12H IVPB Last administered on 04/28/17 10:31; Admin Dose 83.333 MLS/HR; Start at 22:00 Aspirin (Aspirin) 325 mg BID PO Last administered on 04/28/17 10:38; Admin Dose 325 MG; Start 04/28/17 at 10:30 Miscellaneous Information (*Rx Drug Level Order Reminder*) VANCOMYCIN TROUGH AT 2100 ONCE ONCE XX ; Start 04/28/17 at 21:00; Stop 04/28/17 at 21:01 Benazepril HCl (Lotensin) 10 mg DAILY PO ; Start 04/28/17 at 14:30 Hydrochlorothiazide (Hydrochlorothiazide) 12.5 mg DAILY PO ; Start 04/28/17 at 14:30 ABIMAEL MARTINS MD Apr 28, 2017 15:00
[2017-04-29] VITALS (12 sets, daily range): BP systolic 90–122; BP diastolic 55–64; PULSE 71–86; RESP 18–19
[2017-04-29] MEDS: LACTATED RINGER'S 1,000 ML IV SCH ×3 (03:21→19:57)
[2017-04-29] MEDS: PANTOPRAZOLE (EC) 40 MG TAB PO SCH ×2 (06:29→17:42)
[2017-04-29] MEDS: traMADol 50 MG TAB PO SCH ×4 (06:30→23:46)
--- NOTE | 2017-04-29 07:31 | CONS ---
Date/Time of Note Date/Time of Note DATE: 04/29/17 TIME: 07:28 Consult Date/Type/Reason Admit Date/Time Apr 27, 2017 at 09:57 Initial Consult Date 04/28/17 Type of Consultation: card Ordering Provider: DELORES BAER MD Subjective d/w staff pt with no left sided chest pain./ c/o right sided chest pain no palpitations + knee pain OBJECTIVE: General: no acute distress HEENT: NC/AT. pupils are equal. round. NECK: NO JVD. no stridor. CV: RRR. systolic murmur; no gallop or rubs. PULM: no wheezing or rhonchi. GI: SOFT, NT, ND, no rebound or guarding Extremity: S/P R KNEE SURGERY neuro: awake and alert, OX3. Psych: calm and pleasant rectal: deferred : normal Objective Vital Signs Date Time Temp Pulse Resp B/P Pulse Ox O2 Delivery O2 Flow Rate FiO2 04/29/17 07:24 98.8 85 19 122/64 96 04/28/17 14:10 Nasal Cannula 2.0 04/28/17 08:00 30 Intake and Output 04/28/17 04/28/17 04/29/17 15:00 23:00 07:00 Intake Total 865 ml 2885 ml Output Total 505 ml 1300 ml Balance 360 ml 1585 ml Results/Medications Result Diagram: 04/28/17 0500 04/28/17 0500 Results 24 hrs Laboratory Tests Test 04/28/17 08:39 04/28/17 11:27 04/28/17 21:04 Blood Gas Specimen Source Blood arterial Arterial Blood Date Drawn 04/28/2017 8:40:04 AM Arterial Blood pH (Temp corrected) 7.423 Arterial Blood pCO2 (Temp correct) 41.3 Arterial Blood pO2 (Temp corrected) 99.9 Arterial Blood HCO3 26.4 H Arterial Blood Base Excess 1.8 Arterial Blood Oxygen Saturation 97.5 Zoran Test N/A Arterial Blood Gas Puncture Site A-Line Arterial Blood Carboxyhemoglobin 0.3 Arterial Blood Methemoglobin 0.2 Blood Gas A-a O2 Differential 65.5 H Oxyhemoglobin Percent 97.0 Total Hemoglobin 10.9 L Blood Gas Temperature 37.0 Blood Gas Actual Respiration Rate 15 Blood Gas Modality VENT - CPAP FiO2 30.0 Blood Gas Low PEEP Setting 5.0 Blood Gas Pressure Support 10 Blood Gas Notified Whom JLD Blood Gas Notified Time 04/28/2017 8:52:57 AM Creatine Kinase 206 H Creatine Kinase Index 1.1 Creatinine Kinase MB (Mass) 2.29 Troponin I 0.019 Vancomycin Level Trough 16.9 Medications Current Medications Miscellaneous Information 1 ea 1 ea NOTE XX ; Start 04/27/17 at 09:00; Stop at 08:59 Lactated Ringer's (Lr) 1,000 ml @ 125 mls/hr Q8H IV Last administered on 03:21; Admin Dose 125 MLS/HR; Start 04/27/17 at 18:41 Tramadol HCl (Ultram) 50 mg Q6 PO Last administered on 04/29/17 06:30; Admin Dose 50 MG; Start 04/27/17 at 12:00; Stop 04/30/17 at 11:59 Hydromorphone HCl (Dilaudid) 1 mg Q3H PRN IV PAIN LEVEL 8-10; Start 04/27/17 at 19:00 Ondansetron HCl (Zofran Inj) 4 mg Q6H PRN IV NAUSEA AND/OR VOMITING; Start at 19:00 Bisacodyl (Dulcolax Supp) 10 mg Q12H PRN [place] CONSTIPATION; Start 04/27/17 at 19: 00 Magnesium Hydroxide (Milk Of Mag) 30 ml BID PRN PO CONSTIPATION; Start at 19:00 Sodium Biphosphate/ Sodium Phosphate (Fleet Enema) 133 ml DAILY PRN [place] CONSTIPATION; Start 04/27/17 at 19:00 Docusate Sodium (Colace) 100 mg BID PO Last administered on 04/28/17 20:30; Admin Dose 100 MG; Start 04/27/17 at 21:00 Diphenhydramine HCl (Benadryl) 25 mg Q6H PRN PO PRURITUS; Start 04/27/17 at 19: 00 Acetaminophen/ Hydrocodone Bitart ([place] (7.5-325)) 1 tab Q4H PRN PO PAIN LEVEL 1-3; Start 04/27/17 at 19:00 Acetaminophen/ Hydrocodone Bitart ([place] (7.5-325)) 2 tab Q4H PRN PO PAIN LEVEL 4-7; Start 04/27/17 at 19:00 Pantoprazole (Protonix Tab) 40 mg BID@06,18 PO Last administered on 04/29/17 06:29; Admin Dose 40 MG; Start 04/28/17 at 06:00 Pregabalin 50 mg 50 mg BID PO Last administered on 04/28/17 20:30; Admin Dose 50 MG; Start 04/27/17 at 21:00 Vancomycin HCl/ Sodium Chloride (Vancocin/NS) 250 ml @ 83.333 mls/ hr Q12H IVPB Last administered on 04/28/17 22:31; Admin Dose 83.333 MLS/HR; Start at 22:00 Aspirin (Aspirin) 325 mg BID PO Last administered on 04/28/17 20:30; Admin Dose 325 MG; Start 04/28/17 at 10:30 Benazepril HCl (Lotensin) 10 mg DAILY PO ; Start 04/28/17 at 14:30 Hydrochlorothiazide (Hydrochlorothiazide) 12.5 mg DAILY PO ; Start 04/28/17 at 14:30 Assessment/Plan Chief Complaint/Hosp Course Assessment/plan: 1. s/p marked arrhythmia and bradycardia during surgery and possible ST elevation on rhythm but not seen on ECG pt currently with no chest pain and normal trop will cont ASA stress test this am 2.HTN: stable now 3. resp failure: extubated 4. r/o dyslipidemia 5. infected right hearwear s/p surgery: f/u ortho rec. Thank you for this referral will continue to follow along with you. Problems: LISA MOLINA MD Apr 29, 2017 07:31
[2017-04-29 07:49] LABS: BASOPHILS % 0.3 % (0.0-2.0); EOSINOPHILS # 0.1 10^3/ul (0.0-0.5); EOSINOPHILS % 0.9 % (0.0-7.0); HEMATOCRIT 25.3 % (42.0-52.0); HEMOGLOBIN 8.1 g/dl (14.0-18.0); LYMPHOCYTES # 1.5 10^3/ul (0.8-2.9); LYMPHOCYTES % 23.3 % (15.0-51.0); MEAN CORPUSCULAR HEMOGLOBIN 28.2 pg (29.0-33.0); MEAN CORPUSCULAR VOLUME 88.2 fl (82.0-101.0); MEAN PLATELET VOLUME 10.6 fl (7.4-10.4); MONOCYTE # 0.7 10^3/ul (0.3-0.9); MONOCYTES % 10.4 % (0.0-11.0); NEUTROPHILS % 64.8 % (39.0-77.0); PLATELET COUNT 160 10^3/UL (140-415); RED BLOOD COUNT 2.87 10^6/ul (4.70-6.10); RED CELL DISTRIBUTION WIDTH 14.4 % (11.5-14.5); WHITE BLOOD COUNT 6.5 10^3/ul (4.8-10.8)
[2017-04-29 08:11] LABS: ALBUMIN 2.8 g/dl (3.3-4.9); ALBUMIN/GLOBULIN RATIO 1.03; BILIRUBIN,INDIRECT 0.2 mg/dl (0-1.1); BILIRUBIN,TOTAL 0.2 mg/dl (0.2-1.3); CHOL/HDL RATIO 3.1 RATIO; CREATININE 1.12 mg/dl (0.61-1.24); MAGNESIUM 1.8 mg/dl (1.7-2.5); POTASSIUM 3.5 mmol/L (3.5-5.1); TOTAL PROTEIN 5.5 g/dl (6.1-8.1)
[2017-04-29 08:18] LABS: TROPONIN-I 0.029 ng/ml (0.00-0.12)
[2017-04-29 08:25] LABS: CK-MB 1.71 ng/ml (0.0-2.4)
[2017-04-29] MEDS: DOCUSATE SODIUM 100 MG CAP PO SCH ×2 (08:41→19:58)
[2017-04-29] MEDS: ASPIRIN 325 MG TAB PO SCH ×2 (08:41→19:58)
[2017-04-29] MEDS: BENAZEPRIL 10 MG TAB PO SCH (08:41)
[2017-04-29] MEDS: HYDROCHLOROTHIAZIDE 12.5 MG CAP PO SCH (08:42)
[2017-04-29] MEDS: PREGABALIN 25 MG CAP PO SCH ×2 (08:45→19:58)
[2017-04-29 09:14] LABS: THYROID STIMULATING HORMONE 1.1 MIU/L (0.465-4.680)
--- NOTE | 2017-04-29 09:57 | CONS ---
DATE OF ADMISSION: 04/27/2017 DATE OF CONSULTATION: 04/28/2017 REASON FOR CONSULTATION: Antibiotic management. HISTORY OF PRESENT ILLNESS: Pankaj Solitario is a 66-year-old, pleasant male, who had a right knee replacement and was brought to the hospital for infected knee. The infected knee was removed. Patient had a spacer placed with antibiotic beads and then was treated for at least 6 weeks with IV antibiotics. He then had aspiration of the area, and once the aspiration was shown to be clean, Dr. Stanton replaced the spacer and put in a brand new right total knee. PAST PROBLEMS: Include: 1. Right knee arthroplasty. 2. Hypertension. The patient was placed in the ICU status post surgery. PAST MEDICAL HISTORY: Is essentially as outlined. FAMILY HISTORY: Noncontributory. SOCIAL HISTORY: He does not smoke, drink, or abuse drugs. ALLERGIES: NONE TO PENICILLIN, SULFA, OR FOODS. MEDICATION: Per chart. REVIEW OF SYSTEMS: As per HPI. PHYSICAL EXAMINATION: GENERAL: Patient is a well-developed, well-nourished male, who is alert, responsive, in no acute distress. VITAL SIGNS: Stable. He is afebrile. SKIN: Without generalized rash. HEENT: Within normal limits. NECK: Supple. Lymph nodes not palpable. CHEST: Decreased breath sounds at the bases. HEART: Without murmur or gallop. ABDOMEN: Soft, nontender, without organosplenomegaly or masses. EXTREMITIES: Without cyanosis, clubbing, or edema. His right knee is totally wrapped and bandaged secondary to the operative procedure, which was irrigation and debridement of the right knee, removal of antibiotic-impregnated cement spacer and reimplantation of the right total knee arthroplasty. Patient is currently on vancomycin perioperatively. RECTAL/GENITAL EXAM: Deferred. NEUROLOGIC EVALUATION: No focal neurological abnormalities. LABORATORY: A chest x-ray shows no cardiac or pulmonary abnormalities. Patient had multiple Gram stains and cultures done of the surgery. PLAN: Will continue him on antibiotic therapy and decide on the duration of therapy in the near future. I will dictate my findings to Dr. Roman Stanton, to Dr. Parsons and to the hospitalist. Dictated By: Yamil Vang MD JD/joanne/bud /Document#: [id number]
[2017-04-29] MEDS: METOPROLOL 25 MG TAB PO SCH ×2 (10:04→22:09)
--- NOTE | 2017-04-29 10:04 | PDOCDIS ---
Discharge Instructions DIAGNOSIS Discharge Diagnosis s/p revision right TKA CONDITION Patient Condition: Good HOME CARE INSTRUCTIONS: Diet Instructions: RegularSpecial Diet: REGULAR ACTIVITY: Activity Restrictions: Slowly Increase Activity Rest between Activity Avoid heavy lifting Do not operate Machinery Do not operate Power Tool Avoid Heavy Housework Keep Limb Elevated Weight Bearing Bathing Restrictions: Shower FOLLOW UP/APPOINTMENTS Follow-up Plan follow up in the office on 05/07/17 GAUTAM JASON PA-C Apr 29, 2017 10:04
[2017-04-29] MEDS ORDERED: HYDR-3605 PO (10:05)
[2017-04-29] MEDS ORDERED: LYRI25 PO (10:05)
[2017-04-29] MEDS ORDERED: PANT40TA4 PO (10:05)
[2017-04-29] MEDS ORDERED: ASPI325T4 PO (10:05)
[2017-04-29] MEDS ORDERED: TRAM50TA2 PO (10:05)
--- NOTE | 2017-04-29 10:46 | PN ---
Date/Time of Note Date/Time of Note DATE: 04/29/17 TIME: 10:44 Assessment/Plan Lines/Catheters IV Catheter Type (from Nrsg): Peripheral IV Arriaga in Place (from Nrsg): Yes Assessment/Plan Assessment/Plan POD #2, s/p revision right TKA -continue Vancomycin per ID recommendation -pain meds as needed -ASA/SCDs -OOB with PT -drain removed -check AM labs -follow cardio and Medicine medical management -transfer to 4W when stable Subjective 24 Hr Interval Summary Doing better overnight. Extubated and feeling better overall. Transferred to 5W and planning for stress test and ECHO today. H&H low but will hold off transfusion. Exam/Review of Systems Vital Signs Vitals Vital Signs Date Time Temp Pulse Resp B/P Pulse Ox O2 Delivery O2 Flow Rate FiO2 04/29/17 08:00 80 04/29/17 07:24 98.8 19 122/64 96 04/28/17 14:10 Nasal Cannula 2.0 04/28/17 08:00 30 Intake and Output 04/28/17 04/28/17 04/29/17 15:00 23:00 07:00 Intake Total 865 ml 2885 ml Output Total 505 ml 1300 ml Balance 360 ml 1585 ml Exam Free Text/Dictation Hemovac: 140cc Dressing dry Incision clean, dry, and intact without redness or drainage Thigh soft 5/5 Quadriceps, Tibialis Anterior, EHL, Gastroc, Soleus, Peroneals Normal sensation Palpable DT/PT, CR <2 sec No distal edema Results Result Diagram: 04/29/17 0718 04/29/17 0719 GAUTAM JASON PA-C Apr 29, 2017 10:46
--- NOTE | 2017-04-29 11:09 | RADRPT ---
Echocardiogram Report Patient Name: RYDER MAGDALENO Gender: Male Date: 1950 Study Date: 28-Apr-2017 Ground Crew Supervisor: Alyssia Christopher RDCS Location: [facility] Ref. Physician: LISA MONTES DE OCA Quality: Adequate Procedures: Transthoracic echocardiogram with complete 2D, M-Mode, and doppler examination. Indications: s/p CPA. 2D/M Mode Doppler Measurement Value Normal Ranges Measurement Value Normal Ranges LVIDd 2D 4.1 3.5 - 5.6 cm AV Peak Jordan 1.9 m/sec LVIDs 2D 2.6 2.1 - 4.1 cm AV Peak PG 14.0 mmHg FS 2D 36.2 % LVOT Peak Jordan 1.3 m/sec LVPWd 2D 1.3 0.6 - 1.1 cm LVOT Peak PG 7.0 mmHg IVSd 2D 1.3 0.6 - 1.1 cm MV E Peak Jordan 0.8 m/sec IVS/LVPW 2D 1.0 MV A Peak Jordan 1.0 m/sec AoR Diam 2D 3.5 2.0 - 3.7 cm MV E/A 0.8 LA/Ao 2D 1 0 - 1 MV Decel Time 254 msec EDV 2D 66.9 cm3 MV E/A 0.8 ESV 2D 17.4 cm3 LA Dimen 2D 3.7 2.3 - 4.0 cm Findings Left Ventricle: Normal left ventricular systolic function. Normal left ventricular cavity size. Normal left ventricular wall thickness. Ejection fraction is visually estimated at 65 %. Tissue Doppler/Mitral Doppler indices are consistent with impaired relaxation (Stage I diastolic dysfunction). Right Ventricle: Normal right ventricular size. Normal right ventricular systolic function. Left Atrium: The left atrium is normal in size. Right Atrium: The right atrium is normal in size. Mitral Valve: Normal appearance and function of the mitral valve with trace physiologic regurgitation. Aortic Valve: Trace aortic valve regurgitation. Tricuspid Valve: Normal appearance of the tricuspid valve. Unable to obtain RVSP due to minimal presence of tricuspid regurgitation. Pulmonic Valve: Pulmonic valve not well visualized. Pericardium: Normal pericardium with no significant pericardial effusion. Aorta: Normal aortic root. IVC: Normal size and normal respiratory collapse consistent with normal right atrial pressure. Conclusions 1.Normal left ventricular systolic function. Normal left ventricular cavity size. Normal left ventricular wall thickness. Ejection fraction is visually estimated at 65 %. Tissue Doppler/Mitral Doppler indices are consistent with impaired relaxation (Stage I diastolic dysfunction). 2.Normal appearance and function of the mitral valve with trace physiologic regurgitation. 3.Trace aortic valve regurgitation. 4.Normal appearance of the tricuspid valve. Unable to obtain RVSP due to minimal presence of tricuspid regurgitation. Electronically Signed By: Lisa Montes De Oca 29-Apr-2017 10:53:45 -3000 Patient Name: RYDER MAGDALENO Study Date: 28-Apr-2017 [id number]
[2017-04-29] MEDS: VANCOMYCIN 1 GM in NS 250 ML IVPB SCH ×2 (11:23→22:15)
[2017-04-29] MEDS: HYDROCODONE/APAP (7.5/325) TAB PO PRN (11:24)
--- NOTE | 2017-04-29 12:38 | CONS ---
Date/Time of Note Date/Time of Note DATE: 04/29/17 TIME: 12:36 Consult Date/Type/Reason Admit Date/Time Apr 27, 2017 at 09:57 Initial Consult Date 04/28/17 Type of Consultation: Pulmonary Ordering Provider: DELORES BAER MD Subjective Stable following extubation yesterday. Objective Vital Signs Date Time Temp Pulse Resp B/P Pulse Ox O2 Delivery O2 Flow Rate FiO2 04/29/17 11:44 98.3 79 18 90/55 96 04/28/17 14:10 Nasal Cannula 2.0 04/28/17 08:00 30 Intake and Output 04/28/17 04/28/17 04/29/17 14:59 22:59 06:59 Intake Total 992.67 ml 2885 ml Output Total 565 ml 1300 ml Balance 427.67 ml 1585 ml Exam GENERAL: VITAL SIGNS: per chart NECK: Supple. No JVD or lymphadenopathy. CARDIAC EXAM: S1, S2. No added sounds or murmurs. CHEST: clear bilaterally, No added sounds, rales or wheezes ABDOMEN: Soft, nontender. No guarding or rebound. EXTREMITIES: No cyanosis, clubbing or edema. NEUROLOGIC: Generalized weakness. No focal deficits. Results/Medications Result Diagram: 04/29/1718 04/29/17 0719 Results 24 hrs Laboratory Tests Test 04/28/17 21:04 04/29/17 07:18 04/29/17 07:19 Vancomycin Level Trough 16.9 White Blood Count 6.5 Red Blood Count 2.87 L Hemoglobin 8.1 L Hematocrit 25.3 L Mean Corpuscular Volume 88.2 Mean Corpuscular Hemoglobin 28.2 L Mean Corpuscular Hemoglobin Concent 32.0 Red Cell Distribution Width 14.4 Platelet Count 160 Mean Platelet Volume 10.6 H Neutrophils % 64.8 Lymphocytes % 23.3 Monocytes % 10.4 Eosinophils % 0.9 Basophils % 0.3 Nucleated Red Blood Cells % 0.0 Neutrophils # (Manual) 4.2 Lymphocytes # 1.5 Monocytes # 0.7 Eosinophils # 0.1 Basophils # 0.0 Nucleated Red Blood Cells # 0.0 Creatine Kinase 171 Creatine Kinase Index 1.0 Creatinine Kinase MB (Mass) 1.71 Troponin I 0.029 Free Thyroxine 1.08 Sodium Level 136 Potassium Level 3.5 Chloride Level 103 Carbon Dioxide Level 30 Anion Gap 7 L Blood Urea Nitrogen 17 Creatinine 1.12 Glucose Level 89 Calcium Level 8.0 L Magnesium Level 1.8 Total Bilirubin 0.2 Direct Bilirubin 0.00 Indirect Bilirubin 0.2 Aspartate Amino Transf (AST/SGOT) 24 Alanine Aminotransferase (ALT/SGPT) 33 Alkaline Phosphatase 71 B-Type Natriuretic Peptide 184 H Total Protein 5.5 L Albumin 2.8 L Globulin 2.70 Albumin/Globulin Ratio 1.03 Triglycerides Level 100 Cholesterol Level 126 LDL Cholesterol, Calculated 66 HDL Cholesterol 40 Cholesterol/HDL Ratio 3.1 Thyroid Stimulating Hormone (TSH) 1.100 Medications Current Medications Miscellaneous Information 1 ea 1 ea NOTE XX ; Start 04/27/17 at 09:00; Stop at 08:59 Lactated Ringer's (Lr) 1,000 ml @ 125 mls/hr Q8H IV Last administered on 11:23; Admin Dose 125 MLS/HR; Start 04/27/17 at 18:41 Tramadol HCl (Ultram) 50 mg Q6 PO Last administered on 04/29/17 11:24; Admin Dose 50 MG; Start 04/27/17 at 12:00; Stop 04/30/17 at 11:59 Hydromorphone HCl (Dilaudid) 1 mg Q3H PRN IV PAIN LEVEL 8-10; Start 04/27/17 at 19:00 Ondansetron HCl (Zofran Inj) 4 mg Q6H PRN IV NAUSEA AND/OR VOMITING; Start at 19:00 Bisacodyl (Dulcolax Supp) 10 mg Q12H PRN [place] CONSTIPATION; Start 04/27/17 at 19: 00 Magnesium Hydroxide (Milk Of Mag) 30 ml BID PRN PO CONSTIPATION; Start at 19:00 Sodium Biphosphate/ Sodium Phosphate (Fleet Enema) 133 ml DAILY PRN [place] CONSTIPATION; Start 04/27/17 at 19:00 Docusate Sodium (Colace) 100 mg BID PO Last administered on 04/29/17 08:41; Admin Dose 100 MG; Start 04/27/17 at 21:00 Diphenhydramine HCl (Benadryl) 25 mg Q6H PRN PO PRURITUS; Start 04/27/17 at 19: 00 Acetaminophen/ Hydrocodone Bitart ([place] (7.5-325)) 1 tab Q4H PRN PO PAIN LEVEL 1-3 Last administered on 04/29/17 11:24; Admin Dose 1 TAB; Start at 19:00 Acetaminophen/ Hydrocodone Bitart ([place] (7.5-325)) 2 tab Q4H PRN PO PAIN LEVEL 4-7; Start 04/27/17 at 19:00 Pantoprazole (Protonix Tab) 40 mg BID@06,18 PO Last administered on 04/29/17 06:29; Admin Dose 40 MG; Start 04/28/17 at 06:00 Pregabalin (Lyrica) 50 mg BID PO Last administered on 04/29/17 08:45; Admin Dose 50 MG; Start 04/27/17 at 21:00 Aspirin (Aspirin) 325 mg BID PO Last administered on 04/29/17 08:41; Admin Dose 325 MG; Start 04/28/17 at 10:30 Hydrochlorothiazide (Hydrochlorothiazide) 12.5 mg DAILY PO Last administered on 04/29/17 08:42; Admin Dose 12.5 MG; Start 04/28/17 at 14:30 Metoprolol Tartrate 25 mg 25 mg BID PO Last administered on 04/29/17 10:04; Admin Dose 25 MG; Start 04/29/17 at 09:30 Vancomycin HCl (Vancocin) 250 ml @ 125 mls/hr Q12H IVPB Last administered on 11:23; Admin Dose 125 MLS/HR; Start 04/29/17 at 11:00 Assessment/Plan Chief Complaint/Hosp Course Assessment 1. Bradycardia intra-operatively following revision of total knee replacement for knee washout. 2. Maintain on mechanical ventilation overnight following surgery now safely extubated 3. Postoperative anemia Plan 1. Continue cardiac recommendations for workup of bradycardia 2. PT evaluation and recommendations 3. DVT and GI prophylaxis 4. Continue antibiotics Problems: RONAL BREWER MD, [facility] Apr 29, 2017 12:38
[2017-04-29] MEDS ORDERED: LIDOCAINE 1% (MPF) 5 ML VIAL SC ONE (15:30)
--- NOTE | 2017-04-29 15:38 | PN ---
Date/Time of Note Date/Time of Note DATE: 04/29/17 TIME: 15:36 Assessment/Plan VTE Prophylaxis VTE Prophylaxis Intervention: heparin Lines/Catheters IV Catheter Type (from Nrsg): Peripheral IV Urinary Cath still in place: Yes Reason Cath still needed: terminal illness/intractable pain Assessment/Plan Chief Complaint/Hosp Course Patient is a 66-year-old male with a past medical history significant for hypertension and right knee replacement brought to [facility] for infected right knee. Status post right knee arthroplasty removal, irrigation, and replacement. On April 28 Assessment plan problem list Sinus bradycardia, resolved Infected right knee arthroplasty, status post replacement and irrigation Intubation for airway protection Hypertension Anemia, mild Hypokalemia, mild Plan -cardiology ordered CT angio, depending on results, will decide on further evaluation -ID consulted, pending final recs for abx duration length. -Continue knee care per ortho surgery. -Resume p.o. meds -Follow-up with a.m. labs Problems: Subjective 24 Hr Interval Summary Free Text/Dictation hungry, wondering when stress test will be done. Exam/Review of Systems Vital Signs Vitals Vital Signs Date Time Temp Pulse Resp B/P Pulse Ox O2 Delivery O2 Flow Rate FiO2 04/29/17 12:00 74 04/29/17 11:44 98.3 18 90/55 96 04/28/17 14:10 Nasal Cannula 2.0 04/28/17 08:00 30 Intake and Output 04/28/17 04/28/17 04/29/17 15:00 23:00 07:00 Intake Total 865 ml 2885 ml Output Total 505 ml 1300 ml Balance 360 ml 1585 ml Exam Physical exam General: Patient is laying in bed and answers questions appropriately Mentation: Patient is alert and oriented 4, Head: Normocephalic atraumatic Eyes: EOMI, pupils reactive to light Neck: Supple, nontender, midline Respiratory: Clear to auscultation bilaterally Cardiovascular: regular rate, no obvious murmurs Gastrointestinal: non-tender to palpation, bowel sounds heard. Neurological: Moves all extremities spontaneously Skin: R knee surgical site CDI Results Result Diagram: 04/29/17 0718 04/29/17 0719 Results 24 hrs Laboratory Tests Test 04/28/17 21:04 04/29/17 07:18 04/29/17 07:19 Vancomycin Level Trough 16.9 White Blood Count 6.5 Red Blood Count 2.87 L Hemoglobin 8.1 L Hematocrit 25.3 L Mean Corpuscular Volume 88.2 Mean Corpuscular Hemoglobin 28.2 L Mean Corpuscular Hemoglobin Concent 32.0 Red Cell Distribution Width 14.4 Platelet Count 160 Mean Platelet Volume 10.6 H Neutrophils % 64.8 Lymphocytes % 23.3 Monocytes % 10.4 Eosinophils % 0.9 Basophils % 0.3 Nucleated Red Blood Cells % 0.0 Neutrophils # (Manual) 4.2 Lymphocytes # 1.5 Monocytes # 0.7 Eosinophils # 0.1 Basophils # 0.0 Nucleated Red Blood Cells # 0.0 Creatine Kinase 171 Creatine Kinase Index 1.0 Creatinine Kinase MB (Mass) 1.71 Troponin I 0.029 Free Thyroxine 1.08 Sodium Level 136 Potassium Level 3.5 Chloride Level 103 Carbon Dioxide Level 30 Anion Gap 7 L Blood Urea Nitrogen 17 Creatinine 1.12 Glucose Level 89 Calcium Level 8.0 L Magnesium Level 1.8 Total Bilirubin 0.2 Direct Bilirubin 0.00 Indirect Bilirubin 0.2 Aspartate Amino Transf (AST/SGOT) 24 Alanine Aminotransferase (ALT/SGPT) 33 Alkaline Phosphatase 71 B-Type Natriuretic Peptide 184 H Total Protein 5.5 L Albumin 2.8 L Globulin 2.70 Albumin/Globulin Ratio 1.03 Triglycerides Level 100 Cholesterol Level 126 LDL Cholesterol, Calculated 66 HDL Cholesterol 40 Cholesterol/HDL Ratio 3.1 Thyroid Stimulating Hormone (TSH) 1.100 Medications Medications Current Medications Miscellaneous Information 1 ea 1 ea NOTE XX ; Start 04/27/17 at 09:00; Stop at 08:59 Lactated Ringer's (Lr) 1,000 ml @ 125 mls/hr Q8H IV Last administered on 11:23; Admin Dose 125 MLS/HR; Start 04/27/17 at 18:41 Tramadol HCl (Ultram) 50 mg Q6 PO Last administered on 04/29/17 11:24; Admin Dose 50 MG; Start 04/27/17 at 12:00; Stop 04/30/17 at 11:59 Hydromorphone HCl (Dilaudid) 1 mg Q3H PRN IV PAIN LEVEL 8-10; Start 04/27/17 at 19:00 Ondansetron HCl (Zofran Inj) 4 mg Q6H PRN IV NAUSEA AND/OR VOMITING; Start at 19:00 Bisacodyl (Dulcolax Supp) 10 mg Q12H PRN [place] CONSTIPATION; Start 04/27/17 at 19: 00 Magnesium Hydroxide (Milk Of Mag) 30 ml BID PRN PO CONSTIPATION; Start at 19:00 Sodium Biphosphate/ Sodium Phosphate (Fleet Enema) 133 ml DAILY PRN [place] CONSTIPATION; Start 04/27/17 at 19:00 Docusate Sodium (Colace) 100 mg BID PO Last administered on 04/29/17 08:41; Admin Dose 100 MG; Start 04/27/17 at 21:00 Diphenhydramine HCl (Benadryl) 25 mg Q6H PRN PO PRURITUS; Start 04/27/17 at 19: 00 Acetaminophen/ Hydrocodone Bitart ([place] (7.5-325)) 1 tab Q4H PRN PO PAIN LEVEL 1-3 Last administered on 04/29/17 11:24; Admin Dose 1 TAB; Start at 19:00 Acetaminophen/ Hydrocodone Bitart ([place] (7.5-325)) 2 tab Q4H PRN PO PAIN LEVEL 4-7; Start 04/27/17 at 19:00 Pantoprazole (Protonix Tab) 40 mg BID@06,18 PO Last administered on 04/29/17 06:29; Admin Dose 40 MG; Start 04/28/17 at 06:00 Pregabalin (Lyrica) 50 mg BID PO Last administered on 04/29/17 08:45; Admin Dose 50 MG; Start 04/27/17 at 21:00 Aspirin (Aspirin) 325 mg BID PO Last administered on 04/29/17 08:41; Admin Dose 325 MG; Start 04/28/17 at 10:30 Hydrochlorothiazide (Hydrochlorothiazide) 12.5 mg DAILY PO Last administered on 04/29/17 08:42; Admin Dose 12.5 MG; Start 04/28/17 at 14:30 Metoprolol Tartrate 25 mg 25 mg BID PO Last administered on 04/29/17 10:04; Admin Dose 25 MG; Start 04/29/17 at 09:30 Vancomycin HCl (Vancocin) 250 ml @ 125 mls/hr Q12H IVPB Last administered on 8 /17/17at 11:23; Admin Dose 125 MLS/HR; Start 04/29/17 at 11:00 TRINIDAD GONZALEZ Apr 29, 2017 15:37
--- NOTE | 2017-04-29 17:08 | PN ---
DATE: 04/29/2017 SUBJECTIVE DATA: No acute changes overnight. The patient is alert, feels good, looks comfortable, no fevers. LABORATORY AND DIAGNOSTIC DATA: WBC 6.5, no shift, no bounce. BUN 17, creatinine 1.12. Microbiology: All cultures preliminary negative. Antimicrobials. Patient remains on IV vancomycin. PHYSICAL EXAMINATION: GENERAL: Well developed, elderly, man who is alert, in no distress. HEENT: Head atraumatic, normocephalic. Sclerae anicteric. Buccal mucosa pink. NECK: Supple. Trachea midline. CHEST: Rise symmetrical. Breath sounds clear. HEART: S1, S2. ABDOMEN: Soft. Bowel sounds present. EXTREMITIES: Without cyanosis. ASSESSMENT: 1. 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 2. Status post irrigation and debridement of right knee removal of spacer and reimplantation of right total knee arthroplasty on April 27, 2017. 3. Hypertension. 4. Methicillin-resistant Staphylococcus aureus nares colonization. PLAN: The patient remains stable. As per discussion with Dr. Stanton. We will treat him for another 6 weeks IV vancomycin and then long-term p.o. antibiotics likely with Bactrim, will order PICC DW Dr Taj [place] pt Dictated By: Lu Grier NP /joanne/latrell /Document#: [id number] STONE[facility]
[2017-04-30] VITALS (12 sets, daily range): BP systolic 112–148; BP diastolic 62–81; PULSE 74–82; RESP 18
[2017-04-30] MEDS: LACTATED RINGER'S 1,000 ML IV SCH ×3 (04:01→17:59)
[2017-04-30] MEDS: PANTOPRAZOLE (EC) 40 MG TAB PO SCH ×2 (06:04→17:08)
[2017-04-30] MEDS: traMADol 50 MG TAB PO SCH (06:05)
[2017-04-30 08:01] LABS: HEMOGLOBIN 8.9 g/dl (14.0-18.0)
[2017-04-30 08:45] LABS: MAGNESIUM 1.7 mg/dl (1.7-2.5); PHOSPHORUS 3.3 mg/dl (2.5-4.9)
[2017-04-30 08:46] LABS: CALCIUM 8.4 mg/dl (8.4-10.2); CREATININE 1.04 mg/dl (0.61-1.24); POTASSIUM 3.9 mmol/L (3.5-5.1)
[2017-04-30] MEDS: PREGABALIN 25 MG CAP PO SCH ×2 (09:03→22:24)
--- NOTE | 2017-04-30 09:03 | PN ---
Date/Time of Note Date/Time of Note DATE: 04/30/17 TIME: 09:01 Assessment/Plan Lines/Catheters IV Catheter Type (from Nrsg): Peripheral IV Arriaga in Place (from Nrsg): Yes Assessment/Plan Assessment/Plan Stable, POD #3, s/p revision right TKA -continue Vanco and ID recommendation regarding abx therapy -pain meds as needed -ASA/SCDs for DVT prophylaxis -OOB with PT -continue cardiac workup per cardiology -check AM labs -dressing changed -transfer to when stable Subjective 24 Hr Interval Summary No acute overnight events. Having mild pain. ECHO done yesterday but still has not had stress test. Doing PT daily. H&H low but improving, will hold off on transfusion. VSS,afebrile. Exam/Review of Systems Vital Signs Vitals Vital Signs Date Time Temp Pulse Resp B/P Pulse Ox O2 Delivery O2 Flow Rate FiO2 04/30/17 08:17 74 04/30/17 07:20 98.6 18 128/77 97 04/28/17 14:10 Nasal Cannula 2.0 04/28/17 08:00 30 Intake and Output 04/29/17 04/29/17 04/30/17 15:00 23:00 07:00 Intake Total 1650 ml 2600 ml Output Total 1100 ml 1400 ml Balance 550 ml 1200 ml Exam Free Text/Dictation Dressing dry Incision clean, dry, and intact without redness or drainage Thigh soft 5/5 Quadriceps, Tibialis Anterior, EHL, Gastroc, Soleus, Peroneals Normal sensation Palpable DT/PT, CR <2 sec No distal edema Results Result Diagram: 04/30/17 0700 04/30/17 07 GAUTAM JASON PA-C Apr 30, 2017 09:03
[2017-04-30] MEDS: HYDROCHLOROTHIAZIDE 12.5 MG CAP PO SCH (09:04)
[2017-04-30] MEDS: ASPIRIN 325 MG TAB PO SCH ×2 (09:04→22:24)
[2017-04-30] MEDS: DOCUSATE SODIUM 100 MG CAP PO SCH ×2 (09:04→22:25)
[2017-04-30] MEDS: METOPROLOL 25 MG TAB PO SCH ×2 (09:04→22:25)
[2017-04-30] MEDS: VANCOMYCIN 1 GM in NS 250 ML IVPB SCH ×2 (11:13→23:39)
[2017-04-30] MEDS ORDERED: METOPROLOL 5 MG INJ ONE (12:44)
[2017-04-30] MEDS ORDERED: NITROGLYCERIN AEROSOL (4.9 GM) ONE (12:46)
[2017-04-30] MEDS ORDERED: IOHEXOL 350MG/ML 50 ML BTL ONE (12:48)
[2017-04-30] MEDS ORDERED: SOD CHLORIDE 0.9% 100 ML ONE ×2 (12:48→14:30)
[2017-04-30] MEDS ORDERED: IOHEXOL 100 ML ONE (12:48)
[2017-04-30] MEDS ORDERED: METOPROLOL 5 MG INJ IV ONE (13:00)
--- NOTE | 2017-04-30 13:40 | RADRPT ---
Vent Rate: 76 bpm RR Interval: 0 msec SD Interval: 186 msec QRS Duration: 88 msec QT Interval: 430 msec QTC Interval: 483 msec P-R-T Babcock: 42 - 55 - 68 degrees Normal sinus rhythm Prolonged QT Abnormal ECG Electronically Signed By: Tavon Lozada [id number]
--- NOTE | 2017-04-30 14:25 | RADRPT ---
PROCEDURE: Ultrasound proximal upper extremity for PICC placement CLINICAL INDICATION: PICC placement TECHNIQUE: Sonographic evaluation of the proximal left upper extremity vessels was performed utilizi ng a high-frequency linear transducer. COMPARISON: None available FINDINGS: Limited evaluation of the proximal upper extremity for vascular access for PICC placement. Grossly, no abnormality is seen. IMPRESSION: 1. Unremarkable limited proximal left upper extremity ultrasound for PICC placement. RPTAT: QQ .Randal Worley MD, MD Date Time Electronically viewed and signed by .Randal Worley MD, MD on 04/30/2017 14:25 .R/
--- NOTE | 2017-04-30 14:30 | RADRPT ---
PROCEDURE: XR Chest. CLINICAL INDICATION: PICC line placement TECHNIQUE: Single frontal chest x-ray. COMPARISON: 04/27/2017 FINDINGS: No acute infiltrate, pleural effusion or pneumothorax is identified. Cardiomediastinal silhouette i s within normal limits. Aortic atherosclerotic calcification is noted. Left-sided PICC line tip is in the SVC. Previously seen endotracheal tube has been removed. The osseous structures are unrema rkable. IMPRESSION: 1. No evidence of acute cardiopulmonary process. 2. Left-sided PICC line in good position. RPTAT: QQ .Randal Worley MD, Date Time Electronically viewed and signed by .Randal Worley MD, on 04/30/2017 14:30 .R/
--- NOTE | 2017-04-30 17:12 | PN ---
Date/Time of Note Date/Time of Note DATE: 04/30/17 TIME: 17:11 Assessment/Plan VTE Prophylaxis VTE Prophylaxis Intervention: heparin Lines/Catheters IV Catheter Type (from Nrsg): PICC Line Central line still needed: Yes Urinary Cath still in place: No Reason Cath still needed: terminal illness/intractable pain Assessment/Plan Chief Complaint/Hosp Course Patient is a 66-year-old male with a past medical history significant for hypertension and right knee replacement brought to [facility] for infected right knee. Status post right knee arthroplasty removal, irrigation, and replacement. On April 28 Assessment plan problem list Sinus bradycardia, resolved Infected right knee arthroplasty, status post replacement and irrigation Intubation for airway protection, extubated immediately Hypertension Anemia, mild Hypokalemia, mild Plan -cardiology ordered CT heart, but machine down, stress test was not done due to timing. cardiology will consider additional intervention on 05/03 -ID consulted, pending final recs for abx duration length. vanco for now and bactrim later. PICC line ordered. -Continue knee care per ortho surgery. -Resume p.o. meds -Follow-up with a.m. labs Problems: Subjective 24 Hr Interval Summary Free Text/Dictation no acute issues Exam/Review of Systems Vital Signs Vitals Vital Signs Date Time Temp Pulse Resp B/P Pulse Ox O2 Delivery O2 Flow Rate FiO2 04/30/17 16:31 80 04/30/17 16:06 98.4 18 112/65 98 04/28/17 14:10 Nasal Cannula 2.0 04/28/17 08:00 30 Intake and Output 04/29/17 04/29/17 04/30/17 15:00 23:00 07:00 Intake Total 1650 ml 2600 ml Output Total 1100 ml 1400 ml Balance 550 ml 1200 ml Exam Physical exam General: Patient is laying in bed and answers questions appropriately Mentation: Patient is alert and oriented 4, Head: Normocephalic atraumatic Eyes: EOMI, pupils reactive to light Neck: Supple, nontender, midline Respiratory: Clear to auscultation bilaterally Cardiovascular: regular rate, no obvious murmurs Gastrointestinal: non-tender to palpation, bowel sounds heard. Neurological: Moves all extremities spontaneously Skin: R knee surgical site CDI Results Result Diagram: 04/30/17 0700 04/30/17 0700 Results 24 hrs Laboratory Tests Test 04/30/17 07:00 Hemoglobin 8.9 L Hematocrit 28.0 L Sodium Level 139 Potassium Level 3.9 Chloride Level 98 Carbon Dioxide Level 29 Anion Gap 16 # Blood Urea Nitrogen 14 Creatinine 1.04 Glucose Level 91 Calcium Level 8.4 Phosphorus Level 3.3 Magnesium Level 1.7 Medications Medications Current Medications Miscellaneous Information 1 ea 1 ea NOTE XX ; Start 04/27/17 at 09:00; Stop at 08:59 Lactated Ringer's (Lr) 1,000 ml @ 125 mls/hr Q8H IV Last administered on 11:10; Admin Dose 125 MLS/HR; Start 04/27/17 at 18:41 Hydromorphone HCl (Dilaudid) 1 mg Q3H PRN IV PAIN LEVEL 8-10; Start 04/27/17 at 19:00 Ondansetron HCl (Zofran Inj) 4 mg Q6H PRN IV NAUSEA AND/OR VOMITING; Start at 19:00 Bisacodyl (Dulcolax Supp) 10 mg Q12H PRN [place] CONSTIPATION; Start 04/27/17 at 19: 00 Magnesium Hydroxide (Milk Of Mag) 30 ml BID PRN PO CONSTIPATION; Start at 19:00 Sodium Biphosphate/ Sodium Phosphate (Fleet Enema) 133 ml DAILY PRN [place] CONSTIPATION; Start 04/27/17 at 19:00 Docusate Sodium (Colace) 100 mg BID PO Last administered on 04/30/17 09:04; Admin Dose 100 MG; Start 04/27/17 at 21:00 Diphenhydramine HCl (Benadryl) 25 mg Q6H PRN PO PRURITUS; Start 04/27/17 at 19: 00 Acetaminophen/ Hydrocodone Bitart ([place] (7.5-325)) 1 tab Q4H PRN PO PAIN LEVEL 1-3 Last administered on 04/29/17 11:24; Admin Dose 1 TAB; Start at 19:00 Acetaminophen/ Hydrocodone Bitart ([place] (7.5-325)) 2 tab Q4H PRN PO PAIN LEVEL 4-7; Start 04/27/17 at 19:00 Pantoprazole (Protonix Tab) 40 mg BID@06,18 PO Last administered on 04/30/17 17:08; Admin Dose 40 MG; Start 04/28/17 at 06:00 Pregabalin (Lyrica) 50 mg BID PO Last administered on 04/30/17 09:03; Admin Dose 50 MG; Start 04/27/17 at 21:00 Aspirin (Aspirin) 325 mg BID PO Last administered on 04/30/17 09:04; Admin Dose 325 MG; Start 04/28/17 at 10:30 Hydrochlorothiazide (Hydrochlorothiazide) 12.5 mg DAILY PO Last administered on 04/30/17 09:04; Admin Dose 12.5 MG; Start 04/28/17 at 14:30 Metoprolol Tartrate 25 mg 25 mg BID PO Last administered on 04/30/17 09:04; Admin Dose 25 MG; Start 04/29/17 at 09:30 Vancomycin HCl (Vancocin) 250 ml @ 125 mls/hr Q12H IVPB Last administered on 11:13; Admin Dose 125 MLS/HR; Start 04/29/17 at 11:00 Miscellaneous Information (*Rx Drug Level Order Reminder*) 1 ONCE ONCE XX ; Start 04/30/17 at 22:00; Stop 04/30/17 at 22:01 IV Flush (NS 10 ml) 10 ml PRN PRN IV IV PROTOCOL; Start 04/30/17 at 14:30 TRINIDAD GONZALEZ Apr 30, 2017 17:12
--- NOTE | 2017-04-30 18:26 | CONS ---
Date/Time of Note Date/Time of Note DATE: 04/30/17 TIME: 18:24 Consult Date/Type/Reason Admit Date/Time Apr 27, 2017 at 09:57 Initial Consult Date 04/28/17 Type of Consultation: cardiology Ordering Provider: DELORES BAER MD Subjective d/w staff pt with no left sided chest pain./ c/o " being uncoordinated" no palpitations + knee pain OBJECTIVE: General: no acute distress HEENT: NC/AT. pupils are equal. round. NECK: NO JVD. no stridor. CV: RRR. systolic murmur; no gallop or rubs. PULM: no wheezing or rhonchi. GI: SOFT, NT, ND, no rebound or guarding Extremity: S/P R KNEE SURGERY neuro: awake and alert, OX3. Psych: calm and pleasant rectal: deferred : normal Objective Vital Signs Date Time Temp Pulse Resp B/P Pulse Ox O2 Delivery O2 Flow Rate FiO2 04/30/17 16:31 80 04/30/17 16:06 98.4 18 112/65 98 04/28/17 14:10 Nasal Cannula 2.0 04/28/17 08:00 30 Intake and Output 04/29/17 04/29/17 04/30/17 15:00 23:00 07:00 Intake Total 1650 ml 2600 ml Output Total 1100 ml 1400 ml Balance 550 ml 1200 ml Results/Medications Result Diagram: 04/30/17 0700 04/30/17 0700 Results 24 hrs Laboratory Tests Test 04/30/17 07:00 Hemoglobin 8.9 L Hematocrit 28.0 L Sodium Level 139 Potassium Level 3.9 Chloride Level 98 Carbon Dioxide Level 29 Anion Gap 16 # Blood Urea Nitrogen 14 Creatinine 1.04 Glucose Level 91 Calcium Level 8.4 Phosphorus Level 3.3 Magnesium Level 1.7 Medications Current Medications Miscellaneous Information 1 ea 1 ea NOTE XX ; Start 04/27/17 at 09:00; Stop at 08:59 Lactated Ringer's (Lr) 1,000 ml @ 125 mls/hr Q8H IV Last administered on t 17:59; Admin Dose 125 MLS/HR; Start 04/27/17 at 18:41 Hydromorphone HCl (Dilaudid) 1 mg Q3H PRN IV PAIN LEVEL 8-10; Start 04/27/17 at 19:00 Ondansetron HCl (Zofran Inj) 4 mg Q6H PRN IV NAUSEA AND/OR VOMITING; Start at 19:00 Bisacodyl (Dulcolax Supp) 10 mg Q12H PRN [place] CONSTIPATION; Start 04/27/17 at 19: 00 Magnesium Hydroxide (Milk Of Mag) 30 ml BID PRN PO CONSTIPATION; Start at 19:00 Sodium Biphosphate/ Sodium Phosphate (Fleet Enema) 133 ml DAILY PRN [place] CONSTIPATION; Start 04/27/17 at 19:00 Docusate Sodium (Colace) 100 mg BID PO Last administered on 04/30/17 09:04; Admin Dose 100 MG; Start 04/27/17 at 21:00 Diphenhydramine HCl (Benadryl) 25 mg Q6H PRN PO PRURITUS; Start 04/27/17 at 19: 00 Acetaminophen/ Hydrocodone Bitart ([place] (7.5-325)) 1 tab Q4H PRN PO PAIN LEVEL 1-3 Last administered on 04/29/17 11:24; Admin Dose 1 TAB; Start at 19:00 Acetaminophen/ Hydrocodone Bitart ([place] (7.5-325)) 2 tab Q4H PRN PO PAIN LEVEL 4-7; Start 04/27/17 at 19:00 Pantoprazole (Protonix Tab) 40 mg BID@,18 PO Last administered on 04/30/17 17:08; Admin Dose 40 MG; Start 04/28/17 at 06:00 Pregabalin (Lyrica) 50 mg BID PO Last administered on 04/30/17 09:03; Admin Dose 50 MG; Start 04/27/17 at 21:00 Aspirin (Aspirin) 325 mg BID PO Last administered on 04/30/17 09:04; Admin Dose 325 MG; Start 04/28/17 at 10:30 Hydrochlorothiazide (Hydrochlorothiazide) 12.5 mg DAILY PO Last administered on 04/30/17 09:04; Admin Dose 12.5 MG; Start 04/28/17 at 14:30 Metoprolol Tartrate 25 mg 25 mg BID PO Last administered on 04/30/17 09:04; Admin Dose 25 MG; Start 04/29/17 at 09:30 Vancomycin HCl (Vancocin) 250 ml @ 125 mls/hr Q12H IVPB Last administered on t 11:13; Admin Dose 125 MLS/HR; Start 04/29/17 at 11:00 Miscellaneous Information (*Rx Drug Level Order Reminder*) 1 ONCE ONCE XX ; Start 04/30/17 at 22:00; Stop 04/30/17 at 22:01 IV Flush (NS 10 ml) 10 ml PRN PRN IV IV PROTOCOL; Start 04/30/17 at 14:30 Assessment/Plan Chief Complaint/Hosp Course Assessment/plan: 1. s/p marked arrhythmia and bradycardia during surgery and possible ST elevation on rhythm but not seen on ECG pt currently with no chest pain and normal trop will cont ASA stress test could not be done b/c unavailable tech in hospital now CT indy angio oredered but could not be done b/c of equipment malfunction. will plan for either lexiscan or CT indy next week. 2.HTN: stable now 3. resp failure: extubated 4. r/o dyslipidemia 5. infected right hearwear s/p surgery: f/u ortho rec. abx as per ID 6. Loss of "coordination:" defer to IM team will order stat CT head. for now. Thank you for this referral will continue to follow along with you next week. Problems: LISA MOLINA MD Apr 30, 2017 18:26
--- NOTE | 2017-04-30 18:47 | RADRPT ---
PROCEDURE: CT coronary calcium score. CLINICAL INDICATION: Arrhythmia, evaluate for coronary artery disease TECHNIQUE: CT calcium scoring study performed without intravenous contrast on a high-resolution m ulti detector scanner. One or more of the following dose reduction techniques were used: Automated e xposure control; Adjustment of the mA and/or kV according to patient size; Use of iterative reconstr uction technique; ECG dose modulation. CTDI = a mGy. DLP = 197 mGy-cm. COMPARISON: None available FINDINGS: Left main = 13.1 Left anterior descending = 17.7 Left circumflex = 0 Right coronary artery = 882.1 Aortic valve: No calcifications Ascending aorta: Normal caliber Lungs: Clear. Upper abdomen: No abnormalities IMPRESSION: Total calcium score = 912.9, images are partially degraded due to motion artifact. CT angiography was not performed due to inability to obtain appropriate gating/reconstructions due t o scanner malfunction. Absolute reference ranges 0: No evidence of calcified CAD 1-10: Minimal 11-100: Mild 101-400: Moderate 400+: Severe Reference cohort: Dereck Gender: Male Age: 66 Reference cohort percentile : Greater than 90th, possibly overestimated due to motion artifact. Reference cohort quartile scores: 25th: 14 50th: 118 75th: 434 90th: 804 This percentile only serves as a reference to the cohort; it is not an individual's percentile of ca rdiovascular risk. This score must be interpreted in the greater context of each patient's individua l cardiovascular risk based on AHA/ACC guidelines. These findings are only applicable to asymptomat ic patients; presence of possible cardiovascular symptoms necessitates additional evaluation. RPTAT: AADD .Ray Spencer MD, Date Time Electronically viewed and signed by .Ray Spencer MD, on 04/30/2017 14:27 .B/
--- NOTE | 2017-04-30 19:03 | RADRPT ---
PROCEDURE: CT Brain without contrast. CLINICAL INDICATION: ALTERED MENTAL STATUS TECHNIQUE: A CT of the brain was performed on a GE NanoTunepeed 64-slice CT scanner utilizing axial imaging from the skull base through the vertex without IV contrast. Multiplanar reformatted images were made. Images were reviewed on a PACS workstation. The CTDIvol is 43.6 mGy and the DLP is 720 mGycm. COMPARISON: None FINDINGS: There is loss of urena-white differentiation involving the left parietal cortex associated with mild sulcal effacement concerning for ischemia. There is no intracranial hemorrhage, mass effect, or midline shift. No extra-axial fluid collection is seen. The ventricles and sulci are normal in size and configuration. The visualized paranasal sinuses and osseous structures are grossly unremarkable. IMPRESSION: Loss of urena-white differentiation involving the left parietal cortex associated with mild sulcal ef facement concerning for ischemia. No associated intracranial hemorrhage nor significant mass effect . Consider MRI for further evaluation. Above findings discussed with Juan Diego Arango RN, at approximately 07:00 p.m. on April 30, 2017. [facility] nurse will be directly informing the referring physician at the completion of the phone call. I asmita pitts left a callback number in case the referring physician would like to communicate further. Physician Diamond Date Time Electronically viewed and signed by Physician Diamond on 04/30/2017 19:03 ML/
--- NOTE | 2017-04-30 22:15 | RADRPT ---
PROCEDURE: MRI Brain without contrast. CLINICAL INDICATION: Altered mental status, stroke seen on CT. TECHNIQUE: An MRI of the brain was performed on a Signa HDxt 3 marry scanner utilizing the followin g sequences: Axial T2 FLAIR, axial T2 PROP, coronal T2 gradient echo, sagittal T1 FLAIR, and axial d iffusion-weighted (EPI technique, [id number]) with ADC mapping. No intravenous contrast was given. Im ages were viewed on a PACS workstation. COMPARISON: Correlation is made with the CT done 04/30/2017. FINDINGS: There is an area of restricted diffusion within the left parietal lobe mainly involving the cortex w ith subtle increased T2/FLAIR signal intensity consistent with acute infarct. The ventricles and co rtical sulci are prominent consistent with mild cerebral volume loss. There are scattered foci of i ncreased T2/FLAIR signal intensity within the periventricular and subcortical white matter consisten t with mild chronic ischemic changes secondary to small vessel disease. There are chronic lacunar in farcts within the left frontal periventricular white matter. There is no mass effect or midline shif t. There is no acute intracranial hemorrhage or abnormal extra-axial collection. Normal signal voi ds are seen within the bilateral cavernous carotids. The regions of the sella, pineal gland and cer vicomedullary junction are unremarkable. Visualized paranasal sinuses and mastoid air cells are levon ar. IMPRESSION: Acute left parietal lobe, mainly cortical infarct. There is no midline shift or acute intracranial hemorrhage. Mild age-related volume loss and chronic ischemic white matter disease. Chronic lacunar infarcts within the left frontal lobe periventricular white matter. .Toribio Santoyo MD, MD Date Time Electronically viewed and signed by .Toribio Santoyo MD, MD on 04/30/2017 22:15 .T/
--- NOTE | 2017-04-30 22:26 | CONS ---
Date/Time of Note Date/Time of Note DATE: 04/30/17 TIME: 22:24 Assessment/Plan Assessment/Plan Chief Complaint/Hosp Course SUBJECTIVE DATA: No acute changes overnight. The patient is alert, feels good, looks comfortable, no fevers. Microbiology: Intraoperative cultures negative. Antimicrobials. IV vancomycin. PHYSICAL EXAMINATION: GENERAL: Well developed, elderly, man who is alert, in no distress. HEENT: Head atraumatic, normocephalic. Sclerae anicteric. Buccal mucosa pink. NECK: Supple. Trachea midline. CHEST: Rise symmetrical. Breath sounds clear. HEART: S1, S2. ABDOMEN: Soft. Bowel sounds present. EXTREMITIES: Without cyanosis. ASSESSMENT: 1. 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 2. Status post irrigation and debridement of right knee removal of spacer and reimplantation of right total knee arthroplasty on April 27, 2017. 3. Hypertension. 4. Methicillin-resistant Staphylococcus aureus nares colonization. PLAN: The patient remains stable. Continue abx, pending PICC, anticipate dc on IV abx for 6 more weeks MARY BETH Dotsonido Problems: Consultation Date/Type/Reason Admit Date/Time Apr 27, 2017 at 09:57 Initial Consult Date 04/28/17 Type of Consultation: ID Referring Provider: DELORES BAER MD Exam/Review of Systems Vital Signs Vitals Vital Signs Date Time Temp Pulse Resp B/P Pulse Ox O2 Delivery O2 Flow Rate FiO2 04/30/17 19:42 98.8 86 18 139/81 95 04/28/17 14:10 Nasal Cannula 2.0 04/28/17 08:00 30 Intake and Output 04/29/17 04/29/17 04/30/17 15:00 23:00 07:00 Intake Total 1650 ml 2600 ml Output Total 1100 ml 1400 ml Balance 550 ml 1200 ml Results Result Diagram: 04/30/17 0700 04/30/17 0700 Results 24 hrs Laboratory Tests Test 04/30/17 07:00 Hemoglobin 8.9 L Hematocrit 28.0 L Sodium Level 139 Potassium Level 3.9 Chloride Level 98 Carbon Dioxide Level 29 Anion Gap 16 # Blood Urea Nitrogen 14 Creatinine 1.04 Glucose Level 91 Calcium Level 8.4 Phosphorus Level 3.3 Magnesium Level 1.7 Medications Medications Current Medications Miscellaneous Information 1 ea 1 ea NOTE XX ; Start 04/27/17 at 09:00; Stop at 08:59 Lactated Ringer's (Lr) 1,000 ml @ 125 mls/hr Q8H IV Last administered on 17:59; Admin Dose 125 MLS/HR; Start 04/27/17 at 18:41 Hydromorphone HCl (Dilaudid) 1 mg Q3H PRN IV PAIN LEVEL 8-10; Start 04/27/17 at 19:00 Ondansetron HCl (Zofran Inj) 4 mg Q6H PRN IV NAUSEA AND/OR VOMITING; Start at 19:00 Bisacodyl (Dulcolax Supp) 10 mg Q12H PRN [place] CONSTIPATION; Start 04/27/17 at 19: 00 Magnesium Hydroxide (Milk Of Mag) 30 ml BID PRN PO CONSTIPATION; Start at 19:00 Sodium Biphosphate/ Sodium Phosphate (Fleet Enema) 133 ml DAILY PRN [place] CONSTIPATION; Start 04/27/17 at 19:00 Docusate Sodium (Colace) 100 mg BID PO Last administered on 04/30/17 09:04; Admin Dose 100 MG; Start 04/27/17 at 21:00 Diphenhydramine HCl (Benadryl) 25 mg Q6H PRN PO PRURITUS; Start 04/27/17 at 19: 00 Acetaminophen/ Hydrocodone Bitart ([place] (7.5-325)) 1 tab Q4H PRN PO PAIN LEVEL 1-3 Last administered on 04/29/17 11:24; Admin Dose 1 TAB; Start at 19:00 Acetaminophen/ Hydrocodone Bitart ([place] (7.5-325)) 2 tab Q4H PRN PO PAIN LEVEL 4-7; Start 04/27/17 at 19:00 Pantoprazole (Protonix Tab) 40 mg BID@06,18 PO Last administered on 04/30/17 17:08; Admin Dose 40 MG; Start 04/28/17 at 06:00 Pregabalin (Lyrica) 50 mg BID PO Last administered on 04/30/17 09:03; Admin Dose 50 MG; Start 04/27/17 at 21:00 Aspirin (Aspirin) 325 mg BID PO Last administered on 8/18/17at 09:04; Admin Dose 325 MG; Start 04/28/17 at 10:30 Hydrochlorothiazide (Hydrochlorothiazide) 12.5 mg DAILY PO Last administered on 04/30/17 09:04; Admin Dose 12.5 MG; Start 04/28/17 at 14:30 Metoprolol Tartrate 25 mg 25 mg BID PO Last administered on 04/30/17 09:04; Admin Dose 25 MG; Start 04/29/17 at 09:30 Vancomycin HCl (Vancocin) 250 ml @ 125 mls/hr Q12H IVPB Last administered on 11:13; Admin Dose 125 MLS/HR; Start 04/29/17 at 11:00 IV Flush (NS 10 ml) 10 ml PRN PRN IV IV PROTOCOL; Start 04/30/17 at 14:30 SHAKIRA EDOUADR NP Apr 30, 2017 22:26
--- NOTE | 2017-04-30 23:18 | RADRPT ---
PROCEDURE: MR angiogram of the neck without contrast. CLINICAL INDICATION: Stroke. TECHNIQUE: MR angiogram of the neck was performed using a Signa HDxt 3 Carie scanner. 2D and 3D t [id number] MRA images of the extracranial carotid and vertebral arterial systems were acquired wi thout intravenous contrast. Maximum intensity projection images were also obtained. Study is limited by patient motion. COMPARISON: None. FINDINGS: Bilateral common carotid arteries are normal course and caliber. Bilateral carotid bifurcations and carotid bulbs are within normal limits. Bilateral internal and external carotid arteries are elvin l course and caliber. The left vertebral artery is dominant. Bilateral cervical vertebral arteries are otherwise patent. There is no evidence of vascular stenosis or occlusion. There is no evidence of aneurysm or dissection. IMPRESSION: Dominant left vertebral artery. Otherwise unremarkable MR angiogram of the neck without contrast. Study limited by patient motion. .Toribio Santoyo MD, MD Date Time Electronically viewed and signed by .Toribio Santoyo MD, MD on 04/30/2017 23:17 .T/
[2017-05-01] VITALS (12 sets, daily range): BP systolic 120–144; BP diastolic 66–79; PULSE 65–78; RESP 17–20
[2017-05-01] MEDS: LACTATED RINGER'S 1,000 ML IV SCH ×3 (02:41→18:00)
[2017-05-01] MEDS: PANTOPRAZOLE (EC) 40 MG TAB PO SCH ×2 (05:54→17:44)
[2017-05-01 06:39] LABS: BASOPHILS % 0.5 % (0.0-2.0); EOSINOPHILS # 0.4 10^3/ul (0.0-0.5); EOSINOPHILS % 6.5 % (0.0-7.0); HEMATOCRIT 25.5 % (42.0-52.0); HEMOGLOBIN 8.2 g/dl (14.0-18.0); LYMPHOCYTES # 1.7 10^3/ul (0.8-2.9); LYMPHOCYTES % 27.6 % (15.0-51.0); MEAN CORPUSCULAR HEMOGLOBIN 27.5 pg (29.0-33.0); MEAN CORPUSCULAR HGB CONC 32.2 g/dl (32.0-37.0); MEAN CORPUSCULAR VOLUME 85.6 fl (82.0-101.0); MEAN PLATELET VOLUME 11.3 fl (7.4-10.4); MONOCYTE # 0.6 10^3/ul (0.3-0.9); MONOCYTES % 9.1 % (0.0-11.0); NEUTROPHILS % 56.1 % (39.0-77.0); PLATELET COUNT 189 10^3/UL (140-415); RED BLOOD COUNT 2.98 10^6/ul (4.70-6.10); RED CELL DISTRIBUTION WIDTH 13.5 % (11.5-14.5); WHITE BLOOD COUNT 6.2 10^3/ul (4.8-10.8)
[2017-05-01 07:13] LABS: CALCIUM 8.8 mg/dl (8.4-10.2); CREATININE 0.96 mg/dl (0.61-1.24); MAGNESIUM 1.6 mg/dl (1.7-2.5); PHOSPHORUS 3.8 mg/dl (2.5-4.9); POTASSIUM 3.3 mmol/L (3.5-5.1)
[2017-05-01] MEDS: ASPIRIN 325 MG TAB PO SCH ×2 (09:15→21:36)
[2017-05-01] MEDS: PREGABALIN 25 MG CAP PO SCH ×2 (09:15→21:36)
[2017-05-01] MEDS: DOCUSATE SODIUM 100 MG CAP PO SCH ×2 (09:16→21:35)
[2017-05-01] MEDS: METOPROLOL 25 MG TAB PO SCH ×2 (09:17→21:36)
[2017-05-01] MEDS: HYDROCHLOROTHIAZIDE 12.5 MG CAP PO SCH (09:17)
[2017-05-01] MEDS ORDERED: POTASSIUM CHLORIDE 250 ML IVPB ONE (10:30)
[2017-05-01] MEDS ORDERED: ATORVASTATIN 80 MG TAB PO ONE (10:30)
--- NOTE | 2017-05-01 11:09 | PN ---
Date/Time of Note Date/Time of Note DATE: 05/01/17 TIME: 11:07 Assessment/Plan Lines/Catheters IV Catheter Type (from Nrsg): PICC Line Arriaga in Place (from Nrsg): No Assessment/Plan Assessment/Plan POD #4, s/p revision right TKA -continue Abx per ID -pain meds as needed -ASA/SCDs for DVT prophylaxis -follow cardio, neurology, and medicine recommendations -OOB with PT -dressing changed -check AM labs Subjective 24 Hr Interval Summary Overnight, patient became disoriented after placement of PICC line. CT Brain was ordered and showed ischemic changes. He denies CP or SOB. Having mild knee pain. H&H low but patient wants to hold off on transfusion. Exam/Review of Systems Vital Signs Vitals Vital Signs Date Time Temp Pulse Resp B/P Pulse Ox O2 Delivery O2 Flow Rate FiO2 05/01/17 08:41 68 05/01/17 08:14 98.4 18 144/68 95 04/28/17 14:10 Nasal Cannula 2.0 04/28/17 08:00 30 Intake and Output 04/30/17 04/30/17 05/01/17 15:00 23:00 07:00 Intake Total 1970 ml 300 ml Output Total 1850 ml 1500 ml 1000 ml Balance -1850 ml 470 ml -700 ml Exam Free Text/Dictation Dressing dry Incision clean, dry, and intact without redness or drainage Thigh soft 5/5 Quadriceps, Tibialis Anterior, EHL, Gastroc, Soleus, Peroneals Normal sensation Palpable DT/PT, CR <2 sec No distal edema Results Result Diagram: 05/01/17 0601 05/01/17 0601 GAUTAM JASON PA-C May 01, 2017 11:09
[2017-05-01] MEDS: VANCOMYCIN 750 MG in SOD CHLORIDE 0.9% 150 ML IVPB SCH ×2 (11:34→23:08)
--- NOTE | 2017-05-01 13:45 | PN ---
Date/Time of Note Date/Time of Note DATE: 05/01/17 TIME: 13:42 Assessment/Plan VTE Prophylaxis VTE Prophylaxis Intervention: SCD's Lines/Catheters IV Catheter Type (from Nrsg): PICC Line Central line still needed: Yes Urinary Cath still in place: No Assessment/Plan Chief Complaint/Hosp Course Patient is a 66-year-old male with a past medical history significant for hypertension and right knee replacement brought to [facility] for infected right knee. Status post right knee arthroplasty removal, irrigation, and replacement. On April 28 Assessment plan problem list L Parietal lobe CVA, acute Sinus bradycardia, resolved Infected right knee arthroplasty, status post replacement and irrigation Intubation for airway protection, extubated immediately Hypertension Anemia, mild Hypokalemia, mild Plan -acute CVA yesterday, teleneurologist called, mri ordered. no TPA given. -neurology, Dr. Kelly consulted, patient npo for now pending speech eval -no signs of bleed, asa, statin -cardiology ordered CT heart, but machine down, stress test was not done due to timing. cardiology will consider additional intervention on 05/03 -ID consulted, pending final recs for abx duration length. vanco for now and bactrim later. PICC line ordered. -Continue knee care per ortho surgery. -Resume p.o. meds -Follow-up with a.m. labs Problems: Subjective 24 Hr Interval Summary Free Text/Dictation remembers little about the event last night CVA last night Exam/Review of Systems Vital Signs Vitals Vital Signs Date Time Temp Pulse Resp B/P Pulse Ox O2 Delivery O2 Flow Rate FiO2 05/01/17 12:41 74 05/01/17 11:45 98.4 17 120/75 94 04/28/17 14:10 Nasal Cannula 2.0 04/28/17 08:00 30 Intake and Output 04/30/17 04/30/17 05/01/17 15:00 23:00 07:00 Intake Total 1970 ml 300 ml Output Total 1850 ml 1500 ml 1000 ml Balance -1850 ml 470 ml -700 ml Exam Physical exam General: Patient is laying in bed and answers questions appropriately Mentation: Patient is alert and oriented 4, mild difficulty finding speech Head: Normocephalic atraumatic Eyes: EOMI, pupils reactive to light Neck: Supple, nontender, midline Respiratory: Clear to auscultation bilaterally Cardiovascular: regular rate, no obvious murmurs Gastrointestinal: non-tender to palpation, bowel sounds heard. Neurological: Moves all extremities spontaneously, muscle strength equal in all extremities. Skin: R knee surgical site CDI Results Result Diagram: 05/01/17 0601 05/01/17 0601 Results 24 hrs Laboratory Tests Test 04/30/17 22:47 05/01/17 06:01 Vancomycin Level Trough 15.6 White Blood Count 6.2 Red Blood Count 2.98 L Hemoglobin 8.2 L Hematocrit 25.5 L Mean Corpuscular Volume 85.6 Mean Corpuscular Hemoglobin 27.5 L Mean Corpuscular Hemoglobin Concent 32.2 Red Cell Distribution Width 13.5 Platelet Count 189 Mean Platelet Volume 11.3 H Neutrophils % 56.1 Lymphocytes % 27.6 Monocytes % 9.1 Eosinophils % 6.5 Basophils % 0.5 Nucleated Red Blood Cells % 0.0 Neutrophils # (Manual) 3 Lymphocytes # 1.7 Monocytes # 0.6 Eosinophils # 0.4 Basophils # 0.0 Nucleated Red Blood Cells # 0.0 Sodium Level 139 Potassium Level 3.3 L Chloride Level 96 L Carbon Dioxide Level 32 H Anion Gap 14 Blood Urea Nitrogen 11 Creatinine 0.96 Glucose Level 91 Calcium Level 8.8 Phosphorus Level 3.8 Magnesium Level 1.6 L Medications Medications Current Medications Lactated Ringer's (Lr) 1,000 ml @ 125 mls/hr Q8H IV Last administered on t 17:59; Admin Dose 125 MLS/HR; Start 04/27/17 at 18:41 Hydromorphone HCl (Dilaudid) 1 mg Q3H PRN IV PAIN LEVEL 8-10; Start 04/27/17 at 19:00 Ondansetron HCl (Zofran Inj) 4 mg Q6H PRN IV NAUSEA AND/OR VOMITING; Start at 19:00 Bisacodyl (Dulcolax Supp) 10 mg Q12H PRN [place] CONSTIPATION; Start 04/27/17 at 19: 00 Magnesium Hydroxide (Milk Of Mag) 30 ml BID PRN PO CONSTIPATION; Start at 19:00 Sodium Biphosphate/ Sodium Phosphate (Fleet Enema) 133 ml DAILY PRN [place] CONSTIPATION; Start 04/27/17 at 19:00 Docusate Sodium (Colace) 100 mg BID PO Last administered on 05/01/17 09:16; Admin Dose 100 MG; Start 04/27/17 at 21:00 Diphenhydramine HCl (Benadryl) 25 mg Q6H PRN PO PRURITUS; Start 04/27/17 at 19: 00 Acetaminophen/ Hydrocodone Bitart ([place] (7.5-325)) 1 tab Q4H PRN PO PAIN LEVEL 1-3 Last administered on 04/29/17 11:24; Admin Dose 1 TAB; Start at 19:00 Acetaminophen/ Hydrocodone Bitart ([place] (7.5-325)) 2 tab Q4H PRN PO PAIN LEVEL 4-7; Start 04/27/17 at 19:00 Pantoprazole (Protonix Tab) 40 mg BID@06,18 PO Last administered on 05/01/17 05:54; Admin Dose 40 MG; Start 04/28/17 at 06:00 Pregabalin (Lyrica) 50 mg BID PO Last administered on 05/01/17 09:15; Admin Dose 50 MG; Start 04/27/17 at 21:00 Aspirin (Aspirin) 325 mg BID PO Last administered on 05/01/17 09:15; Admin Dose 325 MG; Start 04/28/17 at 10:30 Hydrochlorothiazide (Hydrochlorothiazide) 12.5 mg DAILY PO Last administered on 05/01/17 09:17; Admin Dose 12.5 MG; Start 04/28/17 at 14:30 Metoprolol Tartrate (Lopressor) 25 mg BID PO Last administered on 05/01/17 09: 17; Admin Dose 25 MG; Start 04/29/17 at 09:30 IV Flush 10 ml 10 ml PRN PRN IV IV PROTOCOL; Start 04/30/17 at 14:30 Vancomycin HCl/ Sodium Chloride (Vancocin/NS) 150 ml @ 75 mls/hr Q12H IVPB Last administered on 05/01/17 11:34; Admin Dose 75 MLS/HR; Start 05/01/17 at 11 :00 Atorvastatin Calcium 80 mg 80 mg HS PO ; Start 05/01/17 at 21:00 Potassium Chloride (KCl 40 MEQ/250 ML NS) 250 ml @ 62.5 mls/hr ONCE ONCE IVPB ; Start 05/01/17 at 10:30; Stop 05/01/17 at 14:29 TRINIDAD GONZALEZ May 01, 2017 13:45
--- NOTE | 2017-05-01 14:03 | CONS ---
Date/Time of Note Date/Time of Note DATE: 05/01/17 TIME: 13:54 Assessment/Plan Assessment/Plan Chief Complaint/Hosp Course Admitted with infected knee was found to have stroke Problems: Additional Assessment/Plan Patient is a 66-year-old male with a past medical history for hypertension and right knee replacement brought to [facility] for infected right knee. He underwent right knee arthroplasty removal, irrigation, and replacement. MRI of the brain showed left parietal stroke. MR angiogram of the neck was unremarkable. Echocardiogram was also unremarkable Plan 1 continue aspirin and atorvastatin 2 speech evaluation and treatment 3 we will follow Consultation Date/Type/Reason Admit Date/Time Apr 27, 2017 at 09:57 Date of Consultation: May 01, 2017 Reason for Consultation Slurring of the speech and abnormal MRI of the brain Referring Provider: TRINIDAD GONZALEZ Hx of Present Illness Patient is a 66-year-old male with a past medical history of hypertension and right knee replacement was admitted at [facility] for infected right knee. He underwent right knee arthroplasty removal, irrigation, and replacement. He was also reporting difficulty in speech. An MRI of the brain showed acute left parietal stroke. There is no weakness. MR angiogram of the neck was unremarkable. Echocardiogram was also normal. Constitutional: improved, no complaints Eyes: no complaints ENT: no complaints Respiratory: no complaints Cardiovascular: no complaints Gastrointestinal: no complaints Genitourinary: no complaints Musculoskeletal: no complaints Skin: no complaints Neurologic: no complaints Endocrine: no complaints Lymphatic: no complaints Psychological: nl mood/affect, no complaints Immunologic: no complaints Past Medical History Medical History: hypertension Past Surgical History Past Surgical Hx: other (Right knee arthroplasty) Social History Alcohol Use: occasionally Smoking Status: Former smoker Drug Use: none Exam/Review of Systems Vital Signs Vitals Vital Signs Date Time Temp Pulse Resp B/P Pulse Ox O2 Delivery O2 Flow Rate FiO2 05/01/17 12:41 74 05/01/17 11:45 98.4 17 120/75 94 04/28/17 14:10 Nasal Cannula 2.0 04/28/17 08:00 30 Intake and Output 04/30/17 04/30/17 05/01/17 15:00 23:00 07:00 Intake Total 1970 ml 300 ml Output Total 1850 ml 1500 ml 1000 ml Balance -1850 ml 470 ml -700 ml Exam Constitutional: alert, oriented, well developed Psych: nl mood/affect, no complaints Head: atraumatic, normocephalic Eyes: EOMI, nl conjunctiva, nl lids, nl sclera ENMT: mucosa pink and moist, nl external ears & nose, nl lips & teeth, nl nasal mucosa & septum Neck: non-tender, supple Respiratory: clear to auscultation, normal air movement Cardiovascular: nl pulses, regular rate and rhythm Gastrointestinal: nl liver, spleen, non-tender, soft Musculoskeletal: joint tenderness Extremities: normal pulses Neurological: RESORT MANAGER II-XII intact, nl mental status, nl speech, nl strength Skin: nl turgor, rash or lesions Lymph: nl lymph nodes Results Result Diagram: 05/01/17 0605/01/17 0601 Results 24 hrs Laboratory Tests Test 04/30/17 22:47 05/01/17 06:01 Vancomycin Level Trough 15.6 White Blood Count 6.2 Red Blood Count 2.98 L Hemoglobin 8.2 L Hematocrit 25.5 L Mean Corpuscular Volume 85.6 Mean Corpuscular Hemoglobin 27.5 L Mean Corpuscular Hemoglobin Concent 32.2 Red Cell Distribution Width 13.5 Platelet Count 189 Mean Platelet Volume 11.3 H Neutrophils % 56.1 Lymphocytes % 27.6 Monocytes % 9.1 Eosinophils % 6.5 Basophils % 0.5 Nucleated Red Blood Cells % 0.0 Neutrophils # (Manual) 3 Lymphocytes # 1.7 Monocytes # 0.6 Eosinophils # 0.4 Basophils # 0.0 Nucleated Red Blood Cells # 0.0 Sodium Level 139 Potassium Level 3.3 L Chloride Level 96 L Carbon Dioxide Level 32 H Anion Gap 14 Blood Urea Nitrogen 11 Creatinine 0.96 Glucose Level 91 Calcium Level 8.8 Phosphorus Level 3.8 Magnesium Level 1.6 L Medications Medications Current Medications Lactated Ringer's (Lr) 1,000 ml @ 125 mls/hr Q8H IV Last administered on t 17:59; Admin Dose 125 MLS/HR; Start 04/27/17 at 18:41 Hydromorphone HCl (Dilaudid) 1 mg Q3H PRN IV PAIN LEVEL 8-10; Start 04/27/17 at 19:00 Ondansetron HCl (Zofran Inj) 4 mg Q6H PRN IV NAUSEA AND/OR VOMITING; Start at 19:00 Bisacodyl (Dulcolax Supp) 10 mg Q12H PRN [place] CONSTIPATION; Start 04/27/17 at 19: 00 Magnesium Hydroxide (Milk Of Mag) 30 ml BID PRN PO CONSTIPATION; Start at 19:00 Sodium Biphosphate/ Sodium Phosphate (Fleet Enema) 133 ml DAILY PRN [place] CONSTIPATION; Start 04/27/17 at 19:00 Docusate Sodium (Colace) 100 mg BID PO Last administered on 05/01/17 09:16; Admin Dose 100 MG; Start 04/27/17 at 21:00 Diphenhydramine HCl (Benadryl) 25 mg Q6H PRN PO PRURITUS; Start 04/27/17 at 19: 00 Acetaminophen/ Hydrocodone Bitart ([place] (7.5-325)) 1 tab Q4H PRN PO PAIN LEVEL 1-3 Last administered on 04/29/17 11:24; Admin Dose 1 TAB; Start at 19:00 Acetaminophen/ Hydrocodone Bitart ([place] (7.5-325)) 2 tab Q4H PRN PO PAIN LEVEL 4-7; Start 04/27/17 at 19:00 Pantoprazole (Protonix Tab) 40 mg BID@06,18 PO Last administered on 05/01/17 05:54; Admin Dose 40 MG; Start 04/28/17 at 06:00 Pregabalin (Lyrica) 50 mg BID PO Last administered on 05/01/17 09:15; Admin Dose 50 MG; Start 04/27/17 at 21:00 Aspirin (Aspirin) 325 mg BID PO Last administered on 05/01/17 09:15; Admin Dose 325 MG; Start 04/28/17 at 10:30 Hydrochlorothiazide (Hydrochlorothiazide) 12.5 mg DAILY PO Last administered on 05/01/17 09:17; Admin Dose 12.5 MG; Start 04/28/17 at 14:30 Metoprolol Tartrate (Lopressor) 25 mg BID PO Last administered on 05/01/17 09: 17; Admin Dose 25 MG; Start 04/29/17 at 09:30 IV Flush 10 ml 10 ml PRN PRN IV IV PROTOCOL; Start 04/30/17 at 14:30 Vancomycin HCl/ Sodium Chloride (Vancocin/NS) 150 ml @ 75 mls/hr Q12H IVPB Last administered on 05/01/17t 11:34; Admin Dose 75 MLS/HR; Start 05/01/17 at 11 :00 Atorvastatin Calcium 80 mg 80 mg HS PO ; Start 05/01/17 at 21:00 Potassium Chloride 250 ml @ 62.5 mls/hr ONCE ONCE IVPB ; Start 05/01/17 at 10: 30; Stop 05/01/17 at 14:29 Magnesium Sulfate/ Dextrose (Magnesium Sulfate 1 Gm/D5W) 100 ml @ 100 mls/hr ONCE ONCE IVPB ; Start 05/01/17 at 15:00; Stop 05/01/17 at 15:59 Procedures Procedures MRI of the brain 04/30/2017 IMPRESSION: Acute left parietal lobe, mainly cortical infarct. There is no midline shift or acute intracranial hemorrhage. Mild age-related volume loss and chronic ischemic white matter disease. Chronic lacunar infarcts within the left frontal lobe periventricular white matter. .Toribio Santoyo MD, Date Time Electronically viewed and signed by .Toribio Santoyo MD, MD on 04/30/2017 22:15 MR angiogram of the neck 04/30/2017 IMPRESSION: Dominant left vertebral artery. Otherwise unremarkable MR angiogram of the neck without contrast. Study limited by patient motion. .Toribio Santoyo MD, Date Time Electronically viewed and signed by .Toribio Santoyo MD, MD on 04/30/2017 23:17 Echocardiogram 04/29/2017 Conclusions 1. Normal left ventricular systolic function. Normal left ventricular cavity size. Normal left ventricular wall thickness. Ejection fraction is visually estimated at 65 %. Tissue Doppler/Mitral Doppler indices are consistent with impaired relaxation (Stage I diastolic dysfunction). 2. Normal appearance and function of the mitral valve with trace physiologic regurgitation. 3. Trace aortic valve regurgitation. 4. Normal appearance of the tricuspid valve. Unable to obtain RVSP due to minimal presence of tricuspid regurgitation. Electronically Signed By: Fortunato Montes De Oca 29-Apr-2017 10:53:45 -0700 ELANA MACARIO MD May 01, 2017 14:03
[2017-05-01] MEDS ORDERED: MAGNESIUM SULFATE 1 GM/D5W 100 ML IVPB ONE (15:00)
--- NOTE | 2017-05-01 16:43 | CONS ---
Date/Time of Note Date/Time of Note DATE: 05/01/17 TIME: 16:42 Assessment/Plan Assessment/Plan Chief Complaint/Hosp Course SUBJECTIVE DATA: No acute changes overnight. The patient is alert, feels good, looks comfortable, no fevers. Microbiology: Intraoperative cultures negative. Antimicrobials. IV vancomycin. PHYSICAL EXAMINATION: GENERAL: Well developed, elderly, man who is alert, in no distress. HEENT: Head atraumatic, normocephalic. Sclerae anicteric. Buccal mucosa pink. NECK: Supple. Trachea midline. CHEST: Rise symmetrical. Breath sounds clear. HEART: S1, S2. ABDOMEN: Soft. Bowel sounds present. EXTREMITIES: Without cyanosis. ASSESSMENT: 1. 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 2. Status post irrigation and debridement of right knee removal of spacer and reimplantation of right total knee arthroplasty on April 27, 2017. 3. Hypertension. 4. Methicillin-resistant Staphylococcus aureus nares colonization. 5. CVA PLAN: The patient remains stable neurology follows, continue present care. Anticipate dc on IV abx for 6 more weeks, s/p PICC DW pt Problems: Consultation Date/Type/Reason Admit Date/Time Apr 27, 2017 at 09:57 Initial Consult Date 04/28/17 Type of Consultation: ID Referring Provider: TRINIDAD GONZALEZ Exam/Review of Systems Vital Signs Vitals Vital Signs Date Time Temp Pulse Resp B/P Pulse Ox O2 Delivery O2 Flow Rate FiO2 05/01/17 15:55 98.8 88 18 127/70 94 04/28/17 14:10 Nasal Cannula 2.0 04/28/17 08:00 30 Intake and Output 04/30/17 04/30/17 05/01/17 15:00 23:00 07:00 Intake Total 1970 ml 300 ml Output Total 1850 ml 1500 ml 1000 ml Balance -1850 ml 470 ml -700 ml Results Result Diagram: 05/01/17 0601 05/01/17 0601 Results 24 hrs Laboratory Tests Test 04/30/17 22:47 05/01/17 06:01 Vancomycin Level Trough 15.6 White Blood Count 6.2 Red Blood Count 2.98 L Hemoglobin 8.2 L Hematocrit 25.5 L Mean Corpuscular Volume 85.6 Mean Corpuscular Hemoglobin 27.5 L Mean Corpuscular Hemoglobin Concent 32.2 Red Cell Distribution Width 13.5 Platelet Count 189 Mean Platelet Volume 11.3 H Neutrophils % 56.1 Lymphocytes % 27.6 Monocytes % 9.1 Eosinophils % 6.5 Basophils % 0.5 Nucleated Red Blood Cells % 0.0 Neutrophils # (Manual) 3 Lymphocytes # 1.7 Monocytes # 0.6 Eosinophils # 0.4 Basophils # 0.0 Nucleated Red Blood Cells # 0.0 Sodium Level 139 Potassium Level 3.3 L Chloride Level 96 L Carbon Dioxide Level 32 H Anion Gap 14 Blood Urea Nitrogen 11 Creatinine 0.96 Glucose Level 91 Calcium Level 8.8 Phosphorus Level 3.8 Magnesium Level 1.6 L Medications Medications Current Medications Lactated Ringer's (Lr) 1,000 ml @ 125 mls/hr Q8H IV Last administered on 17:59; Admin Dose 125 MLS/HR; Start 04/27/17 at 18:41 Hydromorphone HCl (Dilaudid) 1 mg Q3H PRN IV PAIN LEVEL 8-10; Start 04/27/17 at 19:00 Ondansetron HCl (Zofran Inj) 4 mg Q6H PRN IV NAUSEA AND/OR VOMITING; Start at 19:00 Bisacodyl (Dulcolax Supp) 10 mg Q12H PRN [place] CONSTIPATION; Start 04/27/17 at 19: 00 Magnesium Hydroxide (Milk Of Mag) 30 ml BID PRN PO CONSTIPATION; Start at 19:00 Sodium Biphosphate/ Sodium Phosphate (Fleet Enema) 133 ml DAILY PRN [place] CONSTIPATION; Start 04/27/17 at 19:00 Docusate Sodium (Colace) 100 mg BID PO Last administered on 05/01/17 09:16; Admin Dose 100 MG; Start 04/27/17 at 21:00 Diphenhydramine HCl (Benadryl) 25 mg Q6H PRN PO PRURITUS; Start 04/27/17 at 19: 00 Acetaminophen/ Hydrocodone Bitart ([place] (7.5-325)) 1 tab Q4H PRN PO PAIN LEVEL 1-3 Last administered on 04/29/17 11:24; Admin Dose 1 TAB; Start at 19:00 Acetaminophen/ Hydrocodone Bitart ([place] (7.5-325)) 2 tab Q4H PRN PO PAIN LEVEL 4-7; Start 04/27/17 at 19:00 Pantoprazole (Protonix Tab) 40 mg BID@06,18 PO Last administered on 05/01/17 05:54; Admin Dose 40 MG; Start 04/28/17 at 06:00 Pregabalin (Lyrica) 50 mg BID PO Last administered on 05/01/17 09:15; Admin Dose 50 MG; Start 04/27/17 at 21:00 Aspirin (Aspirin) 325 mg BID PO Last administered on 05/01/17 09:15; Admin Dose 325 MG; Start 04/28/17 at 10:30 Hydrochlorothiazide (Hydrochlorothiazide) 12.5 mg DAILY PO Last administered on 05/01/17 09:17; Admin Dose 12.5 MG; Start 04/28/17 at 14:30 Metoprolol Tartrate (Lopressor) 25 mg BID PO Last administered on 05/01/17 09: 17; Admin Dose 25 MG; Start 04/29/17 at 09:30 IV Flush 10 ml 10 ml PRN PRN IV IV PROTOCOL; Start 04/30/17 at 14:30 Vancomycin HCl/ Sodium Chloride (Vancocin/NS) 150 ml @ 75 mls/hr Q12H IVPB Last administered on 05/01/17 11:34; Admin Dose 75 MLS/HR; Start 05/01/17 at 11 :00 Atorvastatin Calcium (Lipitor) 80 mg HS PO ; Start 05/01/17 at 21:00 SHAKIRA EDOUARD NP May 01, 2017 16:43
[2017-05-01] MEDS: ATORVASTATIN 80 MG TAB PO SCH (21:35)
[2017-05-02] VITALS (11 sets, daily range): BP systolic 114–136; BP diastolic 69–78; PULSE 68–94; RESP 17–20
[2017-05-02] MEDS: LACTATED RINGER'S 1,000 ML IV SCH ×3 (02:57→18:05)
[2017-05-02] MEDS: PANTOPRAZOLE (EC) 40 MG TAB PO SCH ×2 (06:07→18:05)
[2017-05-02 06:52] LABS: BASOPHILS % 0.6 % (0.0-2.0); EOSINOPHILS # 0.3 10^3/ul (0.0-0.5); EOSINOPHILS % 6.1 % (0.0-7.0); HEMATOCRIT 22.4 % (42.0-52.0); HEMOGLOBIN 7.3 g/dl (14.0-18.0); LYMPHOCYTES # 1.4 10^3/ul (0.8-2.9); LYMPHOCYTES % 29.2 % (15.0-51.0); MEAN CORPUSCULAR HEMOGLOBIN 28.1 pg (29.0-33.0); MEAN CORPUSCULAR HGB CONC 32.6 g/dl (32.0-37.0); MEAN CORPUSCULAR VOLUME 86.2 fl (82.0-101.0); MEAN PLATELET VOLUME 10.9 fl (7.4-10.4); MONOCYTE # 0.5 10^3/ul (0.3-0.9); MONOCYTES % 10.6 % (0.0-11.0); NEUTROPHILS % 53.3 % (39.0-77.0); PLATELET COUNT 182 10^3/UL (140-415); RED CELL DISTRIBUTION WIDTH 13.5 % (11.5-14.5); WHITE BLOOD COUNT 4.9 10^3/ul (4.8-10.8)
[2017-05-02 07:06] LABS: MAGNESIUM 1.7 mg/dl (1.7-2.5); PHOSPHORUS 3.5 mg/dl (2.5-4.9)
[2017-05-02 07:15] LABS: CALCIUM 7.6 mg/dl (8.4-10.2); CREATININE 0.94 mg/dl (0.61-1.24)
[2017-05-02 07:39] LABS: POTASSIUM 2.9 mmol/L (3.5-5.1)
[2017-05-02] MEDS: PREGABALIN 25 MG CAP PO SCH ×2 (09:47→22:38)
[2017-05-02] MEDS: ASPIRIN 325 MG TAB PO SCH ×2 (09:47→22:38)
[2017-05-02] MEDS: DOCUSATE SODIUM 100 MG CAP PO SCH ×2 (09:47→22:38)
[2017-05-02] MEDS: METOPROLOL 25 MG TAB PO SCH ×2 (09:49→22:39)
[2017-05-02] MEDS: HYDROCHLOROTHIAZIDE 12.5 MG CAP PO SCH (09:49)
[2017-05-02] MEDS: POTASSIUM CHLORIDE 250 ML IVPB SCH ×2 (10:21→16:54)
[2017-05-02 11:26] LABS: HEMOGLOBIN 8.4 g/dl (14.0-18.0)
[2017-05-02] MEDS: VANCOMYCIN 750 MG in SOD CHLORIDE 0.9% 150 ML IVPB SCH ×2 (11:40→23:36)
--- NOTE | 2017-05-02 13:53 | CONS ---
Date/Time of Note Date/Time of Note DATE: 05/02/17 TIME: 13:52 Assessment/Plan Assessment/Plan Chief Complaint/Hosp Course Admitted with infected knee was found to have stroke Problems: Additional Assessment/Plan Patient is a 66-year-old male with a past medical history for hypertension and right knee replacement brought to [facility] for infected right knee. He underwent right knee arthroplasty removal, irrigation, and replacement. MRI of the brain showed left parietal stroke. MR angiogram of the neck was unremarkable. Echocardiogram was also unremarkable Plan 1 continue aspirin and atorvastatin 2 speech evaluation and treatment 3 will follow Consultation Date/Type/Reason Admit Date/Time Apr 27, 2017 at 09:57 Initial Consult Date 05/01/17 Type of Consultation: ID Reason for Consultation Abnormal MRI indicating stroke Referring Provider: TRINIDAD GONZALEZ 24 HR Interval Summary Free Text/Dictation Doing well, walk with a walker. No new complaints Constitutional: no complaints Exam/Review of Systems Vital Signs Vitals Vital Signs Date Time Temp Pulse Resp B/P Pulse Ox O2 Delivery O2 Flow Rate FiO2 05/02/17 13:44 78 05/02/17 11:42 98.8 18 114/69 95 04/28/17 14:10 Nasal Cannula 2.0 04/28/17 08:00 30 Intake and Output 05/01/17 05/01/17 05/02/17 15:00 23:00 07:00 Intake Total 150 ml 3101 ml 250 ml Output Total 320 ml 460 ml 850 ml Balance -170 ml 2641 ml -600 ml Exam Constitutional: alert, oriented, well developed Psych: nl mood/affect, no complaints Head: atraumatic, normocephalic Eyes: EOMI, nl conjunctiva, nl lids ENMT: nl external ears & nose, nl lips & teeth, nl nasal mucosa & septum Neck: non-tender, supple Respiratory: clear to auscultation, normal air movement Cardiovascular: nl pulses, regular rate and rhythm Gastrointestinal: nl liver, spleen, non-tender, soft Musculoskeletal: nl extremities to inspection Extremities: normal pulses Neurological: SECURITY SERVICES MANAGER II-XII intact, nl mental status, nl speech, nl strength Skin: nl turgor, rash or lesions Lymph: nl lymph nodes Results Result Diagram: 05/02/17 1113 05/02/17 0550 Results 24 hrs Laboratory Tests Test 05/02/17 05:50 05/02/17 11:13 White Blood Count 4.9 # Red Blood Count 2.60 L Hemoglobin 7.3 L 8.4 L Hematocrit 22.4 L 26.0 L Mean Corpuscular Volume 86.2 Mean Corpuscular Hemoglobin 28.1 L Mean Corpuscular Hemoglobin Concent 32.6 Red Cell Distribution Width 13.5 Platelet Count 182 Mean Platelet Volume 10.9 H Neutrophils % 53.3 Lymphocytes % 29.2 Monocytes % 10.6 Eosinophils % 6.1 Basophils % 0.6 Nucleated Red Blood Cells % 0.0 Neutrophils # (Manual) 3 Lymphocytes # 1.4 Monocytes # 0.5 Eosinophils # 0.3 Basophils # 0.0 Nucleated Red Blood Cells # 0.0 Sodium Level 142 Potassium Level 2.9 *L Chloride Level 102 Carbon Dioxide Level 29 Anion Gap 14 Blood Urea Nitrogen 11 Creatinine 0.94 Glucose Level 84 Calcium Level 7.6 L Phosphorus Level 3.5 Magnesium Level 1.7 Medications Medications Current Medications Lactated Ringer's (Lr) 1,000 ml @ 125 mls/hr Q8H IV Last administered on 10:20; Admin Dose 125 MLS/HR; Start 04/27/17 at 18:41 Hydromorphone HCl (Dilaudid) 1 mg Q3H PRN IV PAIN LEVEL 8-10; Start 04/27/17 at 19:00 Ondansetron HCl (Zofran Inj) 4 mg Q6H PRN IV NAUSEA AND/OR VOMITING; Start at 19:00 Bisacodyl (Dulcolax Supp) 10 mg Q12H PRN [place] CONSTIPATION; Start 04/27/17 at 19: 00 Magnesium Hydroxide (Milk Of Mag) 30 ml BID PRN PO CONSTIPATION; Start at 19:00 Sodium Biphosphate/ Sodium Phosphate (Fleet Enema) 133 ml DAILY PRN [place] CONSTIPATION; Start 04/27/17 at 19:00 Docusate Sodium (Colace) 100 mg BID PO Last administered on 05/02/17 09:47; Admin Dose 100 MG; Start 04/27/17 at 21:00 Diphenhydramine HCl (Benadryl) 25 mg Q6H PRN PO PRURITUS; Start 04/27/17 at 19: 00 Acetaminophen/ Hydrocodone Bitart ([place] (7.5-325)) 1 tab Q4H PRN PO PAIN LEVEL 1-3 Last administered on 04/29/17 11:24; Admin Dose 1 TAB; Start at 19:00 Acetaminophen/ Hydrocodone Bitart ([place] (7.5-325)) 2 tab Q4H PRN PO PAIN LEVEL 4-7; Start 04/27/17 at 19:00 Pantoprazole (Protonix Tab) 40 mg BID@06,18 PO Last administered on 05/02/17 06:07; Admin Dose 40 MG; Start 04/28/17 at 06:00 Pregabalin (Lyrica) 50 mg BID PO Last administered on 05/02/17 09:47; Admin Dose 50 MG; Start 04/27/17 at 21:00 Aspirin (Aspirin) 325 mg BID PO Last administered on 05/02/17 09:47; Admin Dose 325 MG; Start 04/28/17 at 10:30 Hydrochlorothiazide (Hydrochlorothiazide) 12.5 mg DAILY PO Last administered on 05/02/17 09:49; Admin Dose 12.5 MG; Start 04/28/17 at 14:30 Metoprolol Tartrate (Lopressor) 25 mg BID PO Last administered on 05/02/17 09: 49; Admin Dose 25 MG; Start 04/29/17 at 09:30 IV Flush 10 ml 10 ml PRN PRN IV IV PROTOCOL; Start 04/30/17 at 14:30 Vancomycin HCl/ Sodium Chloride (Vancocin/NS) 150 ml @ 75 mls/hr Q12H IVPB Last administered on 05/02/17 11:40; Admin Dose 75 MLS/HR; Start 05/01/17 at 11 :00 Atorvastatin Calcium 80 mg 80 mg HS PO Last administered on 05/01/17 21:35; Admin Dose 80 MG; Start 05/01/17 at 21:00 Potassium Chloride (KCl 40 MEQ/250 ML NS) 250 ml @ 62.5 mls/hr Q4H IVPB Last administered on 05/02/17 10:21; Admin Dose 62.5 MLS/HR; Start 05/02/17 at 10:30 ; Stop 05/02/17 at 18:29 Miscellaneous Information (*Rx Drug Level Order Reminder*) VANCOMYCIN TROUGH AT 2200 ONCE ONCE XX ; Start 05/02/17 at 22:00; Stop 05/02/17 at 22:01 ELANA MACARIO MD May 02, 2017 13:53
--- NOTE | 2017-05-02 14:23 | CONS ---
Date/Time of Note Date/Time of Note DATE: 05/02/17 TIME: 14:21 Assessment/Plan Assessment/Plan Chief Complaint/Hosp Course SUBJECTIVE DATA: No acute changes overnight. The patient is alert, feels good, looks comfortable, no fevers. Microbiology: Intraoperative cultures negative. Antimicrobials. IV vancomycin. PHYSICAL EXAMINATION: GENERAL: Well developed, elderly, man who is alert, in no distress. HEENT: Head atraumatic, normocephalic. Sclerae anicteric. Buccal mucosa pink. NECK: Supple. Trachea midline. CHEST: Rise symmetrical. Breath sounds clear. HEART: S1, S2. ABDOMEN: Soft. Bowel sounds present. EXTREMITIES: Without cyanosis. ASSESSMENT: 1. 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 2. Status post irrigation and debridement of right knee removal of spacer and reimplantation of right total knee arthroplasty on April 27, 2017. 3. Hypertension. 4. Methicillin-resistant Staphylococcus aureus nares colonization. 5. CVA PLAN: The patient remains stable neurology follows, continue present care. Anticipate dc on IV Vanco till Jun 13, f/u with ortho DW pt Problems: Consultation Date/Type/Reason Admit Date/Time Apr 27, 2017 at 09:57 Initial Consult Date 04/28/17 Type of Consultation: ID Referring Provider: TRINIDAD GONZALEZ Exam/Review of Systems Vital Signs Vitals Vital Signs Date Time Temp Pulse Resp B/P Pulse Ox O2 Delivery O2 Flow Rate FiO2 05/02/17 13:44 78 05/02/17 11:42 98.8 18 114/69 95 04/28/17 14:10 Nasal Cannula 2.0 04/28/17 08:00 30 Intake and Output 05/01/17 05/01/17 05/02/17 15:00 23:00 07:00 Intake Total 150 ml 3101 ml 250 ml Output Total 320 ml 460 ml 850 ml Balance -170 ml 2641 ml -600 ml Results Result Diagram: 05/02/17 1113 05/02/17 0550 Results 24 hrs Laboratory Tests Test 05/02/17 05:50 05/02/17 11:13 White Blood Count 4.9 # Red Blood Count 2.60 L Hemoglobin 7.3 L 8.4 L Hematocrit 22.4 L 26.0 L Mean Corpuscular Volume 86.2 Mean Corpuscular Hemoglobin 28.1 L Mean Corpuscular Hemoglobin Concent 32.6 Red Cell Distribution Width 13.5 Platelet Count 182 Mean Platelet Volume 10.9 H Neutrophils % 53.3 Lymphocytes % 29.2 Monocytes % 10.6 Eosinophils % 6.1 Basophils % 0.6 Nucleated Red Blood Cells % 0.0 Neutrophils # (Manual) 3 Lymphocytes # 1.4 Monocytes # 0.5 Eosinophils # 0.3 Basophils # 0.0 Nucleated Red Blood Cells # 0.0 Sodium Level 142 Potassium Level 2.9 *L Chloride Level 102 Carbon Dioxide Level 29 Anion Gap 14 Blood Urea Nitrogen 11 Creatinine 0.94 Glucose Level 84 Calcium Level 7.6 L Phosphorus Level 3.5 Magnesium Level 1.7 Medications Medications Current Medications Lactated Ringer's (Lr) 1,000 ml @ 125 mls/hr Q8H IV Last administered on 10:20; Admin Dose 125 MLS/HR; Start 04/27/17 at 18:41 Hydromorphone HCl (Dilaudid) 1 mg Q3H PRN IV PAIN LEVEL 8-10; Start 04/27/17 at 19:00 Ondansetron HCl (Zofran Inj) 4 mg Q6H PRN IV NAUSEA AND/OR VOMITING; Start at 19:00 Bisacodyl (Dulcolax Supp) 10 mg Q12H PRN [place] CONSTIPATION; Start 04/27/17 at 19: 00 Magnesium Hydroxide (Milk Of Mag) 30 ml BID PRN PO CONSTIPATION; Start at 19:00 Sodium Biphosphate/ Sodium Phosphate (Fleet Enema) 133 ml DAILY PRN [place] CONSTIPATION; Start 04/27/17 at 19:00 Docusate Sodium (Colace) 100 mg BID PO Last administered on 05/02/17 09:47; Admin Dose 100 MG; Start 04/27/17 at 21:00 Diphenhydramine HCl (Benadryl) 25 mg Q6H PRN PO PRURITUS; Start 04/27/17 at 19: 00 Acetaminophen/ Hydrocodone Bitart ([place] (7.5-325)) 1 tab Q4H PRN PO PAIN LEVEL 1-3 Last administered on 04/29/17 11:24; Admin Dose 1 TAB; Start at 19:00 Acetaminophen/ Hydrocodone Bitart ([place] (7.5-325)) 2 tab Q4H PRN PO PAIN LEVEL 4-7; Start 04/27/17 at 19:00 Pantoprazole (Protonix Tab) 40 mg BID@06,18 PO Last administered on 05/02/17 06:07; Admin Dose 40 MG; Start 04/28/17 at 06:00 Pregabalin (Lyrica) 50 mg BID PO Last administered on 05/02/17 09:47; Admin Dose 50 MG; Start 04/27/17 at 21:00 Aspirin (Aspirin) 325 mg BID PO Last administered on 05/02/17 09:47; Admin Dose 325 MG; Start 04/28/17 at 10:30 Hydrochlorothiazide (Hydrochlorothiazide) 12.5 mg DAILY PO Last administered on 05/02/17 09:49; Admin Dose 12.5 MG; Start 04/28/17 at 14:30 Metoprolol Tartrate (Lopressor) 25 mg BID PO Last administered on 05/02/17 09: 49; Admin Dose 25 MG; Start 04/29/17 at 09:30 IV Flush 10 ml 10 ml PRN PRN IV IV PROTOCOL; Start 04/30/17 at 14:30 Vancomycin HCl/ Sodium Chloride (Vancocin/NS) 150 ml @ 75 mls/hr Q12H IVPB Last administered on 05/02/17 11:40; Admin Dose 75 MLS/HR; Start 05/01/17 at 11 :00 Atorvastatin Calcium 80 mg 80 mg HS PO Last administered on 05/01/17 21:35; Admin Dose 80 MG; Start 05/01/17 at 21:00 Potassium Chloride (KCl 40 MEQ/250 ML NS) 250 ml @ 62.5 mls/hr Q4H IVPB Last administered on 05/02/17 10:21; Admin Dose 62.5 MLS/HR; Start 05/02/17 at 10:30 ; Stop 05/02/17 at 18:29 Miscellaneous Information (*Rx Drug Level Order Reminder*) VANCOMYCIN TROUGH AT 2200 ONCE ONCE XX ; Start 05/02/17 at 22:00; Stop 05/02/17 at 22:01 SHAKIRA EDOUARD NP May 02, 2017 14:22
--- NOTE | 2017-05-02 15:22 | PN ---
Date/Time of Note Date/Time of Note DATE: 05/02/17 TIME: 15:19 Assessment/Plan Lines/Catheters IV Catheter Type (from Nrsg): PICC Line Arriaga in Place (from Nrsg): Yes Assessment/Plan Assessment/Plan POD # 5. Stable. Left parietal stroke but no focal motor/sensory deficits -OOB with PT -Pain meds -IV Vanco x 6 weeks via PICC line, then director long term care PO ABX -ASA/SCDs -D/C to home once cleared by Neurology and Medicine -F/u with me in 1 week for suture removal Subjective 24 Hr Interval Summary Resting comfortably. Looks good. Pain in knee well controlled. Exam/Review of Systems Vital Signs Vitals Vital Signs Date Time Temp Pulse Resp B/P Pulse Ox O2 Delivery O2 Flow Rate FiO2 05/02/17 13:44 78 05/02/17 11:42 98.8 18 114/69 95 04/28/17 14:10 Nasal Cannula 2.0 04/28/17 08:00 30 Intake and Output 05/01/17 05/01/17 05/02/17 15:00 23:00 07:00 Intake Total 150 ml 3101 ml 250 ml Output Total 320 ml 460 ml 850 ml Balance -170 ml 2641 ml -600 ml Exam Free Text/Dictation No focal motor or sensory deficits Dressing dry Incision clean, dry, and intact without redness or drainage 5/5 Tibialis Anterior, EHL, Gastroc Soleus, Peroneals Normal sensation Palpable DP/PT, CR < 2 Sec No distal edema All cultures negative from surgery Results Result Diagram: 05/02/17 1113 05/02/17 0550 DELORES BAER MD May 02, 2017 15:22
[2017-05-02] MEDS: ATORVASTATIN 80 MG TAB PO SCH (22:39)
[2017-05-03] VITALS (12 sets, daily range): BP systolic 120–137; BP diastolic 71–79; PULSE 74–86; RESP 14–20
[2017-05-03] MEDS: LACTATED RINGER'S 1,000 ML IV SCH ×2 (02:41→11:25)
[2017-05-03] MEDS: PANTOPRAZOLE (EC) 40 MG TAB PO SCH ×2 (05:59→17:38)
[2017-05-03 06:43] LABS: HEMATOCRIT 23.9 % (42.0-52.0); HEMOGLOBIN 7.7 g/dl (14.0-18.0)
[2017-05-03 07:04] LABS: CALCIUM 8.8 mg/dl (8.4-10.2); CREATININE 1.07 mg/dl (0.61-1.24); POTASSIUM 3.8 mmol/L (3.5-5.1)
[2017-05-03] MEDS: ASPIRIN 325 MG TAB PO SCH ×2 (08:44→20:44)
[2017-05-03] MEDS: DOCUSATE SODIUM 100 MG CAP PO SCH ×2 (08:44→20:44)
[2017-05-03] MEDS: PREGABALIN 25 MG CAP PO SCH ×2 (08:45→20:44)
[2017-05-03] MEDS: METOPROLOL 25 MG TAB PO SCH ×2 (08:45→20:45)
[2017-05-03] MEDS: HYDROCHLOROTHIAZIDE 12.5 MG CAP PO SCH (08:45)
--- NOTE | 2017-05-03 08:51 | PN ---
Date/Time of Note Date/Time of Note DATE: 05/03/17 TIME: 08:49 Assessment/Plan Lines/Catheters IV Catheter Type (from Nrsg): PICC Line Arriaga in Place (from Nrsg): Yes Assessment/Plan Assessment/Plan POD #6, s/p revision right TKA -continue abx per ID -pain meds as needed -ASA/SCDs for DVT prophylaxis -OOB with PT -follow cardio and neuro recommendations -dressing changed -check AM labs -stable for d/c from an orthopedic standpoint Subjective 24 Hr Interval Summary No acute overnight events. Having mild knee pain. Being followed by cardio and neuro and scheduled for speech study today. H&H low but would like to hold off on transfusion due to restoration beliefs. VSS, afebrile. Stable to go home from an orthopedic standpoint Exam/Review of Systems Vital Signs Vitals Vital Signs Date Time Temp Pulse Resp B/P Pulse Ox O2 Delivery O2 Flow Rate FiO2 05/03/17 07:32 98.6 78 19 129/76 97 Intake and Output 05/02/17 05/02/17 05/03/17 15:00 23:00 07:00 Intake Total 800 ml 1050 ml 250 ml Output Total 850 ml Balance 800 ml 1050 ml -600 ml Exam Free Text/Dictation Dressing dry Incision clean, dry, and intact without redness or drainage Thigh soft 5/5 Quadriceps, Tibialis Anterior, EHL, Gastroc, Soleus, Peroneals Normal sensation Palpable DT/PT, CR <2 sec No distal edema Results Result Diagram: 05/03/17 0602 05/03/17 0603 GAUTAM JASON PA-C May 03, 2017 08:51
--- NOTE | 2017-05-03 10:24 | CONS ---
Date/Time of Note Date/Time of Note DATE: 05/03/17 TIME: 10:22 Consult Date/Type/Reason Admit Date/Time Apr 27, 2017 at 09:57 Initial Consult Date 05/01/17 Type of Consultation: Neurology Reason for Consultation CVA Ordering Provider: TRINIDAD GONZALEZ Subjective expressive aphasia otherwise no other deficits Objective Vital Signs Date Time Temp Pulse Resp B/P Pulse Ox O2 Delivery O2 Flow Rate FiO2 05/03/17 09:09 79 05/03/17 07:32 98.6 19 129/76 97 Intake and Output 05/02/17 05/02/17 05/03/17 15:00 23:00 07:00 Intake Total 800 ml 1050 ml 250 ml Output Total 850 ml Balance 800 ml 1050 ml -600 ml Exam awake and alert oriented to self, hospital can follow commands difficulty with repetition, intact naming difficulty with 3 step commands CN: II-XII intact Motor: no drift in extremities 5/5 throughout Coordination no ataxia Results/Medications Result Diagram: 05/03/17 0602 05/03/17 0603 Results 24 hrs Laboratory Tests Test 05/02/17 11:13 05/02/17 22:34 05/03/17 06:02 05/03/17 06:03 Hemoglobin 8.4 L 7.7 L Hematocrit 26.0 L 23.9 L Vancomycin Level Trough 12.3 Sodium Level 135 Potassium Level 3.8 Chloride Level 100 Carbon Dioxide Level 30 Anion Gap 9 # Blood Urea Nitrogen 12 Creatinine 1.07 Glucose Level 98 Calcium Level 8.8 Medications Current Medications Lactated Ringer's (Lr) 1,000 ml @ 125 mls/hr Q8H IV Last administered on t 10:20; Admin Dose 125 MLS/HR; Start 04/27/17 at 18:41 Hydromorphone HCl (Dilaudid) 1 mg Q3H PRN IV PAIN LEVEL 8-10; Start 04/27/17 at 19:00 Ondansetron HCl (Zofran Inj) 4 mg Q6H PRN IV NAUSEA AND/OR VOMITING; Start at 19:00 Bisacodyl (Dulcolax Supp) 10 mg Q12H PRN [place] CONSTIPATION; Start 04/27/17 at 19: 00 Magnesium Hydroxide (Milk Of Mag) 30 ml BID PRN PO CONSTIPATION; Start at 19:00 Sodium Biphosphate/ Sodium Phosphate (Fleet Enema) 133 ml DAILY PRN [place] CONSTIPATION; Start 04/27/17 at 19:00 Docusate Sodium (Colace) 100 mg BID PO Last administered on 05/03/17 08:44; Admin Dose 100 MG; Start 04/27/17 at 21:00 Diphenhydramine HCl (Benadryl) 25 mg Q6H PRN PO PRURITUS; Start 04/27/17 at 19: 00 Acetaminophen/ Hydrocodone Bitart ([place] (7.5-325)) 1 tab Q4H PRN PO PAIN LEVEL 1-3 Last administered on 04/29/17 11:24; Admin Dose 1 TAB; Start at 19:00 Acetaminophen/ Hydrocodone Bitart ([place] (7.5-325)) 2 tab Q4H PRN PO PAIN LEVEL 4-7; Start 04/27/17 at 19:00 Pantoprazole (Protonix Tab) 40 mg BID@06,18 PO Last administered on 05/03/17 05:59; Admin Dose 40 MG; Start 04/28/17 at 06:00 Pregabalin (Lyrica) 50 mg BID PO Last administered on 05/03/17 08:45; Admin Dose 50 MG; Start 04/27/17 at 21:00 Aspirin (Aspirin) 325 mg BID PO Last administered on 05/03/17 08:44; Admin Dose 325 MG; Start 04/28/17 at 10:30 Hydrochlorothiazide (Hydrochlorothiazide) 12.5 mg DAILY PO Last administered on 05/03/17 08:45; Admin Dose 12.5 MG; Start 04/28/17 at 14:30 Metoprolol Tartrate (Lopressor) 25 mg BID PO Last administered on 05/03/17 08: 45; Admin Dose 25 MG; Start 04/29/17 at 09:30 IV Flush 10 ml 10 ml PRN PRN IV IV PROTOCOL; Start 04/30/17 at 14:30 Vancomycin HCl/ Sodium Chloride (Vancocin/NS) 150 ml @ 75 mls/hr Q12H IVPB Last administered on 05/02/17 23:36; Admin Dose 75 MLS/HR; Start 05/01/17 at 11 :00 Atorvastatin Calcium (Lipitor) 80 mg HS PO Last administered on 05/02/17t 22:39 ; Admin Dose 80 MG; Start 05/01/17 at 21:00 Assessment/Plan Chief Complaint/Hosp Course 66-year-old male with a past medical history for hypertension and right knee replacement brought to [facility] for infected right knee. He underwent right knee arthroplasty removal, irrigation, and replacement. MRI of the brain showed left parietal stroke. MR angiogram of the neck was unremarkable. Echocardiogram was also unremarkable Plan -recommend LE Dupelx possible embolus from a DVT and PFO, ECHO was done without bubble study may repeat with a bubble study -c/w asa and statin -outpatient speech therapies Problems: WENDY REID MD May 03, 2017 10:24
[2017-05-03] MEDS: VANCOMYCIN 750 MG in SOD CHLORIDE 0.9% 150 ML IVPB SCH ×2 (11:27→22:57)
--- NOTE | 2017-05-03 13:50 | RADRPT ---
PROCEDURE: US Lower extremity Venous. CLINICAL INDICATION: Bilateral lower extremity edema TECHNIQUE: Multiple sonographic images of the bilateral lower extremity deep venous system was obt ained utilizing grayscale, color-flow, compressive sonography and doppler imaging with augmentation. The images were reviewed on a PACS workstation. COMPARISON: None. FINDINGS: There is normal compressibility and flow within the bilateral common femoral, femoral , posterior ti bial and popliteal veins. RPTAT: AA IMPRESSION: No sonographic evidence for deep venous thrombosis. .Rafita Castaneda MD, MD Date Time Electronically viewed and signed by .Rafita Castaneda MD, on 05/03/2017 13:50 .S/
--- NOTE | 2017-05-03 15:27 | CONS ---
Date/Time of Note Date/Time of Note DATE: 05/03/17 TIME: 15:24 Assessment/Plan Assessment/Plan Chief Complaint/Hosp Course SUBJECTIVE DATA: No acute changes overnight. The patient is alert, feels good, looks comfortable, no fevers. BLE US neg for DVT Microbiology: Intraoperative cultures negative. Antimicrobials. IV vancomycin. PHYSICAL EXAMINATION: GENERAL: Well developed, elderly, man who is alert, in no distress. HEENT: Head atraumatic, normocephalic. Sclerae anicteric. Buccal mucosa pink. NECK: Supple. Trachea midline. CHEST: Rise symmetrical. Breath sounds clear. HEART: S1, S2. ABDOMEN: Soft. Bowel sounds present. EXTREMITIES: Without cyanosis. ASSESSMENT: 1. 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 2. Status post irrigation and debridement of right knee removal of spacer and reimplantation of right total knee arthroplasty on April 27, 2017. 3. Hypertension. 4. Methicillin-resistant Staphylococcus aureus nares colonization. 5. CVA PLAN: The patient remains stable neurology follows, continue present care. Per ortho rec-s anticipate dc on IV Vanco till Jun 13, f/u with ortho for further rec-s DW pt Problems: Consultation Date/Type/Reason Admit Date/Time Apr 27, 2017 at 09:57 Initial Consult Date 04/28/17 Type of Consultation: id Referring Provider: TRINIDAD GONZALEZ Exam/Review of Systems Vital Signs Vitals Vital Signs Date Time Temp Pulse Resp B/P Pulse Ox O2 Delivery O2 Flow Rate FiO2 05/03/17 12:34 75 05/03/17 12:09 98.6 20 136/73 98 Intake and Output 05/02/17 05/02/17 05/03/17 15:00 23:00 07:00 Intake Total 800 ml 1050 ml 250 ml Output Total 850 ml Balance 800 ml 1050 ml -600 ml Results Result Diagram: 05/03/17 0602 05/03/17 0603 Results 24 hrs Laboratory Tests Test 05/02/17 22:34 05/03/17 06:02 05/03/17 06:03 Vancomycin Level Trough 12.3 Hemoglobin 7.7 L Hematocrit 23.9 L Sodium Level 135 Potassium Level 3.8 Chloride Level 100 Carbon Dioxide Level 30 Anion Gap 9 # Blood Urea Nitrogen 12 Creatinine 1.07 Glucose Level 98 Calcium Level 8.8 Medications Medications Current Medications Hydromorphone HCl (Dilaudid) 1 mg Q3H PRN IV PAIN LEVEL 8-10; Start 04/27/17 at 19:00 Ondansetron HCl (Zofran Inj) 4 mg Q6H PRN IV NAUSEA AND/OR VOMITING; Start at 19:00 Bisacodyl (Dulcolax Supp) 10 mg Q12H PRN [place] CONSTIPATION; Start 04/27/17 at 19: 00 Magnesium Hydroxide (Milk Of Mag) 30 ml BID PRN PO CONSTIPATION; Start at 19:00 Sodium Biphosphate/ Sodium Phosphate (Fleet Enema) 133 ml DAILY PRN [place] CONSTIPATION; Start 04/27/17 at 19:00 Docusate Sodium (Colace) 100 mg BID PO Last administered on 05/03/17 08:44; Admin Dose 100 MG; Start 04/27/17 at 21:00 Diphenhydramine HCl (Benadryl) 25 mg Q6H PRN PO PRURITUS; Start 04/27/17 at 19: 00 Acetaminophen/ Hydrocodone Bitart ([place] (7.5-325)) 1 tab Q4H PRN PO PAIN LEVEL 1-3 Last administered on 04/29/17 11:24; Admin Dose 1 TAB; Start at 19:00 Acetaminophen/ Hydrocodone Bitart ([place] (7.5-325)) 2 tab Q4H PRN PO PAIN LEVEL 4-7; Start 04/27/17 at 19:00 Pantoprazole (Protonix Tab) 40 mg BID@,18 PO Last administered on 05/03/17 05:59; Admin Dose 40 MG; Start 04/28/17 at 06:00 Pregabalin (Lyrica) 50 mg BID PO Last administered on 05/03/17 08:45; Admin Dose 50 MG; Start 04/27/17 at 21:00 Aspirin (Aspirin) 325 mg BID PO Last administered on 05/03/17 08:44; Admin Dose 325 MG; Start 04/28/17 at 10:30 Hydrochlorothiazide (Hydrochlorothiazide) 12.5 mg DAILY PO Last administered on 05/03/17 08:45; Admin Dose 12.5 MG; Start 04/28/17 at 14:30 Metoprolol Tartrate (Lopressor) 25 mg BID PO Last administered on 05/03/17 08: 45; Admin Dose 25 MG; Start 04/29/17 at 09:30 IV Flush 10 ml 10 ml PRN PRN IV IV PROTOCOL; Start 04/30/17 at 14:30 Vancomycin HCl/ Sodium Chloride (Vancocin/NS) 150 ml @ 75 mls/hr Q12H IVPB Last administered on 05/03/17 11:27; Admin Dose 75 MLS/HR; Start 05/01/17 at 11 :00 Atorvastatin Calcium (Lipitor) 80 mg HS PO Last administered on 05/02/17 22:39 ; Admin Dose 80 MG; Start 05/01/17 at 21:00 SHAKIRA EDOUARD NP May 03, 2017 15:27
--- NOTE | 2017-05-03 15:38 | CONS ---
Date/Time of Note Date/Time of Note DATE: 05/03/17 TIME: 15:36 Consult Date/Type/Reason Admit Date/Time Apr 27, 2017 at 09:57 Initial Consult Date 04/28/17 Type of Consultation: id Ordering Provider: TRINIDAD GONZALEZ d/w staff and rhythm was reviewed. pt with no left sided chest pain./ no palpitations + knee pain OBJECTIVE: General: no acute distress HEENT: NC/AT. pupils are equal. round. NECK: NO JVD. no stridor. CV: RRR. systolic murmur; no gallop or rubs. PULM: no wheezing or rhonchi. GI: SOFT, NT, ND, no rebound or guarding Extremity: S/P R KNEE SURGERY neuro: awake and alert, OX3. Psych: calm and pleasant rectal: deferred : normal Objective Vital Signs Date Time Temp Pulse Resp B/P Pulse Ox O2 Delivery O2 Flow Rate FiO2 05/03/17 12:34 75 05/03/17 12:09 98.6 20 136/73 98 Intake and Output 05/02/17 05/02/17 05/03/17 15:00 23:00 07:00 Intake Total 800 ml 1050 ml 250 ml Output Total 850 ml Balance 800 ml 1050 ml -600 ml Results/Medications Result Diagram: 05/03/17 0602 05/03/17 0603 Results 24 hrs Laboratory Tests Test 05/02/17 22:34 05/03/17 06:02 05/03/17 06:03 Vancomycin Level Trough 12.3 Hemoglobin 7.7 L Hematocrit 23.9 L Sodium Level 135 Potassium Level 3.8 Chloride Level 100 Carbon Dioxide Level 30 Anion Gap 9 # Blood Urea Nitrogen 12 Creatinine 1.07 Glucose Level 98 Calcium Level 8.8 Medications Current Medications Hydromorphone HCl (Dilaudid) 1 mg Q3H PRN IV PAIN LEVEL 8-10; Start 04/27/17 at 19:00 Ondansetron HCl (Zofran Inj) 4 mg Q6H PRN IV NAUSEA AND/OR VOMITING; Start at 19:00 Bisacodyl (Dulcolax Supp) 10 mg Q12H PRN [place] CONSTIPATION; Start 04/27/17 at 19: 00 Magnesium Hydroxide (Milk Of Mag) 30 ml BID PRN PO CONSTIPATION; Start at 19:00 Sodium Biphosphate/ Sodium Phosphate (Fleet Enema) 133 ml DAILY PRN [place] CONSTIPATION; Start 04/27/17 at 19:00 Docusate Sodium (Colace) 100 mg BID PO Last administered on 05/03/17 08:44; Admin Dose 100 MG; Start 04/27/17 at 21:00 Diphenhydramine HCl (Benadryl) 25 mg Q6H PRN PO PRURITUS; Start 04/27/17 at 19: 00 Acetaminophen/ Hydrocodone Bitart ([place] (7.5-325)) 1 tab Q4H PRN PO PAIN LEVEL 1-3 Last administered on 04/29/17 11:24; Admin Dose 1 TAB; Start at 19:00 Acetaminophen/ Hydrocodone Bitart ([place] (7.5-325)) 2 tab Q4H PRN PO PAIN LEVEL 4-7; Start 04/27/17 at 19:00 Pantoprazole (Protonix Tab) 40 mg BID@06,18 PO Last administered on 05/03/17 05:59; Admin Dose 40 MG; Start 04/28/17 at 06:00 Pregabalin (Lyrica) 50 mg BID PO Last administered on 05/03/17 08:45; Admin Dose 50 MG; Start 04/27/17 at 21:00 Aspirin (Aspirin) 325 mg BID PO Last administered on 05/03/17 08:44; Admin Dose 325 MG; Start 04/28/17 at 10:30 Hydrochlorothiazide (Hydrochlorothiazide) 12.5 mg DAILY PO Last administered on 05/03/17 08:45; Admin Dose 12.5 MG; Start 04/28/17 at 14:30 Metoprolol Tartrate (Lopressor) 25 mg BID PO Last administered on 05/03/17 08: 45; Admin Dose 25 MG; Start 04/29/17 at 09:30 IV Flush 10 ml 10 ml PRN PRN IV IV PROTOCOL; Start 04/30/17 at 14:30 Vancomycin HCl/ Sodium Chloride (Vancocin/NS) 150 ml @ 75 mls/hr Q12H IVPB Last administered on 05/03/17 11:27; Admin Dose 75 MLS/HR; Start 05/01/17 at 11 :00 Atorvastatin Calcium (Lipitor) 80 mg HS PO Last administered on 05/02/17t 22:39 ; Admin Dose 80 MG; Start 05/01/17 at 21:00 Assessment/Plan Chief Complaint/Hosp Course Assessment/plan: 1. s/p marked arrhythmia and bradycardia during surgery and possible ST elevation on rhythm but not seen on ECG pt currently with no chest pain and normal trop will cont ASA will hold off lexiscan due to acute CVA now. 2.HTN: stable now 3. resp failure: extubated 4. dyslipidemia 5. infected right hearwear s/p surgery: f/u ortho rec. abx as per ID 6.CVA: defer to IM and neurology rec. Thank you for this referral will continue to follow along with you next week. Problems: LISA MOLINA MD May 03, 2017 15:38
--- NOTE | 2017-05-03 18:55 | PN ---
Date/Time of Note Date/Time of Note DATE: 05/03/17 TIME: 18:53 Assessment/Plan VTE Prophylaxis VTE Prophylaxis Intervention: other (pt is on ASA 25 mg BID ) Lines/Catheters IV Catheter Type (from Nrsg): PICC Line Central line still needed: Yes (IV abx plan ) Urinary Cath still in place: Yes Reason Cath still needed: urinary retention, other (indicate) (stric tI/O ) Assessment/Plan Assessment/Plan L Parietal lobe CVA, acute Sinus bradycardia, resolved Infected right knee arthroplasty, status post replacement and irrigation Intubation for airway protection, extubated immediately Hypertension Anemia, mild Hypokalemia, mild Plan -acute CVA yesterday, teleneurologist called, mri ordered. no TPA given. -speech therapy, PT consult cradiology followin g, no p miranda for intervention now -ID consulted, pending final recs for abx duration length. vanco for now and bactrim later. s/p PICC line -Continue knee care per ortho surgery. -Resume p.o. meds d/c IV fluids D/c santos catheer in AM Subjective 24 Hr Interval Summary Free Text/Dictation doing ok, pain controlled, BP stable,a febrile Exam/Review of Systems Vital Signs Vitals Vital Signs Date Time Temp Pulse Resp B/P Pulse Ox O2 Delivery O2 Flow Rate FiO2 05/03/17 16:44 80 05/03/17 16:02 98.5 19 124/71 98 Intake and Output 05/02/17 05/02/17 05/03/17 15:00 23:00 07:00 Intake Total 800 ml 1050 ml 250 ml Output Total 850 ml Balance 800 ml 1050 ml -600 ml Results Result Diagram: 05/03/17 0602 05/03/17 0603 Results 24 hrs Laboratory Tests Test 05/02/17 22:34 05/03/17 06:02 05/03/17 06:03 Vancomycin Level Trough 12.3 Hemoglobin 7.7 L Hematocrit 23.9 L Sodium Level 135 Potassium Level 3.8 Chloride Level 100 Carbon Dioxide Level 30 Anion Gap 9 # Blood Urea Nitrogen 12 Creatinine 1.07 Glucose Level 98 Calcium Level 8.8 Medications Medications Current Medications Hydromorphone HCl (Dilaudid) 1 mg Q3H PRN IV PAIN LEVEL 8-10; Start 04/27/17 at 19:00 Ondansetron HCl (Zofran Inj) 4 mg Q6H PRN IV NAUSEA AND/OR VOMITING; Start at 19:00 Bisacodyl (Dulcolax Supp) 10 mg Q12H PRN [place] CONSTIPATION; Start 04/27/17 at 19: 00 Magnesium Hydroxide (Milk Of Mag) 30 ml BID PRN PO CONSTIPATION; Start at 19:00 Sodium Biphosphate/ Sodium Phosphate (Fleet Enema) 133 ml DAILY PRN [place] CONSTIPATION; Start 04/27/17 at 19:00 Docusate Sodium (Colace) 100 mg BID PO Last administered on 05/03/17 08:44; Admin Dose 100 MG; Start 04/27/17 at 21:00 Diphenhydramine HCl (Benadryl) 25 mg Q6H PRN PO PRURITUS; Start 04/27/17 at 19: 00 Acetaminophen/ Hydrocodone Bitart ([place] (7.5-325)) 1 tab Q4H PRN PO PAIN LEVEL 1-3 Last administered on 04/29/17 11:24; Admin Dose 1 TAB; Start at 19:00 Acetaminophen/ Hydrocodone Bitart ([place] (7.5-325)) 2 tab Q4H PRN PO PAIN LEVEL 4-7; Start 04/27/17 at 19:00 Pantoprazole (Protonix Tab) 40 mg BID@06,18 PO Last administered on 05/03/17 17:38; Admin Dose 40 MG; Start 04/28/17 at 06:00 Pregabalin (Lyrica) 50 mg BID PO Last administered on 05/03/17 08:45; Admin Dose 50 MG; Start 04/27/17 at 21:00 Aspirin (Aspirin) 325 mg BID PO Last administered on 05/03/17 08:44; Admin Dose 325 MG; Start 04/28/17 at 10:30 Hydrochlorothiazide (Hydrochlorothiazide) 12.5 mg DAILY PO Last administered on 05/03/17 08:45; Admin Dose 12.5 MG; Start 04/28/17 at 14:30 Metoprolol Tartrate (Lopressor) 25 mg BID PO Last administered on 05/03/17 08: 45; Admin Dose 25 MG; Start 04/29/17 at 09:30 IV Flush 10 ml 10 ml PRN PRN IV IV PROTOCOL; Start 04/30/17 at 14:30 Vancomycin HCl/ Sodium Chloride (Vancocin/NS) 150 ml @ 75 mls/hr Q12H IVPB Last administered on 05/03/17 11:27; Admin Dose 75 MLS/HR; Start 05/01/17 at 11 :00 Atorvastatin Calcium (Lipitor) 80 mg HS PO Last administered on 05/02/17 22:39 ; Admin Dose 80 MG; Start 05/01/17 at 21:00 SHIRA EGAN MD May 03, 2017 18:55
[2017-05-03] MEDS: ATORVASTATIN 80 MG TAB PO SCH (20:44)
[2017-05-04] VITALS (13 sets, daily range): BP systolic 113–153; BP diastolic 65–73; PULSE 74–171; RESP 16–18
[2017-05-04] MEDS: PANTOPRAZOLE (EC) 40 MG TAB PO SCH ×2 (05:49→17:22)
[2017-05-04 06:20] LABS: BASOPHIL # 0.1 10^3/ul (0.0-0.1); BASOPHILS % 0.9 % (0.0-2.0); EOSINOPHILS # 0.3 10^3/ul (0.0-0.5); EOSINOPHILS % 6.4 % (0.0-7.0); HEMATOCRIT 24.3 % (42.0-52.0); HEMOGLOBIN 7.7 g/dl (14.0-18.0); LYMPHOCYTES # 1.3 10^3/ul (0.8-2.9); LYMPHOCYTES % 24.1 % (15.0-51.0); MEAN CORPUSCULAR HGB CONC 31.7 g/dl (32.0-37.0); MEAN CORPUSCULAR VOLUME 85.3 fl (82.0-101.0); MEAN PLATELET VOLUME 10.6 fl (7.4-10.4); MONOCYTE # 0.6 10^3/ul (0.3-0.9); MONOCYTES % 11.1 % (0.0-11.0); NEUTROPHILS % 57.1 % (39.0-77.0); PLATELET COUNT 250 10^3/UL (140-415); RED BLOOD COUNT 2.85 10^6/ul (4.70-6.10); RED CELL DISTRIBUTION WIDTH 13.6 % (11.5-14.5); WHITE BLOOD COUNT 5.3 10^3/ul (4.8-10.8)
[2017-05-04 06:52] LABS: INR 1.07; PROTIME 13.9 Sec (12.2-14.2); PT RATIO 1.1
[2017-05-04 07:00] LABS: CALCIUM 9.1 mg/dl (8.4-10.2); CREATININE 1.12 mg/dl (0.61-1.24); POTASSIUM 3.7 mmol/L (3.5-5.1)
[2017-05-04] MEDS: ASPIRIN 325 MG TAB PO SCH ×2 (08:07→21:43)
[2017-05-04] MEDS: DOCUSATE SODIUM 100 MG CAP PO SCH ×2 (08:07→21:43)
[2017-05-04] MEDS: PREGABALIN 25 MG CAP PO SCH ×2 (08:08→21:43)
[2017-05-04] MEDS: HYDROCHLOROTHIAZIDE 12.5 MG CAP PO SCH (08:08)
[2017-05-04] MEDS: METOPROLOL 25 MG TAB PO SCH ×2 (08:08→21:44)
[2017-05-04] MEDS: HYDROCODONE/APAP (7.5/325) TAB PO PRN (09:05)
[2017-05-04] MEDS: VANCOMYCIN 750 MG in SOD CHLORIDE 0.9% 150 ML IVPB SCH ×2 (11:25→22:00)
--- NOTE | 2017-05-04 15:18 | CONS ---
Date/Time of Note Date/Time of Note DATE: 05/04/17 TIME: 15:18 Assessment/Plan Assessment/Plan Chief Complaint/Hosp Course SUBJECTIVE DATA: No acute changes overnight. The patient is alert, feels good, looks comfortable, no fevers. BLE US neg for DVT Microbiology: Intraoperative cultures negative. Antimicrobials. IV vancomycin. PHYSICAL EXAMINATION: GENERAL: Well developed, elderly, man who is alert, in no distress. HEENT: Head atraumatic, normocephalic. Sclerae anicteric. Buccal mucosa pink. NECK: Supple. Trachea midline. CHEST: Rise symmetrical. Breath sounds clear. HEART: S1, S2. ABDOMEN: Soft. Bowel sounds present. EXTREMITIES: Without cyanosis. ASSESSMENT: 1. 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 2. Status post irrigation and debridement of right knee removal of spacer and reimplantation of right total knee arthroplasty on April 27, 2017. 3. Hypertension. 4. Methicillin-resistant Staphylococcus aureus nares colonization. 5. CVA PLAN: The patient remains stable, continue present care. Per ortho rec-s anticipate dc on IV Vanco till Jun 13, f/u with ortho for further rec-s DW pt Problems: Consultation Date/Type/Reason Admit Date/Time Apr 27, 2017 at 09:57 Initial Consult Date 04/28/17 Type of Consultation: id Referring Provider: TRNIIDAD GONZALEZ Exam/Review of Systems Vital Signs Vitals Vital Signs Date Time Temp Pulse Resp B/P Pulse Ox O2 Delivery O2 Flow Rate FiO2 05/04/17 12:41 75 05/04/17 12:17 98.2 16 113/69 96 Intake and Output 05/03/17 05/03/17 05/04/17 15:00 23:00 07:00 Intake Total 1400 ml 350 ml Balance 1400 ml 350 ml Results Result Diagram: 05/04/17 0547 05/04/17 0547 Results 24 hrs Laboratory Tests Test 05/04/17 05:47 White Blood Count 5.3 Red Blood Count 2.85 L Hemoglobin 7.7 L Hematocrit 24.3 L Mean Corpuscular Volume 85.3 Mean Corpuscular Hemoglobin 27.0 L Mean Corpuscular Hemoglobin Concent 31.7 L Red Cell Distribution Width 13.6 Platelet Count 250 # Mean Platelet Volume 10.6 H Neutrophils % 57.1 Lymphocytes % 24.1 Monocytes % 11.1 H Eosinophils % 6.4 Basophils % 0.9 Nucleated Red Blood Cells % 0.0 Neutrophils # (Manual) 3 Lymphocytes # 1.3 Monocytes # 0.6 Eosinophils # 0.3 Basophils # 0.1 Nucleated Red Blood Cells # 0.0 Prothrombin Time 13.9 Prothrombin Time Ratio 1.1 INR International Normalized Ratio 1.07 Activated Partial Thromboplast Time 36.0 H Sodium Level 140 Potassium Level 3.7 Chloride Level 97 Carbon Dioxide Level 30 Anion Gap 17 #H Blood Urea Nitrogen 17 Creatinine 1.12 Glucose Level 108 Calcium Level 9.1 Medications Medications Current Medications Hydromorphone HCl (Dilaudid) 1 mg Q3H PRN IV PAIN LEVEL 8-10; Start 04/27/17 at 19:00 Ondansetron HCl (Zofran Inj) 4 mg Q6H PRN IV NAUSEA AND/OR VOMITING; Start at 19:00 Bisacodyl (Dulcolax Supp) 10 mg Q12H PRN [place] CONSTIPATION; Start 04/27/17 at 19: 00 Magnesium Hydroxide (Milk Of Mag) 30 ml BID PRN PO CONSTIPATION; Start at 19:00 Sodium Biphosphate/ Sodium Phosphate (Fleet Enema) 133 ml DAILY PRN [place] CONSTIPATION; Start 04/27/17 at 19:00 Docusate Sodium (Colace) 100 mg BID PO Last administered on 05/04/17 08:07; Admin Dose 100 MG; Start 04/27/17 at 21:00 Diphenhydramine HCl (Benadryl) 25 mg Q6H PRN PO PRURITUS; Start 04/27/17 at 19: 00 Acetaminophen/ Hydrocodone Bitart ([place] (7.5-325)) 1 tab Q4H PRN PO PAIN LEVEL 1-3 Last administered on 05/04/17 09:05; Admin Dose 1 TAB; Start at 19:00 Acetaminophen/ Hydrocodone Bitart ([place] (7.5-325)) 2 tab Q4H PRN PO PAIN LEVEL 4-7; Start 04/27/17 at 19:00 Pantoprazole (Protonix Tab) 40 mg BID@06,18 PO Last administered on 05/04/17 05:49; Admin Dose 40 MG; Start 04/28/17 at 06:00 Pregabalin (Lyrica) 50 mg BID PO Last administered on 05/04/17 08:08; Admin Dose 50 MG; Start 04/27/17 at 21:00 Aspirin (Aspirin) 325 mg BID PO Last administered on 05/04/17 08:07; Admin Dose 325 MG; Start 04/28/17 at 10:30 Hydrochlorothiazide (Hydrochlorothiazide) 12.5 mg DAILY PO Last administered on 05/04/17 08:08; Admin Dose 12.5 MG; Start 04/28/17 at 14:30 Metoprolol Tartrate (Lopressor) 25 mg BID PO Last administered on 05/04/17 08: 08; Admin Dose 25 MG; Start 04/29/17 at 09:30 IV Flush 10 ml 10 ml PRN PRN IV IV PROTOCOL; Start 04/30/17 at 14:30 Vancomycin HCl/ Sodium Chloride (Vancocin/NS) 150 ml @ 75 mls/hr Q12H IVPB Last administered on 05/04/17 11:25; Admin Dose 75 MLS/HR; Start 05/01/17 at 11 :00 Atorvastatin Calcium (Lipitor) 80 mg HS PO Last administered on 05/03/17 20:44 ; Admin Dose 80 MG; Start 05/01/17 at 21:00 Miscellaneous Information (*Rx Drug Level Order Reminder*) 1 ONCE ONCE XX ; Start 05/05/17 at 10:00; Stop 05/05/17 at 10:01 SHAKIRA EDOUARD NP May 04, 2017 15:18
--- NOTE | 2017-05-04 17:25 | PN ---
Date/Time of Note Date/Time of Note DATE: 05/04/17 TIME: 17:23 Assessment/Plan Lines/Catheters IV Catheter Type (from Nrsg): PICC Line Arriaga in Place (from Nrsg): Yes Assessment/Plan Assessment/Plan POD #7, s/p revision right TKA -continue Vanco per ID recommendations -pain meds as needed -ASA/SCDs -OOB with PT -check AM labs -dressing changed -d/c planning per neuro and cardio. Stable for home from an orthopedic standpoint Subjective 24 Hr Interval Summary Doing better overall. H&H low but patient would like to hold off on transfusion. Had a bout of SVT today, but denies CP or SOB. Was slated to go home tomorrow but will follow neuro and cardio guidelines. Exam/Review of Systems Vital Signs Vitals Vital Signs Date Time Temp Pulse Resp B/P Pulse Ox O2 Delivery O2 Flow Rate FiO2 05/04/17 16:28 76 05/04/17 15:52 98.2 16 125/72 97 Intake and Output 05/03/17 05/03/17 05/04/17 15:00 23:00 07:00 Intake Total 1400 ml 350 ml Balance 1400 ml 350 ml Exam Free Text/Dictation Moderate swelling Dressing dry Incision clean, dry, and intact without redness or drainage Thigh soft 5/5 Quadriceps, Tibialis Anterior, EHL, Gastroc, Soleus, Peroneals Normal sensation Palpable DT/PT, CR <2 sec No distal edema Results Result Diagram: 05/04/17 0547 05/04/17 0547 GAUTAM JASON PA-C May 04, 2017 17:24
--- NOTE | 2017-05-04 17:44 | CONS ---
Date/Time of Note Date/Time of Note DATE: 05/04/17 TIME: 17:43 Consult Date/Type/Reason Admit Date/Time Apr 27, 2017 at 09:57 Initial Consult Date 04/28/17 Type of Consultation: CARDIOLOGY Ordering Provider: TRINIDAD GONZALEZ d/w staff and rhythm was reviewed. pt with no left sided chest pain./ no palpitations + knee pain Still c/o slurred speech. OBJECTIVE: General: no acute distress HEENT: NC/AT. pupils are equal. round. NECK: NO JVD. no stridor. CV: RRR. systolic murmur; no gallop or rubs. PULM: no wheezing or rhonchi. GI: SOFT, NT, ND, no rebound or guarding Extremity: S/P R KNEE SURGERY neuro: awake and alert, OX3. Psych: calm and pleasant rectal: deferred : normal Objective Vital Signs Date Time Temp Pulse Resp B/P Pulse Ox O2 Delivery O2 Flow Rate FiO2 05/04/17 16:28 76 05/04/17 15:52 98.2 16 125/72 97 Intake and Output 05/03/17 05/03/17 05/04/17 15:00 23:00 07:00 Intake Total 1400 ml 350 ml Balance 1400 ml 350 ml Results/Medications Result Diagram: 05/04/17 0547 05/04/17 0547 Results 24 hrs Laboratory Tests Test 05/04/17 05:47 White Blood Count 5.3 Red Blood Count 2.85 L Hemoglobin 7.7 L Hematocrit 24.3 L Mean Corpuscular Volume 85.3 Mean Corpuscular Hemoglobin 27.0 L Mean Corpuscular Hemoglobin Concent 31.7 L Red Cell Distribution Width 13.6 Platelet Count 250 # Mean Platelet Volume 10.6 H Neutrophils % 57.1 Lymphocytes % 24.1 Monocytes % 11.1 H Eosinophils % 6.4 Basophils % 0.9 Nucleated Red Blood Cells % 0.0 Neutrophils # (Manual) 3 Lymphocytes # 1.3 Monocytes # 0.6 Eosinophils # 0.3 Basophils # 0.1 Nucleated Red Blood Cells # 0.0 Prothrombin Time 13.9 Prothrombin Time Ratio 1.1 INR International Normalized Ratio 1.07 Activated Partial Thromboplast Time 36.0 H Sodium Level 140 Potassium Level 3.7 Chloride Level 97 Carbon Dioxide Level 30 Anion Gap 17 #H Blood Urea Nitrogen 17 Creatinine 1.12 Glucose Level 108 Calcium Level 9.1 Medications Current Medications Hydromorphone HCl (Dilaudid) 1 mg Q3H PRN IV PAIN LEVEL 8-10; Start 04/27/17 at 19:00 Ondansetron HCl (Zofran Inj) 4 mg Q6H PRN IV NAUSEA AND/OR VOMITING; Start at 19:00 Bisacodyl (Dulcolax Supp) 10 mg Q12H PRN [place] CONSTIPATION; Start 04/27/17 at 19: 00 Magnesium Hydroxide (Milk Of Mag) 30 ml BID PRN PO CONSTIPATION; Start at 19:00 Sodium Biphosphate/ Sodium Phosphate (Fleet Enema) 133 ml DAILY PRN [place] CONSTIPATION; Start 04/27/17 at 19:00 Docusate Sodium (Colace) 100 mg BID PO Last administered on 05/04/17 08:07; Admin Dose 100 MG; Start 04/27/17 at 21:00 Diphenhydramine HCl (Benadryl) 25 mg Q6H PRN PO PRURITUS; Start 04/27/17 at 19: 00 Acetaminophen/ Hydrocodone Bitart ([place] (7.5-325)) 1 tab Q4H PRN PO PAIN LEVEL 1-3 Last administered on 05/04/17 09:05; Admin Dose 1 TAB; Start at 19:00 Acetaminophen/ Hydrocodone Bitart ([place] (7.5-325)) 2 tab Q4H PRN PO PAIN LEVEL 4-7; Start 04/27/17 at 19:00 Pantoprazole (Protonix Tab) 40 mg BID@,18 PO Last administered on 05/04/17 17:22; Admin Dose 40 MG; Start 04/28/17 at 06:00 Pregabalin (Lyrica) 50 mg BID PO Last administered on 05/04/17 08:08; Admin Dose 50 MG; Start 04/27/17 at 21:00 Aspirin (Aspirin) 325 mg BID PO Last administered on 05/04/17 08:07; Admin Dose 325 MG; Start 04/28/17 at 10:30 Hydrochlorothiazide (Hydrochlorothiazide) 12.5 mg DAILY PO Last administered on 05/04/17 08:08; Admin Dose 12.5 MG; Start 04/28/17 at 14:30 Metoprolol Tartrate (Lopressor) 25 mg BID PO Last administered on 05/04/17 08: 08; Admin Dose 25 MG; Start 04/29/17 at 09:30 IV Flush 10 ml 10 ml PRN PRN IV IV PROTOCOL; Start 04/30/17 at 14:30 Vancomycin HCl/ Sodium Chloride (Vancocin/NS) 150 ml @ 75 mls/hr Q12H IVPB Last administered on 05/04/17 11:25; Admin Dose 75 MLS/HR; Start 05/01/17 at 11 :00 Atorvastatin Calcium (Lipitor) 80 mg HS PO Last administered on 05/03/17 20:44 ; Admin Dose 80 MG; Start 05/01/17 at 21:00 Miscellaneous Information (*Rx Drug Level Order Reminder*) 1 ONCE ONCE XX ; Start 05/05/17 at 10:00; Stop 05/05/17 at 10:01 Assessment/Plan Chief Complaint/Hosp Course Assessment/plan: 1. s/p marked arrhythmia and bradycardia during surgery and possible ST elevation on rhythm but not seen on ECG pt currently with no chest pain and normal trop will cont ASA will hold off lexiscan due to acute CVA now. 2.HTN: stable now 3. resp failure: extubated 4. dyslipidemia 5. infected right hearwear s/p surgery: f/u ortho rec. abx as per ID 6.CVA: defer to IM and neurology rec. Thank you for this referral will continue to follow along with you next week. Problems: LISA MOLINA MD May 04, 2017 17:43
[2017-05-04] MEDS: ATORVASTATIN 80 MG TAB PO SCH (21:43)
--- NOTE | 2017-05-04 22:40 | PN ---
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 cradiology followin g, no p miranda for intervention now -ID following, s/p PICC line , Plan for iV abx vancomyctin till 06/13/17 -Continue knee care per ortho surgery. -Resume p.o. meds D/c santos catheer in AM Subjective 24 Hr Interval Summary Free Text/Dictation no acute events, pain controlled, santos discontinued Exam/Review of Systems Vital Signs Vitals Vital Signs Date Time Temp Pulse Resp B/P Pulse Ox O2 Delivery O2 Flow Rate FiO2 05/04/17 20:19 98.6 92 16 117/72 97 Intake and Output 05/03/17 05/03/17 05/04/17 15:00 23:00 07:00 Intake Total 1400 ml 350 ml Balance 1400 ml 350 ml Exam General: Patient is laying in bed and answers questions appropriately Mentation: Patient is alert and oriented 4, mild difficulty finding speech Head: Normocephalic atraumatic Eyes: EOMI, pupils reactive to light Neck: Supple, nontender, midline Respiratory: Clear to auscultation bilaterally Cardiovascular: regular rate, no obvious murmurs Gastrointestinal: non-tender to palpation, bowel sounds heard. Neurological: Moves all extremities spontaneously, muscle strength equal in all extremities. Skin: R knee surgical site CDI Results Result Diagram: 05/04/17 0547 05/04/17 0547 Results 24 hrs Laboratory Tests Test 05/04/17 05:47 White Blood Count 5.3 Red Blood Count 2.85 L Hemoglobin 7.7 L Hematocrit 24.3 L Mean Corpuscular Volume 85.3 Mean Corpuscular Hemoglobin 27.0 L Mean Corpuscular Hemoglobin Concent 31.7 L Red Cell Distribution Width 13.6 Platelet Count 250 # Mean Platelet Volume 10.6 H Neutrophils % 57.1 Lymphocytes % 24.1 Monocytes % 11.1 H Eosinophils % 6.4 Basophils % 0.9 Nucleated Red Blood Cells % 0.0 Neutrophils # (Manual) 3 Lymphocytes # 1.3 Monocytes # 0.6 Eosinophils # 0.3 Basophils # 0.1 Nucleated Red Blood Cells # 0.0 Prothrombin Time 13.9 Prothrombin Time Ratio 1.1 INR International Normalized Ratio 1.07 Activated Partial Thromboplast Time 36.0 H Sodium Level 140 Potassium Level 3.7 Chloride Level 97 Carbon Dioxide Level 30 Anion Gap 17 #H Blood Urea Nitrogen 17 Creatinine 1.12 Glucose Level 108 Calcium Level 9.1 Medications Medications Current Medications Hydromorphone HCl (Dilaudid) 1 mg Q3H PRN IV PAIN LEVEL 8-10; Start 04/27/17 at 19:00 Ondansetron HCl (Zofran Inj) 4 mg Q6H PRN IV NAUSEA AND/OR VOMITING; Start at 19:00 Bisacodyl (Dulcolax Supp) 10 mg Q12H PRN [place] CONSTIPATION; Start 04/27/17 at 19: 00 Magnesium Hydroxide (Milk Of Mag) 30 ml BID PRN PO CONSTIPATION; Start at 19:00 Sodium Biphosphate/ Sodium Phosphate (Fleet Enema) 133 ml DAILY PRN [place] CONSTIPATION; Start 04/27/17 at 19:00 Docusate Sodium (Colace) 100 mg BID PO Last administered on 05/04/17 21:43; Admin Dose 100 MG; Start 04/27/17 at 21:00 Diphenhydramine HCl (Benadryl) 25 mg Q6H PRN PO PRURITUS; Start 04/27/17 at 19: 00 Acetaminophen/ Hydrocodone Bitart ([place] (7.5-325)) 1 tab Q4H PRN PO PAIN LEVEL 1-3 Last administered on 05/04/17 09:05; Admin Dose 1 TAB; Start at 19:00 Acetaminophen/ Hydrocodone Bitart ([place] (7.5-325)) 2 tab Q4H PRN PO PAIN LEVEL 4-7; Start 04/27/17 at 19:00 Pantoprazole (Protonix Tab) 40 mg BID@,18 PO Last administered on 05/04/17 17:22; Admin Dose 40 MG; Start 04/28/17 at 06:00 Pregabalin (Lyrica) 50 mg BID PO Last administered on 05/04/17 21:43; Admin Dose 50 MG; Start 04/27/17 at 21:00 Aspirin (Aspirin) 325 mg BID PO Last administered on 05/04/17 21:43; Admin Dose 325 MG; Start 04/28/17 at 10:30 Hydrochlorothiazide (Hydrochlorothiazide) 12.5 mg DAILY PO Last administered on 05/04/17 08:08; Admin Dose 12.5 MG; Start 04/28/17 at 14:30 Metoprolol Tartrate (Lopressor) 25 mg BID PO Last administered on 05/04/17 21: 44; Admin Dose 25 MG; Start 04/29/17 at 09:30 IV Flush 10 ml 10 ml PRN PRN IV IV PROTOCOL; Start 04/30/17 at 14:30 Vancomycin HCl/ Sodium Chloride (Vancocin/NS) 150 ml @ 75 mls/hr Q12H IVPB Last administered on 05/04/17 22:00; Admin Dose 75 MLS/HR; Start 05/01/17 at 11 :00 Atorvastatin Calcium (Lipitor) 80 mg HS PO Last administered on 05/04/17 21:43 ; Admin Dose 80 MG; Start 05/01/17 at 21:00 Miscellaneous Information (*Rx Drug Level Order Reminder*) 1 ONCE ONCE XX ; Start 05/05/17 at 10:00; Stop 05/05/17 at 10:01 SHIRA EGAN MD May 04, 2017 22:39
[2017-05-05] VITALS (12 sets, daily range): BP systolic 110–128; BP diastolic 67–74; PULSE 81–97; RESP 16–18
[2017-05-05] MEDS: PANTOPRAZOLE (EC) 40 MG TAB PO SCH ×2 (05:45→18:24)
[2017-05-05] MEDS: HYDROCODONE/APAP (7.5/325) TAB PO PRN (05:50)
[2017-05-05 07:03] LABS: BASOPHIL # 0.1 10^3/ul (0.0-0.1); BASOPHILS % 0.9 % (0.0-2.0); EOSINOPHILS # 0.5 10^3/ul (0.0-0.5); EOSINOPHILS % 7.1 % (0.0-7.0); HEMATOCRIT 28.2 % (42.0-52.0); HEMOGLOBIN 8.9 g/dl (14.0-18.0); LYMPHOCYTES # 1.8 10^3/ul (0.8-2.9); LYMPHOCYTES % 27.1 % (15.0-51.0); MEAN CORPUSCULAR HEMOGLOBIN 26.7 pg (29.0-33.0); MEAN CORPUSCULAR HGB CONC 31.6 g/dl (32.0-37.0); MEAN CORPUSCULAR VOLUME 84.7 fl (82.0-101.0); MEAN PLATELET VOLUME 10.6 fl (7.4-10.4); MONOCYTE # 0.7 10^3/ul (0.3-0.9); NEUTROPHILS % 54.5 % (39.0-77.0); PLATELET COUNT 297 10^3/UL (140-415); RED BLOOD COUNT 3.33 10^6/ul (4.70-6.10); RED CELL DISTRIBUTION WIDTH 13.6 % (11.5-14.5); WHITE BLOOD COUNT 6.8 10^3/ul (4.8-10.8)
[2017-05-05 07:13] LABS: ALBUMIN 3.6 g/dl (3.3-4.9); ALBUMIN/GLOBULIN RATIO 0.94; BILIRUBIN,INDIRECT 0.3 mg/dl (0-1.1); BILIRUBIN,TOTAL 0.3 mg/dl (0.2-1.3); CALCIUM 9.8 mg/dl (8.4-10.2); CREATININE 1.09 mg/dl (0.61-1.24); TOTAL PROTEIN 7.4 g/dl (6.1-8.1)
--- NOTE | 2017-05-05 08:36 | CONS ---
Date/Time of Note Date/Time of Note DATE: 05/05/17 TIME: 08:35 Consult Date/Type/Reason Admit Date/Time Apr 27, 2017 at 09:57 Initial Consult Date 04/28/17 Type of Consultation: CARDIOLOGY Ordering Provider: RTINIDAD OGNZALEZ d/w staff and rhythm was reviewed. pt with very short run of asymptomatic SVT pt with no left sided chest pain. no palpitations less knee pain OBJECTIVE: General: no acute distress HEENT: NC/AT. pupils are equal. round. NECK: NO JVD. no stridor. CV: RRR. systolic murmur; no gallop or rubs. PULM: no wheezing or rhonchi. GI: SOFT, NT, ND, no rebound or guarding Extremity: S/P R KNEE SURGERY neuro: awake and alert, OX3. Psych: calm and pleasant rectal: deferred : normal Objective Vital Signs Date Time Temp Pulse Resp B/P Pulse Ox O2 Delivery O2 Flow Rate FiO2 05/05/17 08:31 97 05/05/17 07:13 98.0 16 128/72 100 Intake and Output 05/04/17 05/04/17 05/05/17 15:00 23:00 07:00 Intake Total 150 ml 390 ml Output Total 1250 ml Balance 150 ml -860 ml Results/Medications Result Diagram: 05/05/1762605/05/17626 Results 24 hrs Laboratory Tests Test 05/05/17 06:27 White Blood Count 6.8 # Red Blood Count 3.33 L Hemoglobin 8.9 L Hematocrit 28.2 L Mean Corpuscular Volume 84.7 Mean Corpuscular Hemoglobin 26.7 L Mean Corpuscular Hemoglobin Concent 31.6 L Red Cell Distribution Width 13.6 Platelet Count 297 Mean Platelet Volume 10.6 H Neutrophils % 54.5 Lymphocytes % 27.1 Monocytes % 10.0 Eosinophils % 7.1 H Basophils % 0.9 Nucleated Red Blood Cells % 0.0 Neutrophils # (Manual) 4 Lymphocytes # 1.8 Monocytes # 0.7 Eosinophils # 0.5 Basophils # 0.1 Nucleated Red Blood Cells # 0.0 Sodium Level 139 Potassium Level 4.0 Chloride Level 95 L Carbon Dioxide Level 30 Anion Gap 18 H Blood Urea Nitrogen 17 Creatinine 1.09 Glucose Level 97 Calcium Level 9.8 Total Bilirubin 0.3 Direct Bilirubin 0.00 Indirect Bilirubin 0.3 Aspartate Amino Transf (AST/SGOT) 32 Alanine Aminotransferase (ALT/SGPT) 35 Alkaline Phosphatase 95 Total Protein 7.4 Albumin 3.6 Globulin 3.80 H Albumin/Globulin Ratio 0.94 Medications Current Medications Hydromorphone HCl (Dilaudid) 1 mg Q3H PRN IV PAIN LEVEL 8-10; Start 04/27/17 at 19:00 Ondansetron HCl (Zofran Inj) 4 mg Q6H PRN IV NAUSEA AND/OR VOMITING; Start at 19:00 Bisacodyl (Dulcolax Supp) 10 mg Q12H PRN [place] CONSTIPATION; Start 04/27/17 at 19: 00 Magnesium Hydroxide (Milk Of Mag) 30 ml BID PRN PO CONSTIPATION; Start at 19:00 Sodium Biphosphate/ Sodium Phosphate (Fleet Enema) 133 ml DAILY PRN [place] CONSTIPATION; Start 04/27/17 at 19:00 Docusate Sodium (Colace) 100 mg BID PO Last administered on 05/04/17 21:43; Admin Dose 100 MG; Start 04/27/17 at 21:00 Diphenhydramine HCl (Benadryl) 25 mg Q6H PRN PO PRURITUS; Start 04/27/17 at 19: 00 Acetaminophen/ Hydrocodone Bitart ([place] (7.5-325)) 1 tab Q4H PRN PO PAIN LEVEL 1-3 Last administered on 05/05/17 05:50; Admin Dose 1 TAB; Start at 19:00 Acetaminophen/ Hydrocodone Bitart ([place] (7.5-325)) 2 tab Q4H PRN PO PAIN LEVEL 4-7; Start 04/27/17 at 19:00 Pantoprazole (Protonix Tab) 40 mg BID@06,18 PO Last administered on 05/05/17 05:45; Admin Dose 40 MG; Start 04/28/17 at 06:00 Pregabalin (Lyrica) 50 mg BID PO Last administered on 05/04/17 21:43; Admin Dose 50 MG; Start 04/27/17 at 21:00 Aspirin (Aspirin) 325 mg BID PO Last administered on 05/04/17 21:43; Admin Dose 325 MG; Start 04/28/17 at 10:30 Hydrochlorothiazide (Hydrochlorothiazide) 12.5 mg DAILY PO Last administered on 05/04/17 08:08; Admin Dose 12.5 MG; Start 04/28/17 at 14:30 Metoprolol Tartrate (Lopressor) 25 mg BID PO Last administered on 05/04/17 21: 44; Admin Dose 25 MG; Start 04/29/17 at 09:30 IV Flush 10 ml 10 ml PRN PRN IV IV PROTOCOL; Start 04/30/17 at 14:30 Vancomycin HCl/ Sodium Chloride (Vancocin/NS) 150 ml @ 75 mls/hr Q12H IVPB Last administered on 05/04/17 22:00; Admin Dose 75 MLS/HR; Start 05/01/17 at 11 :00 Atorvastatin Calcium (Lipitor) 80 mg HS PO Last administered on 05/04/17 21:43 ; Admin Dose 80 MG; Start 05/01/17 at 21:00 Miscellaneous Information (*Rx Drug Level Order Reminder*) 1 ONCE ONCE XX ; Start 05/05/17 at 10:00; Stop 05/05/17 at 10:01 Assessment/Plan Chief Complaint/Hosp Course Assessment/plan: 1. s/p marked arrhythmia and bradycardia during surgery and possible ST elevation on rhythm but not seen on ECG pt currently with no chest pain and normal trop will cont ASA will hold off lexiscan due to acute CVA now. 2.HTN: stable now 3. resp failure: extubated 4. dyslipidemia 5. infected right hearwear s/p surgery: f/u ortho rec. abx as per ID 6.CVA: defer to IM and neurology rec. 7. short run of asymptomatic SVT: will monitor only at this time Thank you for this referral will continue to follow along with you next week. Problems: LISA MOLINA MD May 05, 2017 08:36
--- NOTE | 2017-05-05 08:56 | PN ---
Date/Time of Note Date/Time of Note DATE: 05/05/17 TIME: 08:54 Assessment/Plan Lines/Catheters IV Catheter Type (from Nrsg): PICC Line Arriaga in Place (from Nrsg): Yes Assessment/Plan Assessment/Plan POD #8, s/p revision right TKA -continue abx per ID -pain meds as needed -ASA/SCDs -OOB with PT -stable or discharge from ortho standpoint -if no objection from IM, cardio, or neuro, discharge home today -follow up in the office on Wednesday Subjective 24 Hr Interval Summary No acute overnight events. H&H improved from yesterday. Progressing with PT. VSS , afebrile. PICC line in place. If no objection from IM, cardio, or neuro, will plan to discharge home today. Exam/Review of Systems Vital Signs Vitals Vital Signs Date Time Temp Pulse Resp B/P Pulse Ox O2 Delivery O2 Flow Rate FiO2 05/05/17 08:31 97 05/05/17 07:13 98.0 16 128/72 100 Intake and Output 05/04/17 05/04/17 05/05/17 15:00 23:00 07:00 Intake Total 150 ml 390 ml Output Total 1250 ml Balance 150 ml -860 ml Exam Free Text/Dictation Dressing dry Incision clean, dry, and intact without redness or drainage Thigh soft 5/5 Quadriceps, Tibialis Anterior, EHL, Gastroc, Soleus, Peroneals Normal sensation Palpable DT/PT, CR <2 sec No distal edema Results Result Diagram: 05/05/17 0627 05/05/17 0627 GAUTAM JASON PA-C May 05, 2017 08:56
[2017-05-05] MEDS: ASPIRIN 325 MG TAB PO SCH ×2 (09:09→21:44)
[2017-05-05] MEDS: PREGABALIN 25 MG CAP PO SCH ×2 (09:09→21:45)
[2017-05-05] MEDS: METOPROLOL 25 MG TAB PO SCH ×2 (09:10→21:45)
[2017-05-05] MEDS: DOCUSATE SODIUM 100 MG CAP PO SCH ×2 (09:11→21:45)
[2017-05-05] MEDS: HYDROCHLOROTHIAZIDE 12.5 MG CAP PO SCH (09:11)
[2017-05-05] MEDS: VANCOMYCIN 750 MG in SOD CHLORIDE 0.9% 150 ML IVPB SCH (13:01)
--- NOTE | 2017-05-05 13:21 | PN ---
Date/Time of Note Date/Time of Note DATE: 05/05/17 TIME: 13:20 Assessment/Plan VTE Prophylaxis VTE Prophylaxis Intervention: SCD's Lines/Catheters IV Catheter Type (from Nrs): PICC Line Central line still needed: Yes (IV abx Vancomycin long term care pharmacist ) Urinary Cath still in place: Yes Reason Cath still needed: other (indicate) Assessment/Plan Assessment/Plan L Parietal lobe CVA, acute Sinus bradycardia, resolved Infected right knee arthroplasty, status post replacement and irrigation Intubation for airway protection, extubated immediately Hypertension Anemia, mild Hypokalemia, mild Plan -acute CVA during hospitalization, Neurology follwoing no TPA given. cradiology followin g, no p miranda for intervention now -ID following, s/p PICC line , Plan for iV abx vancomyctin till 06/13/17 -Continue knee care per ortho surgery. -Resume p.o. meds d/c santos catheter today Exam/Review of Systems Vital Signs Vitals Vital Signs Date Time Temp Pulse Resp B/P Pulse Ox O2 Delivery O2 Flow Rate FiO2 05/05/17 12:25 87 05/05/17 11:49 98.4 16 119/69 95 Intake and Output 05/04/17 05/04/17 05/05/17 15:00 23:00 07:00 Intake Total 150 ml 390 ml Output Total 1250 ml Balance 150 ml -860 ml Results Result Diagram: 05/05/17 0627 05/05/17 0627 Results 24 hrs Laboratory Tests Test 05/05/17 06:27 05/05/17 10:01 White Blood Count 6.8 # Red Blood Count 3.33 L Hemoglobin 8.9 L Hematocrit 28.2 L Mean Corpuscular Volume 84.7 Mean Corpuscular Hemoglobin 26.7 L Mean Corpuscular Hemoglobin Concent 31.6 L Red Cell Distribution Width 13.6 Platelet Count 297 Mean Platelet Volume 10.6 H Neutrophils % 54.5 Lymphocytes % 27.1 Monocytes % 10.0 Eosinophils % 7.1 H Basophils % 0.9 Nucleated Red Blood Cells % 0.0 Neutrophils # (Manual) 4 Lymphocytes # 1.8 Monocytes # 0.7 Eosinophils # 0.5 Basophils # 0.1 Nucleated Red Blood Cells # 0.0 Sodium Level 139 Potassium Level 4.0 Chloride Level 95 L Carbon Dioxide Level 30 Anion Gap 18 H Blood Urea Nitrogen 17 Creatinine 1.09 Glucose Level 97 Calcium Level 9.8 Total Bilirubin 0.3 Direct Bilirubin 0.00 Indirect Bilirubin 0.3 Aspartate Amino Transf (AST/SGOT) 32 Alanine Aminotransferase (ALT/SGPT) 35 Alkaline Phosphatase 95 Total Protein 7.4 Albumin 3.6 Globulin 3.80 H Albumin/Globulin Ratio 0.94 Vancomycin Level Trough 14.2 Medications Medications Current Medications Hydromorphone HCl (Dilaudid) 1 mg Q3H PRN IV PAIN LEVEL 8-10; Start 04/27/17 at 19:00 Ondansetron HCl (Zofran Inj) 4 mg Q6H PRN IV NAUSEA AND/OR VOMITING; Start at 19:00 Bisacodyl (Dulcolax Supp) 10 mg Q12H PRN [place] CONSTIPATION; Start 04/27/17 at 19: 00 Magnesium Hydroxide (Milk Of Mag) 30 ml BID PRN [place] CONSTIPATION; Start at 19:00 Sodium Biphosphate/ Sodium Phosphate (Fleet Enema) 133 ml DAILY PRN [place] CONSTIPATION; Start 04/27/17 at 19:00 Docusate Sodium (Colace) 100 mg BID PO Last administered on 05/05/17 09:11; Admin Dose 100 MG; Start 04/27/17 at 21:00 Diphenhydramine HCl (Benadryl) 25 mg Q6H PRN PO PRURITUS; Start 04/27/17 at 19: 00 Acetaminophen/ Hydrocodone Bitart ([place] (7.5-325)) 1 tab Q4H PRN PO PAIN LEVEL 1-3 Last administered on 05/05/17 05:50; Admin Dose 1 TAB; Start at 19:00 Acetaminophen/ Hydrocodone Bitart ([place] (7.5-325)) 2 tab Q4H PRN PO PAIN LEVEL 4-7; Start 04/27/17 at 19:00 Pantoprazole (Protonix Tab) 40 mg BID@,18 PO Last administered on 05/05/17 05:45; Admin Dose 40 MG; Start 04/28/17 at 06:00 Pregabalin (Lyrica) 50 mg BID PO Last administered on 05/05/17 09:09; Admin Dose 50 MG; Start 04/27/17 at 21:00 Aspirin (Aspirin) 325 mg BID PO Last administered on 05/05/17 09:09; Admin Dose 325 MG; Start 04/28/17 at 10:30 Hydrochlorothiazide (Hydrochlorothiazide) 12.5 mg DAILY PO Last administered on 05/05/17 09:11; Admin Dose 12.5 MG; Start 04/28/17 at 14:30 Metoprolol Tartrate (Lopressor) 25 mg BID PO Last administered on 05/05/17 09: 10; Admin Dose 25 MG; Start 04/29/17 at 09:30 IV Flush 10 ml 10 ml PRN PRN IV IV PROTOCOL; Start 04/30/17 at 14:30 Vancomycin HCl/ Sodium Chloride (Vancocin/NS) 150 ml @ 75 mls/hr Q12H IVPB Last administered on 05/05/17 13:01; Admin Dose 75 MLS/HR; Start 05/01/17 at 11 :00; Stop 05/05/17 at 16:00 Atorvastatin Calcium 80 mg 80 mg HS PO Last administered on 05/04/17 21:43; Admin Dose 80 MG; Start 05/01/17 at 21:00 Vancomycin HCl (Vancocin) 100 ml @ 100 mls/hr Q12H IVPB ; Start 05/05/17 at 23: 00 SHIRA EGAN MD May 05, 2017 13:21
--- NOTE | 2017-05-05 16:31 | CONS ---
Date/Time of Note Date/Time of Note DATE: 05/05/17 TIME: 16:30 Assessment/Plan Assessment/Plan Chief Complaint/Hosp Course SUBJECTIVE DATA: No acute changes overnight. The patient is alert, feels good , looks comfortable, no fevers. BLE US neg for DVT Microbiology: Intraoperative cultures negative. Antimicrobials. IV vancomycin. PHYSICAL EXAMINATION: GENERAL: Well developed, elderly, man who is alert, in no distress. HEENT: Head atraumatic, normocephalic. Sclerae anicteric. Buccal mucosa pink. NECK: Supple. Trachea midline. CHEST: Rise symmetrical. Breath sounds clear. HEART: S1, S2. ABDOMEN: Soft. Bowel sounds present. EXTREMITIES: Without cyanosis. ASSESSMENT: 1. 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 2. Status post irrigation and debridement of right knee removal of spacer and reimplantation of right total knee arthroplasty on April 27, 2017. 3. Hypertension. 4. Methicillin-resistant Staphylococcus aureus nares colonization. 5. CVA PLAN: The patient remains stable, continue present care. Per ortho rec-s anticipate dc on IV Vanco till Jun 13, f/u with ortho for further rec-s DW pt Problems: Consultation Date/Type/Reason Admit Date/Time Apr 27, 2017 at 09:57 Initial Consult Date 04/28/17 Type of Consultation: id Referring Provider: TRINIDAD GONZALEZ Exam/Review of Systems Vital Signs Vitals Vital Signs Date Time Temp Pulse Resp B/P Pulse Ox O2 Delivery O2 Flow Rate FiO2 05/05/17 15:35 98.8 87 18 110/67 96 Intake and Output 05/04/17 05/04/17 05/05/17 15:00 23:00 07:00 Intake Total 150 ml 390 ml Output Total 1250 ml Balance 150 ml -860 ml Results Result Diagram: 05/05/17 0627 05/05/17 0627 Results 24 hrs Laboratory Tests Test 05/05/17 06:27 05/05/17 10:01 White Blood Count 6.8 # Red Blood Count 3.33 L Hemoglobin 8.9 L Hematocrit 28.2 L Mean Corpuscular Volume 84.7 Mean Corpuscular Hemoglobin 26.7 L Mean Corpuscular Hemoglobin Concent 31.6 L Red Cell Distribution Width 13.6 Platelet Count 297 Mean Platelet Volume 10.6 H Neutrophils % 54.5 Lymphocytes % 27.1 Monocytes % 10.0 Eosinophils % 7.1 H Basophils % 0.9 Nucleated Red Blood Cells % 0.0 Neutrophils # (Manual) 4 Lymphocytes # 1.8 Monocytes # 0.7 Eosinophils # 0.5 Basophils # 0.1 Nucleated Red Blood Cells # 0.0 Sodium Level 139 Potassium Level 4.0 Chloride Level 95 L Carbon Dioxide Level 30 Anion Gap 18 H Blood Urea Nitrogen 17 Creatinine 1.09 Glucose Level 97 Calcium Level 9.8 Total Bilirubin 0.3 Direct Bilirubin 0.00 Indirect Bilirubin 0.3 Aspartate Amino Transf (AST/SGOT) 32 Alanine Aminotransferase (ALT/SGPT) 35 Alkaline Phosphatase 95 Total Protein 7.4 Albumin 3.6 Globulin 3.80 H Albumin/Globulin Ratio 0.94 Vancomycin Level Trough 14.2 Medications Medications Current Medications Hydromorphone HCl (Dilaudid) 1 mg Q3H PRN IV PAIN LEVEL 8-10; Start 04/27/17 at 19:00 Ondansetron HCl (Zofran Inj) 4 mg Q6H PRN IV NAUSEA AND/OR VOMITING; Start at 19:00 Bisacodyl (Dulcolax Supp) 10 mg Q12H PRN [place] CONSTIPATION; Start 04/27/17 at 19: 00 Magnesium Hydroxide (Milk Of Mag) 30 ml BID PRN PO CONSTIPATION; Start at 19:00 Sodium Biphosphate/ Sodium Phosphate (Fleet Enema) 133 ml DAILY PRN [place] CONSTIPATION; Start 04/27/17 at 19:00 Docusate Sodium (Colace) 100 mg BID PO Last administered on 05/05/17 09:11; Admin Dose 100 MG; Start 04/27/17 at 21:00 Diphenhydramine HCl (Benadryl) 25 mg Q6H PRN PO PRURITUS; Start 04/27/17 at 19: 00 Acetaminophen/ Hydrocodone Bitart ([place] (7.5-325)) 1 tab Q4H PRN PO PAIN LEVEL 1-3 Last administered on 05/05/17 05:50; Admin Dose 1 TAB; Start at 19:00 Acetaminophen/ Hydrocodone Bitart ([place] (7.5-325)) 2 tab Q4H PRN PO PAIN LEVEL 4-7; Start 04/27/17 at 19:00 Pantoprazole (Protonix Tab) 40 mg BID@06,18 PO Last administered on 05/05/17 05:45; Admin Dose 40 MG; Start 04/28/17 at 06:00 Pregabalin (Lyrica) 50 mg BID PO Last administered on 05/05/17 09:09; Admin Dose 50 MG; Start 04/27/17 at 21:00 Aspirin (Aspirin) 325 mg BID PO Last administered on 05/05/17 09:09; Admin Dose 325 MG; Start 04/28/17 at 10:30 Hydrochlorothiazide (Hydrochlorothiazide) 12.5 mg DAILY PO Last administered on 05/05/17 09:11; Admin Dose 12.5 MG; Start 04/28/17 at 14:30 Metoprolol Tartrate (Lopressor) 25 mg BID PO Last administered on 05/05/17 09: 10; Admin Dose 25 MG; Start 04/29/17 at 09:30 IV Flush (NS 10 ml) 10 ml PRN PRN IV IV PROTOCOL; Start 04/30/17 at 14:30 Atorvastatin Calcium 80 mg 80 mg HS PO Last administered on 05/04/17 21:43; Admin Dose 80 MG; Start 05/01/17 at 21:00 Vancomycin HCl (Vancocin) 100 ml @ 100 mls/hr Q12H IVPB ; Start 05/05/17 at 23: 00 SHAKIRA EDOUARD NP May 05, 2017 16:31
[2017-05-05] MEDS: ATORVASTATIN 80 MG TAB PO SCH (21:45)
[2017-05-05] MEDS: VANCOMYCIN 500MG/NS (PMX) 100 ML IVPB SCH (22:37)
[2017-05-06] VITALS (13 sets, daily range): BP systolic 105–131; BP diastolic 63–74; PULSE 74–95; RESP 18–20
[2017-05-06] MEDS: PANTOPRAZOLE (EC) 40 MG TAB PO SCH ×2 (05:18→17:24)
[2017-05-06] MEDS: PREGABALIN 25 MG CAP PO SCH ×2 (08:34→21:26)
[2017-05-06] MEDS: ASPIRIN 325 MG TAB PO SCH ×2 (08:35→21:26)
[2017-05-06] MEDS: DOCUSATE SODIUM 100 MG CAP PO SCH ×2 (08:35→21:26)
[2017-05-06] MEDS: HYDROCHLOROTHIAZIDE 12.5 MG CAP PO SCH (08:37)
[2017-05-06] MEDS: METOPROLOL 25 MG TAB PO SCH ×2 (08:37→21:26)
--- NOTE | 2017-05-06 09:17 | CONS ---
Date/Time of Note Date/Time of Note DATE: 05/06/17 TIME: 09:16 Consult Date/Type/Reason Admit Date/Time Apr 27, 2017 at 09:57 Initial Consult Date 04/28/17 Type of Consultation: CARD Ordering Provider: TRINIDAD GONZALEZ/w staff and rhythm was reviewed. pt remains in NSR pt with no left sided chest pain. no palpitations less knee pain OBJECTIVE: General: no acute distress HEENT: NC/AT. pupils are equal. round. NECK: NO JVD. no stridor. CV: RRR. systolic murmur; no gallop or rubs. PULM: no wheezing or rhonchi. GI: SOFT, NT, ND, no rebound or guarding Extremity: S/P R KNEE SURGERY neuro: awake and alert, OX3. Psych: calm and pleasant rectal: deferred : normal Objective Vital Signs Date Time Temp Pulse Resp B/P Pulse Ox O2 Delivery O2 Flow Rate FiO2 05/06/17 06:58 98.7 89 19 112/66 100 Intake and Output 05/05/17 05/05/17 05/06/17 15:00 23:00 07:00 Intake Total 1080 ml 1006 ml Output Total 920 ml Balance 1080 ml 86 ml Results/Medications Result Diagram: 05/05/1762605/05/17626 Results 24 hrs Laboratory Tests Test 05/05/17 10:01 Vancomycin Level Trough 14.2 Medications Current Medications Hydromorphone HCl (Dilaudid) 1 mg Q3H PRN IV PAIN LEVEL 8-10; Start 04/27/17 at 19:00 Ondansetron HCl (Zofran Inj) 4 mg Q6H PRN IV NAUSEA AND/OR VOMITING; Start at 19:00 Bisacodyl (Dulcolax Supp) 10 mg Q12H PRN [place] CONSTIPATION; Start 04/27/17 at 19: 00 Magnesium Hydroxide (Milk Of Mag) 30 ml BID PRN PO CONSTIPATION; Start at 19:00 Sodium Biphosphate/ Sodium Phosphate (Fleet Enema) 133 ml DAILY PRN [place] CONSTIPATION; Start 04/27/17 at 19:00 Docusate Sodium (Colace) 100 mg BID PO Last administered on 05/06/17t 08:35; Admin Dose 100 MG; Start 04/27/17 at 21:00 Diphenhydramine HCl (Benadryl) 25 mg Q6H PRN PO PRURITUS; Start 04/27/17 at 19: 00 Acetaminophen/ Hydrocodone Bitart ([place] (7.5-325)) 1 tab Q4H PRN PO PAIN LEVEL 1-3 Last administered on 05/05/17 05:50; Admin Dose 1 TAB; Start at 19:00 Acetaminophen/ Hydrocodone Bitart ([place] (7.5-325)) 2 tab Q4H PRN PO PAIN LEVEL 4-7; Start 04/27/17 at 19:00 Pantoprazole (Protonix Tab) 40 mg BID@06,18 PO Last administered on 05/06/17 05:18; Admin Dose 40 MG; Start 04/28/17 at 06:00 Pregabalin (Lyrica) 50 mg BID PO Last administered on 05/06/17 08:34; Admin Dose 50 MG; Start 04/27/17 at 21:00 Aspirin (Aspirin) 325 mg BID PO Last administered on 05/06/17 08:35; Admin Dose 325 MG; Start 04/28/17 at 10:30 Hydrochlorothiazide (Hydrochlorothiazide) 12.5 mg DAILY PO Last administered on 05/06/17 08:37; Admin Dose 12.5 MG; Start 04/28/17 at 14:30 Metoprolol Tartrate (Lopressor) 25 mg BID PO Last administered on 05/06/17 08: 37; Admin Dose 25 MG; Start 04/29/17 at 09:30 IV Flush (NS 10 ml) 10 ml PRN PRN IV IV PROTOCOL; Start 04/30/17 at 14:30 Atorvastatin Calcium 80 mg 80 mg HS PO Last administered on 05/05/17 21:45; Admin Dose 80 MG; Start 05/01/17 at 21:00 Vancomycin HCl (Vancocin) 100 ml @ 100 mls/hr Q12H IVPB Last administered on 22:37; Admin Dose 100 MLS/HR; Start 05/05/17 at 23:00 Assessment/Plan Chief Complaint/Hosp Course Assessment/plan: 1. s/p marked arrhythmia and bradycardia during surgery and possible ST elevation on rhythm but not seen on ECG pt currently with no chest pain and normal trop will cont ASA will hold off lexiscan due to acute CVA now. 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 2.HTN: stable now 3. resp failure: extubated 4. dyslipidemia 5. infected right hearwear s/p surgery: f/u ortho rec. abx as per ID 6.CVA: defer to IM and neurology rec. 7. short run of asymptomatic SVT: will monitor only at this time Thank you for this referral will continue to follow along with you next week. Problems: LISA MOLINA MD May 06, 2017 09:17
--- NOTE | 2017-05-06 10:52 | CONS ---
Date/Time of Note Date/Time of Note DATE: 05/06/17 TIME: 10:50 Assessment/Plan Assessment/Plan Additional Assessment/Plan L Parietal lobe CVA, acute Sinus bradycardia, resolved Infected right knee arthroplasty, status post replacement and irrigation Intubation for airway protection, extubated immediately Hypertension Anemia, mild Hypokalemia, mild Plan -acute CVA during hospitalization, Neurology follwoing cradiology followin g, no p miranda for intervention now -ID following, s/p PICC line , Plan for iV abx vancomyctin till 06/13/17 -Continue knee care per ortho surgery. -Resume p.o. meds ok to d/c from Medicine point of view Consultation Date/Type/Reason Admit Date/Time Apr 27, 2017 at 09:57 Initial Consult Date 05/01/17 Type of Consultation: NEPHROLOGY Referring Provider: TRINIDAD GONZALEZ Exam/Review of Systems Vital Signs Vitals Vital Signs Date Time Temp Pulse Resp B/P Pulse Ox O2 Delivery O2 Flow Rate FiO2 05/06/17 08:12 82 05/06/17 06:58 98.7 19 112/66 100 Intake and Output 05/05/17 05/05/17 05/06/17 15:00 23:00 07:00 Intake Total 1080 ml 1006 ml Output Total 920 ml Balance 1080 ml 86 ml Exam General: Patient is laying in bed and answers questions appropriately Mentation: Patient is alert and oriented 4, mild difficulty finding speech Head: Normocephalic atraumatic Eyes: EOMI, pupils reactive to light Neck: Supple, nontender, midline Respiratory: Clear to auscultation bilaterally Cardiovascular: regular rate, no obvious murmurs Gastrointestinal: non-tender to palpation, bowel sounds heard. Neurological: Moves all extremities spontaneously, muscle strength equal in all extremities. Skin: R knee surgical site CDI Results Result Diagram: 05/05/1762605/05/17626 Medications Medications Current Medications Hydromorphone HCl (Dilaudid) 1 mg Q3H PRN IV PAIN LEVEL 8-10; Start 04/27/17 at 19:00 Ondansetron HCl (Zofran Inj) 4 mg Q6H PRN IV NAUSEA AND/OR VOMITING; Start at 19:00 Bisacodyl (Dulcolax Supp) 10 mg Q12H PRN [place] CONSTIPATION; Start 04/27/17 at 19: 00 Magnesium Hydroxide (Milk Of Mag) 30 ml BID PRN PO CONSTIPATION; Start at 19:00 Sodium Biphosphate/ Sodium Phosphate (Fleet Enema) 133 ml DAILY PRN [place] CONSTIPATION; Start 04/27/17 at 19:00 Docusate Sodium (Colace) 100 mg BID PO Last administered on 05/06/17 08:35; Admin Dose 100 MG; Start 04/27/17 at 21:00 Diphenhydramine HCl (Benadryl) 25 mg Q6H PRN PO PRURITUS; Start 04/27/17 at 19: 00 Acetaminophen/ Hydrocodone Bitart ([place] (7.5-325)) 1 tab Q4H PRN PO PAIN LEVEL 1-3 Last administered on 05/05/17 05:50; Admin Dose 1 TAB; Start at 19:00 Acetaminophen/ Hydrocodone Bitart ([place] (7.5-325)) 2 tab Q4H PRN PO PAIN LEVEL 4-7; Start 04/27/17 at 19:00 Pantoprazole (Protonix Tab) 40 mg BID@,18 PO Last administered on 05/06/17 05:18; Admin Dose 40 MG; Start 04/28/17 at 06:00 Pregabalin (Lyrica) 50 mg BID PO Last administered on 05/06/17 08:34; Admin Dose 50 MG; Start 04/27/17 at 21:00 Aspirin (Aspirin) 325 mg BID PO Last administered on 05/06/17 08:35; Admin Dose 325 MG; Start 04/28/17 at 10:30 Hydrochlorothiazide (Hydrochlorothiazide) 12.5 mg DAILY PO Last administered on 05/06/17 08:37; Admin Dose 12.5 MG; Start 04/28/17 at 14:30 Metoprolol Tartrate (Lopressor) 25 mg BID PO Last administered on 05/06/17 08: 37; Admin Dose 25 MG; Start 04/29/17 at 09:30 IV Flush (NS 10 ml) 10 ml PRN PRN IV IV PROTOCOL; Start 04/30/17 at 14:30 Atorvastatin Calcium 80 mg 80 mg HS PO Last administered on 05/05/17 21:45; Admin Dose 80 MG; Start 05/01/17 at 21:00 Vancomycin HCl (Vancocin) 100 ml @ 100 mls/hr Q12H IVPB Last administered on t 22:37; Admin Dose 100 MLS/HR; Start 05/05/17 at 23:00 SHIRA EGAN MD May 06, 2017 10:52
[2017-05-06] MEDS: VANCOMYCIN 500MG/NS (PMX) 100 ML IVPB SCH ×2 (12:38→22:11)
--- NOTE | 2017-05-06 13:55 | PN ---
Date/Time of Note Date/Time of Note DATE: 05/06/17 TIME: 13:54 Assessment/Plan Lines/Catheters IV Catheter Type (from Nrsg): PICC Line Arriaga in Place (from Nrsg): Yes Assessment/Plan Assessment/Plan POD #9, s/p revision right TKA -continue Vancomycin IV per ID x 6 weeks -pain meds as needed -ASA/SCDs -dressing changed -OOB with PT -d/c home today -follow up in the office for stitch removal tomorrow Subjective 24 Hr Interval Summary Doing better overall. Knee pain pain improving. No new cardiac or neurological events. Stable for discharge home today. Exam/Review of Systems Vital Signs Vitals Vital Signs Date Time Temp Pulse Resp B/P Pulse Ox O2 Delivery O2 Flow Rate FiO2 05/06/17 12:13 94 05/06/17 11:16 98.2 19 105/63 94 Intake and Output 05/05/17 05/05/17 05/06/17 15:00 23:00 07:00 Intake Total 1080 ml 1006 ml Output Total 920 ml Balance 1080 ml 86 ml Exam Free Text/Dictation Dressing dry Incision clean, dry, and intact without redness or drainage Thigh soft 5/5 Quadriceps, Tibialis Anterior, EHL, Gastroc, Soleus, Peroneals Normal sensation Palpable DT/PT, CR <2 sec No distal edema Results Result Diagram: 05/05/1727 05/05/1727 GAUTAM JASON PA-C May 06, 2017 13:55
[2017-05-06] MEDS: HYDROCODONE/APAP (7.5/325) TAB PO PRN (17:24)
[2017-05-06] MEDS: ATORVASTATIN 80 MG TAB PO SCH (21:26)
[2017-05-07] VITALS (7 sets, daily range): BP systolic 117–131; BP diastolic 65–81; PULSE 84–91; RESP 19
[2017-05-07] MEDS: PANTOPRAZOLE (EC) 40 MG TAB PO SCH (05:26)
--- NOTE | 2017-05-07 09:33 | PN ---
Date/Time of Note Date/Time of Note DATE: 05/07/17 TIME: 09:31 Assessment/Plan Lines/Catheters IV Catheter Type (from Nrsg): PICC Line Arriaga in Place (from Nrsg): No Assessment/Plan Assessment/Plan Stable, POD #10 s/p revision right TKA -continue IV abx per ID -pain meds as needed -ASA/SCDs -OOB with PT -dressing changed -stitches removed, steri strips applied -d/c home today with HH -follow up with Dr. Stanton at [facility] in 1 week Subjective 24 Hr Interval Summary No acute overnight events. Continues to deny CP or any other neurological complaints. Progressing with PT. VSS, afebrile. Can go home with IV HH nurse today. Exam/Review of Systems Vital Signs Vitals Vital Signs Date Time Temp Pulse Resp B/P Pulse Ox O2 Delivery O2 Flow Rate FiO2 05/07/17 08:12 86 05/07/17 07:00 97.9 19 117/73 98 Intake and Output 05/06/17 05/06/17 05/07/17 14:59 22:59 06:59 Intake Total 850 ml 400 ml Balance 850 ml 400 ml Exam Free Text/Dictation Dressing dry Incision clean, dry, and intact without redness or drainage Thigh soft 5/5 Quadriceps, Tibialis Anterior, EHL, Gastroc, Soleus, Peroneals Normal sensation Palpable DT/PT, CR <2 sec No distal edema Results Result Diagram: 05/05/17 0627 05/05/17 0627 GAUTAM JASON PA-C May 07, 2017 09:32
[2017-05-07] MEDS: PREGABALIN 25 MG CAP PO SCH (09:52)
[2017-05-07] MEDS: METOPROLOL 25 MG TAB PO SCH (09:52)
[2017-05-07] MEDS: DOCUSATE SODIUM 100 MG CAP PO SCH (09:52)
[2017-05-07] MEDS: HYDROCHLOROTHIAZIDE 12.5 MG CAP PO SCH (09:52)
[2017-05-07] MEDS: ASPIRIN 325 MG TAB PO SCH (09:52)
[2017-05-07] MEDS: HYDROCODONE/APAP (7.5/325) TAB PO PRN (09:56)
[2017-05-07] MEDS: VANCOMYCIN 500MG/NS (PMX) 100 ML IVPB SCH (12:12)
--- NOTE | 2017-05-07 12:54 | CONS ---
Date/Time of Note Date/Time of Note DATE: 05/07/17 TIME: 12:53 Assessment/Plan Assessment/Plan Additional Assessment/Plan L Parietal lobe CVA, acute Sinus bradycardia, resolved Infected right knee arthroplasty, status post replacement and irrigation Intubation for airway protection, extubated immediately Hypertension Anemia, mild Hypokalemia, mild Plan -acute CVA during hospitalization, Neurology follwoing cradiology followin g, no p miranda for intervention now -ID following, s/p PICC line , Plan for iV abx vancomyctin till 06/13/17 -Continue knee care per ortho surgery. -Resume p.o. meds ok to d/c from Medicine point of view Consultation Date/Type/Reason Admit Date/Time Apr 27, 2017 at 09:57 Initial Consult Date 05/01/17 Type of Consultation: NEPHROLOGY Referring Provider: TRINIDAD GONZALEZ Exam/Review of Systems Vital Signs Vitals Vital Signs Date Time Temp Pulse Resp B/P Pulse Ox O2 Delivery O2 Flow Rate FiO2 05/07/17 12:10 91 05/07/17 11:08 98.2 19 131/81 98 Intake and Output 05/06/17 05/06/17 05/07/17 15:00 23:00 07:00 Intake Total 850 ml 400 ml Balance 850 ml 400 ml Exam General: Patient is laying in bed and answers questions appropriately Mentation: Patient is alert and oriented 4, mild difficulty finding speech Head: Normocephalic atraumatic Eyes: EOMI, pupils reactive to light Neck: Supple, nontender, midline Respiratory: Clear to auscultation bilaterally Cardiovascular: regular rate, no obvious murmurs Gastrointestinal: non-tender to palpation, bowel sounds heard. Neurological: Moves all extremities spontaneously, muscle strength equal in all extremities. Skin: R knee surgical site CDI Results Result Diagram: 05/05/1762605/05/17626 Medications Medications Current Medications Hydromorphone HCl (Dilaudid) 1 mg Q3H PRN IV PAIN LEVEL 8-10; Start 04/27/17 at 19:00 Ondansetron HCl (Zofran Inj) 4 mg Q6H PRN IV NAUSEA AND/OR VOMITING; Start at 19:00 Bisacodyl (Dulcolax Supp) 10 mg Q12H PRN [place] CONSTIPATION; Start 04/27/17 at 19: 00 Magnesium Hydroxide (Milk Of Mag) 30 ml BID PRN PO CONSTIPATION; Start at 19:00 Sodium Biphosphate/ Sodium Phosphate (Fleet Enema) 133 ml DAILY PRN [place] CONSTIPATION; Start 04/27/17 at 19:00 Docusate Sodium (Colace) 100 mg BID PO Last administered on 05/07/17 09:52; Admin Dose 100 MG; Start 04/27/17 at 21:00 Diphenhydramine HCl (Benadryl) 25 mg Q6H PRN PO PRURITUS; Start 04/27/17 at 19: 00 Acetaminophen/ Hydrocodone Bitart ([place] (7.5-325)) 1 tab Q4H PRN PO PAIN LEVEL 1-3 Last administered on 05/07/17 09:56; Admin Dose 1 TAB; Start at 19:00 Acetaminophen/ Hydrocodone Bitart ([place] (7.5-325)) 2 tab Q4H PRN PO PAIN LEVEL 4-7 Last administered on 05/06/17 21:37; Admin Dose 2 TAB; Start at 19:00 Pantoprazole (Protonix Tab) 40 mg BID@06,18 PO Last administered on 05/07/17 05:26; Admin Dose 40 MG; Start 04/28/17 at 06:00 Pregabalin (Lyrica) 50 mg BID PO Last administered on 05/07/17 09:52; Admin Dose 50 MG; Start 04/27/17 at 21:00 Aspirin (Aspirin) 325 mg BID PO Last administered on 05/07/17 09:52; Admin Dose 325 MG; Start 04/28/17 at 10:30 Hydrochlorothiazide (Hydrochlorothiazide) 12.5 mg DAILY PO Last administered on 05/07/17 09:52; Admin Dose 12.5 MG; Start 04/28/17 at 14:30 Metoprolol Tartrate (Lopressor) 25 mg BID PO Last administered on 05/07/17 09: 52; Admin Dose 25 MG; Start 04/29/17 at 09:30 IV Flush (NS 10 ml) 10 ml PRN PRN IV IV PROTOCOL; Start 04/30/17 at 14:30 Atorvastatin Calcium 80 mg 80 mg HS PO Last administered on 8/24/17at 21:26; Admin Dose 80 MG; Start 05/01/17 at 21:00 Vancomycin HCl (Vancocin) 100 ml @ 100 mls/hr Q12H IVPB Last administered on t 12:12; Admin Dose 100 MLS/HR; Start 05/05/17 at 23:00 SHIRA EGAN MD May 07, 2017 12:54
--- NOTE | 2017-05-07 14:48 | CONS ---
Date/Time of Note Date/Time of Note DATE: 05/07/17 TIME: 14:48 Consult Date/Type/Reason Admit Date/Time Apr 27, 2017 at 09:57 Initial Consult Date 04/28/17 Type of Consultation: cardiology Ordering Provider: TRINIDAD GONZALEZ d/w staff and rhythm was reviewed. pt remains in NSR pt with no left sided chest pain. 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 pupils are equal. round. NECK: NO JVD. no stridor. CV: RRR. systolic murmur; no gallop or rubs. PULM: no wheezing or rhonchi. GI: SOFT, NT, ND, no rebound or guarding Extremity: S/P R KNEE SURGERY neuro: awake and alert, OX3. Psych: calm and pleasant rectal: deferred : normal Objective Vital Signs Date Time Temp Pulse Resp B/P Pulse Ox O2 Delivery O2 Flow Rate FiO2 05/07/17 12:10 91 05/07/17 11:08 98.2 19 131/81 98 Intake and Output 05/06/17 05/06/17 05/07/17 15:00 23:00 07:00 Intake Total 850 ml 400 ml Balance 850 ml 400 ml Results/Medications Result Diagram: 05/05/1762605/05/17626 Medications Current Medications Hydromorphone HCl (Dilaudid) 1 mg Q3H PRN IV PAIN LEVEL 8-10; Start 04/27/17 at 19:00 Ondansetron HCl (Zofran Inj) 4 mg Q6H PRN IV NAUSEA AND/OR VOMITING; Start at 19:00 Bisacodyl (Dulcolax Supp) 10 mg Q12H PRN NE CONSTIPATION; Start 04/27/17 at 19: 00 Magnesium Hydroxide (Milk Of Mag) 30 ml BID PRN PO CONSTIPATION; Start at 19:00 Sodium Biphosphate/ Sodium Phosphate (Fleet Enema) 133 ml DAILY PRN NE CONSTIPATION; Start 04/27/17 at 19:00 Docusate Sodium (Colace) 100 mg BID PO Last administered on 05/07/17t 09:52; Admin Dose 100 MG; Start 04/27/17 at 21:00 Diphenhydramine HCl (Benadryl) 25 mg Q6H PRN PO PRURITUS; Start 04/27/17 at 19: 00 Acetaminophen/ Hydrocodone Bitart (Hendricks (7.5-325)) 1 tab Q4H PRN PO PAIN LEVEL 1-3 Last administered on 05/07/17 09:56; Admin Dose 1 TAB; Start at 19:00 Acetaminophen/ Hydrocodone Bitart (Hendricks (7.5-325)) 2 tab Q4H PRN PO PAIN LEVEL 4-7 Last administered on 05/06/17 21:37; Admin Dose 2 TAB; Start at 19:00 Pantoprazole (Protonix Tab) 40 mg BID@06,18 PO Last administered on 05/07/17 05:26; Admin Dose 40 MG; Start 04/28/17 at 06:00 Pregabalin (Lyrica) 50 mg BID PO Last administered on 05/07/17 09:52; Admin Dose 50 MG; Start 04/27/17 at 21:00 Aspirin (Aspirin) 325 mg BID PO Last administered on 05/07/17 09:52; Admin Dose 325 MG; Start 04/28/17 at 10:30 Hydrochlorothiazide (Hydrochlorothiazide) 12.5 mg DAILY PO Last administered on 05/07/17 09:52; Admin Dose 12.5 MG; Start 04/28/17 at 14:30 Metoprolol Tartrate (Lopressor) 25 mg BID PO Last administered on 05/07/17 09: 52; Admin Dose 25 MG; Start 04/29/17 at 09:30 IV Flush (NS 10 ml) 10 ml PRN PRN IV IV PROTOCOL; Start 04/30/17 at 14:30 Atorvastatin Calcium 80 mg 80 mg HS PO Last administered on 05/06/17 21:26; Admin Dose 80 MG; Start 05/01/17 at 21:00 Vancomycin HCl (Vancocin) 100 ml @ 100 mls/hr Q12H IVPB Last administered on 12:12; Admin Dose 100 MLS/HR; Start 05/05/17 at 23:00 Assessment/Plan Chief Complaint/Hosp Course Assessment/plan: 1. s/p marked arrhythmia and bradycardia during surgery and possible ST elevation on rhythm but not seen on ECG pt currently with no chest pain and normal trop will cont ASA will hold off lexiscan due to acute CVA now. 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 2.HTN: stable now 3. resp failure: extubated 4. dyslipidemia 5. infected right hearwear s/p surgery: f/u ortho rec. abx as per ID 6.CVA: defer to IM and neurology rec. 7. short run of asymptomatic SVT: will monitor only at this time Thank you for this referral will continue to follow along with you next week. Problems: LISA MOLINA MD May 07, 2017 14:48
--- NOTE | 2017-05-07 16:16 | DS ---
Date/Time of Note Date/Time of Note DATE: 05/07/17 TIME: 16:05 Discharge Summary Admission/Discharge Info Admit Date/Time Apr 27, 2017 at 09:57 Discharge Date/Time May 07, 2017 at 14:45 Discharge Diagnosis s/p revision right TKA Patient Condition: Fair Procedures Right knee incision and drainage, removal of antibiotic impregnated spacer, revision right total knee arthroplasty Hospital Course This is a 66-year-old gentleman, who had previously underwent a right total knee arthroplasty approximately 11 years ago, who was evaluated by Dr. 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 A two-stage exchange was recommended, and he underwent removal of the infected right TKA, and implantation of an antibiotic spacer several months ago. He has had 6 weeks of intravenous antibiotics and was admitted, and taking back to the operating room on 04/27/2017 for incision and drainage of his right knee, removal of the antibiotic impregnated spacer, and revision right total knee arthroplasty. The patient tolerated the procedure well. There were no complications throughout the surgery, but upon cessation of anesthesia, the patient developed severe bradycardia requiring atropine and chest compressions. He was ultimately stabilized in the operating room and transferred directly to the ICU to for close monitoring. He was stabilized and extubated on postoperative day 1 and began physical therapy. He was transferred and monitored closely on telemetry floor on POD #2, and developed some new onset confusion. An MRI and CT scan of the brain demonstrated an acute left parietal infarct. He continued to be closely monitored by neurology and cardiology, and was noted to have no permanent focal deficits or ongoing cardiac issues. On postoperative day 10, he was deemed stable for discharge home. Prior to discharge, his incision was inspected and noted to be clean dry and intact. His stitches were removed and a new dressing was applied. The patient was discharged home in stable condition. Discharge instructions: The patient be discharged home in stable condition. He is to resume a normal diet. He is weightbearing as tolerated on the right lower extremity. He will begin physical therapy with home health. He will be discharged home on the medication noted and is to resume all of his normal home medication. He is to call the office or go to emergency room for any concerns including increased redness, swelling, drainage, fever, or any concerns regarding the operation or site of incision. Home Meds Active Scripts Pregabalin* (Lyrica*) 25 Mg Capsule, 50 MG PO BID for 30 Days, #60 CAP Prov:GAUTMA JASON PA-C 04/29/17 Pantoprazole* (Pantoprazole*) 40 Mg Tablet.dr, 40 MG PO BID@06,18 for 40 Days, # 40 Prov:GAUTAM JASON PA-C 04/29/17 Tramadol HCl (Tramadol HCl) 50 Mg Tablet, 50 MG PO Q6 for 30 Days, #60 TAB Prov:GAUTAM JASON PA-C 04/29/17 Hydrocodone/Acetaminophen (Hydrocodon-Acetaminoph 7.5-325) 1 Each Tablet, 1 TAB PO Q4H Y for PAIN LEVEL 1-3 for 30 Days, #60 TAB Prov:GAUTAM JASON PA-C 04/29/17 Aspirin (Aspirin Lite-Coat) 325 Mg Tablet, 325 MG PO BID for 40 Days, #80 TAB Prov:GAUTAM JASON PA-C 04/29/17 Reported Medications Mupirocin Calcium* (Bactroban* Nasal) 2% -1 Gram Oint...g., 1 APPLIC NASAL BID, TUB STARTED --04/27/17 Benazepril-Hydrochlorothiazide (Benazepril-Hydrochlorothiazide) 10-12.5 Mg Tablet, 1 TAB PO DAILY, #30 TAB 04/27/17 Follow-up Plan Follow-up in the office in 1 week Primary Care Provider MD EREN Fernández ASHKHAN N. PA-C May 07, 2017 16:16
--- NOTE | 2017-05-07 16:21 | CONS ---
Date/Time of Note Date/Time of Note DATE: 05/07/17 TIME: 16:20 Assessment/Plan Assessment/Plan Chief Complaint/Hosp Course SUBJECTIVE DATA: Alert, getting ready to be discharged home, feels good, no fevers Microbiology: Intraoperative cultures negative. Antimicrobials. IV vancomycin. PHYSICAL EXAMINATION: GENERAL: Well developed, elderly, man who is alert, in no distress. HEENT: Head atraumatic, normocephalic. Sclerae anicteric. Buccal mucosa pink. NECK: Supple. Trachea midline. CHEST: Rise symmetrical. Breath sounds clear. HEART: S1, S2. ABDOMEN: Soft. Bowel sounds present. EXTREMITIES: Without cyanosis. ASSESSMENT: 1. 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 2. Status post irrigation and debridement of right knee removal of spacer and reimplantation of right total knee arthroplasty on April 27, 2017. 3. Hypertension. 4. Methicillin-resistant Staphylococcus aureus nares colonization. 5. CVA PLAN: The patient remains stable, per ortho rec-s will be dc on IV Vanco till Jun 13 pt Problems: Consultation Date/Type/Reason Admit Date/Time Apr 27, 2017 at 09:57 Initial Consult Date 04/28/17 Type of Consultation: ID Referring Provider: TRINIDAD GONZALEZ Exam/Review of Systems Vital Signs Vitals Vital Signs Date Time Temp Pulse Resp B/P Pulse Ox O2 Delivery O2 Flow Rate FiO2 05/07/17 12:10 91 05/07/17 11:08 98.2 19 131/81 98 Intake and Output 05/06/17 05/06/17 05/07/17 15:00 23:00 07:00 Intake Total 850 ml 400 ml Balance 850 ml 400 ml Results Result Diagram: 05/05/17 0627 05/05/17 0627 SHAKIRA EDOUARD NP May 07, 2017 16:21
== END 2017-05-07 14:45 | disposition home health service (06) | DRG 466 ==
LOC: UNDOADMIN 11:03 → REC 11:03 → ICU 04-27 18:56 → TEL 04-28 15:30
PROVIDERS: ADMIT Orthopaedic Surgery; ATTEND Orthopaedic Surgery
PROC: 0SPC08Z Removal of Spacer from Right Knee Joint, Open Approach (ICD-10-PCS; 2017-04-27)
PROC: 5A1935Z Respiratory Ventilation, Less than 24 Consecutive Hours (ICD-10-PCS; 2017-04-27)
PROC: 0SRC0J9 Replacement of Right Knee Joint with Synthetic Substitute, Cemented, Open Approach (ICD-10-PCS; principal; 2017-04-27 13:00)
PROC: 02HV33Z Insertion of Infusion Device into Superior Vena Cava, Percutaneous Approach (ICD-10-PCS; 2017-04-30)
DX: T84.53XA Infection and inflammatory reaction due to internal right knee prosthesis, initial encounter (principal); I63.9 Cerebral infarction, unspecified; R47.01 Aphasia; I47.1 Supraventricular tachycardia; R27.8 Other lack of coordination; I49.8 Other specified cardiac arrhythmias; I10 Essential (primary) hypertension; D63.8 Anemia in other chronic diseases classified elsewhere; E87.6 Hypokalemia; E78.5 Hyperlipidemia, unspecified; Y83.8 Other surgical procedures as the cause of abnormal reaction of the patient, or of later complication, without mention of misadventure at the time of the procedure; Z22.322 Carrier or suspected carrier of Methicillin resistant Staphylococcus aureus; Z87.891 Personal history of nicotine dependence
CPT/HCPCS: 36569; 36600; 70450; 70549; 70551; 71010; 73560; 73562; 75571; 76937; 80048; 80053; 80061; 80202; 81003; 82550; 82553; 82728; 82803; 83540; 83735; 83880; 84100; 84439; 84443; 84484; 85014; 85018; 85025; 85610; 85730; 87070; 87075; 87081; 87086; 87102; 87116; 88300; 92523; 92610; 93005; 93306; 93970; 94002; 94003; 94770; 97110; 97116; 97162; 97164; 97166; 97530; 97535; C1776; C1713; C9290; J0171; J0690; J0735; J1100; J1644; J1885; J2250; J2274; J2405; J2710; J3010; J3370; J3475; J3480; J7040; J7050; J7120; Q9967

== ENCOUNTER → 2017-04-21 | Outpatient (CLI) | payer OTHER ==
[~2017-04-21] MED LIST changes: +BENA1TAB12 PO; -LIDOCAINE 1% (MPF) 5 ML VIAL SC ONE; +MUPI1OIN5 NASAL; -SOD CHLORIDE 0.9% 100 ML ONE
--- NOTE | 2017-04-21 13:46 | RADRPT ---
PROCEDURE: XR Chest. CLINICAL INDICATION: CXR TAKEN AT [facility] PRE-OP TECHNIQUE: Single frontal view of the chest was obtained COMPARISON: Chest x-ray 12/31/2016 FINDINGS: The left PICC line has been removed. The cardiomediastinal silhouette is within normal limits. No pneumothorax, pleural effusion, or parenchymal consolidation is identified. There is no evidence of pulmonary vascular congestion. There are degenerative changes of the visualized spine. IMPRESSION: 1. No evidence of acute cardiopulmonary process. 2. Interval removal of left PICC line. RPTAT: EE Physician Carlos Date Time Electronically viewed and signed by Physician Carlos on 04/21/2017 13:46 RC/
--- NOTE | 2017-04-21 16:16 | RADRPT ---
PROCEDURE: Limited x-ray of both lower extremities. CLINICAL INDICATION: Bilateral leg pain. TECHNIQUE: Single frontal view of both lower extremities was obtained from the hips to the calves. COMPARISON: Right knee radiographs dated 02/05/2017. FINDINGS: Bone cement is noted at the site of right knee arthroplasty as seen previously. There is diffuse os teopenia. The hips are grossly normal. There are moderate degenerative changes of the left knee wi th joint space narrowing and osteophytes. Surgical clips are present bilaterally in the scrotum. IMPRESSION: 1. Bone cement and site of the right knee arthroplasty, unchanged. 2. Moderate degenerative changes of the left knee. RPTAT: QQ .Tres Cortez MD, MD Date Time Electronically viewed and signed by .Tres Cortez MD, on 04/21/2017 16:16 .R/
== END | disposition home or self-care (01) ==
LOC: HKI 08:59
PROVIDERS: ATTEND Orthopaedic Surgery
DX: T84.53XA Infection and inflammatory reaction due to internal right knee prosthesis, initial encounter (principal); T84.84XA Pain due to internal orthopedic prosthetic devices, implants and grafts, initial encounter; Z96.651 Presence of right artificial knee joint
CPT/HCPCS: 71010; 77073; Z7500; G0463